=== PATIENT | female | born 1935 | race Caucasian/White ===

== ENCOUNTER → 2016-04-15 | Outpatient (CLI) | payer MEDICARE ==
--- NOTE | 2016-04-15 10:30 | REPMRS ---
Patient History The patient states she has not had a clinical breast exam in over a year. Patient has history of cancer in the right breast at age 71. Family history of breast cancer in sister at age 70 and unknown cancer in daughter at age 45. 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 Taking tamoxifen beginning at age 73. Digital Mammo Screening Bilat: April 15, 2016 - Exam #: [id number] Bilateral CC and MLO view(s) were taken. Technologist: Vanita Guzman, Technologist Prior study comparison: July 12, 2014, bilateral digital mammo screening bilat performed at [facility]. July 09, 2013, bilateral digital mammo screening bilat performed at [facility]. July 13, 2012, bilateral digital mammo screening bilat performed at [facility]. FINDINGS: There are scattered fibroglandular densities. There has been no change in the appearance of the mammogram from the prior studies. There are stable post treatment changes in the right breast.There is a mild amount of scattered fibroglandular density which is fairly symmetric. There is no interval development of dominant mass, architectural distortion, or clustered microcalcification suggestive of malignancy. ASSESSMENT: BI-RADS/ACR category 1 mammogram. Negative. Recommendation Routine screening mammogram in 1 year (for women over age 40). This mammogram was interpreted with the aid of an FDA-approved computer-aided dectection system. Electronically Signed By: Clinton Grullon MD 04/15/16 0561
== END ==
LOC: M RAD 08:54
DX: Z12.31 Encounter for screening mammogram for malignant neoplasm of breast (principal); M81.0 Age-related osteoporosis without current pathological fracture; Z85.3 Personal history of malignant neoplasm of breast; Z80.3 Family history of malignant neoplasm of breast

== ENCOUNTER → 2016-05-27 | Outpatient (CLI) | payer MEDICARE ==
--- NOTE | 2016-05-27 12:19 | REP ---
Clinical: Hip pain. Technique: AP and frog lateral views of the right and left hip. Findings: Moderate symmetric arthritic degenerative changes includes joint space narrowing, creased sclerosis to the acetabular roof, cortical irregularity involving the greater trochanters as well as spurring along the anteroinferior margin of the femoral heads. No acute fracture dislocation. Impression: Symmetric moderate arthritic degenerative changes. Signed by Reece Schmitt MD 05/27/2016 12:10 P
== END ==
LOC: M RAD 11:55
PROVIDERS: ATTEND Internal Medicine Rheumatology
DX: M25.551 Pain in right hip (principal); M25.552 Pain in left hip

== ENCOUNTER → 2016-06-28 | Outpatient (CLI) | payer MEDICARE | LOC: M LAB 14:56 | PROVIDERS: ATTEND Internal Medicine Rheumatology | DX: M85.89 Other specified disorders of bone density and structure, multiple sites (principal); E55.9 Vitamin D deficiency, unspecified ==

== ENCOUNTER → 2016-09-30 | Outpatient (CLI) | payer MEDICARE | LOC: M LAB 08:59 | PROVIDERS: ATTEND Internal Medicine Rheumatology | DX: E55.9 Vitamin D deficiency, unspecified (principal) ==

== ENCOUNTER → 2017-01-26 | Outpatient (CLI) | payer MEDICARE ==
--- NOTE | 2017-01-26 15:40 | REP ---
PA and lateral chest: Comparison is 04/23/2014. There is mild chronic interstitial coarsening, unchanged, compatible with chronic interstitial lung disease. There are no acute infiltrates or effusions. Cardiac size is upper normal. The shereen, mediastinum, bony thorax are unchanged unremarkable for patient age. Impression: There are no acute cardiopulmonary findings. There are chronic stable findings as described. Signed by Emiliano Swain MD 01/26/2017 03:32 P
== END ==
LOC: M RAD 15:00
PROVIDERS: ATTEND Nurse Practitioner Family
DX: R05 Cough (principal); R60.9 Edema, unspecified; R09.89 Other specified symptoms and signs involving the circulatory and respiratory systems

== ENCOUNTER → 2017-02-09 | Outpatient (CLI) | payer MEDICARE ==
--- NOTE | 2017-02-09 18:01 | REP ---
LUMBAR SPINE, FIVE VIEWS: HISTORY: Abnormal bone density. There is no acute fracture. The lumbar intervertebral discs are decreased in height consistent with disc degeneration. Osteophytes are present throughout the lumbar spine. There is narrowing of the L3-4 through L5-S1 facet joints with associated sclerosis. There are 4 mm of grade 1 spondylolisthesis of L3 on L4 and 8 mm of grade 1 spondylolisthesis of L4 on L5. IMPRESSION: Degenerative change as described above. Signed by Anish Meeks MD 02/10/2017 08:29 A
== END ==
LOC: M LAB 11:37
PROVIDERS: ATTEND Internal Medicine Rheumatology
DX: M85.89 Other specified disorders of bone density and structure, multiple sites (principal); M51.36 Other intervertebral disc degeneration, lumbar region; M25.78 Osteophyte, vertebrae; M43.16 Spondylolisthesis, lumbar region

== ENCOUNTER → 2017-05-02 | Outpatient (REF) | payer MEDICARE ==
[2017-05-02 16:22] LABS: BASO # 0.1 10^3/uL (0.0-0.2); BASO % 0.6 % (0.0-1.0); EOS # 0.1 10^3/uL (0.0-0.50); EOS % 1.7 % (0.0-3.0); HEMATOCRIT 37.7 % (36.0-47.0); HEMOGLOBIN 12.5 g/dl (12.0-16.0); IMMATURE GRANULOCYTE % 0.4 % (0-0); LYMPH # 1.8 10^3/uL (1.5-4.5); LYMPH % 23.4 % (24.0-44.0); MEAN CORPUSCULAR HEMOGLOBIN 32.6 pg (27.0-33.0); MEAN CORPUSCULAR HGB CONC 33.2 g/dl (32.0-36.5); MEAN CORPUSCULAR VOLUME 98.2 fl (80.0-96.0); MONO # 0.7 10^3/uL (0.0-0.8); MONO % 8.6 % (0.0-5.0); NEUTROPHILS # 5.1 10^3/uL (1.8-7.7); NEUTROPHILS % 65.3 % (36.0-66.0); PLATELET COUNT, AUTOMATED 194 10^3/uL (150-450); RED BLOOD COUNT 3.84 10^6/uL (4.00-5.40); RED CELL DISTRIBUTION WIDTH 13.2 % (11.5-14.5); WHITE BLOOD COUNT 7.8 10^3/uL (4.0-10.0)
[2017-05-02 16:40] LABS: INR 0.96; PROTHROMBIN TIME 12.9 SECONDS (12.4-14.5)
[2017-05-02 16:41] LABS: PARTIAL THROMBOPLASTIN TIME 29.5 SECONDS (26.8-37.9)
[2017-05-02 16:55] LABS: ALBUMIN/GLOBULIN RATIO 1.48 (1.00-1.93); ALKALINE PHOSPHATASE 79 U/L (45-117); ALT/SGPT 35 U/L (12-78); ANION GAP 9 MEQ/L (8-16); AST/SGOT 28 U/L (7-37); BILIRUBIN,TOTAL 0.3 MG/DL (0.2-1.0); BLOOD UREA NITROGEN 13 MG/DL (7-18); CALCIUM LEVEL 9.3 MG/DL (8.8-10.2); CARBON DIOXIDE LEVEL 31 MEQ/L (21-32); CHLORIDE LEVEL 103 MEQ/L (98-107); CREATININE FOR GFR 0.87 MG/DL (0.55-1.30); GLOMERULAR FILTRATION RATE > 60.0 (>39); GLUCOSE, FASTING 97 MG/DL (70-100); POTASSIUM SERUM 4.1 MEQ/L (3.5-5.1); SODIUM LEVEL 143 MEQ/L (136-145); TOTAL PROTEIN 6.7 GM/DL (6.4-8.2)
[2017-05-02 17:44] LABS: TOTAL 25(OH) VITAMIN D 50.3 NG/ML (30.0-100.0)
== END ==
LOC: M LABDRAW1 13:20
DX: E83.52 Hypercalcemia (principal); R23.3 Spontaneous ecchymoses; Z79.899 Other long term (current) drug therapy; M15.2 Bouchard's nodes (with arthropathy)
CPT/HCPCS: 80053

== ENCOUNTER → 2017-12-22 | Outpatient (CLI) | payer MEDICARE | LOC: M RAD 14:32 | DX: M25.562 Pain in left knee (principal); M25.762 Osteophyte, left knee | CPT/HCPCS: 73564 ==

== ENCOUNTER → 2018-10-10 | Outpatient (REF) | payer MEDICARE | LOC: M LAB REF 12:34 | PROVIDERS: ATTEND Internal Medicine | DX: N39.0 Urinary tract infection, site not specified (principal) ==

== ENCOUNTER → 2019-01-16 | Outpatient (CLI) | payer MEDICARE ==
--- NOTE | 2019-01-16 14:57 | REP ---
REASON: Hip pain. COMPARISON: 05/27/2016 Marked asymmetric hip joint space narrowing has developed since the last exam with subchondral sclerosis and prominent marginal osteophytosis. There is no fracture or dislocation. IMPRESSION: Advanced chronic changes have developed since the last exam as described above. Electronically Signed by Kelton Decker DO 01/16/2019 03:48 P
== END ==
LOC: M RAD 11:47
PROVIDERS: ATTEND Physician Assistant Medical
DX: M25.752 Osteophyte, left hip (principal)

== ENCOUNTER 2021-03-05 11:35 | Observation (INO) | payer MEDICARE ==
[~2021-03-05] VITALS: Ht 154.9 cm; Wt 70.8 kg
[2021-03-05 12:11] LABS: BASO # 0.1 10^3/uL (0.0-0.2); BASO % 0.4 % (0.0-1.0); EOS # 0.1 10^3/uL (0.0-0.5); EOS % 0.5 % (0.0-3.0); HEMATOCRIT 46.2 % (36.0-47.0); HEMOGLOBIN 15.5 g/dl (12.0-15.5); LYMPH # 1.2 10^3/uL (1.5-5.0); LYMPH % 8.7 % (24.0-44.0); MEAN CORPUSCULAR HEMOGLOBIN 32.7 pg (27.0-33.0); MEAN CORPUSCULAR HGB CONC 33.5 g/dl (32.0-36.5); MEAN CORPUSCULAR VOLUME 97.5 fl (80.0-96.0); MONO # 1.1 10^3/uL (0.0-0.8); MONO % 7.6 % (2.0-8.0); NEUTROPHILS # 11.4 10^3/uL (1.5-8.5); NEUTROPHILS % 82.4 % (36.0-66.0); PLATELET COUNT, AUTOMATED 222 10^3/uL (150-450); RED BLOOD COUNT 4.74 10^6/uL (4.00-5.40); WHITE BLOOD COUNT 13.9 10^3/uL (4.0-10.0)
[2021-03-05] MEDS ORDERED: ACETAMINOPHEN TAB 650MG DOSE (2X325MG) PO ONE (12:30)
[2021-03-05 12:34] LABS: ALBUMIN 3.8 GM/DL (3.2-5.2); ALT/SGPT 75 U/L (12-78); BLOOD UREA NITROGEN 31 MG/DL (7-18); CALCIUM LEVEL 9.9 MG/DL (8.8-10.2); CARBON DIOXIDE LEVEL 28 MEQ/L (21-32); CHLORIDE LEVEL 102 MEQ/L (98-107); CREATININE FOR GFR 0.67 MG/DL (0.55-1.30); GLOMERULAR FILTRATION RATE > 60.0 (>32); GLUCOSE, FASTING 93 MG/DL (70-100); POTASSIUM SERUM 3.5 MEQ/L (3.5-5.1); SODIUM LEVEL 141 MEQ/L (136-145); TOTAL PROTEIN 6.9 GM/DL (6.4-8.2)
[2021-03-05] MEDS ORDERED: NS 1,000 ML IV ONE ×3 (13:45→20:05)
--- OUTSIDE RECORDS SUMMARY | 2021-03-05 13:47 | CCD | Continuity of Care Document ---
Author Author Kamini PEREZ P.A.-C. Organization Unknown Address [address] [place] [id number] Phone [phone] Care Team Providers Care Financial Management Name Role Phone Geovanna Lewis AUTM [phone] Problems Description No Information Available Social History Type Date Description Comments Sex Unknown Allergies, Adverse Reactions, Alerts Active Allergies Criticality Reaction | Severity Comments Date Clindamycin Unable to assess criticality rash and headache 12/03/2011 Rabies Vaccines Unable to assess criticality rash 12/03/2011 Penicillin Unable to assess criticality lymphadenitis 07/31/2013 Clindamycin Unable to assess criticality rash 07/31/2013 Synvisc Unable to assess criticality severe local swelling 05/03/2017 Prozac Unable to assess criticality made her fee l angry 09/09/2017 Gabapentin Unable to assess criticality made headach e more severe 12/22/2017 Medications Active Medications SIG Qnty Indications Ordering Provide r Date Nortriptyline HCL 50mg Capsules Take 1 Capsule By Mouth Twice Daily. Maximum Daily Dose Is 2. Maximum Daily Dose Is 2 180caps G43.711 Shirley Rodriguez M.D. 09/22/2016 Baclofen 10mg Tablets Take 1 1/2 Tablets By Mouth Four Times Daily; Maximum Daily Dose Is 6 Tablets 540tabs M 54.2 Jimbo Cho M.D. 03/17/2015 Immunizations Description No Information Available Vital Signs Date Vital Result Comment 12/15/2020 5:58am BP Systolic 140 mmHg BP Diastolic 80 mmHg Heart Rate 80 /min Respiratory Rate 20 /min 08/12/2020 7:20am BP Systolic 140 mmHg BP Diastolic 80 mmHg Heart Rate 88 /min Respiratory Rate 16 /min Results Description No Information Available Procedures Date Code Description Status 12/15/2020 03124 Office/Outpatient Established Mo d MDM 30-39 Min Completed 08/12/2020 87508 Office/Outpatient Established Mo d MDM 30-39 Min Completed Medical Devices Description No Information Available Encounters Type Date Location Provider Dx Diagnosis Office Visit 12/15/2020 11:15a Main office - [place] Hilario Zavala.A.-C. M79.7 Fibromyalgia M54.2 Cervicalgia M54.5 Low back pain G43.719 Chronic migraine w/o aura, i ntractable, w/o stat migr M54.81 Occipital neuralgia F32.89 Other specified depressive e pisodes Office Visit 08/12/2020 9:45a Main office - [place] Hilario Zavala.A.-C. G43.719 Chronic migraine w/o aura, intractable, w/o stat migr M54.81 Occipital neuralgia M79.7 Fibromyalgia M54.2 Cervicalgia M54.5 Low back pain M25.549 Pain in joints of unspecifie d hand F32.89 Other specified depressive e pisodes Assessments Date Code Description Provider 12/15/2020 M79.7 Fibromyalgia Jasmyn Perez P.A.-C. 12/15/2020 M54.2 Cervicalgia Jasmyn Perez P.A.-C. 12/15/2020 M54.5 Low back pain Jasmyn Perez P.A.-C. 12/15/2020 G43.719 Chronic migraine without aura, i ntractable, without status m Jasmyn Perez P.A.-C. 12/15/2020 M54.81 Occipital neuralgia Jasmyn garcia P.A.-C. 12/15/2020 F32.89 Other specified depressive episo sandy Jasmyn Perez P.A.-C. 08/12/2020 G43.719 Chronic migraine without aura, i ntractable, without status m Jasmyn Perez P.A.-C. 08/12/2020 M54.81 Occipital neuralgia Jasmyn garcia P.A.-C. 08/12/2020 M79.7 Fibromyalgia Jasmyn Perez P.A.-C. 08/12/2020 M54.2 Cervicalgia Jasmyn Perez P.A.-C. 08/12/2020 M54.5 Low back pain Jasmyn Perez P.A.-C. 08/12/2020 M25.549 Pain in joints of unspecified [place] Jasmyn Perez P.A.-C. 08/12/2020 F32.89 Other specified depressive episo sandy Jasmyn Perez P.A.-C. Plan of Treatment Future Appointment(s):* 03/13/2021 11:30 am - Jasmyn Perez P.A.-C. at Main office - [place] 12/15/2020 - Jasmyn Perez P.A.-C.* M79.7 Fibromyalgia* Comments:* She continues baclofen and nortriptyline with Tylenol Arthritis. * M54.2 Cervicalgia* Comments:* Improved. * M54.5 Low back pain* Comments:* Stable. * G43.719 Chronic migraine without aura, intractable, without status m* Comments:* Improved. * M54.81 Occipital neuralgia* Comments:* Stable. * F32.89 Other specified depressive episodes* Comments:* Her mood is better today than at her last appt. She did not tolerate Prozac in the past when prescribed at her PCP office. She has declined Cymbalta. * Follow up:* 3 months Functional Status Description No Information Available Mental Status Description No Information Available Referrals Refer to Reason for Referral Status Appt Date [facility] Rheumatology INFLAMMATORY ARTHRITIS Created 0 Rheumatology [address] [address] [phone]"
--- OUTSIDE RECORDS SUMMARY | 2021-03-05 13:48 | CCD ---
Author Author [facility] Organization [facility] Address Unknown Phone Unavailable Care Team Providers Care Gear Inspector Name Role Phone Trickey, J Jasmyn PA Unavailable Unavailable Trickey, J Jasmyn PA Unavailable Unavailable Trickey, J Jasmyn PA Unavailable Unavailable Trickey, J Jasmyn PA Unavailable Unavailable Trickey, J Jasmyn PA Unavailable Unavailable Trickey, J Jasmyn PA Unavailable Unavailable Trickey, J Jasmyn PA Unavailable Unavailable Trickey, J Jasmyn PA Unavailable Unavailable Trickey, J Jasmyn PA Unavailable Unavailable Trickey, J Jasmyn PA Unavailable Unavailable Trickey, J Jasmyn PA Unavailable Unavailable Trickey, J Jasmyn PA Unavailable Unavailable Trickey, J Jasmyn PA Unavailable Unavailable Trickey, J Jasmyn PA Unavailable Unavailable Trickey, J Jasmyn PA Unavailable Unavailable Trickey, J Jasmyn PA Unavailable Unavailable Trickey, J Jasmyn PA Unavailable Unavailable Trickey, J Jasmyn PA Unavailable Unavailable Trickey, J Jasmyn PA Unavailable Unavailable Trickey, J Jasmyn PA Unavailable Unavailable Trickey, J Jasmyn PA Unavailable Unavailable Trickey, J Jasmyn PA Unavailable Unavailable Trickey, J Jasmyn PA Unavailable Unavailable Trickey, J Jasmyn PA Unavailable Unavailable Trickey, J Jasmyn PA Unavailable Unavailable Trickey, J Jasmyn PA Unavailable Unavailable Trickey, J Jasmyn PA Unavailable Unavailable Trickey, J Jasmyn PA Unavailable Unavailable Trickey, J Jasmyn PA Unavailable Unavailable Trickey, J Jasmyn PA Unavailable Unavailable Trickey, J Jasmyn PA Unavailable Unavailable Trickey, J Jasmyn PA Unavailable Unavailable Trickey, J Jasmyn PA Unavailable Unavailable Trickey, J Jasmyn PA Unavailable Unavailable Trickey, J Jasmyn PA Unavailable Unavailable Trickey, J Jasmyn PA Unavailable Unavailable Trickey, J Jasmyn PA Unavailable Unavailable Trickey, J Jasmyn PA Unavailable Unavailable Trickey, J Jasmyn PA Unavailable Unavailable Trickey, J Jasmyn PA Unavailable Unavailable Trickey, J Jasmyn PA Unavailable Unavailable Trickey, J Jasmyn PA Unavailable Unavailable Trickey, J Jasmyn PA Unavailable Unavailable Trickey, J Jasmyn PA Unavailable Unavailable Trickey, J Jasmyn PA Unavailable Unavailable Trickey, J Jasmyn PA Unavailable Unavailable Trickey, J Jasmyn PA Unavailable Unavailable Trickey, J Jasmyn PA Unavailable Unavailable Trickey, J Jasmyn PA Unavailable Unavailable Eliot Dixon MD Unavailable Unavailable Eliot Dixon MD Unavailable Unavailable Eliot Dixon MD Unavailable Unavailable Eliot Dixon MD Unavailable Unavailable [place] huerta MD Unavailable Unavailable [place] huerta MD Unavailable Unavailable [place] huerta MD Unavailable Unavailable DestinyEliot huerta MD Unavailable Unavailable Eliot Dixon MD Unavailable Unavailable Eliot Dixon MD Unavailable Unavailable Eliot Dixon MD Unavailable Unavailable Eliot Dixon MD Unavailable Unavailable Eliot Dixon MD Unavailable Unavailable Eliot Dixon MD Unavailable Unavailable Eliot Dixon MD Unavailable Unavailable Eliot Dixon MD Unavailable Unavailable Eliot Dixon MD Unavailable Unavailable Eliot Dixon MD Unavailable Unavailable Eliot Dixon MD Unavailable Unavailable Eliot Dixon MD Unavailable Unavailable Eliot Dixon MD Unavailable Unavailable Eliot Dixon MD Unavailable Unavailable Eliot Dixon MD Unavailable Unavailable Eliot Dixon MD Unavailable Unavailable Eliot Dixon MD Unavailable Unavailable Eliot Dixon MD Unavailable Unavailable Eliot Dixon MD Unavailable Unavailable Eliot Dixon MD Unavailable Unavailable Eliot Dixon MD Unavailable Unavailable Eliot Dixon MD Unavailable Unavailable Eliot Dixon MD Unavailable Unavailable Eliot Dixon MD Unavailable Unavailable Eliot Dixon MD Unavailable Unavailable Eliot Dixon MD Unavailable Unavailable Eliot Dixon MD Unavailable Unavailable Eliot Dixon MD Unavailable Unavailable Eliot Dixon MD Unavailable Unavailable Eliot Dixon MD Unavailable Unavailable Eliot Dixon MD Unavailable Unavailable [place] huerta MD Unavailable Unavailable Eliot Dixon MD Unavailable Unavailable Eliot Dixon MD Unavailable Unavailable Eliot Dixon MD Unavailable Unavailable [place], Eliot Vergara MD Unavailable Unavailable [place], Eliot Jai REINA Unavailable Unavailable [place], Eliot Jai REINA Unavailable Unavailable Destiny, Eliot Vergara MD Unavailable Unavailable [place], Eliot Vergara MD Unavailable Unavailable [place], Eliot Vergara MD Unavailable Unavailable [place]iny, Eliot Vergara MD Unavailable Unavailable [place], Eliot Vergara MD Unavailable Unavailable Destiny, Eliot Vergara MD Unavailable Unavailable Destiny, Eliot Vergara MD Unavailable Unavailable Destiny, Eliot Vergara MD Unavailable Unavailable [place], Eliot Vergara MD Unavailable Unavailable [place]iny, Eliot Vergara MD Unavailable Unavailable [place], Eliot Vergara MD Unavailable Unavailable [place]iny, Eliot Jai REINA Unavailable Unavailable [place], Eliot Jai REINA Unavailable Unavailable [place], Eliot Jai REINA Unavailable Unavailable Destiny, Eliot Vergara MD Unavailable Unavailable Destiny, Eliot Vergara MD Unavailable Unavailable [place], Eliot Vergara MD Unavailable Unavailable [place], Eliot Vergara MD Unavailable Unavailable [place], Eliot Vergara MD Unavailable Unavailable [place], Eliot Vergara MD Unavailable Unavailable Destiny, Eliot Vergara MD Unavailable Unavailable Destiny, Eliot Vergara MD Unavailable Unavailable Destiny, Eliot Vergara MD Unavailable Unavailable [place], Eliot Vergara MD Unavailable Unavailable [place], Eliot Jai REINA Unavailable Unavailable Destiny, Eliot Jai REINA Unavailable Unavailable Destiny, Eliot Jai REINA Unavailable Unavailable [place], Eliot Jai REINA Unavailable Unavailable [place], Eliot Vergara MD Unavailable Unavailable [place], Eliot Vergara MD Unavailable Unavailable [place], Eliot Vergara MD Unavailable Unavailable [place], Eliot Vergara MD Unavailable Unavailable Destiny, Eliot Vergara MD Unavailable Unavailable Destiny, Eliot Vergara MD Unavailable Unavailable [place], Eliot Vergara MD Unavailable Unavailable [place], Eliot Vergara MD Unavailable Unavailable [place]iny, Eliot Vergara MD Unavailable Unavailable [place], Eliot Vergara MD Unavailable Unavailable [place], Eliot Jai REINA Unavailable Unavailable [place], Eliot Jai REINA Unavailable Unavailable [place], Eliot Jai REINA Unavailable Unavailable Re-disclosure Warning The records that you are about to access may contain information from federally-assisted alcohol or drug abuse programs. If such information is present, then the following federally mandated warning applies: This information has been disclosed to you from records protected by federal confidentiality rules (42 CFR part 2). The federal rules prohibit you from making any further disclosure of this information unless further disclosure is expressly permitted by the written consent of the person to whom it pertains or as otherwise permitted by 42 CFR part 2. A general authorization for the release of medical or other information is NOT sufficient for this purpose. The Federal rules restrict any use of the information to criminally investigate or prosecute any alcohol or drug abuse patient.The records that you are about to access may contain highly sensitive health information, the redisclosure of which is protected by Article 27-F of the [facility] Public Health law. If you continue you may have access to information: Regarding HIV / AIDS; Provided by facilities licensed or operated by the [facility] Office of Mental Health; or Provided by the [facility] Office for People With Developmental Disabilities. If such information is present, then the following [facility] mandated warning applies: This information has been disclosed to you from confidential records which are protected by state law. State law prohibits you from making any further disclosure of this information without the specific written consent of the person to whom it pertains, or as otherwise permitted by law. Any unauthorized further disclosure in violation of state law may result in a fine or correction sentence or both. A general authorization for the release of medical or other information is NOT sufficient authorization for further disc losure. Family History Family Member Name Family Member Gender Family Member Status Date o f Status Description Data Source(s) Unknown Unknown Problem [facility] ([facility] ) Unknown Male Problem [facility] ([facility] ) Encounters Encounter Providers Location Date Indications Data Source(s ) Outpatient Attender: Jasmyn KOO [facility] n 12/15/2020 11:15:00 AM EDT [facility] ([facility]) Outpatient Attender: Jai Coronel 0 09/10/2020 11:00:00 AM EDT [facility] ([facility] ) Outpatient Attender: Jasmyn KOO [facility] n 08/12/2020 09:45:00 AM EDT [facility] ([facility]) Office Visit Attender: Jasmyn KOO [facility] n 03/31/2020 10:15:00 AM EST [facility] ([facility]) Outpatient Attender: Jai Coronel 1 05/06/2019 01:00:00 PM EST [facility] ([facility] ) Immunizations Vaccine Date Status Description Data Source(s) COVID-19 VACCINE Pfizer 02/11/2021 12:00:00 AM EST completed [facility] Vaccine Series Complete: YESThis Data wa s Submitted to [facility] Via Mailbox. COVID-19 VACCINE Moderna 07/01/2020 12:00:00 AM EDT completed [facility] Vaccine Series Complete: YESThis Data wa s Submitted to [facility] Via [employer]. COVID-19 VACCINE Moderna 06/03/2020 12:00:00 AM EST completed [facility] Vaccine Series Complete: NOThis Data was Submitted to [facility] Via Mailbox. Medications Medication Brand Name Start Date Product Form Dose Route Admi nistrative Instructions Pharmacy Instructions Status Indications Reaction Description Data Source(s) Shingrix Shingrix 09/10/2020 12:00:00 AM EDT activ e [facility] ([facility]) Nystatin 100 UNT/MG Topical Powder [Nystop] Nystop 07/07/2020 12:00:00 AM EDT active [facility] ([facility]) Covid-19 vaccine, Unspecified 07/01/2020 12:00:00 AM EDT completed [facility] ([facility]) Medication administered onsite Covid-19 vaccine, Unspecified 06/03/2020 12:00:00 AM EST completed [facility]) Medication administered onsite Tylenol W/Codeine #3 01/24/2020 12:00:00 AM EDT active [facility] ([facility]) 60 ACTUAT Albuterol 0.09 MG/ACTUAT Metered Dose Inhaler Albu terol Sulfate HFA 01/22/2020 12:00:00 AM EDT RESPIRATORY active [facility] ([facility]) Ubrelvy Ubrelvy 10/08/2019 12:00:00 AM EDT ORAL complet ed [facility] ([facility]) Insurance Providers Payer name Policy type / Coverage type Policy ID Covered constitution party ID Covered constitution party's relationship to hair Policy Hair Plan Information [facility] Medicare Primary [id number] Self [id number] Medicare Natl [employer] Medicare Primary [id number] [id number] Self [id number] Medicare Natl [employer] Medicare Primary [id number] 2.840.1.015993.3.227.99.4595.5.0 Self [id number] Medicare Natl [employer] Medicare Primary [id number] 2.840.1.019818.3.227.99.4595.5.0 Self [id number] MEDICARE [id number] SP [id number] [place] [id number] 2.840.1.798209.3.227.99.991.46091.0 Self [id number] Medicare Natl Govt [employer]ic Medicare Primary [id number] 2.0.1.122133.3.227.99.4595.5.0 Self [id number] [place] Primary [id number] 2.840.1.866880.3.227.99.991.48268.0 Self [id number] Medicare Natl [employer] Medicare Primary [id number] 2.840.1.023426.3.227.99.4595.5.0 Self [id number] Medicare Natl [employer] Medicare Primary [id number] 2.0.1.990866.3.227.99.4595.5.0 Self [id number] [place] Primary [id number] 2.840.1.864986.3.227.99.991.75774.0 Self [id number] Medicare [place] Medicare Primary [id number] 2.840.1.308247.3.227.99.991.31894.0 Self [id number] Medicare Natl [employer] Medicare Primary [id number] 2.840.1.427586.3.227.99.4595.5.0 Self [id number] Medicare Natl [employer] Medicare Primary [id number] Self MEDICARE [id number] SP [id number] A Medicare [place] Medicare Primary [id number] 2.840.1.771759.3.227.99.991.47822.0 Self [id number] Medicare Natl Govt [employer]ic Medicare Primary [id number] 2.0.1.050107.3.227.99.4595.5.0 Self [id number] [facility] Medigap Part B [id number] 2.0.1.882439.3.227.99.4595.5.0 Self [id number] [facility] Med[employer] Part B [id number] 2.0.1.466152.3.227.99.4595.5.0 Self [id number] [facility] [employer] Part B [id number] 2.0.1.837225.3.227.99.4595.5.0 Self [id number] [facility] [employer] Part B [id number] 2.0.1.407541.3.227.99.4595.5.0 Self [id number] [facility] [employer] Part B [id number] 2.0.1.410718.3.227.99.4595.5.0 Self [id number] [facility] [employer] Part B [id number] 2.0.1.180459.3.227.99.4595.5.0 Self [id number] [facility] [employer] Part B [id number] 2.0.1.091017.3.227.99.4595.5.0 Self [id number] [facility] [facility] [employer] Med[employer] Part B Plan [id number] Self Plan F [facility] [employer] Part B [id number] 2.0.1.253753.3.227.99.4595.5.0 Self [id number] [facility] Med[employer] Part B [id number] 2.16.840.1.594632.3.227.99.4595.5.0 Self [id number] [facility] [facility] Options Medigap Part B [id number] 2.16.840.1.590991.3.227.99.991.02078.0 Self [id number] [employer] OPTIONS [id number] SP [id number] Aarp Medigap Part B [id number] 2.16.840.1.548182.3.227.99.1037.5 193.0 Self [id number] Medicare Part B Medicare Primary [id number] 2.16.840.1.894018.3.227.99.1037.5193.0 Self [id number] [employer] Medigap Part B 2.16.840.1.000553.3.227.99.8646.169 03.0 Self [place] Medicare Primary 2.16.840.1.52602 3.3.227.99.8646.05904.0 Self MEDICARE [id number] SP [id number] A [employer] OPTIONS [id number] SP [id number] Medicare Part B Medicare Primary [id number] Self Aarp Commercial [id number] Self MEDICARE C [id number] S [id number] A AARP O [id number] S [id number] Medicare Medicare Primary [id number] Self MEDICARE PART A-CLINIC [id number] 18 [id number] AARP HE[employer] CARE OPTIONS [id number] SP [id number] AARP O [id number] S [id number] MEDICARE C [id number] S [id number] [employer]arp Medigap Part B [id number] Self [id number] Medicare Part B Medicare Primary [id number] Self [id number] Aar Medigap Part B [id number] 2.0.1.319125.3.227.99.1037.5 193.0 Self [id number] Medicare Part B Medicare Primary [id number] 2.0.1.788798.3.227.99.1037.5193.0 Self [id number] Aar Medigap Part B [id number] 2.0.1.537675.3.227.99.1037.5 193.0 Self [id number] Medicare Part B Medicare Primary [id number] 2.0.1.809944.3.227.99.1037.5193.0 Self [id number] [employer] (NF) Workers Compensation [id number] 2.0.1.742846.3.227.99.991.65032.0 Self C [id number] [facility] Part B [id number] 2.0.1.035847.3.227.99.8646.1 6903.0 Self [id number] [place] Medicare Primary [id number] 2.0.1.158477.3.227.99.8646.43663.0 Self [id number] Aar Medigap Part B [id number] 2.0.1.817486.3.227.99.1037.5 193.0 Self [id number] Medicare Part B Medicare Primary [id number] 2.0.1.214353.3.227.99.1037.5193.0 Self [id number] Aar Medigap Part B [id number] 2.0.1.357512.3.227.99.1037.5 193.0 Self [id number] Medicare [facility] B Medicare Primary [id number] 2.16.840.1.262952.3.227.99.1037.5193.0 Self [id number] [employer] Medigap Part B [id number] 2.16.840.1.089339.3.227.99.1037.5 193.0 Self [id number] Medicare Part B Medicare Primary [id number] 2.16.840.1.484397.3.227.99.1037.5193.0 Self 0 [id number] [employer] Med[employer]ap Part B [id number] 2.16.840.1.943308.3.227.99.1037.5 193.0 Self [id number] Medicare Part B Medicare Primary [id number] 2.16.840.1.833232.3.227.99.1037.5193.0 Self 0 [id number] [employer] Medigap Part B [id number] 2.16.840.1.855583.3.227.99.1037.5 193.0 Self [id number] Medicare Part B Medicare Primary [id number] 2.16.840.1.769618.3.227.99.1037.5193.0 Self 0 [id number] [employer] Medigap Part B [id number] 2.16.840.1.416936.3.227.99.1037.5 193.0 Self [id number] Medicare Part B Medicare Primary [id number] 2.16.840.1.230230.3.227.99.1037.5193.0 Self 0 [id number] [employer] Medigap Part B [id number] 2.16.840.1.697954.3.227.99.1037.5 193.0 Self [id number] Medicare Part B Medicare Primary [id number] 2.16.840.1.167119.3.227.99.1037.5193.0 Self 0 [id number] [employer] Medigap Part B [id number] 2.16.840.1.586699.3.227.99.1037.5 193.0 Self [id number] Medicare Part B Medicare Primary [id number] 2.16.840.1.427926.3.227.99.1037.5193.0 Self 0 [id number] [facility] [id number] 2.16.840.1.319697.3.227.99.1037.5 193.0 Self [id number] Medicare Part B Medicare Primary [id number] 2.16.840.1.948905.3.227.99.1037.5193.0 Self 0 [id number] Problems, Conditions, and Diagnoses No Information Surgeries/Procedures Procedure Description Date Indications Data Source(s) OFFICE OUTPATIENT VISIT 25 MINUTES 12/15/2020 12:00:00 AM EDT [facility] ([facility] ) OFFICE OUTPATIENT VISIT 25 MINUTES 09/10/2020 12:00:00 AM EDT [facility] ([facility]) OFFICE OUTPATIENT VISIT 25 MINUTES 08/12/2020 12:00:00 AM EDT [facility] ([facility], ) Injection For Nerve Block, Greater Occipital Nerve 05/14/2020 12:00:00 AM EST [facility] ([facility], ) INJECTION ANES OTHER PERIPHERAL NERVE/BRANCH 1 12:00:00 AM EST [facility] ([facility]) Injection For Nerve Block, Greater Occipital Nerve 03/12/2020 12:00:00 AM EST [facility] ([facility], ) INJECTION ANES OTHER PERIPHERAL NERVE/BRANCH 0 12:00:00 AM EST [facility] ([facility], ) INJECTION SINGLE/GOVERNMENT INSTRUCTOR TRIGGER POINT 3/> MUSCLES 020 12:00:00 AM EDT [facility] ([facility], ) INJECTION ANES OTHER PERIPHERAL NERVE/BRANCH 0 12:00:00 AM EDT [facility] ([facility]) Results ID Date Data Source [id number] 09/09/2020 08:43:00 AM EDT [facility] ([facility] Name Value Range Interpretation Code Description Data Holly rce(s) Supporting Document(s) Thyrotropin [Units/volume] in Serum or Plasma by Detec tion limit <= 0.05 mIU/L 2.30 uIU/mL 0.36-3.74 [facility]OH[facility] ([facility] ) ID Date Data Source [id number] 09/09/2020 08:43:00 AM EDT [facility] ([facility]) Name Value Range Interpretation Code Description Data Holly rce(s) Supporting Document(s) Glucose [Mass/volume] in Serum or Plasma 81 mg/dL 74-99 [facility] ([facility]) 100-125 mg/dL PRE-DIABETES/FASTING >126 mg/dL DIABETES/FASTING Urea nitrogen [Mass/volume] in Serum or Plasma 26 mg/dL 7-18 [facility] ([facility]) Creatinine 0.9 mg/dL 0.6-1.3 [facility] ([facility]) Sodium [Moles/volume] in Serum or Plasma 146 meq/L 136-145 [facility] ([facility]) Potassium [Moles/volume] in Serum or Plasma 4.1 meq/L 3.5-5.1 [facility] ([facility]) Chloride [Moles/volume] in Serum or Plasma 105 meq/L 98-107 [facility] ([facility]) Carbon dioxide, total [Moles/volume] in Serum or Plasma 34 meq/L 21 -32 [facility] ([facility]) Calcium [Mass/volume] in Serum or Plasma 9.7 mg/dL 8.5-10.1 [facility] ([facility]) Alkaline phosphatase isoenzyme [Units/volume] in Serum or Pl asma 99 mg/dL 46-116 [facility] Total Bilirubin 0.5 mg/dL 0.2-1.0 [facility] ([facility]) Aspartate aminotransferase [Enzymatic activity/volume] in Serum or Plasma 24 U/L 15-37 [facility] ([facility] ) Albumin [Mass/volume] in Serum or Plasma 3.8 g/dL 3.4-5.0 [facility] ([facility]) Alanine aminotransferase [Enzymatic activity/volume] in Seru m or Plasma 35 U/L 12-78 [facility] ([facility]) Proteinase 3 Ab [Units/volume] in Serum 6.4 g/dL 6.4-8.2 [facility] ([facility]) A/G Ratio 1.46 CALC 1.00-1.90 [facility] [place] [place] Glomerular filtration rate/1.73 sq M pre dicted among blacks [Volume Rate/Area] in Serum or Plasma by Creatinine-based formula (MDRD) Laboratory test result [facility] <content>CHRONIC KIDNEY DISEASE STAGING PER NKF</content>
<content></content>
<content>STAGE I & II GFR >= 60 NORMAL TO MILDLY DECREASED</content>
<content>STAGE III GFR 30-59 MODERATELY DECREASED</content>
<content>STAGE IV GFR 15-29 SEVERELY DECREASED</content>
<content>STAGE V GFR <15 VERY LITTLE GFR LEFT</content>
<content>ESRD GFR <15 ON ELECTRONIC PREPRESS TECHNICIAN</content>
<content></content> Glomerular filtration rate/1.73 sq M pre dicted among non-blacks [Volume Rate/Area] in Serum or Plasma by Creatinine-based formula (MDRD) 60 mL/min [facility] ([facility] ID Date Data Source [id number] 09/09/2020 08:43:00 AM EDT [facility] ([facility]) Name Value Range Interpretation Code Description Data Holly rce(s) Supporting Document(s) Erythrocyte sedimentation rate by Westergren method 12 mm/hr 0-15 [facility] ID Date Data Source [id number] 09/09/2020 08:43:00 AM EDT [facility] ([facility] Name Value Range Interpretation Code Description Data Holly rce(s) Supporting Document(s) Erythrocytes [#/volume] in Blood by Automated count 4.01 x10*6/UL 4.2 0-6.30 [facility] Leukocytes [#/volume] in Blood by Automated count 7.3 x10*3/UL 4.1-10 .9 [facility] Hemoglobin [Mass/volume] in Blood 13.0 g/dL 12.0-18.0 [facility] MCV 94.6 fL 80.0-97.0 [facility] [place] Hematocrit [Volume Fraction] of Blood by Automated count 38.0 % 3 7.0-51.0 [facility] ([facility]) MCHC 34.3 g/dL 31.0-38.0 [facility] MCH 32.5 pg 26.0-32.0 [facility] ([facility] [place] Platelets [#/volume] in Blood by Automated count 185 x10*3/UL 140-440 [facility] Erythrocyte distribution width [Ratio] by Automated count 12.9 % 11.6-13.7 [facility] ([facility]) MPV 9.5 FL 7.8-11.0 [facility] Lymph % 21.0 % 10.0-58.5 [facility] ([facility] [place] Mid % 6.8 % 1.7-9.3 [facility] ([facility] [place] Neut % 72.2 % 37.0-92.0 [facility] ([facility] [place] Mid # 0.5 x10*3/UL 0.1-0.6 [facility] ([facility]) Lymph # 1.5 x10*3/UL 0.6-4.1 [facility] ([facility]) Neut # 5.3 x10*3/UL 2.0-7.8 [facility] ([facility]) ID Date Data Source [id number] 03/05/2020 02:22:00 PM EST [facility] Name Value Range Interpretation Code Description Data Holly rce(s) Supporting Document(s) Urine Color Laboratory test result [facility] ([facility]) Urine Appearance [facility] Specific gravity of Urine 1.010 1.005-1.030 [facility] Urine PH 6.0 units 5.0-9.0 [facility] [facility] Urine Leukocytes Laboratory test result [facility]) Urine Blood Laboratory test result [facility] ([facility]) Glucose [Presence] in Urine Laboratory test result [facility] ([facility]) Urine Protein Laboratory test result 0-0 [facility] ([facility]) Urine Nitrite Laboratory test result [facility] ([facility]) Urine Ketone Laboratory test result [facility] ([facility]) Bilirubin.total [Mass/volume] in Serum or Plasma Laboratory test resu lt [facility] ([facility]) Urine Urobilinogen 0.2 mg/dL 0.2-1.0 [facility] ([facility]) ID Date Data Source [id number] 03/05/2020 02:22:00 PM EST [facility] ([facility]) Name Value Range Interpretation Code Description Data Holly rce(s) Supporting Document(s) Thyrotropin [Units/volume] in Serum or Plasma by Detec tion limit <= 0.05 mIU/L 0.52 uIU/mL 0.36-3.74 [facility] ) ID Date Data Source [id number] 03/05/2020 02:22:00 PM EST [facility] ([facility]) Name Value Range Interpretation Code Description Data Holly rce(s) Supporting Document(s) Cholesterol [Mass/volume] in Serum or Plasma 160 mg/dL 131-200 [facility] ([facility]) Triglyceride [Mass/volume] in Serum or Plasma 80 mg/dL 30-150 [facility]) Cholesterol in HDL [Mass/volume] in Serum or Plasma 84 mg/dL 35-60 [facility] ([facility]) Cholesterol in LDL [Mass/volume] in Serum or Plasma by calcu lation 60 CALC 50-159 [facility] ([facility]) ID Date Data Source [id number] 03/05/2020 02:22:00 PM EST [facility] ([facility]) Name Value Range Interpretation Code Description Data Holly rce(s) Supporting Document(s) Glucose [Mass/volume] in Serum or Plasma 144 mg/dL 74-99 [facility] ([facility]) 100-125 mg/dL PRE-DIABETES/FASTING >126 mg/dL DIABETES/FASTING Creatinine 0.9 mg/dL 0.6-1.3 [facility] Urea nitrogen [Mass/volume] in Serum or Plasma 19 mg/dL 7-18 [facility] ([facility]) Sodium [Moles/volume] in Serum or Plasma 142 meq/L 136-145 [facility] ([facility]) Potassium [Moles/volume] in Serum or Plasma 4.0 meq/L 3.5-5.1 [facility] ([facility]) Chloride [Moles/volume] in Serum or Plasma 104 meq/L 98-107 [facility] ([facility]) Calcium [Mass/volume] in Serum or Plasma 9.3 mg/dL 8.5-10.1 [facility] ([facility]) Carbon dioxide, total [Moles/volume] in Serum or Plasma 32 meq/L 21 -32 [facility] ([facility]) Alkaline phosphatase isoenzyme [Units/volume] in Serum or Pl asma 131 mg/dL 46-116 [facility] ([facility]) Aspartate aminotransferase [Enzymatic activity/volume] in Serum or Plasma 22 U/L 15-37 [facility] ([facility] ) Alanine aminotransferase [Enzymatic activity/volume] in Seru m or Plasma 26 U/L 12-78 [facility] ([facility]) Total Bilirubin 0.5 mg/dL 0.2-1.0 [facility] ([facility]) A/G Ratio 1.15 CALC 1.00-1.90 [facility]) Albumin [Mass/volume] in Serum or Plasma 3.8 g/dL 3.4-5.0 [facility] ([facility]) Proteinase 3 Ab [Units/volume] in Serum 7.1 g/dL 6.4-8.2 [facility] ([facility]) Glomerular filtration rate/1.73 sq M pre dicted among non-blacks [Volume Rate/Area] in Serum or Plasma by Creatinine-based formula (MDRD) 60 mL/min [facility] ([facility]) Glomerular filtration rate/1.73 sq M pre dicted among blacks [Volume Rate/Area] in Serum or Plasma by Creatinine-based formula (MDRD) Laboratory test result [facility] ([facility]) <content>CHRONIC KIDNEY DISEASE STAGING PER NKF</content>
<content></content>
<content>STAGE I & II GFR >= 60 NORMAL TO MILDLY DECREASED</content>
<content>STAGE III GFR 30-59 MODERATELY DECREASED</content>
<content>STAGE IV GFR 15-29 SEVERELY DECREASED</content>
<content>STAGE V GFR <15 VERY LITTLE GFR LEFT</content>
<content>ESRD GFR <15 ON ELECTRONIC PREPRESS TECHNICIAN</content>
<content></content> ID Date Data Source [id number] 03/05/2020 02:22:00 PM EST [facility] ([facility]) Name Value Range Interpretation Code Description Data Holly rce(s) Supporting Document(s) Erythrocyte sedimentation rate by Westergren method 17 mm/hr 0-15 [facility] ([facility]) ID Date Data Source [id number] 03/05/2020 02:22:00 PM EST [facility] ([facility]) Name Value Range Interpretation Code Description Data Holly rce(s) Supporting Document(s) Leukocytes [#/volume] in Blood by Automated count 5.9 x10*3/UL 4.1-10 .9 [facility] ([facility]) Hematocrit [Volume Fraction] of Blood by Automated count 37.1 % 3 7.0-51.0 [facility] ([facility]) Erythrocytes [#/volume] in Blood by Automated count 4.00 x10*6/UL 4.2 0-6.30 [facility] ([facility]) Hemoglobin [Mass/volume] in Blood 12.9 g/dL 12.0-18.0 [facility] ([facility]) MCHC 34.8 g/dL 31.0-38.0 [facility] MCH 32.2 pg 26.0-32.0 [facility]) MCV 92.7 fL 80.0-97.0 [facility]) MPV 9.4 FL 7.8-11.0 [facility] Platelets [#/volume] in Blood by Automated count 193 x10*3/UL 140-440 [facility] ([facility]) Erythrocyte distribution width [Ratio] by Automated count 12.8 % 11.6-13.7 [facility] ([facility]) Lymph % 12.4 % 10.0-58.5 [facility] Neut % 84.3 % 37.0-92.0 [facility] Mid % 3.3 % 1.7-9.3 [facility] Lymph # 0.7 x10*3/UL 0.6-4.1 [facility] ([facility]) Neut # 5.0 x10*3/UL 2.0-7.8 [facility] ([facility]) Mid # 0.2 x10*3/UL 0.1-0.6 [facility] ([facility]) ID Date Data Source [id number] 03/05/2020 01:50:00 PM EST [facility] ([facility]) Name Value Range Interpretation Code Description Data Holly rce(s) Supporting Document(s) Thyrotropin [Units/volume] in Serum or Plasma by Detec tion limit <= 0.05 mIU/L Laboratory test result [facility] ([facility]) ID Date Data Source [id number] 03/05/2020 01:50:00 PM EST [facility] ([facility]) Name Value Range Interpretation Code Description Data Holly rce(s) Supporting Document(s) Erythrocyte sedimentation rate by Westergren method Laboratory test result [facility] ([facility]) Procedure Social History No Information Vital Signs ID Date Data Source UNK Name Value Range Interpretation Code Description Data Source(s) Systolic blood pressure 140 mm[Hg] 140 mm[Hg] [facility] ([facility], ) Diastolic blood pressure 80 mm[Hg] 80 mm[Hg] [facility] ([facility] ) Heart rate 80 /min 80 /min [facility] ([facility] ) Respiratory rate 20 /min 20 /min [facility] ( [facility] ) Body height 61 [in_i] 61 [in_i] [facility] 5'1" Body weight 167.00 [lb_av] 167.00 [lb_av] [facility] ([facility]) Oxygen saturation in Arterial blood by Pulse oximetry 94 % 94 % [facility] ([facility]) Air Body mass index (BMI) [Ratio] 31.6 kg/m2 31.6 k g/m2 [facility] ([facility]) Diastolic blood pressure 78 mm[Hg] 78 mm[Hg] [facility] ([facility]) Heart rate 85 /min 85 /min [facility] ([facility]) Systolic blood pressure 136 mm[Hg] 136 mm[Hg] [facility] ([facility]) Diastolic blood pressure 80 mm[Hg] 80 mm[Hg] [facility] ([facility] ) Heart rate 88 /min 88 /min [facility] ([facility] ) Respiratory rate 16 /min 16 /min [facility] ( [facility] ) Systolic blood pressure 140 mm[Hg] 140 mm[facility]Hg] [facility] Body mass index (BMI) [Ratio] 31.7 kg/m2 31.7 k g/m2 [facility] ([facility]) Body weight 168.00 [lb_av] 168.00 [lb_av] [facility] ([facility]) Systolic blood pressure 152 mm[Hg] 152 mm[Hg] [facility] ([facility]) Diastolic blood pressure 80 mm[Hg] 80 mm[Hg] [facility] ([facility]) Heart rate 76 /min 76 /min [facility]) Body height 61 [in_i] 61 [in_i] [facility] ([facility]) 5'1"
--- OUTSIDE RECORDS SUMMARY | 2021-03-05 13:48 | CCD | Continuity of Care Document ---
Author Author Kamini PEREZ P.A.-C. Organization Unknown Address [address] [place] [id number] Phone [phone] Care Team Providers Care Web Graphic Designer Name Role Phone Geovanna Lewis AUTM [phone] Problems Description No Information Available Social History [...] Available Vital Signs Date Vital Result Comment 08/12/2020 7:20am BP Systolic 140 mmHg BP Diastolic 80 mmHg Heart Rate 88 /min Respiratory Rate 16 /min 12/28/2019 5:50am BP Systolic 130 mmHg BP Diastolic 80 mmHg Heart Rate 84 /min Respiratory Rate 16 /min Results Description No Information Available Procedures Date Code Description Status 12/15/2020 81221 Office/Outpatient Established Mo d MDM 30-39 Min Completed 08/12/2020 84968 Office/Outpatient Established Mo d MDM 30-39 Min Completed Medical Devices Description No Information Available Encounters Type Date Location Provider Dx Diagnosis Office Visit 12/15/2020 11:15a Main office - [place] Hilario Zavala.A.-C. M79.7 Fibromyalgia M54.2 Cervicalgia M54.5 Low back pain G43.719 Chronic migraine w/o aura, i ntractable, w/o stat migr M54.81 Occipital neuralgia F32.89 Other specified depressive e pisodes Office Visit 08/12/2020 9:45a Main office - [place] Hilario Zavala.A.-C. G43.719 Chronic migraine w/o aura, [...] sandy Jasmyn Perez P.A.-C. Plan of Treatment No Information Available Functional Status Description No Information Available Mental Status Description No Information Available Referrals Refer to Dr Reason for Referral Status Appt Date [facility] Rhe[facility]ology INFLAMMATORY ARTHRITIS Created [address] [place] [id number] [phone]"
[2021-03-05 13:57] LABS: C REACTIVE PROTEIN QUANTITATIV 6.06 MG/DL (0.00-0.30)
--- NOTE | 2021-03-05 14:07 | REP ---
INDICATION: weakness, eval for pulmonary pathology COMPARISON: 01/26/2017. TECHNIQUE: PA/Lateral the study is performed at 1:11 p.m. and is submitted for interpretation at 1:53 p.m.. FINDINGS: Lungs: Clear, no infiltrate. Heart: Normal in size. Mediastinum: There is calcification and tortuosity of the thoracic aorta. The mediastinal silhouette is unchanged. Pleural angles: Unremarkable.. Bones and soft tissues: There are degenerative changes of the spine without compression deformity. There is stable chronic elevation of the right hemidiaphragm. IMPRESSION: No acute pulmonary disease. <Electronically signed by Emiliano Rick > 03/05/21 [id number]
[2021-03-05] MEDS ORDERED: BACL10TA8 PO (14:10)
[2021-03-05] MEDS ORDERED: ATOR40TA75 PO (14:10)
[2021-03-05] MEDS ORDERED: LABE20TAB PO (14:10)
[2021-03-05] MEDS ORDERED: LEVO100T5 PO (14:10)
[2021-03-05] MEDS ORDERED: PRED10TA2 PO (14:10)
[2021-03-05] MEDS ORDERED: LABETALOL 200 MG TAB PO ONE (14:25)
[2021-03-05 14:43] LABS: ERYTHROCYTE SEDIMENTATION RATE 9 mm/hr (0-30)
[2021-03-05 16:55] LABS: RSV AMPLIFICATION NEGATIVE (NEGATIVE)
[2021-03-05] MEDS: METOPROLOL 5 MG/5 ML VIAL IV SCH ×3 (18:54→20:54)
[2021-03-05] MEDS ORDERED: LIDOCAINE 2% 5ML JELLY UROJET TOP ONE (19:05)
[2021-03-05] MEDS ORDERED: MOM 30ML SUSPENSION UDC PO PRN (20:00)
--- OUTSIDE RECORDS SUMMARY | 2021-03-05 20:10 | CCD ---
Author Author [facility] Organization [facility] Address Unknown Phone Unavailable Care Team Providers Care Hydroblaster Name Role Phone Trickey, J Jasmyn PA [...] Unavailable Unavailable Eliot Dixon MD Unavailable Unavailable NovingerEliot huerta MD Unavailable Unavailable NovingerEliot huerta MD Unavailable Unavailable NovingerEliot huerta MD Unavailable Unavailable DestinyEliot huerta MD [...] Unavailable Unavailable Eliot Dixon MD Unavailable Unavailable NovingerEliot huerta MD Unavailable Unavailable Eliot Dixon MD Unavailable Unavailable Eliot Dixon MD Unavailable Unavailable Eliot Dixon MD Unavailable Unavailable Novinger, Eliot Vergara MD Unavailable Unavailable Novinger, Eliot Jai REINA Unavailable Unavailable Novinger, Eliot Jai REINA Unavailable Unavailable Destiny, Eliot Vergara MD Unavailable Unavailable Novinger, Eliot Vergara MD Unavailable Unavailable Novinger, Eliot Vergara MD Unavailable Unavailable Destiny, Eliot Vergara MD Unavailable Unavailable Novinger, Eliot Vergara MD Unavailable Unavailable Destiny, Eliot Vergara MD Unavailable Unavailable Destiny, Eliot Vergara MD Unavailable Unavailable Destiny, Eliot Vergara MD Unavailable Unavailable Novinger, Eliot Vergara MD Unavailable Unavailable Destiny, Eliot Vergara MD Unavailable Unavailable Novinger, Eliot Vergara MD Unavailable Unavailable Destiny, Eliot aJi REINA Unavailable Unavailable Novinger, Eliot Jai REINA Unavailable Unavailable Novinger, Eliot Jai REINA Unavailable Unavailable Destiny, Eliot Vergara MD Unavailable Unavailable Destiny, Eliot Vergara MD Unavailable Unavailable Novinger, Eliot Vergara MD Unavailable Unavailable Novinger, Eliot Vergara MD Unavailable Unavailable Novinger, Eliot Vergara MD Unavailable Unavailable Novinger, Eliot Vergara MD Unavailable Unavailable Destiny, Eliot Vergara MD Unavailable Unavailable Destiny, Eliot Vergara MD Unavailable Unavailable Destiny, Eliot Vergara MD Unavailable Unavailable Novinger, Eliot Vergara MD Unavailable Unavailable Destiny, Eliot Jai REINA Unavailable Unavailable Destiny, Eliot Jai REINA Unavailable Unavailable Destiny, Eliot Jai REINA Unavailable Unavailable Novinger, Eliot Jai REINA Unavailable Unavailable Novinger, Eliot Vergara MD Unavailable Unavailable Novinger, Eliot Vergara MD Unavailable Unavailable Novinger, Eliot Vergara MD Unavailable Unavailable Novinger, Eliot Vergara MD Unavailable Unavailable Destiny, Eliot Vergara MD Unavailable Unavailable Destiny, Eliot Vergara MD Unavailable Unavailable Destiny, Eliot Vergara MD Unavailable Unavailable Novinger, Eliot Vergara MD Unavailable Unavailable Destiny, Eliot Vergara MD Unavailable Unavailable Novinger, Eliot Vergara MD Unavailable Unavailable Novinger, Eliot Jai REINA Unavailable Unavailable Novinger, Eliot Jai REINA Unavailable Unavailable Novinger, Eliot Jai REINA Unavailable Unavailable Re-disclosure Warning [...] is protected by Article 27-F of the [facility] Public Health law. If you continue you may have access to information: Regarding HIV / AIDS; Provided by facilities licensed or operated by the [facility] Office of Mental Health; or Provided by the [facility] Office for People With Developmental Disabilities. If such information is present, then the following [facility] mandated warning applies: This information has been [...] law may result in a fine or prison sentence or both. A general authorization for the release of medical or other information is NOT sufficient authorization for further disc losure. Family History Family Member Name Family Member Gender Family Member Status Date o f Status Description Data Source(s) Unknown Unknown Problem [facility] ([facility] ) Unknown Male Problem [facility] ([facility] ) Encounters Encounter Providers Location Date Indications Data Source(s ) Outpatient Attender: Jasmyn KOO [facility] n 12/15/2020 11:15:00 AM EDT [facility] ([facility] Outpatient Attender: Jai Coronel 0 09/10/2020 11:00:00 AM EDT [facility] ([facility] ) Outpatient Attender: Jasmyn KOO [facility] n 08/12/2020 09:45:00 AM EDT [facility] ([facility]) Office Visit Attender: Jasmyn KOO [facility] n 03/31/2020 10:15:00 AM EST [facility] ([facility]) Outpatient Attender: Jai Coronel 1 05/06/2019 01:00:00 PM EST [facility] ([facility] ) Immunizations Vaccine Date Status Description Data Source(s) COVID-19 VACCINE Pfizer 02/11/2021 12:00:00 AM EST completed [facility] Vaccine Series Complete: YESThis Data wa s Submitted to [facility] Via iTiffin. COVID-19 VACCINE Moderna 07/01/2020 12:00:00 AM EDT completed [facility] Vaccine Series Complete: YESThis Data wa s Submitted to [facility] Via iPrintSIIS. COVID-19 VACCINE Moderna 06/03/2020 12:00:00 AM EST completed [facility] Vaccine Series Complete: NOThis Data was Submitted to [facility] Via iTiffin. Medications Medication Brand Name Start Date Product Form Dose Route Admi nistrative Instructions Pharmacy Instructions Status Indications Reaction Description Data Source(s) Shingrix Shingrix 09/10/2020 12:00:00 AM EDT activ e [facility] ([facility]) Nystatin 100 UNT/MG Topical Powder [Nystop] Nystop 07/07/2020 12:00:00 AM EDT active [facility] ([facility]) Covid-19 vaccine, Unspecified 07/01/2020 12:00:00 AM EDT completed [facility] ([facility]) Medication administered onsite Covid-19 vaccine, Unspecified 06/03/2020 12:00:00 AM EST completed [facility] ([facility]) Medication administered onsite Tylenol W/Codeine #3 01/24/2020 12:00:00 AM EDT active [facility] ([facility]) 60 ACTUAT Albuterol 0.09 MG/ACTUAT Metered Dose Inhaler Albu terol Sulfate HFA 01/22/2020 12:00:00 AM EDT RESPIRATORY active [facility] ([facility]) Ubrelvy Ubrelvy 10/08/2019 12:00:00 AM EDT ORAL complet ed [facility] ([facility]) Insurance Providers Payer name Policy type / Coverage type Policy ID Covered green party ID Covered green party's relationship to hair Policy Hair Plan Information Medicare Natl [facility] Medicare Primary [id number] Self [id number] Medicare Natl [employer] Medicare Primary [id number] Self [id number] Medicare Natl Govt [employer]ic Medicare Primary [id number] 2.840.1.070072.3.227.99.4595.5.0 Self [id number] Medicare Natl Govt [employer]ic Medicare Primary [id number] 2.840.1.822632.3.227.99.4595.5.0 Self [id number] MEDICARE [id number] SP [id number] [place] Primary [id number] 2.840.1.603764.3.227.99.991.30854.0 Self [id number] Medicare Natl Govt Servic Medicare Primary [id number] 2.0.1.502539.3.227.99.4595.5.0 Self [id number] [place] Primary [id number] 2.840.1.563569.3.227.99.991.79565.0 Self [id number] Medicare Natl Govt Servic Medicare Primary [id number] 2.840.1.825938.3.227.99.4595.5.0 Self [id number] Medicare Natl Govt Servic Medicare Primary [id number] 2.0.1.738480.3.227.99.4595.5.0 Self [id number] [place] Primary [id number] 2.840.1.579814.3.227.99.991.97943.0 Self [id number] Medicare [place] Medicare Primary [id number] 2.840.1.905794.3.227.99.991.57730.0 Self [id number] Medicare Natl Govt Servic Medicare Primary [id number] 2.840.1.130752.3.227.99.4595.5.0 Self [id number] Medicare Natl Govt Servic Medicare Primary [id number] Self MEDICARE [id number] SP [id number] A Medicare [place] Primary [id number] 2.840.1.495606.3.227.99.991.97848.0 Self 8 [id number] Medicare Natl Govt Servic Medicare Primary [id number] 2.0.1.778073.3.227.99.4595.5.0 Self [id number] [employer] Opt Medigap Part B [id number] 2.0.1.283094.3.227.99.4595.5.0 Self [id number] [employer] Medigap Part B [id number] 2.0.1.627472.3.227.99.4595.5.0 Self [id number] [employer] Medig[employer] Part B [id number] 2.0.1.180888.3.227.99.4595.5.0 Self [id number] [employer] Medig[employer] Part B [id number] 2.0.1.593882.3.227.99.4595.5.0 Self [id number] [employer] Medig[employer] Part B [id number] 2.0.1.942646.3.227.99.4595.5.0 Self [id number] [employer] Medig[employer] Part B [id number] 2.0.1.475927.3.227.99.4595.5.0 Self [id number] [employer] Medig[employer] Part B [id number] 2.0.1.771248.3.227.99.4595.5.0 Self [id number] [employer] Opt Medigap Part B Plan [id number] Self Plan F [employer] Med[employer] Part B [id number] 2.0.1.396260.3.227.99.4595.5.0 Self [id number] [employer] Medig[employer] Part B [id number] 2.16.840.1.039276.3.227.99.4595.5.0 Self [id number] [employer] Options Medigap Part B [id number] 2.16.840.1.033478.3.227.99.991.02246.0 Self [id number] [employer] OPTIONS [id number] SP [id number] [employer] Medigap Part B [id number] 2.16.840.1.101597.3.227.99.1037.5 193.0 Self [id number] Medicare Part B Medicare Primary [id number] 2.16.840.1.798040.3.227.99.1037.5193.0 Self 0 [id number] [employer] Medigap Part B 2.[id number] 03.0 Self Medicare [place] Medicare Primary [id number] 3.3.227.99.8646.43563.0 Self MEDICARE [id number] SP [id number] A [employer] OPTIONS [id number] SP [id number] Medicare Part B Medicare Primary [id number] Self Aarp Commercial [id number] Self MEDICARE C [id number] S [id number] A AARP O [id number] S [id number] Medicare Medicare Primary [id number] Self MEDICARE PART A-CLINIC [id number] 18 [id number] [employer] C[employer] OPTIONS [id number] SP [id number] AARP O [id number] S [id number] MEDICARE C [id number] S [id number] [employer]arp Medigap Part B [id number] Self [id number] Medicare Part B Medicare Primary [id number] Self [id number] Aar Medigap Part B [id number] 2.0.1.964752.3.227.99.1037.5 193.0 Self [id number] Medicare Part B Medicare Primary [id number] 2.0.1.390392.3.227.99.1037.5193.0 Self [id number] Aar Medigap Part B [id number] 2.0.1.891443.3.227.99.1037.5 193.0 Self [id number] Medicare Part B Medicare Primary [id number] 2.0.1.756284.3.227.99.1037.5193.0 Self [id number] [employer] (NF) Workers Compensation [id number] 2.0.1.917581.3.227.99.991.87563.0 Self C [id number] [facility] Part B [id number] 2.0.1.814022.3.227.99.8646.1 6903.0 Self [id number] Medicare [place] Medicare Primary [id number] 2.0.1.154571.3.227.99.8646.81418.0 Self [id number] Aar Medigap Part B [id number] 2.0.1.652554.3.227.99.1037.5 193.0 Self [id number] Medicare Part B Medicare Primary [id number] 2.0.1.848270.3.227.99.1037.5193.0 Self [id number] Aar Medigap Part B [id number] 2.0.1.903380.3.227.99.1037.5 193.0 Self [id number] Medicare [facility] B Medicare Primary [id number] 2.16.840.1.994717.3.227.99.1037.5193.0 Self 0 [id number] [employer] Medigap Part B [id number] 2.16.840.1.824245.3.227.99.1037.5 193.0 Self [id number] Medicare Part B Medicare Primary [id number] 2.16.840.1.789436.3.227.99.1037.5193.0 Self 0 [id number] [employer] Med[employer]ap Part B [id number] 2.16.840.1.494645.3.227.99.1037.5 193.0 Self [id number] Medicare Part B Medicare Primary [id number] 2.16.840.1.821333.3.227.99.1037.5193.0 Self 0 [id number] [employer] Medigap Part B [id number] 2.16.840.1.122134.3.227.99.1037.5 193.0 Self [id number] Medicare Part B Medicare Primary [id number] 2.16.840.1.247647.3.227.99.1037.5193.0 Self 0 [id number] [employer] Medigap Part B [id number] 2.16.840.1.997563.3.227.99.1037.5 193.0 Self [id number] Medicare Part B Medicare Primary [id number] 2.16.840.1.543258.3.227.99.1037.5193.0 Self 0 [id number] [employer] Medigap Part B [id number] 2.16.840.1.921708.3.227.99.1037.5 193.0 Self [id number] Medicare Part B Medicare Primary [id number] 2.16.840.1.768927.3.227.99.1037.5193.0 Self 0 [id number] [employer] Medigap Part B [id number] 2.16.840.1.024530.3.227.99.1037.5 193.0 Self [id number] Medicare Part B Medicare Primary [id number] 2.16.840.1.897855.3.227.99.1037.5193.0 Self [facility] [id number] [facility] [id number] 2.16.840.1.484119.3.227.99.1037.5 193.0 Self [id number] Medicare Part B Medicare Primary [id number] 2.16.840.1.607349.3.227.99.1037.5193.0 Self 0 [id number] Problems, Conditions, and Diagnoses No Information Surgeries/Procedures Procedure Description Date Indications Data Source(s) OFFICE OUTPATIENT VISIT 25 MINUTES 12/15/2020 12:00:00 AM EDT [facility] ([facility] ) OFFICE OUTPATIENT VISIT 25 MINUTES 09/10/2020 12:00:00 AM EDT [facility] ([facility]) OFFICE OUTPATIENT VISIT 25 MINUTES 08/12/2020 12:00:00 AM EDT [facility] ([facility], ) Injection For Nerve Block, Greater Occipital Nerve 05/14/2020 12:00:00 AM EST [facility] ([facility], ) INJECTION ANES OTHER PERIPHERAL NERVE/BRANCH 1 12:00:00 AM EST [facility] ([facility]) Injection For Nerve Block, Greater Occipital Nerve 03/12/2020 12:00:00 AM EST [facility] ([facility], ) INJECTION ANES OTHER PERIPHERAL NERVE/BRANCH 0 12:00:00 AM EST [facility] ([facility], ) INJECTION SINGLE/CHOKE SETTER TRIGGER POINT 3/> MUSCLES 020 12:00:00 AM EDT [facility] ([facility], ) INJECTION ANES OTHER PERIPHERAL NERVE/BRANCH 0 12:00:00 AM EDT [facility] ([facility]) Results ID Date Data Source [id number] 09/09/2020 08:43:00 AM EDT [facility] Name Value Range Interpretation Code Description Data Holly rce(s) Supporting Document(s) Thyrotropin [Units/volume] in Serum or Plasma by Detec tion limit <= 0.05 mIU/L 2.30 uIU/mL 0.36-3.74 ROH[facility]I ([facility] ) ID Date Data Source [id number] 09/09/2020 08:43:00 AM EDT [facility] ([facility]) Name Value Range Interpretation Code Description Data Holly rce(s) Supporting Document(s) Glucose [Mass/volume] in Serum or Plasma 81 mg/dL 74-99 [facility] ([facility]) 100-125 mg/dL PRE-DIABETES/FASTING >126 mg/dL DIABETES/FASTING Urea nitrogen [Mass/volume] in Serum or Plasma 26 mg/dL 7-18 [facility] ([facility]) Creatinine 0.9 mg/dL 0.6-1.3 [facility] ([facility]) Sodium [Moles/volume] in Serum or Plasma 146 meq/L 136-145 [facility] ([facility]) Potassium [Moles/volume] in Serum or Plasma 4.1 meq/L 3.5-5.1 [facility] ([facility]) Chloride [Moles/volume] in Serum or Plasma 105 meq/L 98-107 [facility] ([facility]) Carbon dioxide, total [Moles/volume] in Serum or Plasma 34 meq/L 21 -32 [facility] ([facility]) Calcium [Mass/volume] in Serum or Plasma 9.7 mg/dL 8.5-10.1 [facility] ([facility]) Alkaline phosphatase isoenzyme [Units/volume] in Serum or Pl asma 99 mg/dL 46-116 [facility] Total Bilirubin 0.5 mg/dL 0.2-1.0 [facility] ([facility]) Aspartate aminotransferase [Enzymatic activity/volume] in Serum or Plasma 24 U/L 15-37 [facility] ([facility] ) Albumin [Mass/volume] in Serum or Plasma 3.8 g/dL 3.4-5.0 [facility] ([facility]) Alanine aminotransferase [Enzymatic activity/volume] in Seru m or Plasma 35 U/L 12-78 [facility] ([facility]) Proteinase 3 Ab [Units/volume] in Serum 6.4 g/dL 6.4-8.2 [facility] ([facility]) A/G Ratio 1.46 CALC 1.00-1.90 [facility] ([facility]) Glomerular filtration rate/1.73 sq M pre dicted among blacks [Volume Rate/Area] in Serum or Plasma by Creatinine-based formula (MDRD) Laboratory test result [facility] <content>CHRONIC KIDNEY DISEASE STAGING PER NKF</content>
<content></content>
<content>STAGE I & II GFR >= 60 NORMAL TO MILDLY DECREASED</content>
<content>STAGE III GFR 30-59 MODERATELY DECREASED</content>
<content>STAGE IV GFR 15-29 SEVERELY DECREASED</content>
<content>STAGE V GFR <15 VERY LITTLE GFR LEFT</content>
<content>ESRD GFR <15 ON TRADE MANAGER</content>
<content></content> Glomerular filtration rate/1.73 sq M pre dicted among non-blacks [Volume Rate/Area] in Serum or Plasma by Creatinine-based formula (MDRD) 60 mL/min [facility] ID Date Data Source [id number] 09/09/2020 08:43:00 AM EDT [facility] ([facility] Name Value Range Interpretation Code Description Data Holly rce(s) Supporting Document(s) Erythrocyte sedimentation rate by Westergren method 12 mm/hr 0-15 [facility] ID Date Data Source [id number] 09/09/2020 08:43:00 AM EDT [facility] Name Value Range Interpretation Code Description Data Holly rce(s) Supporting Document(s) Erythrocytes [#/volume] in Blood by Automated count 4.01 x10*6/UL 4.2 0-6.30 [facility] Leukocytes [#/volume] in Blood by Automated count 7.3 x10*3/UL 4.1-10 .9 [facility] Hemoglobin [Mass/volume] in Blood 13.0 g/dL 12.0-18.0 [facility] MCV 94.6 fL 80.0-97.0 [facility] ([facility]) Hematocrit [Volume Fraction] of Blood by Automated count 38.0 % 3 7.0-51.0 [facility] ([facility]) MCHC 34.3 g/dL 31.0-38.0 [facility]) MCH 32.5 pg 26.0-32.0 [facility] ([facility]) Platelets [#/volume] in Blood by Automated count 185 x10*3/UL 140-440 [facility] Erythrocyte distribution width [Ratio] by Automated count 12.9 % 11.6-13.7 [facility] ([facility]) MPV 9.5 FL 7.8-11.0 [facility] ([facility]) Lymph % 21.0 % 10.0-58.5 [facility] ([facility]) Mid % 6.8 % 1.7-9.3 [facility] ([facility]) Neut % 72.2 % 37.0-92.0 [facility] ([facility]) Mid # 0.5 x10*3/UL 0.1-0.6 [facility] ([facility]) Lymph # 1.5 x10*3/UL 0.6-4.1 [facility] ([facility]) Neut # 5.3 x10*3/UL 2.0-7.8 [facility] ([facility]) ID Date Data Source [id number] 03/05/2020 02:22:00 PM EST [facility] ([facility] Name Value Range Interpretation Code Description Data Holly rce(s) Supporting Document(s) Urine Color Laboratory test result [facility] ([facility]) [facility] Specific gravity of Urine 1.010 1.005-1.030 [facility] Urine PH 6.0 units 5.0-9.0 [facility]) Urine Leukocytes Laboratory test result [facility] Urine Blood Laboratory test result [facility] ([facility] Glucose [Presence] in Urine Laboratory test result [facility] Urine Protein Laboratory test result 0-0 [facility] ([facility]) Urine Nitrite Laboratory test result [facility] ([facility]) Urine Ketone Laboratory test result [facility] NT ([facility]) Bilirubin.total [Mass/volume] in Serum or Plasma Laboratory test resu lt [facility] ([facility]) Urine Urobilinogen 0.2 mg/dL 0.2-1.0 [facility] ([facility]) ID Date Data Source [id number] 03/05/2020 02:22:00 PM EST [facility] ([facility]) Name Value Range Interpretation Code Description Data Holly rce(s) Supporting Document(s) Thyrotropin [Units/volume] in Serum or Plasma by Detec tion limit <= 0.05 mIU/L 0.52 uIU/mL 0.36-3.74 [facility] ([facility] ) ID Date Data Source [id number] 03/05/2020 02:22:00 PM EST [facility] ([facility]) Name Value Range Interpretation Code Description Data Holly rce(s) Supporting Document(s) Cholesterol [Mass/volume] in Serum or Plasma 160 mg/dL 131-200 [facility] ([facility]) Triglyceride [Mass/volume] in Serum or Plasma 80 mg/dL 30-150 [facility] ([facility]) Cholesterol in HDL [Mass/volume] in Serum or Plasma 84 mg/dL 35-60 [facility] ([facility]) Cholesterol in LDL [Mass/volume] in Serum or Plasma by calcu lation 60 CALC 50-159 [facility] ([facility]) ID Date Data Source [id number] 03/05/2020 02:22:00 PM EST [facility] ([facility]) Name Value Range Interpretation Code Description Data Holly rce(s) Supporting Document(s) Glucose [Mass/volume] in Serum or Plasma 144 mg/dL 74-99 [facility] ([facility]) 100-125 mg/dL PRE-DIABETES/FASTING >126 mg/dL DIABETES/FASTING Creatinine 0.9 mg/dL 0.6-1.3 [facility] Urea nitrogen [Mass/volume] in Serum or Plasma 19 mg/dL 7-18 [facility] ([facility]) Sodium [Moles/volume] in Serum or Plasma 142 meq/L 136-145 [facility] ([facility]) Potassium [Moles/volume] in Serum or Plasma 4.0 meq/L 3.5-5.1 [facility] ([facility]) Chloride [Moles/volume] in Serum or Plasma 104 meq/L 98-107 [facility] ([facility]) Calcium [Mass/volume] in Serum or Plasma 9.3 mg/dL 8.5-10.1 [facility] ([facility]) Carbon dioxide, total [Moles/volume] in Serum or Plasma 32 meq/L 21 -32 [facility] ([facility]) Alkaline phosphatase isoenzyme [Units/volume] in Serum or Pl asma 131 mg/dL 46-116 [facility] ([facility]) Aspartate aminotransferase [Enzymatic activity/volume] in Serum or Plasma 22 U/L 15-37 [facility] ([facility] ) Alanine aminotransferase [Enzymatic activity/volume] in Seru m or Plasma 26 U/L 12-78 [facility] ([facility]) Total Bilirubin 0.5 mg/dL 0.2-1.0 [facility] ([facility]) A/G Ratio 1.15 CALC 1.00-1.90 [facility]) Albumin [Mass/volume] in Serum or Plasma 3.8 g/dL 3.4-5.0 [facility] ([facility]) Proteinase 3 Ab [Units/volume] in Serum 7.1 g/dL 6.4-8.2 [facility] ([facility]) Glomerular filtration rate/1.73 sq M pre dicted among non-blacks [Volume Rate/Area] in Serum or Plasma by Creatinine-based formula (MDRD) 60 mL/min [facility] ([facility]) Glomerular filtration rate/1.73 sq M pre dicted among blacks [Volume Rate/Area] in Serum or Plasma by Creatinine-based formula (MDRD) Laboratory test result [facility] <content>CHRONIC KIDNEY DISEASE STAGING PER NKF</content>
<content></content>
<content>STAGE I & II GFR >= 60 NORMAL TO MILDLY DECREASED</content>
<content>STAGE III GFR 30-59 MODERATELY DECREASED</content>
<content>STAGE IV GFR 15-29 SEVERELY DECREASED</content>
<content>STAGE V GFR <15 VERY LITTLE GFR LEFT</content>
<content>ESRD GFR <15 ON TRADE MANAGER</content>
<content></content> ID Date Data Source [id number] 03/05/2020 02:22:00 PM EST [facility] ([facility]) Name Value Range Interpretation Code Description Data Holly rce(s) Supporting Document(s) Erythrocyte sedimentation rate by Westergren method 17 mm/hr 0-15 [facility] ([facility]) ID Date Data Source [id number] 03/05/2020 02:22:00 PM EST [facility] ([facility]) Name Value Range Interpretation Code Description Data Holly rce(s) Supporting Document(s) Leukocytes [#/volume] in Blood by Automated count 5.9 x10*3/UL 4.1-10 .9 [facility] ([facility]) Hematocrit [Volume Fraction] of Blood by Automated count 37.1 % 3 7.0-51.0 [facility] ([facility]) Erythrocytes [#/volume] in Blood by Automated count 4.00 x10*6/UL 4.2 0-6.30 [facility] ([facility]) Hemoglobin [Mass/volume] in Blood 12.9 g/dL 12.0-18.0 [facility] ([facility]) MCHC 34.8 g/dL 31.0-38.0 [facility] MCH 32.2 pg 26.0-32.0 [facility]) MCV 92.7 fL 80.0-97.0 [facility]) MPV 9.4 FL 7.8-11.0 [facility] Platelets [#/volume] in Blood by Automated count 193 x10*3/UL 140-440 [facility] ([facility]) Erythrocyte distribution width [Ratio] by Automated count 12.8 % 11.6-13.7 [facility] ([facility]) Lymph % 12.4 % 10.0-58.5 [facility]) Neut % 84.3 % 37.0-92.0 [facility] Mid % 3.3 % 1.7-9.3 [facility] Lymph # 0.7 x10*3/UL 0.6-4.1 [facility] ([facility]) Neut # 5.0 x10*3/UL 2.0-7.8 [facility] ([facility]) Mid # 0.2 x10*3/UL 0.1-0.6 [facility] ([facility]) ID Date Data Source [id number] 03/05/2020 01:50:00 PM EST [facility] ([facility]) Name Value Range Interpretation Code Description Data Holly rce(s) Supporting Document(s) Thyrotropin [Units/volume] in Serum or Plasma by Detec tion limit <= 0.05 mIU/L Laboratory test result [facility] ([facility]) ID Date Data Source [id number] 03/05/2020 01:50:00 PM EST [facility] ([facility]) Name Value Range Interpretation Code Description Data Holly rce(s) Supporting Document(s) Erythrocyte sedimentation rate by Westergren method Laboratory test result [facility] ([facility]) Procedure Social History No Information Vital Signs ID Date Data Source UNK Name Value Range Interpretation Code Description Data Source(s) Systolic blood pressure 140 mm[Hg] 140 mm[Hg] M [facility] ([facility], ) Diastolic blood pressure 80 mm[Hg] 80 mm[Hg] [facility] ([facility], ) Heart rate 80 /min 80 /min [facility] ([facility], ) Respiratory rate 20 /min 20 /min [facility] ( [facility], ) Diastolic blood pressure 78 mm[Hg] 78 mm[Hg] [facility] ([facility]) Heart rate 85 /min 85 /min [facility] ([facility]) Systolic blood pressure 136 mm[Hg] 136 mm[Hg] M [facility] ([facility]) Body height 61 [in_i] 61 [in_i] [facility] ([facility]) 5'1" Body weight 167.00 [lb_av] 167.00 [lb_av] [facility] ([facility]) Oxygen saturation in Arterial blood by Pulse oximetry 94 % 94 % [facility] ([facility]) Air Body mass index (BMI) [Ratio] 31.6 kg/m2 31.6 k g/m2 [facility] ([facility]) Diastolic blood pressure 80 mm[Hg] 80 mm[Hg] [facility] ([facility], ) Heart rate 88 /min 88 /min [facility] ([facility], ) Respiratory rate 16 /min 16 /min [facility] ( [facility], ) Systolic blood pressure 140 mm[Hg] 140 mm[Hg] [facility] ([facility], ) Body weight 168.00 [lb_av] 168.00 [lb_av] [facility] ([facility]) Systolic blood pressure 152 mm[Hg] 152 mm[Hg] [facility] ([facility]) Diastolic blood pressure 80 mm[Hg] 80 mm[Hg] [facility] ([facility]) Heart rate 76 /min 76 /min [facility] ([facility]) Body height 61 [in_i] 61 [in_i] [facility] ([facility]) 5'1" Body mass index (BMI) [Ratio] 31.7 kg/m2 31.7 k g/m2 [facility] ([facility])
--- NOTE | 2021-03-05 20:32 | ECGEPIP ---
[facility] - ED Test Date: 2021-03-05 Pat Name: RONNY MILLARD Department: Room: - Gender: Female Security Systems Engineer: LR : 1935 Requested By: YORDAN Hogue Order Number: [id number] Reading MD: Seven Miller Measurements Intervals [place] Rate: 115 P: 48 AR: 158 QRS: -9 QRSD: 86 T: 44 QT: 332 QTc: 459 Interpretive Statements Sinus tachycardia POOR R WAVE PROGRESSION Moderate voltage criteria for LVH, may be normal variant ( R in aVL , [place] product ) Nonspecific ST abnormality NO PRIORS FOR COMPARISON Electronically Signed on 03-05-2021 20:31:55 EST by Seven Miller
[2021-03-05] MEDS ORDERED: C 50TAB PO (20:40)
[2021-03-05] MEDS ORDERED: D31000TA2 PO (20:40)
[2021-03-05] MEDS ORDERED: PYRI50TA41 PO (20:40)
[2021-03-05] MEDS ORDERED: OCUVTAB4 PO (20:40)
[2021-03-05] MEDS ORDERED: REST0.057 OU (20:40)
[2021-03-05] MEDS ORDERED: NYST10006 TOP (20:40)
[2021-03-05] MEDS ORDERED: CALC250T PO (20:40)
[2021-03-05] MEDS ORDERED: QC A650T3 PO (20:40)
[2021-03-05] MEDS ORDERED: VITA-113 SL (20:40)
[2021-03-05] MEDS ORDERED: NORT50CA PO (20:40)
[2021-03-05] MEDS ORDERED: FISH1000 PO (20:43)
[2021-03-05] MEDS ORDERED: HOME MED LIST COMPLETE! XX SCH (20:45)
[2021-03-05] MEDS ORDERED: NYSTATIN 100,000 UNITS/GM TOPICAL PWD 15 GM TOP PRN (20:55)
--- NOTE | 2021-03-05 20:58 | HPEPDOC ---
[facility] Medical History & Physical Date of Admission Mar 05, 2021 Date of Service: Mar 05, 2021 Primary Care Physician: Jr Dixon Collins Attending Physician: STEPHEN MALIK MD History and Physical CHIEF COMPLAINT: Weakness HISTORY OF PRESENT ILLNESS: Patient is a an 85-year-old female who presents with a 4-day history of progressively worsening weakness. She had a mechanical fall on Tuesday evening due to left knee weakness and what her believes was possible pre-syncope. She denies loss of consciousness or hitting her head. Following the fall her attempt to help her up but she was unable to stand and did not want medical evaluation as she was hoping it would resolve on its own, she remained on the ground until Tuesday when her stated that this was no longer working and that she should be evaluated in the emergency department. In the emergency department she was found to have rhabdomyolysis and a mildly elevated troponin with no EKG changes as well as orthostatic hypotension. ED provider spoke with hoop riveting machine operator at [facility] this is likely from her rhabdomyolysis and does not represent a true ischemic event. The hospitalist service was contacted for admission. PAST MEDICAL HISTORY: Hypertension Hyperlipidemia Osteoarthiritis Hypothyroidism Hx of breast cancer ER/GA+, HER2/WENCESLAO negative ?Hx of LE neuropathy PAST SURGICAL HISTORY: R-breast lumpectomy w/ sentinel lymph node biopsy(2010) cholecystectomy (2012) Hx of umbilical hernia (2010) colonoscopy (2010) SOCIAL HISTORY: Denies tobacco use. Admits to an occasional glass of wine once a month Denies marijuana, heroin, cocaine, PCP, or other illicit drug use. Lives at home with her No history of recent travel. No pets FAMILY HISTORY: Reviewed, noncontributory ALLERGIES: Please see below. REVIEW OF SYSTEMS: Constitutional: Denies fevers, chills, night sweats, or recent unexpected weight change HEENT: Denies headaches, head trauma, no visual changes or eye pain, denies nosebleeds or difficulty swallowing. Cardiovascular: Denies chest pain, palpitations, or orthopnea. Respiratory: Denies cough, wheezing, or shortness of breath GI: Denies nausea, vomiting, abdominal pain, diarrhea, or constipation : Denies pain with urination or frequency Musculoskeletal: Denies joint pain or swelling Neuro/psych: Admits to muscle weakness in her left leg Skin: Denies skin rashes HOME MEDICATIONS: Please see below. PHYSICAL EXAMINATION: VITAL SIGNS: See below GENERAL APPEARANCE: Well-appearing female who appears stated age sitting comfortably in bed in no acute distress HEENT: NC, AT, EOMI, no scleral icterus, moist mucous membranes, no pharyngeal erythema. CARDIOVASCULAR: RRR, normal S1-S2. No murmurs, gallops, rubs. LUNGS: CTAB with full breath sounds, no wheezes, crackles, or rhonchi. ABDOMEN: Soft, nontender, nondistended, bowel sounds present. No CVA tenderness. EXTREMITIES: No swelling or edema. No signs of erythema, tenderness, swelling of the knee. Some restricted ROM with flexion of the knee. MSK: Strength intact in bilateral UE/LE. NEUROLOGICAL: No focal or sensory deficits. CN II-XII grossly intact. Sensation intact in bilateral UE/LE. PSYCHIATRIC: Normal mood and affect LABORATORY DATA: See below. IMAGIN03/05/2021 chest x-ray: Impression: No acute pulmonary disease MICROBIOLOGY: Please see below. Assessment/Plan: #. Lower extremity weakness Unclear etiology, patient states her generalized weakness has been going on for at least the last 9 months though, but this is an acute worsening of it No x-rays of lower extremities obtained, elevated CRP, with normal ESR, but no focal signs of inflammation on physical exam We will obtain hip and knee x-rays, PT/OT ordered #. Orthostatic hypotension Rechecking orthostats now s/p 1 liter IVF, orthostats noted to be positive in the ED, will continue to hydrate overnight #. Rhabdomyolysis S/p down on the ground for 1-2 hours, CK 1300 Received 1 L in the ED, will give additional 1 L NS overnight #. Elevated troponin Initial POC Trop did not crossover, was 0.13 per ED staff elevated to 0.20 with no EKG changes or symptomatology We will trend troponin values Telemetry monitoring #. Leukocytosis -Likely reactionary from the fall, UA, CXR negative #. Osteoarthritis Continue prednisone every 2 days Continue Tylenol #. Hypertension Hold home labetalol until resolution of orthostasis, she received a dose in the ED #. Hyperlipidemia Hold home atorvastatin in light of rhabdo, elevated AST #. Hypothyroid Continue home Synthroid #. Lower extremity neuropathy Continue home nortriptyline DVT prophylaxis: Lovenox Disposition: Observation, anticipate requiring subacute versus acute rehab CODE STATUS: Full code Vital Signs Vital Signs Date Time Temp Pulse Resp B/P (MAP) Pulse Ox O2 Delivery O2 Flow Rate FiO2 03/05/21 19:12 101 165/80 03/05/21 18:53 18 93 Room Air 03/05/21 12:00 98.6 Laboratory Data Labs 24H Laboratory Tests 2 03/05/21 11:59: Immature Granulocyte % (Auto) 0.4, Neutrophils (%) (Auto) 82.4H, Lymphocytes (%) (Auto) 8.7L, Monocytes (%) (Auto) 7.6, Eosinophils (%) (Auto) 0.5, Basophils (%) (Auto) 0.4, Neutrophils # (Auto) 11.4H, Lymphocytes # (Auto) 1.2L, Monocytes # (Auto) 1.1H, Eosinophils # (Auto) 0.1, Basophils # (Auto) 0.1, Nucleated Red Blood Cells % (auto) 0.0, Erythrocyte Sedimentation Rate 9, Anion Gap 11, Glomerular Filtration Rate > 60.0, Calcium Level 9.9, Total Bilirubin 1.0, Aspartate Amino Transf (AST/SGOT) 120H, Alanine Aminotransferase (ALT/SGPT) 75, Alkaline Phosphatase 81, C-Reactive Protein, Quantitative 6.06H, Total Protein 6.9, Albumin 3.8, Albumin/Globulin Ratio 1.2 03/05/21 13:55: POC Troponin I (Misc) 0.11H 03/05/21 14:05: Total Creatine Kinase 1375H 03/05/21 15:43: Coronavirus (COVID-19)(PCR) NEGATIVE, Influenza Type A (RT-PCR) NEGATIVE, Influenza Type B (RT-PCR) NEGATIVE, Respiratory Syncytial Virus (PCR) NEGATIVE 03/05/21 18:19: Urine Color YELLOW, Urine Appearance HAZY, Urine pH 5.0, Urine Specific [place] 1.026, Urine Protein 2+H, Urine Glucose (UA) NEGATIVE, Urine Ketones 2+H, Urine Blood NEGATIVE, Urine Nitrite NEGATIVE, Urine Bilirubin NEGATIVE, Urine Urobilinogen 0.2, Urine Leukocyte Esterase TRACEH, Urine WBC (Auto) 9H, Urine RBC (Auto) 4H, Urine Hyaline Casts (Auto) 1, Urine Bacteria (Auto) NEGATIVE, Urine Squamous Epithelial Cells 9, Urine Mucus (Auto) SMALL, Urine Sperm (Auto) CBC/BMP Laboratory Tests 03/05/21 11:59 Microbiology Microbiology 03/05/21 Urine Culture, Received Pending Home Medications Scheduled Ascorbic Acid (Vitamin C) 500 Mg Tablet, 500 MG PO BID Atorvastatin Calcium (Atorvastatin Calcium) 40 Mg Tablet, 40 MG PO DAILY Baclofen (Baclofen) 10 Mg Tablet, 15 MG PO QID Calcium Citrate (Calcium Citrate) 250 Mg Tablet, 1,000 MG PO BID Cholecalciferol (Vitamin D3) (Vitamin D3) 1,000 Unit Tablet, 1,000 UNITS PO DAILY Cyanocobalamin (Vitamin B-12) (Vitamin B-12) 1,000 Mcg Tab.subl, 1,000 MCG SL DAILY Cyclosporine (Restasis Multidose) 5.5 Ml Drops, 1 DROP OU BID Labetalol HCl (Labetalol HCl) 200 Mg Tablet, 400 MG PO BID Levothyroxine Sodium (Levothyroxine Sodium) 100 Mcg Tablet, 100 MCG PO DAILY Nortriptyline HCl (Nortriptyline HCl) 50 Mg Capsule, 50 MG PO BID [place]-3 Fatty Acids/Fish Oil (Fish Oil 1,000 mg Capsule) 1 Each Capsule, 1,000 MG PO TID Prednisone (Prednisone) 10 Mg Tablet, 10 MG PO Q2D Pyridoxine HCl (Vitamin B6) (Vitamin B-6) 50 Mg Tablet, 50 MG PO DAILY Vit A/Vit C/Vit E/Zinc/Copper (Preservision Areds Tablet) 1 Each Tablet, 1 TAB PO BID Scheduled PRN Acetaminophen (Acetaminophen 8 Hour) 650 Mg Tablet.er, 650 MG PO TID PRN for PAIN LEVEL 1-5 Nystatin (Nystop) 60 Gm Powder, 1 APLCT TOP BID PRN for RASH/ITCHING UNDER BREASTS Allergies Coded Allergies: No Known Allergies (Unverified , 03/05/21) GME ATTESTATION GME ATTESTATION My faculty preceptor for this patient encounter was physically present during the encounter and was fully available. All aspects of the patient interview, exa mination, medical decision making process, and medical care plan development were reviewed and approved by the faculty preceptor. The faculty preceptor is aware and concurs with the plan as stated in the body of this note and will attest to such by his/her cosignature. ATTENDING NOTE I, A Yousef, have independently examined this patient and performed my own physical exam, as well as reviewed the documentation and addend when necessary. I have discussed in detail with the resident / student the findings and plan of treatment as documented by the resident / student. I agree with their findings and treatment plan except for any changes as outlined below. HENOK SOLANO DO Mar 05, 2021 20:30 STEPHEN MALIK MD Mar 08, 2021 04:55
[2021-03-05 21:44] LABS: CK-MB VALUE MASS 8.4 NG/ML (<3.6); MB/CK RELATIVE INDEX 0.89 (< OR =4)
--- NOTE | 2021-03-05 22:24 | REPVR ---
Testing 123 testing testing testing testing PROCEDURE INFORMATION: Exam: XR Left Knee Exam date and time: 03/05/2021 8:35 PM Age: 85 years old Clinical indication: Pain; Hip and knee; Left; Additional info: Lle weakness TECHNIQUE: Imaging protocol: XR Left knee. Views: 4 or more views. COMPARISON: 1. CR Knee, complete 2017-12-22 14:42 2. NM Bone Scan Whole Body 2014-09-16 13:51 FINDINGS: Bones/joints: Mild degenerative joint disease. Moderate degenerative joint disease. Moderate lateral and mild moderate medial compartment degenerative joint space loss and adjacent spurs. Inferior patellar spurring. Flabella. No acute fracture or dislocation. Soft tissues: Normal. IMPRESSION: No acute osseous abnormality. Moderate degenerative joint disease. Electronically signed by: Al Saavedra On 03/05/2021 22:22:58 PM
--- NOTE | 2021-03-05 22:26 | REPVR ---
PROCEDURE INFORMATION: Exam: XR Bilateral Hips Exam date and time: 03/05/2021 8:35 PM Age: 85 years old Clinical indication: Hip pain; Left hip; Additional info: Lle weakness TECHNIQUE: Imaging protocol: XR bilateral hips. Views: 2 views of hips with pelvis when performed. COMPARISON: 1. CR Hip, Ap,Lat 2019-01-16 12:05 2. CR Hip, Ap,Lat 2016-05-27 12:02 3. 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 Mild deformity of the articular surface. Mild moderate right hip degenerative joint disease. Moderate sacroiliac arthrosis. Soft tissues: Unremarkable. 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 Mild deformity of the articular surface. Electronically signed by: Al Saavedra On 03/05/2021 22:26:07 PM
[2021-03-05] MEDS ORDERED: PILL CUTTER 1 EACH XX ONE (22:29)
[2021-03-05] MEDS: DOCUSATE SODIUM 100MG CAPSULE PO SCH (22:33)
[2021-03-05] MEDS: LABETALOL 200 MG TAB PO SCH (22:34)
[2021-03-05] MEDS: BACLOFEN 10 MG TAB PO SCH (22:46)
[2021-03-06] MEDS: NORTRIPTYLINE 25 MG CAP PO SCH ×3 (00:33→21:38)
[2021-03-06] MEDS: OCUVITE 1 TAB PO SCH ×3 (00:33→21:38)
--- NOTE | 2021-03-06 01:08 | ECGEPIP ---
[facility] - ED Test Date: 2021-03-05 Pat Name: RONNY MILLARD Department: Room: - Gender: Female Pipe Coverer And Insulator: LEATHA : 1935 Requested By: BARBARA KHAN Order Number: [id number] Reading MD: Seven Miller Measurements Intervals [place] Rate: 117 P: 62 IA: 160 QRS: -7 QRSD: 86 T: 29 QT: 326 QTc: 454 Interpretive Statements Sinus tachycardia POOR R WAVE PROGRESSION Moderate voltage criteria for LVH, may be normal variant ( R in aVL , [place]ial product ) NSTTW ABNORMALITY(S) SIMILAR TO PRIOR ON SAME DATE Electronically Signed on 03-06-2021 1:08:12 EST by Seven Miller
[2021-03-06 04:02] LABS: BASO # 0.1 10^3/uL (0.0-0.2); BASO % 0.6 % (0.0-1.0); EOS # 0.1 10^3/uL (0.0-0.5); HEMATOCRIT 37.1 % (36.0-47.0); LYMPH # 1.3 10^3/uL (1.5-5.0); LYMPH % 12.5 % (24.0-44.0); MEAN CORPUSCULAR HEMOGLOBIN 33.1 pg (27.0-33.0); MEAN CORPUSCULAR HGB CONC 33.2 g/dl (32.0-36.5); MEAN CORPUSCULAR VOLUME 99.7 fl (80.0-96.0); MONO % 9.8 % (2.0-8.0); NEUTROPHILS % 75.8 % (36.0-66.0); PLATELET COUNT, AUTOMATED 184 10^3/uL (150-450); RED BLOOD COUNT 3.72 10^6/uL (4.00-5.40); WHITE BLOOD COUNT 10.5 10^3/uL (4.0-10.0)
[2021-03-06 04:05] LABS: HEMOGLOBIN 12.3 g/dl (12.0-15.5)
[2021-03-06 04:27] LABS: BLOOD UREA NITROGEN 25 MG/DL (7-18); CALCIUM LEVEL 7.7 MG/DL (8.8-10.2); CARBON DIOXIDE LEVEL 23 MEQ/L (21-32); CHLORIDE LEVEL 114 MEQ/L (98-107); CREATININE FOR GFR 0.53 MG/DL (0.55-1.30); GLOMERULAR FILTRATION RATE > 60.0 (>32); GLUCOSE, FASTING 76 MG/DL (70-100); POTASSIUM SERUM 3.2 MEQ/L (3.5-5.1); SODIUM LEVEL 147 MEQ/L (136-145)
[2021-03-06] MEDS ORDERED: POTASSIUM CHLORIDE 10MEQ SR TABLET PO ONE (05:40)
[2021-03-06] MEDS: LEVOTHYROXINE 100MCG TABLET (0.1MG) PO SCH (07:32)
[2021-03-06] MEDS: DOCUSATE SODIUM 100MG CAPSULE PO SCH ×2 (09:01→21:38)
[2021-03-06] MEDS: VITAMIN D 1,000 INTERNATIONAL UNITS TABLET PO SCH (09:01)
[2021-03-06] MEDS: BACLOFEN 10 MG TAB PO SCH ×4 (09:01→21:38)
[2021-03-06] MEDS: ATORVASTATIN 20 MG TAB PO SCH (09:01)
[2021-03-06] MEDS: PYRIDOXINE 50 MG TAB PO SCH (09:01)
[2021-03-06] MEDS: ENOXAPARIN 40MG/0.4ML SYRINGE (J1650 PER 10MG) SC SCH (09:02)
[2021-03-06] MEDS: LABETALOL 200 MG TAB PO SCH ×2 (09:02→21:41)
--- NOTE | 2021-03-06 12:41 | IPNPDOC ---
Text Note Date of Service The patient was seen on 03/06/21. NOTE Subjective: Patient is an 85-year-old female with a PMHx of HTN, DLP, Hypothyroidism, OA, who presented to the ER on 03/05 with 6 month history of groin pain. Patient reported that she's been experiencing weakness in the ER, patient was found to have elevated troponin, but denied any chest pain and she did not have any EKG changes. Patient was admitted to the hospital service for further evaluation and treatment. Patient was seen and examined at the bedside. Currently patient denies any chest pain, short of breath, palpitations, nausea, vomiting or abdominal discomfort. Patient reports that she is experiencing some left hernia pain. Objective: Vitals (See below) General: Lying in bed, appears comfortable, AAOx3 HEENT: NC, AT CVS: +S1S2 Lungs: Fair air entry b/l, no wheezing, rales or rhonchi Abdomen: Soft, ND, NT Extremities: - Edema, - Calf tenderness Imaging: CXR 03/05: No acute pulmonary disease. 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 Mild deformity of the articular surface. L knee XR 03/05: No acute osseous abnormality. Moderate degenerative joint disease. Assessment and plan: Lower extremity weakness / L hip pain - Patient has reported progressive generalized weakness for at least 6 months - Patient reports that she usually follows with an orthopedic surgeon who is now retired - Physicals unrevealing - Imaging noted above - MRI hip pending - c/w PT / OT; anticipate transition to ARU s/p Orthostatic hypotension - s/p IV fluid hydration s/p Rhabdomyolysis - CK levels have trended down Elevated troponin - possibly 2/2 rhabdomyolysis, possibly 2/2 demand ischemia, less likely 2/2 NSTEMI - Patient denies any chest pain, shortness breath, palpitations - EKG was reviewed without any ischemic changes - Troponin trend stable Leukocytosis - Review of systems negative for any source of infection - Patient is currently on chronic steroid therapy as an outpatient - Trending down - Patient remains afebrile and hemodynamically stable - No indication for antibiotics at this time OA - c/w Prednisone q2 days - c/w Tylenol PRN HTN - BP elevated currently - c/w Labetalol DLP - Atorvastatin was resumed Hypothyroidism - c/w Levothyroxine Vitamin D deficiency - c/w supplementation Lower extremity neuropathy - c/w Nortriptyline DVT prophylaxis - c/w Lovenox Code Status: - Full code Disposition: - Potential transition to ARU VS,Fishbone, I+O VS, Fishbone, I+O Laboratory Tests 03/06/21 03:57 Vital Signs Date Time Temp Pulse Resp B/P (MAP) Pulse Ox O2 Delivery O2 Flow Rate FiO2 03/06/21 09:22 98.5 107 23 171/98 (122) 97 Room Air I&O- Last 24 Hours up to 6 AM 03/06/21 06:00 Intake Total 3000 ml Balance 3000 ml BRUNO HEARN MD Mar 06, 2021 12:41
[2021-03-06] MEDS: ACETAMINOPHEN TAB 650MG DOSE (2X325MG) PO PRN (13:36)
[2021-03-06] MEDS: CYCLOSPORINE OU SCH (21:42)
[2021-03-06 22:00] VITALS: BP 168/88
[2021-03-07 02:00] VITALS: BP 150/68
[2021-03-07] MEDS: LEVOTHYROXINE 100MCG TABLET (0.1MG) PO SCH (05:57)
[2021-03-07 06:00] VITALS: BP 172/90
[2021-03-07 06:04] LABS: BASO # 0.1 10^3/uL (0.0-0.2); BASO % 0.9 % (0.0-1.0); EOS # 0.3 10^3/uL (0.0-0.5); EOS % 3.3 % (0.0-3.0); HEMATOCRIT 37.5 % (36.0-47.0); HEMOGLOBIN 12.3 g/dl (12.0-15.5); LYMPH # 2.1 10^3/uL (1.5-5.0); LYMPH % 25.5 % (24.0-44.0); MEAN CORPUSCULAR HEMOGLOBIN 32.9 pg (27.0-33.0); MEAN CORPUSCULAR HGB CONC 32.8 g/dl (32.0-36.5); MEAN CORPUSCULAR VOLUME 100.3 fl (80.0-96.0); MONO # 0.8 10^3/uL (0.0-0.8); MONO % 9.9 % (2.0-8.0); NEUTROPHILS # 4.8 10^3/uL (1.5-8.5); PLATELET COUNT, AUTOMATED 188 10^3/uL (150-450); RED BLOOD COUNT 3.74 10^6/uL (4.00-5.40); WHITE BLOOD COUNT 8.1 10^3/uL (4.0-10.0)
[2021-03-07 06:23] LABS: BLOOD UREA NITROGEN 19 MG/DL (7-18); CALCIUM LEVEL 8.5 MG/DL (8.8-10.2); CARBON DIOXIDE LEVEL 25 MEQ/L (21-32); CHLORIDE LEVEL 114 MEQ/L (98-107); CREATININE FOR GFR 0.59 MG/DL (0.55-1.30); GLOMERULAR FILTRATION RATE > 60.0 (>32); GLUCOSE, FASTING 100 MG/DL (70-100); POTASSIUM SERUM 3.4 MEQ/L (3.5-5.1); SODIUM LEVEL 147 MEQ/L (136-145)
[2021-03-07] MEDS ORDERED: predniSONE 10 MG TAB PO SCH (09:00)
[2021-03-07] MEDS ORDERED: POTASSIUM CHLORIDE 10MEQ SR TABLET PO ONE (09:00)
[2021-03-07 09:50] VITALS: BP_SYST 154; BP_SYST 173; BP_SYST 190; BP_DIAS 68; BP_DIAS 81; BP_DIAS 97
[2021-03-07] MEDS: ENOXAPARIN 40MG/0.4ML SYRINGE (J1650 PER 10MG) SC SCH (09:53)
[2021-03-07] MEDS: NORTRIPTYLINE 25 MG CAP PO SCH ×2 (09:53→22:05)
[2021-03-07] MEDS: OCUVITE 1 TAB PO SCH ×2 (09:53→22:05)
[2021-03-07] MEDS: LABETALOL 200 MG TAB PO SCH ×2 (09:58→22:04)
[2021-03-07] MEDS: DOCUSATE SODIUM 100MG CAPSULE PO SCH ×2 (09:58→21:00)
[2021-03-07] MEDS: VITAMIN D 1,000 INTERNATIONAL UNITS TABLET PO SCH (10:02)
[2021-03-07] MEDS: PYRIDOXINE 50 MG TAB PO SCH (10:02)
[2021-03-07] MEDS: BACLOFEN 10 MG TAB PO SCH ×4 (10:02→22:04)
[2021-03-07] MEDS: ATORVASTATIN 20 MG TAB PO SCH (10:02)
[2021-03-07] MEDS: CYCLOSPORINE OU SCH ×2 (10:04→22:05)
[2021-03-07] MEDS: NS 1,000 ML IV SCH ×2 (11:37→22:05)
--- NOTE | 2021-03-07 12:39 | IPNPDOC ---
Text Note Date of Service The patient was seen on 03/07/21. NOTE Subjective: Patient is an 85-year-old female with a PMHx of HTN, DLP, Hypothyroidism, OA, who presented to the ER on 03/05 with 6 month history of groin pain. Patient reported that she's been experiencing weakness in the ER, patient was found to have elevated troponin, but denied any chest pain and she did not have any EKG changes. Patient was admitted to the hospital service for further evaluation and treatment. Patient was seen and examined at the bedside. Patient reports that she feels relatively well. Reports that her left hip pain has had improvement. She reports that the pain is insignificant and only becomes more pronounced on movement. D enies any chest pain, shortness breath, palpitations, nausea, vomiting, abdominal pain, urinary discomfort, but does report constipation. Objective: Vitals (See below) General: Sitting up in bed watching television, appears to be comfortable without any acute distress. She is awake, alert and oriented 3 HEENT: atraumatic, normocephalic CVS: +S1S2 Lungs: Fair air entry b/l, auscultation is without any wheezing, rales or rhonchi Abdomen: Soft, nondistended, nontender Extremities: No tenderness of left hip is appreciated. No LE edema Imaging: CXR 03/05: No acute pulmonary disease. 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 Mild deformity of the articular surface. L knee XR 03/05: No acute osseous abnormality. Moderate degenerative joint disease. Assessment and plan: Lower extremity weakness / L hip pain - Patient has reported progressive generalized weakness for at least 6 months - Currently patient has reported improvement of L hip pain - Patient reports that she usually follows with an orthopedic surgeon who is now retired - Physicals again is unrevealing; no L hip tenderness noted - Imaging noted above - MRI hip remains pending - c/w PT / OT; anticipate transition to ARU within 24 hours Orthostatic hypotension - Will restart IV fluid hydration s/p Rhabdomyolysis - CK levels have trended down Elevated troponin - possibly 2/2 rhabdomyolysis, possibly 2/2 demand ischemia, less likely 2/2 NSTEMI - Patient denies any chest pain, shortness breath, palpitations - EKG was reviewed without any ischemic changes - Troponin trend stable s/p Leukocytosis - Review of systems negative for any source of infection - Patient is currently on chronic steroid therapy as an outpatient - Afebrile and hemodynamically stable - No indication for antibiotics at this time OA - c/w Prednisone q2 days - c/w Tylenol PRN HTN - BP elevated currently - c/w Labetalol DLP - c/w Atorvastatin Hypothyroidism - c/w Levothyroxine Vitamin D deficiency - c/w supplementation Lower extremity neuropathy - c/w Nortriptyline DVT prophylaxis - c/w Lovenox Code Status: - Full code Disposition: - Potential transition to ARU VS,Fishbone, I+O VS, Fishbone, I+O Laboratory Tests 03/07/21 05:39 Vital Signs Date Time Temp Pulse Resp B/P (MAP) Pulse Ox O2 Delivery O2 Flow Rate FiO2 03/07/21 09:58 101 190/87 03/07/21 06:00 97.5 17 96 Room Air I&O- Last 24 Hours up to 6 AM 03/07/21 05:59 Intake Total 400 ml Output Total 0 ml Balance 400 ml BRUNO HEARN MD Mar 07, 2021 12:39
[2021-03-07 14:00] VITALS: BP 152/73
--- NOTE | 2021-03-07 16:35 | REP ---
INDICATION: L hip pain. COMPARISON: Comparison radiographs [address] images July 30, 2015. The radiographs from January 16, 2019 as well. TECHNIQUE: Helical scanning is acquired and 3 mm axial images are re-formatted. Coronal and sagittal MPR images are provided. FINDINGS: There is severe erosive arthropathy involving the left hip articulation. There is flattening of the superior surface of the femoral head and there is acetabular the protrusio. There is reactive sclerosis on both sides of the joint indicating a chronic arthropathy but there are large erosions on both sides of the joint as well. There is prominent osteophyte formation along the inferior articular margin of the femoral head and along the acetabulum. There is axial, diffuse, joint space loss. Soft tissue window settings suggest a small joint effusion. Anterior to the hip articulation there is a large elongate vertically oriented soft tissue ossicle suggesting an area of myositis os ossific cans in the anterior periarticular soft tissues. Some vascular calcification is observed. Study is otherwise unremarkable. 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 Differential possibilities include inflammatory and infectious erosive arthropathies.. <Electronically signed by Clinton Grullon > 03/07/21 [id number]
[2021-03-07 17:37] LABS: C REACTIVE PROTEIN QUANTITATIV 1.54 MG/DL (0.00-0.30)
[2021-03-07 22:00] VITALS: BP 178/84
[2021-03-07] MEDS: ACETAMINOPHEN TAB 650MG DOSE (2X325MG) PO PRN (22:31)
[2021-03-07] MEDS ORDERED: MAALOX 30 ML SUSP *UDC PO PRN (23:45)
[2021-03-08] VITALS (7 sets, daily range): BP systolic 138–187; BP diastolic 77–88
[2021-03-08] MEDS: LEVOTHYROXINE 100MCG TABLET (0.1MG) PO SCH (06:43)
[2021-03-08 06:56] LABS: BASO % 0.6 % (0.0-1.0); EOS # 0.2 10^3/uL (0.0-0.5); EOS % 2.6 % (0.0-3.0); HEMATOCRIT 34.7 % (36.0-47.0); HEMOGLOBIN 11.4 g/dl (12.0-15.5); LYMPH % 28.2 % (24.0-44.0); MEAN CORPUSCULAR HGB CONC 32.9 g/dl (32.0-36.5); MEAN CORPUSCULAR VOLUME 100.6 fl (80.0-96.0); MONO # 0.7 10^3/uL (0.0-0.8); MONO % 10.6 % (2.0-8.0); NEUTROPHILS % 57.6 % (36.0-66.0); PLATELET COUNT, AUTOMATED 166 10^3/uL (150-450); RED BLOOD COUNT 3.45 10^6/uL (4.00-5.40)
[2021-03-08 07:24] LABS: BLOOD UREA NITROGEN 11 MG/DL (7-18); CALCIUM LEVEL 7.5 MG/DL (8.8-10.2); CARBON DIOXIDE LEVEL 28 MEQ/L (21-32); CHLORIDE LEVEL 111 MEQ/L (98-107); CREATININE FOR GFR 0.46 MG/DL (0.55-1.30); GLOMERULAR FILTRATION RATE > 60.0 (>32); GLUCOSE, FASTING 88 MG/DL (70-100); POTASSIUM SERUM 3.4 MEQ/L (3.5-5.1); SODIUM LEVEL 144 MEQ/L (136-145)
[2021-03-08] MEDS ORDERED: AMLO1TAB24 PO ×2 (08:48→11:53)
[2021-03-08] MEDS ORDERED: amLODIPine 5 MG TAB PO SCH (09:00)
[2021-03-08] MEDS ORDERED: POTASSIUM CHLORIDE 10MEQ SR TABLET PO ONE (09:00)
[2021-03-08] MEDS: CYCLOSPORINE OU SCH ×2 (09:44→20:15)
--- NOTE | 2021-03-08 09:50 | DS.PDOC ---
Discharge Summary General Date of Admission Mar 05, 2021 at 19:57 Date of Discharge 03/08/2021 Discharge Summary PROCEDURES PERFORMED DURING STAY: [None]. ADMITTING DIAGNOSES / DISCHARGE DIAGNOSES: Generalized weakness / L hip pain - likely 2/2 erosive arthropathy - likely 2/2 severe arthritis Orthostatic hypotension s/p Rhabdomyolysis Elevated troponin - possibly 2/2 rhabdomyolysis, possibly 2/2 demand ischemia, less likely 2/2 NSTEMI s/p Leukocytosis Asymptomatic bacteriuria OA HTN DLP Hypothyroidism Vitamin D deficiency Lower extremity neuropathy DVT prophylaxis COMPLICATIONS/CHIEF COMPLAINT: Weakness / Chronic L hip pain HISTORY OF PRESENT ILLNESS: Patient is an 85-year-old female with a PMHx of HTN, DLP, Hypothyroidism, OA, who presented to the ER on 03/05 with 6 month history of groin pain. Patient reported that she's been experiencing weakness in the ER, patient was found to have elevated troponin, but denied any chest pain and she did not have any EKG changes. Patient was admitted to the hospital service for further evaluation and treatment. Patient was seen and examined at the bedside. Currently she reports she is feeling fine. Denies any CP, SOB, palpitions, cough, abdominal pain, C/D, or urinary discomfort. Patient reports that her L hip at rest does not bother her, with ambulation she notes that at certain times it aches, but not continuously. HOSPITAL COURSE: Generalized weakness / L hip pain - likely 2/2 erosive arthropathy - likely 2/2 severe arthritis - Patient has reported progressive generalized weakness and L hip pain for at least 6 months - Currently patient has reported improvement of L hip pain - Hemodynamically stable / Afebrile - No leukocytosis / No significant elevation of CRP - Physical is without any L hip tenderness noted - Imaging noted below - No clinical evidence to suggest septic / inflammatory arthritis - Discussed case with Orthopedic surgery production reproduction manager; unlikely infection etiology of clinical picture doesn't support it; c/w PT / OT - Will transition patient to ARU today for continued therapy Orthostatic hypotension - Remains asymptomatic currently - s/p fluid hydration s/p Rhabdomyolysis - CK levels normalized Elevated troponin - possibly 2/2 rhabdomyolysis, possibly 2/2 demand ischemia, less likely 2/2 NSTEMI - No chest pain, shortness breath, palpitations - EKG was reviewed without any ischemic changes - Troponin trend stable s/p Leukocytosis - Review of systems negative for any source of infection - Patient is currently on chronic steroid therapy as an outpatient - CRP trending down - Afebrile and hemodynamically stable - No indication for antibiotics at this time Asymptomatic bacteriuria - Patient reports that she has had urinary tract infections in the past and knows what urinary discomfort feels like - Patient says that she is not having any urinary discomfort currently - UA 03/05: without evidence of infection; but Urine culture 03/05: E. Coli at 25K CFU - UA 03/08 was again ordered overnight - again she remains asymptomatic - No indication for antibiotic therapy currently OA - c/w Prednisone q2 days - c/w Tylenol PRN HTN - BP remains relatively elevated - c/w Labetalol - Will add Amlodipine DLP - c/w Atorvastatin Hypothyroidism - c/w Levothyroxine Vitamin D deficiency - c/w supplementation Lower extremity neuropathy - c/w Nortriptyline DVT prophylaxis - c/w Lovenox DISCHARGE MEDICATIONS: Please see below. ALLERGIES: Please see below. PHYSICAL EXAMINATION ON DISCHARGE: Vitals (See below) General: Patient sitting up in bed, appears comfortable without any acute distress. She is oriented to person, place and time HEENT: Atraumatic and normocephalic CVS: +S1S2 Lungs: There appears to be fair air entry bilaterally without any evidence of crackles, wheezing or rhonchi Abdomen: Abdomen is soft without any appreciated distention or tenderness Extremities: No LE edema, no L hip tenderness noted LABORATORY DATA: Please see below. IMAGING: CXR 03/05: No acute pulmonary disease. 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 Mild deformity of the articular surface. L knee XR 03/05: No acute osseous abnormality. Moderate degenerative joint disease. 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 Differential possibilities include inflammatory and infectious erosive arthropathies.. ACTIVITY: [As tolerated]. DISCHARGE PLAN: Follow up with PCP and Orthopedic surgery within 7 days Follow-up with the principal programmer on transfer to ARU Remain compliant with treatment plan and medications Return to the ER if you experience any problems DISPOSITION: ARU DISCHARGE CONDITION: [Stable]. TIME SPENT ON DISCHARGE: 35 minutes. Vital Signs/I&Os Vital Signs Date Time Temp Pulse Resp B/P (MAP) Pulse Ox O2 Delivery O2 Flow Rate FiO2 03/08/21 06:20 73 178/80 (112) 88 180/88 (118) 86 162/78 (106) 03/08/21 06:00 97.3 17 93 Room Air I&O- Last 24 Hours up to 6 AM 03/08/21 06:00 Intake Total 2560 ml Output Total 350 ml Balance 2210 ml Laboratory Data Labs 24H Laboratory Tests 2 03/08/21 02:14: Urine Color YELLOW, Urine Appearance CLEAR, Urine pH 6.0, Urine Specific [place] 1.017, Urine Protein NEGATIVE, Urine Glucose (UA) NEGATIVE, Urine Ketones TRACEH, Urine Blood NEGATIVE, Urine Nitrite NEGATIVE, Urine Bilirubin NEGATIVE, Urine Urobilinogen 0.2, Urine Leukocyte Esterase TRACEH, Urine WBC (Auto) 2, Urine RBC (Auto) 1, Urine Hyaline Casts (Auto) 0, Urine Bacteria (Auto) NEGATIVE, Urine Squamous Epithelial Cells 1, Urine Mucus (Auto) SMALL, Urine Sperm (Auto) 03/08/21 06:36: Immature Granulocyte % (Auto) 0.4, Neutrophils (%) (Auto) 57.6, Lymphocytes (%) (Auto) 28.2, Monocytes (%) (Auto) 10.6H, Eosinophils (%) (Auto) 2.6, Basophils (%) (Auto) 0.6, Neutrophils # (Auto) 4.0, Lymphocytes # (Auto) 2.0, Monocytes # (Auto) 0.7, Eosinophils # (Auto) 0.2, Basophils # (Auto) 0.0, Nucleated Red Blood Cells % (auto) 0.0, Anion Gap 5L, Glomerular Filtration Rate > 60.0, Calcium Level 7.5L, Total Creatine Kinase 167#, C-Reactive Protein, Quantitative 0.70H CBC/BMP Laboratory Tests 03/08/21 06:36 Microbiology Microbiology 03/08/21 Urine Culture, Received Pending 03/05/21 Urine Culture - Final, Complete Escherichia Coli Discharge Medications Scheduled Amlodipine Besylate (Amlodipine Besylate) 5 Mg Tablet, 5 MG PO DAILY Ascorbic Acid (Vitamin C) 500 Mg Tablet, 500 MG PO BID, (Reported) Atorvastatin Calcium (Atorvastatin Calcium) 40 Mg Tablet, 40 MG PO DAILY, (Reported) Baclofen (Baclofen) 10 Mg Tablet, 15 MG PO QID, (Reported) Calcium Citrate (Calcium Citrate) 250 Mg Tablet, 1,000 MG PO BID, (Reported) Cholecalciferol (Vitamin D3) (Vitamin D3) 1,000 Unit Tablet, 1,000 UNITS PO DAILY, (Reported) Cyanocobalamin (Vitamin B-12) (Vitamin B-12) 1,000 Mcg Tab.subl, 1,000 MCG SL DAILY, (Reported) Cyclosporine (Restasis Multidose) 5.5 Ml Drops, 1 DROP OU BID, (Reported) Labetalol HCl (Labetalol HCl) 200 Mg Tablet, 400 MG PO BID, (Reported) Levothyroxine Sodium (Levothyroxine Sodium) 100 Mcg Tablet, 100 MCG PO DAILY, (Reported) Nortriptyline HCl (Nortriptyline HCl) 50 Mg Capsule, 50 MG PO BID, (Reported) [place]-3 Fatty Acids/Fish Oil (Fish Oil 1,000 mg Capsule) 1 Each Capsule, 1,000 MG PO TID, (Reported) Prednisone (Prednisone) 10 Mg Tablet, 10 MG PO Q2D, (Reported) Pyridoxine HCl (Vitamin B6) (Vitamin B-6) 50 Mg Tablet, 50 MG PO DAILY, (R eported) Vit A/Vit C/Vit E/Zinc/Copper (Preservision Areds Tablet) 1 Each Tablet, 1 TAB PO BID, (Reported) Scheduled PRN Acetaminophen (Acetaminophen 8 Hour) 650 Mg Tablet.er, 650 MG PO TID PRN for PAIN LEVEL 1-5, (Reported) Nystatin (Nystop) 60 Gm Powder, 1 APLCT TOP BID PRN for RASH/ITCHING, (Reported) UNDER BREASTS Allergies Coded Allergies: No Known Allergies (Unverified , 03/05/21) BRUNO HEARN MD Mar 08, 2021 09:50
[2021-03-08] MEDS: ENOXAPARIN 40MG/0.4ML SYRINGE (J1650 PER 10MG) SC SCH (09:58)
[2021-03-08] MEDS: LABETALOL 200 MG TAB PO SCH ×2 (10:06→20:14)
[2021-03-08] MEDS: ATORVASTATIN 20 MG TAB PO SCH (10:08)
[2021-03-08] MEDS: PYRIDOXINE 50 MG TAB PO SCH (10:08)
[2021-03-08] MEDS: DOCUSATE SODIUM 100MG CAPSULE PO SCH ×2 (10:08→20:14)
[2021-03-08] MEDS: NORTRIPTYLINE 25 MG CAP PO SCH ×2 (10:08→20:14)
[2021-03-08] MEDS: OCUVITE 1 TAB PO SCH ×2 (10:08→20:14)
[2021-03-08] MEDS: VITAMIN D 1,000 INTERNATIONAL UNITS TABLET PO SCH (10:08)
[2021-03-08] MEDS: BACLOFEN 10 MG TAB PO SCH ×4 (10:09→20:14)
[2021-03-08] MEDS ORDERED: amLODIPine 5 MG TAB PO ONE (12:15)
[2021-03-08] MEDS: ACETAMINOPHEN TAB 650MG DOSE (2X325MG) PO PRN ×2 (14:12→20:15)
== END 2021-03-09 01:00 ==
LOC: EDBD 11:35 → M ED 11:35 → M ED INP 19:57 → ENRESERV 03-06 08:40 → M MSPAV 03-06 09:52
PROVIDERS: ADMIT Family Medicine; ATTEND Internal Medicine
DX: M25.552 Pain in left hip (principal); R53.1 Weakness; M19.90 Unspecified osteoarthritis, unspecified site; R74.8 Abnormal levels of other serum enzymes; I95.1 Orthostatic hypotension; M62.82 Rhabdomyolysis; D72.819 Decreased white blood cell count, unspecified; R78.81 Bacteremia; I10 Essential (primary) hypertension; E78.9 Disorder of lipoprotein metabolism, unspecified; E03.9 Hypothyroidism, unspecified; E55.9 Vitamin D deficiency, unspecified; G57.90 Unspecified mononeuropathy of unspecified lower limb; M24.7 Protrusio acetabuli; R10.32 Left lower quadrant pain; M06.9 Rheumatoid arthritis, unspecified; Z85.3 Personal history of malignant neoplasm of breast; Z79.899 Other long term (current) drug therapy; Z79.52 Long term (current) use of systemic steroids
CPT/HCPCS: 36415; 71046; 73502; 73564; 73700; 80048; 80053; 81001; 82550; 82553; 84484; 85025; 85652; 86140; 87086; 87088; 87186; 87631; 93005; 96361; 96372; 96374; 96375; 96376; 97116; 97161; 97165; 97530; 99285; G0378; J1650; J7512

== ENCOUNTER 2021-03-08 09:02 | Inpatient (IN) | payer MEDICARE ==
[~2021-03-08] VITALS: Ht 154.9 cm; Wt 69.4 kg
[~2021-03-08 09:02] MED LIST: AMLO1TAB24 PO; ATOR40TA75 PO; BACL10TA8 PO; C 50TAB PO; CALC250T PO; D31000TA2 PO; FISH1000 PO; LABE20TAB PO; LEVO100T5 PO; NORT50CA PO; NYST10006 TOP; OCUVTAB4 PO; PRED10TA2 PO; PYRI50TA41 PO; QC A650T3 PO; REST0.057 OU; VITA-113 SL
[2021-03-08] MEDS ORDERED: AMLO1TAB24 PO (11:53)
[2021-03-08] MEDS ORDERED: oxyCODONE 5MG TAB PO PRN (12:15)
[2021-03-08] MEDS ORDERED: MIRALAX *UNIT DOSE* 17GM PACKET PO PRN (12:15)
[2021-03-09 01:10] VITALS: BP 180/84
--- OUTSIDE RECORDS SUMMARY | 2021-03-09 01:27 | CCD | Continuity of Care Document ---
Author Author Kamini Dixon MD Organization Unknown Address [address] [address] Phone [phone] Care Team Providers Care Sprinkler Driver Name Role Phone Romario Stephenson MD AUTM [phone] Jasmyn Perez AUTM [phone] Chace Byers DO AUTM [phone] Jai Dixon JR, MD AUTM Unavailable [facility] [phone] Problems Active Problems Provider Date Malignant neoplasm of female breast Bess Weiss Onset: 11/11/2010 Essential hypertension Mary Henderson D.O. Onset: 01/2011 Hypothyroidism Mary Henderson D.O. Onset: 2010 Spinal stenosis in cervical region Flaquita Weiss Onset: 11/11/2010 Chronic nonalcoholic liver disease Flaquita Weiss Onset: 11/11/2010 Gallstone Mary Henderson D.O. Onset: 2010 Allergic asthma without status asthmaticus Mary mott D.O. Onset: 11/11/2010 Headache Mary Henderson D.O. Onset: 2010 Migraine with typical aura Mary Henderson D.O. Onset: 11/11/2010 Low back pain Onset: 11/11/2010 Vascular headache Mary Henderson D.O. Onset: 2014 Social History Type Date Description Comments Sex Unknown ETOH Use Denies alcohol use Tobacco Use Start: Unknown Patient has never smoked Allergies and adverse reactions Active Allergies Criticality Reaction | Severity Comments Date Penicillin Unable to assess criticality 03/10/2010 Clindamycin Unable to assess criticality rash 06/01/2012 Aspercreme Unable to assess criticality Rash- Painfu l 09/04/2019 Medications Active Medications SIG Qnty Indications Ordering Provide r Date Shingrix 50mcg/0.5ML Suspension Re c administer 0.5 milliliters intramuscular, repeat in 2 to 6 months 2units Jai Dixon MD 09/10/2020 Nystop 357204Mwem/GM Powder Apply To Both Breast Tissue/Groin Tissue Twice A Day 30units Jai Dixon MD 07/07/2020 Albuterol Sulfate HFA 108(90Base) mcg/Act Aerosol Inhale 2 Puffs By Mouth Four Times Daily as Needed 25.5gm Jai Dixon MD 01/22/2020 Prednisone 10mg Tablets Take 1 Tablet By Mouth Every Other Day 45tabs Jai Dixon MD 05/2019 Ketoconazole 2% Cream apply to rash three times daily to left groin and left thigh 15gm B37.2 Jai Dixon MD 04/17/2019 Levothyroxine Sodium 100mcg Tablet s Take 1 Tablet By Mouth Every Day 90tabs Jai Dixon MD 08/25/2018 Aspir-Low 81mg Tablets DR 1 by mouth every day BILL Carpenter 01/02/2018 Glucosamine Chondroitin 500 Complex 500Comp Capsules 1 by mouth every day BILL Carpenter 1 Nitrostat 0.4mg Tablets Sub one under tongue every 5 minutes x 3 as needed for chest discomfort 25tabs Mary Henderson D.O. 08/14/2015 Fluticasone Propionate 50mcg/Act Suspension Instill 2 Sprays In Each Nostril Every Day 48units J06.9 Jai Dixon MD 02/18/2015 Atorvastatin Calcium 40mg Tablets take one tablet by mouth daily 90tabs Jai Dixon MD 05/[address] 1 by mouth daily prn 60caps Bess WeissO. 05/19 Vitamin D-3 2000Unit Tablets 1 po qd 30tabs Lorraine Garcia, BEN 04/06/2011 Vitamin B-12 CR 1000mcg Tablets ER 1 po qd 30tabs Shiraz Weiss.O. 03/16 Multivitamins Tablets 1 po q d Shiraz Weiss.O. 01/27/2011 Vitamin C W/Vitamin E [id number]-Gfos Capsules Shiraz Weiss .O. 01/27/2011 Labetalol HCL 200mg Tablets Take 2 Tablets By Mouth Twice Daily. 360tabs Jeri Joyner DO 01/27/2011 Baclofen 10mg Tablets take one 1 1/2 tablet by mouth four times a day as needed Unkno wn Rhina Tears prn eyes Unknown Nortriptyline HCL 50mg Capsules 1 tablet by mouth twice daily Unknown Fish Oil 1200mg Capsules 1 by mouth every day Unknown Medications Administered in Office Medication SIG Qnty Indications Ordering Provider Date Covid-19 vaccine, Unspecified Inj ection Unknown 07/01/2020 Covid-19 vaccine, Unspecified Inj ection Unknown 06/03/2020 Administration Of Flu Vaccine Inj ection BILL Vazquez 01/14/2017 Administration Of Flu Vaccine Inj ection Shiraz Weiss.O. 02/23 Administration Of Flu Vaccine Inj ection Shiraz Weiss.O. 01/20 Administration Of Flu Vaccine Inj ection Shiraz Weiss.O. 03/07 Administration Of Flu Vaccine Inj ection Shiraz Weiss.O. 02/16 Reclast 1MG [id number] Injection Lorraine Garcia, BEN 04/10/2012 IV Infusion Up To 1 Hour Injection Lorraine Garcia, BEN 04/10/2012 Administration Of Flu Vaccine Inj ection Shiraz Weiss.O. 01/12 Reclast 1MG [id number] Injection Lorraine Garcia, BEN 04/06/2011 IV Infusion Up To 1 Hour Injection Lorraine Garcia, ANP 04/06/2011 Administration Of Flu Vaccine Inj ection Shiraz Weiss.O. 01/21 Reclast 1MG [id number] Injection Lorraine Garcia, ANP 02/19/2010 IV Infusion Up To 1 Hour Injection Lorraine Garcia, ANP 02/19/2010 Administration Of Flu Vaccine Inj ection Shiraz Weiss.O. 01/16 Reclast 1MG [id number] Injection Lorraine Garcia, ANP 02/17/2009 IV Infusion Up To 1 Hour Injection Lorraine Garcia, ANP 02/17/2009 Administration Of Flu Vaccine Inj ection Shiraz Weiss.O. 12/31 Administration Of Zostavax Injection Shiraz Weiss.O. 05/27/2008 Administration Of Flu Vaccine Inj ection Shiraz Weiss.O. 01/07 Administration Of Flu Vaccine Inj ection Shiraz Weiss.O. 03/09 Administration Of Flu Vaccine Inj ection Shiraz Weiss.O. 01/18 Administration Of Flu Vaccine Inj ection Shiraz Weiss.O. 01/13 Administration Of Flu Vaccine Inj ection Shiraz Weiss.O. 01/24 Administration Of Flu Vaccine Inj ection Shiraz Weiss.O. 02/13 Administration Of Flu Vaccine Inj ection Shiraz Weiss.O. 03/24 Administration Of Flu Vaccine Inj ection Shiraz Weiss.O. 01/15 Administration Of Flu Vaccine Inj ection Shiraz Weiss.O. 01/09 Administration Of Flu Vaccine Inj ection Shiraz Weiss.O. 12/31 Immunizations CPT Code Status Date Vaccine Lot # [id number] Given 01/14/2017 Influenza Vaccin e Quadrivalent Preser/Antibiotic Free Im Use [id number] Q2037 Given 02/24/2016 Fluvirin Virus Vaccine 90891 01 Q2037 Given 01/20/2015 Fluvirin Virus Vaccine 85580 01 50841 Given 06/10/2014 Prevnar 13 [id number] Q2037 Given 03/07/2014 Fluvirin Virus Vaccine 06140 01 Q2037 Given 02/16/2013 Fluvirin Virus Vaccine Q2037 Given 01/13/2012 Fluvirin Virus Vaccine 13568 Given 10/25/2011 Tetanus/Diptheria(Td)Toxoids Preservative Free Q2037 Given 01/21/2011 Fluvirin Virus Vaccine 16849 Given 01/16/2010 Influenza Virus Vaccine 77010 Given 12/31/2008 Pneumovax 23 53709 Given 12/31/2008 Influenza Virus Vaccine 62695 Given 05/27/2008 Zoster Vaccine 51863 Given 01/08/2008 Influenza Virus Vaccine 73069 Given 03/23/2006 Pneumovax 23 63826 Given 03/09/2006 Influenza Virus Vaccine 71860 Given 01/18/2005 Influenza Virus Vaccine 39811 Given 01/14/2004 Influenza Virus Vaccine 15806 Given 01/24/2002 Influenza Virus Vaccine 69848 Given 02/13/2001 Influenza Virus Vaccine 39895 Given 03/24/2000 Influenza Virus Vaccine 72732 Given 01/15/1999 Influenza Virus Vaccine 01190 Given 01/09/1998 Influenza Virus Vaccine 83986 Given 12/31/1996 Influenza Virus Vaccine 06828 Given 01/06/1996 Influenza Virus Vaccine 09602 Given 03/12/1994 Influenza Virus Vaccine 35331 Given 02/11/1993 Influenza Virus Vaccine 17940 Refused 08/17/2018 Influenza Virus Vaccine, Quadrivalent (Cciiv4), Derived From Cell 31245 Refused 01/02/2018 Influenza Virus Vaccine, Quadrivalent (Cciiv4), Derived From Cell Vital Signs Date Vital Result Comment 09/10/2020 10:53am BP Systolic 136 mmHg BP Diastolic 78 mmHg Heart Rate 85 /min Height 61 inches 5'1" Weight 167.00 lb O2 % BldC Oximetry 94 % RM Air BMI (Body Mass Index) 31.6 kg/m2 03/05/2020 1:53pm BP Systolic 152 mmHg BP Diastolic 80 mmHg Heart Rate 76 /min Height 61 inches 5'1" Weight 168.00 lb BMI (Body Mass Index) 31.7 kg/m2 Results Test Acquired Date Facility Test Result H/L Range Note Ua W/ Reflex To Culture 03/05/[address] [address] [phone] Appearance, Urine RFX HAZY Normal Clear Color, Urine RFX YELLOW Normal Yellow PH,Urine RFX 5.0 units Normal 5.0-9.0 Specific [place] Ur Auto RFX 1.026 Normal 1.002-1.035 Protein, Urine Auto RFX 2+ mg/dL High Negative Glucose, Urine (Ua) Auto RFX NEGATIVE mg/dL Normal Negative Ketone, Urine Auto RFX 2+ mg/dL High Negative Urobilinogen, Urine Auto RFX 0.2 mg/dL Normal 0.0-2.0 Bilirubin, Urine Auto RFX NEGATIVE Normal Negative Nitrite, Urine Auto RFX NEGATIVE Normal Negative Leukocyte Esterase Ur Auto RFX TRACE High Negative Blood, Urine Blood RFX NEGATIVE Normal Negative WBC, Urine Auto RFX 9 /HPF High 0-3 RBC, Urine Auto RFX 4 /HPF High 0-3 Bacteria, Urine Auto RFX NEGATIVE Normal Negative Squam Epithelial Cell Ur Aurfx 9 /HPF Normal 0-6 Mucus, Urine RFX SMALL Normal Negative Hyaline Cast, Urine Auto RFX 1 /LPF Normal 0-1 Influenza A/B RSV Covid Amp 03/05/[address] [address] [phone] Influenza A Amplification NEGATIVE Normal Negati ve 1 Influenza B Amplification NEGATIVE Normal Negative 2 RSV Amplification NEGATIVE Normal Negative 3 Sars Covid-19 Amplification NEGATIVE Normal Negative 4 Laboratory test finding 03/05/[address] [address] [phone] CPK Creatine Phosphokinase 1375 U/L High 26-19 2 Laboratory test finding 03/05/[address] [address] [phone] iSTAT Troponin 0.11 NG/ML High 0.00-0.08 CBC With Differential 03/05/[address] [address] [phone] White Blood Count 13.9 10 High 4.0-10.0 Red Blood Count 4.74 10 Normal 4.00-5.40 Hemoglobin 15.5 g/dL Normal 12.0-15.5 Hematocrit 46.2 % Normal 36.0-47.0 Mean Corpuscular Volume 97.5 fl High 80.0-96.0 Mean Corpuscular Hemoglobin 32.7 pg Normal 27.0-33.0 Mean Corpuscular HGB Conc 33.5 g/dL Normal 32.0-36.5 Red Cell Distribution Width 12.6 % Normal 11.5-14.5 Platelet Count, Automated 222 10 Normal 150-450 Neutrophils % 82.4 % High 36.0-66.0 Lymph % 8.7 % Low 24.0-44.0 [place] % 7.6 % Normal 2.0-8.0 Eos % 0.5 % Normal 0.0-3.0 Baso % 0.4 % Normal 0.0-1.0 Immature Granulocyte % 0.4 % Normal 0-3.0 Nucleated Red Blood Cell % 0.0 % Normal 0-0 Neutrophils # 11.4 10 High 1.5-8.5 Lymph # 1.2 10 Low 1.5-5.0 [place] # 1.1 10 High 0.0-0.8 Eos # 0.1 10 Normal 0.0-0.5 Baso # 0.1 10 Normal 0.0-0.2 Comprehensive Metabolic Profil 03/05/2021 [place] [id number] [phone] Glucose, Fasting 93 mg/dL Normal 70-100 Blood Urea Nitrogen 31 mg/dL High 7-18 Creatinine For GFR 0.67 mg/dL Normal 0.55-1.30 Glomerular Filtration Rate > 60.0 Normal >32 5 Sodium Level 141 mEq/L Normal 136-145 Potassium Serum 3.5 mEq/L Normal 3.5-5.1 Chloride Level 102 mEq/L Normal 98-107 Carbon Dioxide Level 28 mEq/L Normal 21-32 Anion Gap 11 mEq/L Normal 8-16 Calcium Level 9.9 mg/dL Normal 8.8-10.2 Ast/Sgot 120 U/L High 7-37 Alt/SGPT 75 U/L Normal 12-78 Alkaline Phosphatase 81 U/L Normal 45-117 Bilirubin,Total 1.0 mg/dL Normal 0.2-1.0 Total Protein 6.9 GM/DL Normal 6.4-8.2 Albumin 3.8 GM/DL Normal 3.2-5.2 Albumin/Globulin Ratio 1.2 Normal 1.2-2.2 Laboratory test finding 03/05/2021 [facility] [address] [place] [address] [phone] C Reactive Protein Quantitativ 6.06 mg/dL High 0 .00-0.30 Erythrocyte Sedimentation Rate 9 mm/hr Normal 0-30 Complete Blood Count 09/09/2020 [facility] [employer] [facility] [employer] Removing Supervisor: [place] [address] [phone] WBC 7.3 x10*3/UL 4.1 - 10.9 RBC 4.01 x10*6/UL Low 4.20 - 6.30 Hemoglobin 13.0 g/dL 12.0 - 18.0 Hematocrit 38.0 % 37.0 - 51.0 MCV 94.6 fL 80.0 - 97.0 MCH 32.5 pg High 26.0 - 32.0 MCHC 34.3 g/dL 31.0 - 38.0 RDW 12.9 % 11.6 - 13.7 PLT 185 x10*3/UL 140 - 440 MPV 9.5 FL 7.8 - 11.0 Lymph % 21.0 % 10.0 - 58.5 Mid % 6.8 % 1.7 - 9.3 Neut % 72.2 % 37.0 - 92.0 Lymph # 1.5 x10*3/UL 0.6 - 4.1 Mid # 0.5 x10*3/UL 0.1 - 0.6 Neut # 5.3 x10*3/UL 2.0 - 7.8 Laboratory test finding 09/09/2020 [facility] [employer] [employer] Supervisor: [place] [address] [phone] Sed Rate 12 mm/hr 0 - 15 Comprehensive Chem Profile 09/09/2020 [facility] [employer] Supervisor: [place] [address] [phone] Glucose 81 mg/dL 74 - 99 6 BUN 26 mg/dL High 7 - 18 Creatinine 0.9 mg/dL 0.6 - 1.3 Sodium 146 mEq/L High 136 - 145 Potassium 4.1 mEq/L 3.5 - 5.1 Chloride 105 mEq/L 98 - 107 Carbon Dioxide 34 mEq/L High 21 - 32 Calcium 9.7 mg/dL 8.5 - 10.1 Alk. Phosphatase 99 mg/dL 46 - 116 Total Bilirubin 0.5 mg/dL 0.2 - 1.0 Ast (Sgot) 24 U/L 15 - 37 Alt (SGPT) 35 U/L 12 - 78 Albumin 3.8 g/dL 3.4 - 5.0 Total Protein 6.4 g/dL 6.4 - 8.2 A/G Ratio 1.46 CALC 1.00 - 1.90 GFR 60 mL/min Low >60 GFR >= 60 mL/min >60 7 Laboratory test finding 09/09/2020 [facility] [employer] [place] [employer] Supervisor: Dr Jai Dixon [place] [id number] [phone] Thyroid Stimulating Hormone 2.30 uIU/mL 0.3 6 - 3.74 1 Negative results do not prec lude influenza or RSV virus infection and should not be used as the sole basis for treatment or other patient management decisions. 2 Negative results do not prec lude influenza or RSV virus infection and should not be used as the sole basis for treatment or other patient management decisions. 3 Negative results do not prec lude influenza or RSV virus infection and should not be used as the sole basis for treatment or other patient management decisions. 4 A false negative result may occur if a specimen is improperly collected, transported or handled. False negative results may also occur if inadequate numbers of organisms are present in the specimen. As with any molecular test, mutations within the target regions of Xpert Xpress SARS-CoV-2 could affect primer and/or probe binding resulting in failure to detect the presence of virus. This test cannot rule out diseases caused by other bacterial or viral pathogens. ASSAY INFORMATION: Real time RT-PCR test. DISCLAIMER: Testing was performed using the [employer] SARS-CoV-2 test. This test was developed and its performance characteristics determined by [employer]. This test has not been FDA cleared or approved. This test has been authorized by FDA under an Emergency Use Authorization (EUA). This test is only authorized for the duration of time the declaration that circumstances exist justifying the authorization of the emergency use of in vitro diagnostic tests for detection of SARS-CoV-2 virus and/or diagnosis of COVID-19 infection under section 564(b)(1) of the Act, 21 U.S.C. 360bbb-3(b)(1), unless the authorization is terminated or revoked sooner. 5 Units are mL/min/1.73 m2 Chronic Kidney Disease Staging per NKF: Stage I & II GFR >=60 Normal to Mildly Decreased Stage III GFR 30-59 Moderately Decreased Stage IV GFR 15-29 Severely Decreased Stage V GFR <15 Very Little GFR Left ESRD GFR <15 on [facility] [employer] 6 100-125 mg/dL PRE-DIABET ES/FASTING >126 mg/dL DIABETES/FASTING 7 CHRONIC KIDNEY DISEASE STAGI NG PER NKF STAGE I & II GFR >= 60 NORMAL TO MILDLY DECREASED STAGE III GFR 30-59 MODERATELY DECREASED STAGE IV GFR 15-29 SEVERELY DECREASED STAGE V GFR <15 VERY LITTLE GFR LEFT ESRD GFR <15 ON [facility] [employer]IST Procedures Date Code Description Status 09/10/2020 05976 Office/Outpatient Established Mo d MDM 30-39 Min Completed 04/15/2016 [id number] Mammogram Completed 03/17/2016 [id number] Bone Mineral Density Test [facility] 07/12/2014 [id number] Mammogram Completed 07/09/2013 [id number] Mammogram Completed 07/13/2012 [id number] Mammogram Completed 10/05/2011 [id number] Bone Mineral Density Test [facility] 07/26/2011 [id number] Mammogram Completed 08/25/2010 [id number] Colonoscopy Completed 09/08/2009 [id number] Bone Mineral Density Test [facility] 04/08/2009 [id number] Colonoscopy Completed Medical Devices Description No Information Available Encounters Type Date Location Provider Dx Diagnosis Office Visit 09/10/2020 11:00a [facility] Jai Dixon MD E03.9 Hypothyroidism, unspecified I10 Essential (primary) hyperten felix M79.7 Fibromyalgia M15.4 Erosive (osteo)arthritis R73.09 Other abnormal glucose J45.20 Mild intermittent asthma, un complicated Z85.3 Personal history of malignan t neoplasm of breast G56.01 Carpal tunnel syndrome, righ t upper limb Z13.89 Encounter for screening for other disorder Assessments Date Code Description Provider 09/10/2020 E03.9 Hypothyroidism, unspecified Jeanne zehra Dixon MD 09/10/2020 I10 Essential (primary) hypertension Jai Dixon MD 09/10/2020 M79.7 Fibromyalgia Jai abreu MD 09/10/2020 M15.4 Erosive (osteo)arthritis Jai Dixon MD 09/10/2020 R73.09 Other abnormal glucose Jai Dixon MD 09/10/2020 J45.20 Mild intermittent asthma, uncomp licated Jai Dixon MD 09/10/2020 Z85.3 Personal history of malignant ne oplasm of breast Jai Dixon MD 09/10/2020 G56.01 Carpal tunnel syndrome, right up per limb Jai Dixon MD 09/10/2020 Z13.89 Encounter for screening for othe r disorder Jai Dixon MD 09/09/2020 I10 Essential (primary) hypertension Jai Dixon MD 09/09/2020 I10 Essential (primary) hypertension Lab Schedule 09/09/2020 M15.4 Erosive (osteo)arthritis Jai Dixon MD 09/09/2020 M15.4 Erosive (osteo)arthritis Lab Nevin edule 09/09/2020 M79.7 Fibromyalgia Jai abreu MD 09/09/2020 M79.7 Fibromyalgia Lab Schedule 09/09/2020 E03.9 Hypothyroidism, unspecified Jeanne zehra Dixon MD 09/09/2020 E03.9 Hypothyroidism, unspecified Lab Schedule Plan of Treatment Future Appointment(s):* 03/10/2021 9:40 am - Lab Schedule at [facility] * 03/11/2021 10:40 am - Jai Dixon MD at [facility] 09/10/2020 - Jai Dixon MD* E03.9 Hypothyroidism, unspecified * I10 Essential (primary) hypertension* Comments:* Hypertension at [facility]-8 guidelines * M79.7 Fibromyalgia * M15.4 Erosive (osteo)arthritis * R73.09 Other abnormal glucose * J45.20 Mild intermittent asthma, uncomplicated * Z85.3 Personal history of malignant neoplasm of breast * G56.01 Carpal tunnel syndrome, right upper limb * Z13.89 Encounter for screening for other disorder * All * New Medication:* Shingrix 50 mcg/0.5ML - administer 0.5 milliliters intramuscular, repeat in 2 to 6 months Functional Status Description No Information Available Mental Status Description No Information Available Referrals Description No Information Available
--- OUTSIDE RECORDS SUMMARY | 2021-03-09 01:27 | CCD | Continuity of Care Document ---
Author Organization Unknown Address Unknown Phone Unavailable Care Team Providers Care Silver Cleaner Name Role Phone Romario Stephenson MD AUTM [phone] Jasmyn Perez AUTM [phone] Chace Byers DO AUTM [phone] Jai Dixon JR, MD AUTM Unavailable [facility] AUTM [phone] Problems Active Problems Provider Date Malignant neoplasm [...] months 2units Jai Dixon MD 09/10/2020 Nystop [id number]/GM Powder Apply To Both Breast Tissue/Groin Tissue [...] as needed for chest discomfort 25tabs Mary Henderson, D.OEvaristo 08/14/2015 Fluticasone Propionate 50mcg/Act Suspension Instill 2 Sprays In Each Nostril Every Day 48units J06.9 Jai Dixon MD 02/18/2015 Atorvastatin Calcium 40mg Tablets take one tablet by mouth daily 90tabs Jai Dixon MD 05/[address] 1 by mouth daily prn 60caps Mary Henderson, D.O. 05/19 Vitamin D-3 2000Unit Tablets 1 po qd 30tabs BEN Delgado 04/06/2011 Vitamin B-12 CR 1000mcg Tablets ER 1 po qd 30tabs Bess WeissOEvaristo 03/16 Multivitamins Tablets 1 po q d Bess WeissOEvaristo 01/27/2011 Vitamin C W/Vitamin E 000-541sb-Join Capsules Shiraz WeissOEvaristo 01/27/2011 Labetalol HCL 200mg Tablets Take 2 Tablets By Mouth Twice Daily. 360tabs Jeri Joyner,DO 01/27/2011 Baclofen 10mg Tablets take one 1 [...] 06/03/2020 Administration Of Flu Vaccine Inj ection Pravin Lindsay, [facility] 01/14/2017 Administration Of Flu Vaccine Inj ection Bess WeissOEvaristo 02/23 Administration Of Flu Vaccine Inj ection Bess WeissO. 01/20 Administration Of Flu Vaccine Inj ection Bess WeissOEvaristo 03/07 Administration Of Flu Vaccine Inj ection Bess WeissO. 02/16 Reclast 1MG [id number] Injection Lorraine Garcia, BEN 04/10/2012 IV Infusion Up To 1 Hour Injection Lorraine Garcia, BEN 04/10/2012 Administration Of Flu Vaccine Inj ection Bess WeissO. 01/12 Reclast 1MG [id number] Injection Lorraine Garcia, BEN 04/06/2011 IV Infusion Up To 1 Hour Injection Lorraine Garcia, BEN 04/06/2011 Administration Of Flu Vaccine Inj ection Bess WeissO. 01/21 Reclast 1MG [id number] Injection Lorraine Garcia, BEN 02/19/2010 IV Infusion Up To 1 Hour Injection Lorraine Garcia, BEN 02/19/2010 Administration Of Flu Vaccine Inj ection Shiraz Weiss.O. 01/16 Reclast 1MG [id number] Injection Lorraine Garcia, BEN 02/17/2009 IV Infusion Up To 1 Hour Injection Lorraine Garcia, BEN 02/17/2009 Administration Of Flu Vaccine Inj ection Shiraz Weiss.O. 12/31 Administration Of Zostavax Injection Shiraz Weiss.OEvaristo 05/27/2008 Administration Of Flu Vaccine Inj ection Shiraz Weiss.O. 01/07 Administration Of Flu Vaccine Inj ection Shiraz Weiss.OEvaristo 03/09 Administration Of Flu Vaccine Inj ection Shiraz Weiss.OEvaristo 01/18 Administration Of Flu Vaccine Inj ection Shiraz Weiss.OEvaristo 01/13 Administration Of Flu Vaccine Inj ection Shiraz Weiss.O. 01/24 Administration Of Flu Vaccine Inj ection Shiraz Weiss.O. 02/13 Administration Of Flu Vaccine Inj ection Shiraz Weiss.OEvaristo 03/24 Administration Of Flu Vaccine Inj ection Shiraz Weiss.O. 01/15 Administration Of Flu Vaccine Inj ection Shiraz Weiss.O. 01/09 Administration Of Flu Vaccine Inj Shiraz Lima.OEvaristo 12/31 Immunizations CPT Code Status Date Vaccine Lot # [id number] Given 01/14/2017 Influenza Vaccin e Quadrivalent Preser/Antibiotic Free Im Use [id number] Q2037 Given 02/24/2016 Fluvirin Virus Vaccine 47549 01 Q2037 Given 01/20/2015 Fluvirin Virus Vaccine 87202 01 14710 Given 06/10/2014 Prevnar 13 [id number] Q2037 Given 03/07/2014 Fluvirin Virus Vaccine 95739 01 Q2037 Given 02/16/2013 Fluvirin Virus Vaccine Q2037 Given 01/13/2012 Fluvirin Virus Vaccine 62314 Given 10/25/2011 Tetanus/Diptheria(Td)Toxoids Preservative Free Q2037 Given 01/21/2011 Fluvirin Virus Vaccine 83005 Given 01/16/2010 Influenza Virus Vaccine 86781 Given 12/31/2008 Pneumovax 23 45347 Given 12/31/2008 Influenza Virus Vaccine 86607 Given 05/27/2008 Zoster Vaccine 31984 Given 01/08/2008 Influenza Virus Vaccine 26676 Given 03/23/2006 Pneumovax 23 26997 Given 03/09/2006 Influenza Virus Vaccine 58372 Given 01/18/2005 Influenza Virus Vaccine 46630 Given 01/14/2004 Influenza Virus Vaccine 26464 Given 01/24/2002 Influenza Virus Vaccine 12483 Given 02/13/2001 Influenza Virus Vaccine 77748 Given 03/24/2000 Influenza Virus Vaccine 86435 Given 01/15/1999 Influenza Virus Vaccine 54736 Given 01/09/1998 Influenza Virus Vaccine 28761 Given 12/31/1996 Influenza Virus Vaccine 90326 Given 01/06/1996 Influenza Virus Vaccine 32812 Given 03/12/1994 Influenza Virus Vaccine 68733 Given 02/11/1993 Influenza Virus Vaccine 93610 Refused 08/17/2018 Influenza Virus Vaccine, Quadrivalent (Cciiv4), Derived From Cell 60092 Refused 01/02/2018 Influenza Virus Vaccine, Quadrivalent (Cciiv4), [...] Note Ua W/ Reflex To Culture 03/05/[address] [address] [phone] Appearance, Urine RFX HAZY Normal Clear Color, Urine RFX YELLOW Normal Yellow PH,Urine RFX 5.0 units Normal 5.0-9.0 Specific [place] Ur Auto RFX 1.026 Normal 1.002-1.035 Protein, [...] 0-1 Influenza A/B RSV Covid Amp 03/05/[address] [address] [phone] Influenza A Amplification NEGATIVE Normal Negati ve 1 Influenza B Amplification NEGATIVE Normal Negative 2 RSV Amplification NEGATIVE Normal Negative 3 Sars Covid-19 Amplification NEGATIVE Normal Negative 4 Laboratory test finding 03/05/[address] [address] [phone] CPK Creatine Phosphokinase 1375 U/L High 26-19 2 Laboratory test finding 03/05/[address] [address] [phone] iSTAT Troponin 0.11 NG/ML High 0.00-0.08 CBC With Differential 03/05/[address] [address] [phone] White Blood Count 13.9 10 High 4.0-10.0 [...] 36.0-66.0 Lymph % 8.7 % Low 24.0-44.0 [place] % 7.6 % Normal 2.0-8.0 Eos % 0.5 % Normal 0.0-3.0 Baso % 0.4 % Normal 0.0-1.0 Immature Granulocyte % 0.4 % Normal 0-3.0 Nucleated Red Blood Cell % 0.0 % Normal 0-0 Neutrophils # 11.4 10 High 1.5-8.5 Lymph # 1.2 10 Low 1.5-5.0 [place] # 1.1 10 High 0.0-0.8 Eos # 0.1 10 Normal 0.0-0.5 Baso # 0.1 10 Normal 0.0-0.2 Comprehensive Metabolic Profil 03/05/[address] [address] [phone] Glucose, Fasting 93 mg/dL Normal 70-100 Blood [...] 1.2 Normal 1.2-2.2 Laboratory test finding 03/05/2021 [facility] [address] [place] [address] [phone] C Reactive Protein Quantitativ 6.06 mg/dL High 0 .00-0.30 Erythrocyte Sedimentation Rate 9 mm/hr Normal 0-30 Complete Blood Count 09/09/2020 [place] [facility] Desktop Operator: [place] [address] [phone] WBC 7.3 x10*3/UL 4.1 - 10.9 RBC [...] 2.0 - 7.8 Laboratory test finding 09/09/2020 [place] [facility] Desktop Operator: [place] [address] [phone] Sed Rate 12 mm/hr 0 - 15 Comprehensive Chem Profile 09/09/2020 [facility] Desktop Operator: [place] [address] [phone] Glucose 81 mg/dL 74 - 99 6 [...] mL/min >60 7 Laboratory test finding 09/09/2020 [facility] [facility] Desktop Operator: Dr Jai Dixon [place], [place] [id number] [phone] Thyroid Stimulating Hormone 2.30 uIU/mL 0.3 6 [...] test. DISCLAIMER: Testing was performed using the [employer] SARS-CoV-2 test. This test was developed and its performance characteristics determined by [employer]. This test has not been FDA cleared [...] Little GFR Left ESRD GFR <15 on FLIGHT PURSER 6 100-125 mg/dL PRE-DIABET ES/FASTING >126 mg/dL DIABETES/FASTING 7 CHRONIC KIDNEY DISEASE STAGI NG PER NKF STAGE I & II GFR >= 60 NORMAL TO MILDLY DECREASED STAGE III GFR 30-59 MODERATELY DECREASED STAGE IV GFR 15-29 SEVERELY DECREASED STAGE V GFR <15 VERY LITTLE GFR LEFT ESRD GFR <15 ON FLIGHT PURSER Procedures Date Code Description Status 09/10/2020 91434 Office/Outpatient Established Mo d MDM 30-39 Min Completed 04/15/2016 [id number] Mammogram Completed 03/17/2016 [id number] Bone Mineral Density Test [facility] 07/12/2014 [id number] Mammogram Completed 07/09/2013 [id number] Mammogram Completed 07/13/2012 [id number] Mammogram Completed 10/05/2011 [id number] Bone Mineral Density Test [facility] 07/26/2011 [id number] Mammogram Completed 08/25/2010 [id number] Colonoscopy Completed 09/08/2009 [id number] Bone Mineral Density Test [facility] 04/08/2009 [id number] Colonoscopy Completed Medical Devices Description No Information Available Encounters Type Date Location Provider Dx Diagnosis Office Visit 09/10/2020 11:00a [facility] Jai Dixon MD E03.9 Hypothyroidism, [...] 03/10/2021 9:40 am - Lab Schedule at [facility] * 03/11/2021 10:40 am - Jai Dixon MD at [facility] 09/10/2020 - Jai Dixon MD* [...]
--- OUTSIDE RECORDS SUMMARY | 2021-03-09 01:28 | CCD | Continuity of Care Document ---
Author Author Kamini Dixon MD Organization Unknown Address [address] [address] Phone [phone] Care Team Providers Care Cafeteria Operator Name Role Phone Romario Stephenson MD AUTM [phone] Jasmyn Perez AUTM [phone] Chace Byers DO AUTM [phone] Jai Dixon JR, MD AUTM Unavailable [facility] AUTM [phone] Problems Active Problems Provider Date Malignant neoplasm [...] months 2units Jai Dixon MD 09/10/2020 Nystop 407764Rrww/GM Powder Apply To Both Breast Tissue/Groin Tissue Twice A Day 30units Jai Dixon MD 07/07/2020 Albuterol Sulfate HFA 108(90Base) mcg/Act Aerosol Inhale 2 Puffs By Mouth Four Times Daily as Needed 25.5gm Jai Dixon MD 01/22/2020 Prednisone 10mg Tablets Take 1 Tablet By Mouth Every Other Day 45tabs Jai Dioxn MD 05/2019 Ketoconazole 2% Cream apply to [...] Shiraz Weiss.O. 01/27/2011 Vitamin C W/Vitamin E 592-189fa-Wnww Capsules Shiraz Weiss .O. 01/27/2011 Labetalol HCL [...] Inj ection Shiraz Weiss.O. 02/16 Reclast 1MG [id number] Injection Lorraine Garcia, BEN 04/10/2012 IV Infusion Up To 1 Hour Injection Lorraine Garcia, BEN 04/10/2012 Administration Of Flu Vaccine Inj ection Shiraz Weiss.O. 01/12 Reclast 1MG [id number] Injection Lorraine Garcia, BEN 04/06/2011 IV Infusion Up To 1 Hour Injection Lorraine Garcia, ANP 04/06/2011 Administration Of Flu Vaccine Inj ection Shiraz Weiss.O. 01/21 Reclast 1MG [id number] Injection Lorraine Garcia, ANP 02/19/2010 IV Infusion Up To 1 Hour Injection Lorraine Garcia, ANP 02/19/2010 Administration Of Flu Vaccine Inj ection Shiraz Weiss.O. 01/16 Reclast 1MG [id number] Injection Lorraine Garcia, ANP 02/17/2009 IV Infusion [...] CPT Code Status Date Vaccine Lot # 35021 Given 01/14/2017 Influenza Vaccin e Quadrivalent Preser/Antibiotic Free Im Use [id number] Q2037 Given 02/24/2016 Fluvirin Virus Vaccine 01435 01 Q2037 Given 01/20/2015 Fluvirin Virus Vaccine 27122 01 44165 Given 06/10/2014 Prevnar 13 [id number] Q2037 Given 03/07/2014 Fluvirin Virus Vaccine 63814 01 Q2037 Given 02/16/2013 Fluvirin Virus Vaccine Q2037 Given 01/13/2012 Fluvirin Virus Vaccine 63956 Given 10/25/2011 Tetanus/Diptheria(Td)Toxoids Preservative Free Q2037 Given 01/21/2011 Fluvirin Virus Vaccine 99425 Given 01/16/2010 Influenza Virus Vaccine 89512 Given 12/31/2008 Pneumovax 23 15691 Given 12/31/2008 Influenza Virus Vaccine 28387 Given 05/27/2008 Zoster Vaccine 26958 Given 01/08/2008 Influenza Virus Vaccine 33413 Given 03/23/2006 Pneumovax 23 21417 Given 03/09/2006 Influenza Virus Vaccine 17064 Given 01/18/2005 Influenza Virus Vaccine 86226 Given 01/14/2004 Influenza Virus Vaccine 30159 Given 01/24/2002 Influenza Virus Vaccine 07488 Given 02/13/2001 Influenza Virus Vaccine 59765 Given 03/24/2000 Influenza Virus Vaccine 34608 Given 01/15/1999 Influenza Virus Vaccine 98726 Given 01/09/1998 Influenza Virus Vaccine 17061 Given 12/31/1996 Influenza Virus Vaccine 19560 Given 01/06/1996 Influenza Virus Vaccine 84356 Given 03/12/1994 Influenza Virus Vaccine 08908 Given 02/11/1993 Influenza Virus Vaccine 85419 Refused 08/17/2018 Influenza Virus Vaccine, Quadrivalent (Cciiv4), Derived From Cell 58063 Refused 01/02/2018 Influenza Virus Vaccine, Quadrivalent (Cciiv4), [...] Note Ua W/ Reflex To Culture 03/05/[address] [address] [phone] Appearance, Urine RFX HAZY Normal Clear Color, Urine RFX YELLOW Normal Yellow PH,Urine RFX 5.0 units Normal 5.0-9.0 Specific [place] Ur Auto RFX 1.026 Normal 1.002-1.035 Protein, [...] 0-1 Influenza A/B RSV Covid Amp 03/05/[address] [address] [phone] Influenza A Amplification NEGATIVE Normal Negati ve 1 Influenza B Amplification NEGATIVE Normal Negative 2 RSV Amplification NEGATIVE Normal Negative 3 Sars Covid-19 Amplification NEGATIVE Normal Negative 4 Laboratory test finding 03/05/[address] [address] [phone] CPK Creatine Phosphokinase 1375 U/L High 26-19 2 Laboratory test finding 03/05/[address] [address] [phone] iSTAT Troponin 0.11 NG/ML High 0.00-0.08 CBC With Differential 03/05/[address] [address] [phone] White Blood Count 13.9 10 High 4.0-10.0 [...] 36.0-66.0 Lymph % 8.7 % Low 24.0-44.0 [place] % 7.6 % Normal 2.0-8.0 Eos % 0.5 % Normal 0.0-3.0 Baso % 0.4 % Normal 0.0-1.0 Immature Granulocyte % 0.4 % Normal 0-3.0 Nucleated Red Blood Cell % 0.0 % Normal 0-0 Neutrophils # 11.4 10 High 1.5-8.5 Lymph # 1.2 10 Low 1.5-5.0 [place] # 1.1 10 High 0.0-0.8 Eos # 0.1 10 Normal 0.0-0.5 Baso # 0.1 10 Normal 0.0-0.2 Comprehensive Metabolic Profil 03/05/2021 [place] [id number] [phone] Glucose, Fasting 93 mg/dL Normal 70-100 Blood [...] 1.2 Normal 1.2-2.2 Laboratory test finding 03/05/2021 [facility] [place] [address] [place] [address] [phone] C Reactive Protein Quantitativ 6.06 mg/dL High 0 .00-0.30 Erythrocyte Sedimentation Rate 9 mm/hr Normal 0-30 Complete Blood Count 09/09/2020 [facility] Lab Technician: [place] [address] [phone] WBC 7.3 x10*3/UL 4.1 - 10.9 RBC [...] 2.0 - 7.8 Laboratory test finding 09/09/2020 [facility] Lab Technician: [place] [address] [phone] Sed Rate 12 mm/hr 0 - 15 Comprehensive Chem Profile 09/09/2020 [facility] Lab Technician: [place] [address] [phone] Glucose 81 mg/dL 74 - 99 6 [...] mL/min >60 7 Laboratory test finding 09/09/2020 [facility] Lab Technician: Dr Jai Dixon [place] [id number] [phone] Thyroid Stimulating Hormone 2.30 uIU/mL 0.3 6 [...] test. DISCLAIMER: Testing was performed using the [employer] SARS-CoV-2 test. This test was developed and its performance characteristics determined by [employer]. This test has not been FDA cleared [...] Little GFR Left ESRD GFR <15 on DENTAL EQUIPMENT TECHNICIAN 6 100-125 mg/dL PRE-DIABET ES/FASTING >126 mg/dL DIABETES/FASTING 7 CHRONIC KIDNEY DISEASE STAGI NG PER NKF STAGE I & II GFR >= 60 NORMAL TO MILDLY DECREASED STAGE III GFR 30-59 MODERATELY DECREASED STAGE IV GFR 15-29 SEVERELY DECREASED STAGE V GFR <15 VERY LITTLE GFR LEFT ESRD GFR <15 ON DENTAL EQUIPMENT TECHNICIAN Procedures Date Code Description Status 09/10/2020 22241 Office/Outpatient Established Mo d MDM 30-39 Min Completed 04/15/2016 [id number] Mammogram Completed 03/17/2016 [id number] Bone Mineral Density Test [facility] 07/12/2014 [id number] Mammogram Completed 07/09/2013 [id number] Mammogram Completed 07/13/2012 [id number] Mammogram Completed 10/05/2011 [id number] Bone Mineral Density Test [facility] 07/26/2011 [id number] Mammogram Completed 08/25/2010 [id number] Colonoscopy Completed 09/08/2009 [id number] Bone Mineral Density Test [facility] 04/08/2009 [id number] Colonoscopy Completed Medical Devices Description No Information Available Encounters Type Date Location Provider Dx Diagnosis Office Visit 09/10/2020 11:00a [facility] Jai Dixon MD E03.9 Hypothyroidism, [...] 03/10/2021 9:40 am - Lab Schedule at [facility] * 03/11/2021 10:40 am - Jai Dixon MD at [facility] 09/10/2020 - Jai Dixon MD* [...]
--- OUTSIDE RECORDS SUMMARY | 2021-03-09 01:28 | CCD ---
Author Author [facility] Organization [facility] Address Unknown Phone Unavailable Care Team Providers [employer] Name Role Phone Trickey, J Jasmyn PA [...] J Jasmyn PA Unavailable Unavailable Trickey, J Jamsyn PA Unavailable Unavailable Trickey, J Jasmyn PA Unavailable Unavailable Trickey, J Jasmyn PA Unavailable Unavailable Trickey, J Jasmyn PA Unavailable Unavailable Trickey, J Jasmyn PA Unavailable Unavailable Trickey, J Jasmyn PA Unavailable Unavailable Trickey, J Jasmyn PA Unavailable Unavailable Trickey, J Jasmyn PA Unavailable Unavailable Trickey, J Jasmyn PA Unavailable Unavailable Trickey, J Jasmny PA Unavailable Unavailable Trickey, J Jasmyn PA [...] Unavailable Unavailable Eliot Dixon MD Unavailable Unavailable Destiny, Eliot Vergara MD Unavailable Unavailable LewistonEliot MD Unavailable Unavailable Destiny, Eliot Vergara MD Unavailable Unavailable [place], Eliot Vergara MD Unavailable Unavailable [place], Eliot Vergara MD Unavailable Unavailable Destiny, Eliot Vergara MD Unavailable Unavailable Destiny, Eliot Vergara MD Unavailable Unavailable LewistonEliot MD Unavailable Unavailable LewistonEliot MD Unavailable Unavailable Destiny, Eliot Vergara MD Unavailable Unavailable [place], Eliot Vergara MD Unavailable Unavailable Destiny, Eliot Vergara MD Unavailable Unavailable Destiny, Eliot Vergara MD Unavailable Unavailable [place], Eliot Vergara MD Unavailable Unavailable DestinyEliot MD Unavailable Unavailable DestinyEliot MD Unavailable Unavailable Destiny, Eliot Vergara MD Unavailable Unavailable Destiny, Eliot Vergara MD Unavailable Unavailable [place], Eliot Vergara MD Unavailable Unavailable Destiny, Eliot Vergara MD Unavailable Unavailable LewistonEliot MD Unavailable Unavailable LewistonEliot MD Unavailable Unavailable LewistonEliot MD Unavailable Unavailable DestinyEliot MD Unavailable Unavailable DestinyEliot MD Unavailable Unavailable DestinyEliot MD Unavailable Unavailable LewistonEliot MD Unavailable Unavailable DestinyEliot MD Unavailable Unavailable LewistonEliot MD Unavailable Unavailable LewistonEliot MD Unavailable Unavailable DestinyEliot MD Unavailable Unavailable [place]istonEliot MD Unavailable Unavailable DestinyEliot MD Unavailable Unavailable [place]Eliot MD Unavailable Unavailable DestinyEliot MD Unavailable Unavailable DestinyEliot MD Unavailable Unavailable DestinyEliot MD Unavailable Unavailable DestinyEliot MD Unavailable Unavailable [place]istonEliot MD Unavailable Unavailable [place]Eliot MD Unavailable Unavailable DestinyEliot MD Unavailable Unavailable DestinyEliot MD Unavailable Unavailable DestinyEliot MD Unavailable Unavailable [place]istonEliot MD Unavailable Unavailable DestinyEliot MD Unavailable Unavailable DestinyEliot MD Unavailable Unavailable Re-disclosure Warning The records that [...] is protected by Article 27-F of the [facility] Public Health law. If you continue you may have access to information: Regarding HIV / AIDS; Provided by facilities licensed or operated by the [facility] Office of Mental Health; or Provided by the [facility] Office for People With Developmental Disabilities. If such information is present, then the following [facility] mandated warning applies: This information [...] law may result in a fine or group home sentence or both. A general authorization for the release of medical or other information is NOT sufficient authorization for further disc losure. Family History Family Member Name Family Member Gender Family Member Status Date o f Status Description Data Source(s) Unknown Unknown Problem [facility] ([facility], ) Unknown Male Problem [facility] ([facility] ) Encounters Encounter Providers Location Date Indications Data Source(s ) Outpatient Attender: Jasmyn KOO [facility] n 12/15/2020 11:15:00 AM EDT [facility] ([facility] Outpatient Attender: Jai Coronel 0 09/10/2020 11:00:00 AM EDT [facility] ([facility] ) Outpatient Attender: Jasmyn KOO [facility] n 08/12/2020 09:45:00 AM EDT [facility] ([facility]) Office Visit Attender: Jasmyn KOO [facility] n 03/31/2020 10:15:00 AM EST [facility] ([facility]) Outpatient Attender: Jai Coronel 1 05/06/2019 01:00:00 PM EST [facility] ([facility] ) Immunizations Vaccine Date Status Description Data Source(s) COVID-19 VACCINE Pfizer 02/11/2021 12:00:00 AM EST completed [facility] Vaccine Series Complete: YESThis Data wa s Submitted to [facility] Via TVPage. COVID-19 VACCINE Moderna 07/01/2020 12:00:00 AM EDT completed [facility] Vaccine Series Complete: YESThis Data wa s Submitted to [facility] Via [employer]. COVID-19 VACCINE Moderna 06/03/2020 12:00:00 AM EST completed [facility] Vaccine Series Complete: NOThis Data was Submitted to [facility] Via [employer]. Medications Medication Brand Name Start Date Product Form Dose Route Admi nistrative Instructions Pharmacy Instructions Status Indications Reaction Description Data Source(s) Shingrix Shingrix 09/10/2020 12:00:00 AM EDT activ e [facility] ([facility]) Nystatin 100 UNT/MG Topical Powder [Nystop] Nystop 07/07/2020 12:00:00 AM EDT active [facility] ([facility]) Covid-19 vaccine, Unspecified 07/01/2020 12:00:00 AM EDT completed [facility]) Medication administered onsite Covid-19 vaccine, Unspecified 06/03/2020 12:00:00 AM EST completed [facility]) Medication administered onsite Tylenol W/Codeine #3 01/24/2020 12:00:00 AM EDT active [facility] ([facility]) 60 ACTUAT Albuterol 0.09 MG/ACTUAT Metered Dose Inhaler Albu terol Sulfate HFA 01/22/2020 12:00:00 AM EDT RESPIRATORY active [facility] ([facility]) Ubrelvy Ubrelvy 10/08/2019 12:00:00 AM EDT ORAL complet ed [facility] ([facility]) Insurance Providers Payer name Policy type / Coverage type Policy ID Covered alliance party ID Covered alliance party's relationship to hair Policy Hair Plan Information Medicare Natl Govt Servic Medicare Primary [id number] Self [id number] Medicare Natl Govt Servic Medicare Primary [id number] [id number] Self [id number] Medicare Natl Govt Servic Medicare Primary [id number] 2.16.840.1.430866.3.227.99.4595.5.0 Self [id number] Medicare Natl Govt Servic Medicare Primary [id number] 2.840.1.918993.3.227.99.4595.5.0 Self [id number] MEDICARE [id number] SP [id number] Medicare [place] Primary [id number] 2.840.1.273443.3.227.99.991.13009.0 Self [id number] Medicare Natl Govt Servic Medicare Primary [id number] 2.840.1.441168.3.227.99.4595.5.0 Self [id number] Medicare [place] Medicare Primary [id number] 2.840.1.478827.3.227.99.991.89701.0 Self 8 [id number] Medicare Natl Govt Servic Medicare Primary [id number] 2.840.1.605569.3.227.99.4595.5.0 Self [id number] Medicare Natl Govt Servic Medicare Primary [id number] 2.840.1.359529.3.227.99.4595.5.0 Self [id number] Medicare [place] Medicare Primary [id number] 2.840.1.120778.3.227.99.991.36892.0 Self 8 [id number] Medicare [place] Medicare Primary [id number] 2.840.1.560104.3.227.99.991.45726.0 Self 8 [id number] Medicare Natl Govt Servic Medicare Primary [id number] 2.840.1.783949.3.227.99.4595.5.0 Self [id number] Medicare Natl Govt Servic Medicare Primary [id number] Self MEDICARE [id number] SP [id number] A Medicare [place] Medicare Primary [id number] 2.16.840.1.320009.3.227.99.991.28787.0 Self [id number] Medicare Natl Govt Servic Medicare Primary [id number] 2.840.1.662314.3.227.99.4595.5.0 Self [id number] [employer] Opt Medigap Part B [id number] 2.0.1.127260.3.227.99.4595.5.0 Self [id number] [employer] Opt Medigap Part B [id number] 2.0.1.583354.3.227.99.4595.5.0 Self [id number] [employer] Opt Medigap Part B [id number] 2.840.1.935766.3.227.99.4595.5.0 Self [id number] [employer] Medigap Part B [id number] 2.840.1.592520.3.227.99.4595.5.0 Self [id number] [employer] Medigap Part B [id number] 2.0.1.661476.3.227.99.4595.5.0 Self [id number] [employer] Medigap Part B [id number] 2.840.1.959360.3.227.99.4595.5.0 Self [id number] [employer] Medig[employer] Part B [id number] 2.840.1.075398.3.227.99.4595.5.0 Self [id number] [employer] Opt Medigap Part B Plan [id number] Self Plan F [employer] Medigap Part B [id number] 2.16.840.1.623730.3.227.99.4595.5.0 Self [id number] [employer] Opt Medigap Part B [id number] 2.16.840.1.814064.3.227.99.4595.5.0 Self [id number] [employer] Options Medigap Part B [id number] 2.16.840.1.755812.3.227.99.991.74726.0 Self 0 [id number] [employer] OPTIONS [id number] SP [id number] Aarp Medigap Part B [id number] 2.16.840.1.976845.3.227.99.1037.5 193.0 Self [id number] Medicare Part B Medicare Primary [id number] 2.16.840.1.032030.3.227.99.1037.5193.0 Self 0 [id number] [employer] Medigap Part B 2.16.840.1.824720.3.227.99.8646.169 03.0 Self Medicare [place]/NGS Medicare Primary 2.16.840.1.32154 3.3.227.99.8646.76778.0 Self MEDICARE [id number] SP [id number] A [employer]ARP [employer] C[employer] OPTIONS [id number] SP [id number] Medicare Part B Medicare Primary [id number] Self Aarp Commercial [id number] Self MEDICARE C [id number] S [id number] A AARP O [id number] S [id number] Medicare Medicare Primary [id number] Self MEDICARE PART A-CLINIC [id number] AARP HE[employer] CARE OPTIONS [id number] SP [id number] 612 AARP O [id number] S [id number] MEDICARE C [id number] S [id number] [employer]arp Medigap Part B [id number] Self [id number] Medicare Part B Medicare Primary [id number] Self [id number] Aar Medigap Part B [id number] 2.160.1.071028.3.227.99.1037.5 193.0 Self [id number] Medicare Part B Medicare Primary [id number] 2.160.1.979476.3.227.99.1037.5193.0 Self [id number] [employer]arp Medigap Part B [id number] 2.160.1.906526.3.227.99.1037.5 193.0 Self [id number] Medicare Part B Medicare Primary [id number] 2.0.1.995078.3.227.99.1037.5193.0 Self [id number] [employer] Ins (NF) Workers Compensation [id number] 2.0.1.746289.3.227.99.991.37852.0 Self [id number] Aar Medigap Part B [id number] 2.0.1.909452.3.227.99.8646.1 6903.0 Self [id number] Medicare [place]/[facility] Medicare Primary [id number] 2.0.1.293611.3.227.99.8646.10725.0 Self [id number] Aar Medigap Part B [id number] 2.160.1.877357.3.227.99.1037.5 193.0 Self [id number] Medicare Part B Medicare Primary [id number] 2.160.1.846803.3.227.99.1037.5193.0 Self [id number] Aar Medigap Part B [id number] 2.0.1.403331.3.227.99.1037.5 193.0 Self [id number] Medicare Part B Medicare Primary [id number] 2.16.840.1.934446.3.227.99.1037.5193.0 Self 0 [id number] [employer] Medigap Part B [id number] 2.16.840.1.478232.3.227.99.1037.5 193.0 Self [id number] Medicare Part B Medicare Primary [id number] 2.16.840.1.257442.3.227.99.1037.5193.0 Self 0 [id number] [employer] Medigap Part B [id number] 2.16.840.1.942079.3.227.99.1037.5 193.0 Self [id number] Medicare Part B Medicare Primary [id number] 2.16.840.1.923943.3.227.99.1037.5193.0 Self 0 [id number] [employer] Medigap Part B [id number] 2.0.1.252380.3.227.99.1037.5 193.0 Self [id number] Medicare Part B Medicare Primary [id number] 2.16.840.1.719547.3.227.99.1037.5193.0 Self 0 [id number] [employer] Medigap Part B [id number] 2.16.840.1.214654.3.227.99.1037.5 193.0 Self [id number] Medicare Part B Medicare Primary [id number] 2.16840.1.138194.3.227.99.1037.5193.0 Self 0 [id number] [employer] Medigap Part B [id number] 2.16.840.1.715099.3.227.99.1037.5 193.0 Self [id number] Medicare Part B Medicare Primary [id number] 2.16.840.1.291337.3.227.99.1037.5193.0 Self 0 [id number] [employer]arp Medigap Part B [id number] 2.16840.1.066179.3.227.99.1037.5 193.0 Self [id number] Medicare Part B Medicare Primary [id number] 2.16.840.1.981910.3.227.99.1037.5193.0 Self 0 [id number] [facility] Part B [id number] 2.16.840.1.931154.3.227.99.1037.5 193.0 Self [id number] Medicare Part B Medicare Primary [id number] 2.16.840.1.651766.3.227.99.1037.5193.0 Self 0 [id number] Problems, Conditions, and Diagnoses No Information Surgeries/Procedures Procedure Description Date Indications Data Source(s) OFFICE OUTPATIENT VISIT 25 MINUTES 12/15/2020 12:00:00 AM EDT [facility] ([facility] ) OFFICE OUTPATIENT VISIT 25 MINUTES 09/10/2020 12:00:00 AM EDT [facility] ([facility]) OFFICE OUTPATIENT VISIT 25 MINUTES 08/12/2020 12:00:00 AM EDT [facility] ([facility], ) Injection For Nerve Block, Greater Occipital Nerve 05/14/2020 12:00:00 AM EST [facility] ([facility], ) INJECTION ANES OTHER PERIPHERAL NERVE/BRANCH 1 12:00:00 AM EST [facility] ([facility], ) Injection For Nerve Block, Greater Occipital Nerve 03/12/2020 12:00:00 AM EST [facility] ([facility], ) INJECTION ANES OTHER PERIPHERAL NERVE/BRANCH 0 12:00:00 AM EST [facility] ([facility], ) INJECTION SINGLE/ORDER ENTRY TECHNICIAN TRIGGER POINT 3/> MUSCLES 020 12:00:00 AM EDT [facility] ([facility], ) INJECTION ANES OTHER PERIPHERAL NERVE/BRANCH 0 12:00:00 AM EDT [facility] ([facility], ) Results ID Date Data Source [id number] 03/05/2021 06:19:00 PM EST [facility] ([facility]) Name Value Range Interpretation Code Description Data Holly rce(s) Supporting Document(s) Appearance, Urine RFX Laboratory test result [facility] ([facility]) Color, Urine RFX Laboratory test result [facility] ([facility]) PH,Urine RFX 5.0 units 5.0-9.0 [facility] Specific [place] Ur Auto RFX 1.026 1.002-1.035 [facility] Glucose, Urine (Ua) Auto RFX Laboratory test result [facility] Protein, Urine Auto RFX Laboratory test result [facility] Ketone, Urine Auto RFX Laboratory test result [facility] Urobilinogen, Urine Auto RFX 0.2 mg/dL 0.0-2.0 [facility] Nitrite, Urine Auto RFX Laboratory test result [facility] Bilirubin, Urine Auto RFX Laboratory test result [facility] Blood, Urine Blood RFX Laboratory test result [facility] Leukocyte Esterase Ur Auto RFX Laboratory test result [facility] ([facility]) RBC, Urine Auto RFX 4 /HPF 0-3 [facility] WBC, Urine Auto RFX 9 /HPF 0-3 [facility] Squam Epithelial Cell Ur Aurfx 9 /HPF 0-6 [facility] Bacteria, Urine Auto RFX Laboratory test result [facility] Mucus, Urine RFX Laboratory test result [facility] Hyaline Cast, Urine Auto RFX 1 /LPF 0-1 M [facility] ID Date Data Source [id number] 03/05/2021 03:43:00 PM EST [facility] Name Value Range Interpretation Code Description Data Holly rce(s) Supporting Document(s) SARS coronavirus 2 RNA [Presence] in Res piratory specimen by GEOFF with probe detection NEGATIVE [facility] This lab was ordered by [facility] a nd reported by [facility]. ID Date Data Source [id number] 03/05/2021 03:43:00 PM EST [facility] Name Value Range Interpretation Code Description Data Holly rce(s) Supporting Document(s) Influenza A Amplification Laboratory test result [facility] ([facility]) Negative results do not preclude influen za or RSV virus infection and should not be used as the sole basis for treatment or other patient management decisions. Influenza B Amplification Laboratory test result [facility] ([facility]) Negative results do not preclude influen za or RSV virus infection and should not be used as the sole basis for treatment or other patient management decisions. RSV Amplification Laboratory test result [facility] ([facility]) Negative results do not preclude influen za or RSV virus infection and should not be used as the sole basis for treatment or other patient management decisions. Laboratory test finding (navigational concept) Laboratory test result [facility] ([facility]) A false negative result may occur if a s pecimen is improperly collected, transported or handled. False [...] test. DISCLAIMER: Testing was performed using the [employer] SARS-CoV-2 test. This test was developed and its performance characteristics determined by [employer]. This test has not been FDA cleared [...] the authorization is terminated or revoked sooner. ID Date Data Source [id number] 03/05/2021 02:05:00 PM EST [facility] Name Value Range Interpretation Code Description Data Holly rce(s) Supporting Document(s) Creatine kinase [Enzymatic activity/volume] in Serum or Plasma 1 375 U/L 26-192 [facility] ID Date Data Source [id number] 03/05/2021 01:55:00 PM EST [facility] Name Value Range Interpretation Code Description Data Holly rce(s) Supporting Document(s) Laboratory test finding (navigational concept) 0.11 ng/mL 0.00-0.08 [facility] ID Date Data Source [id number] 03/05/2021 11:59:00 AM EST [facility] Name Value Range Interpretation Code Description Data Holly rce(s) Supporting Document(s) C reactive protein [Mass/volume] in Serum or Plasma by High sensitivity method 6.06 mg/dL 0.00-0.30 [facility] Erythrocyte sedimentation rate by Westergren method 9 mm/hr 0-30 [facility] ID Date Data Source [id number] 03/05/2021 11:59:00 AM EST [facility] Name Value Range Interpretation Code Description Data Holly rce(s) Supporting Document(s) Glucose, Fasting 93 mg/dL 70-100 [facility] ([facility]) Blood Urea Nitrogen 31 mg/dL 7-18 [facility] ([facility]) Creatinine For GFR 0.67 mg/dL 0.55-1.30 [facility] Glomerular Filtration Rate Laboratory test result [facility] ([facility]) <content>Units are mL/min/1.73 m2</content>
<content></content>
<content>Chronic Kidney Disease Staging per NKF:</content>
<content></content>
<content>Stage I & II GFR >=60 Normal to Mildly Decreased</content>
<content>Stage III GFR 30- 59 Moderately Decreased</content>
<content>Stage IV GFR 15-29 Severely Decreased</content>
<content>Stage V GFR <15 Very Little GFR Left</content>
<content>ESRD GFR <15 on HEAVY CLEANER</content>
<content></content> Potassium Serum 3.5 meq/L 3.5-5.1 [facility] ([facility]) Sodium Level 141 meq/L 136-145 [facility] ([facility]) Chloride Level 102 meq/L 98-107 [facility] ([facility]) Carbon Dioxide Level 28 meq/L 21-32 [facility] ([facility]) Anion Gap 11 meq/L 8-16 [facility] Calcium Level 9.9 mg/dL 8.8-10.2 [facility] ([facility]) Ast/Sgot 120 U/L 7-37 [facility]) Alt/SGPT 75 U/L 12-78 [facility]) Bilirubin,Total 1.0 mg/dL 0.2-1.0 [facility] ([facility]) Alkaline Phosphatase 81 U/L 45-117 [facility] ([facility]) Total Protein 6.9 GM/DL 6.4-8.2 [facility] ([facility]) Albumin 3.8 GM/DL 3.2-5.2 [facility] ([facility]) Albumin/Globulin Ratio 1.2 1.2-2.2 [facility] ([facility]) ID Date Data Source [id number] 03/05/2021 11:59:00 AM EST [facility] ([facility]) Name Value Range Interpretation Code Description Data Holly rce(s) Supporting Document(s) White Blood Count 13.9 10 4.0-10.0 [facility] ([facility]) Red Blood Count 4.74 10 4.00-5.40 [facility] ([facility]) Hemoglobin 15.5 g/dL 12.0-15.5 [facility] Mean Corpuscular Volume 97.5 fl 80.0-96.0 [facility] Hematocrit 46.2 % 36.0-47.0 [facility] Mean Corpuscular Hemoglobin 32.7 pg 27.0-33.0 [facility] ([facility]) Red Cell Distribution Width 12.6 % 11.5-14.5 [facility] ([facility]) Mean Corpuscular HGB Conc 33.5 g/dL 32.0-36.5 MEDE NT ([facility]) Platelet Count, Automated 222 10 150-450 [facility] NT ([facility]) Neutrophils % 82.4 % 36.0-66.0 [facility] ([facility]) Lymph % 8.7 % 24.0-44.0 [facility] Williams % 7.6 % 2.0-8.0 [facility] Eos % 0.5 % 0.0-3.0 [facility] Baso % 0.4 % 0.0-1.0 [facility]) Nucleated Red Blood Cell % 0.0 % 0-0 MED ENT ([facility]) Immature Granulocyte % 0.4 % 0-3.0 [facility] ([facility]) Neutrophils # 11.4 10 1.5-8.5 [facility] ([facility]) Lymph # 1.2 10 1.5-5.0 [facility] Eos # 0.1 10 0.0-0.5 [facility] Williams # 1.1 10 0.0-0.8 [facility] Baso # 0.1 10 0.0-0.2 [facility] ID Date Data Source [id number] 09/09/2020 08:43:00 AM EDT [facility] ([facility]) Name Value Range Interpretation Code Description Data Holly rce(s) Supporting Document(s) Thyrotropin [Units/volume] in Serum or Plasma by Detec tion limit <= 0.05 mIU/L 2.30 uIU/mL 0.36-3.74 [facility] ([facility] ) ID Date Data Source [id number] 09/09/2020 08:43:00 AM EDT [facility] ([facility]) Name Value Range Interpretation Code Description Data Holly rce(s) Supporting Document(s) Urea nitrogen [Mass/volume] in Serum or Plasma 26 mg/dL 7-18 [facility] ([facility]) Glucose [Mass/volume] in Serum or Plasma 81 mg/dL 74-99 [facility] ([facility]) 100-125 mg/dL PRE-DIABETES/FASTING >126 mg/dL DIABETES/FASTING Sodium [Moles/volume] in Serum or Plasma 146 meq/L 136-145 [facility] ([facility]) Creatinine 0.9 mg/dL 0.6-1.3 [facility] Chloride [Moles/volume] in Serum or Plasma 105 meq/L 98-107 [facility] ([facility]) Potassium [Moles/volume] in Serum or Plasma 4.1 meq/L 3.5-5.1 [facility] ([facility]) Carbon dioxide, total [Moles/volume] in Serum or Plasma 34 meq/L 21 -32 [facility] ([facility]) Calcium [Mass/volume] in Serum or Plasma 9.7 mg/dL 8.5-10.1 [facility] ([facility] [facility] Alkaline phosphatase isoenzyme [Units/volume] in Serum or Pl asma 99 mg/dL 46-116 [facility] ([facility]) Aspartate aminotransferase [Enzymatic activity/volume] in Serum or Plasma 24 U/L 15-37 [facility] ([facility] ) Total Bilirubin 0.5 mg/dL 0.2-1.0 [facility] ([facility]) Albumin [Mass/volume] in Serum or Plasma 3.8 g/dL 3.4-5.0 [facility] ([facility]) Alanine aminotransferase [Enzymatic activity/volume] in Seru m or Plasma 35 U/L 12-78 [facility] ([facility]) Proteinase 3 Ab [Units/volume] in Serum 6.4 g/dL 6.4-8.2 [facility] ([facility]) A/G Ratio 1.46 CALC 1.00-1.90 [facility]) Glomerular filtration rate/1.73 sq M pre dicted among non-blacks [Volume Rate/Area] in Serum or Plasma by Creatinine-based formula (MDRD) 60 mL/min [facility] ([facility]) Glomerular filtration rate/1.73 sq M pre dicted among blacks [Volume Rate/Area] in Serum or Plasma by Creatinine-based formula (MDRD) Laboratory test result [facility] <content>CHRONIC KIDNEY DISEASE STAGING PER NKF</content>
<content></content>
<content>STAGE I & II GFR >= 60 NORMAL TO MILDLY DECREASED</content>
<content>STAGE III GFR 30-59 MODERATELY DECREASED</content>
<content>STAGE IV GFR 15-29 SEVERELY DECREASED</content>
<content>STAGE V GFR <15 VERY LITTLE GFR LEFT</content>
<content>ESRD GFR <15 ON HEAVY CLEANER</content>
<content></content> ID Date Data Source [id number] 09/09/2020 08:43:00 AM EDT [facility] ([facility]) Name Value Range Interpretation Code Description Data Holly rce(s) Supporting Document(s) Erythrocyte sedimentation rate by Westergren method 12 mm/hr 0-15 [facility] ID Date Data Source [id number] 09/09/2020 08:43:00 AM EDT [facility] Name Value Range Interpretation Code Description Data Holly rce(s) Supporting Document(s) Leukocytes [#/volume] in Blood by Automated count 7.3 x10*3/UL 4.1-10 .9 [facility] Erythrocytes [#/volume] in Blood by Automated count 4.01 x10*6/UL 4.2 0-6.30 [facility] ([facility] Hemoglobin [Mass/volume] in Blood 13.0 g/dL 12.0-18.0 [facility] ([facility]) Hematocrit [Volume Fraction] of Blood by Automated count 38.0 % 3 7.0-51.0 [facility] ([facility]) MCV 94.6 fL 80.0-97.0 [facility]) MCH 32.5 pg 26.0-32.0 [facility] MCHC 34.3 g/dL 31.0-38.0 [facility]) Erythrocyte distribution width [Ratio] by Automated count 12.9 % 11.6-13.7 [facility] ([facility]) MPV 9.5 FL 7.8-11.0 [facility] ([facility]) Platelets [#/volume] in Blood by Automated count 185 x10*3/UL 140-440 [facility] Lymph % 21.0 % 10.0-58.5 [facility] ([facility]) Mid % 6.8 % 1.7-9.3 [facility] ([facility]) Neut % 72.2 % 37.0-92.0 [facility] ([facility]) Mid # 0.5 x10*3/UL 0.1-0.6 [facility] ([facility]) Lymph # 1.5 x10*3/UL 0.6-4.1 [facility] ([facility]) Neut # 5.3 x10*3/UL 2.0-7.8 [facility] ([facility]) ID Date Data Source [id number] 03/05/2020 02:22:00 PM EST [facility] ([facility]) Name Value Range Interpretation Code Description Data Holly rce(s) Supporting Document(s) Urine Color Laboratory test result [facility] ([facility]) Urine Appearance Laboratory test result [facility] Specific gravity of Urine 1.010 1.005-1.030 [facility] Urine PH 6.0 units 5.0-9.0 [facility] ([facility]) Urine Leukocytes [facility] Urine Blood Laboratory test result [facility] Glucose [Presence] in Urine [facility] Urine Protein Laboratory test result 0-0 [facility] ([facility]) Urine Nitrite Laboratory test result [facility] ([facility]) Urine Ketone Laboratory test result [facility] Bilirubin.total [Mass/volume] in Serum or Plasma Laboratory test resu lt [facility] ([facility]) Urine Urobilinogen 0.2 mg/dL 0.2-1.0 [facility] ([facility]) ID Date Data Source [id number] 03/05/2020 02:22:00 PM EST [facility] ([facility]) Name Value Range Interpretation Code Description Data Holly rce(s) Supporting Document(s) Thyrotropin [Units/volume] in Serum or Plasma by Detec tion limit <= 0.05 mIU/L 0.52 uIU/mL 0.36-3.74 [facility] ([facility] ) ID Date Data Source [id number] 03/05/2020 02:22:00 PM EST [facility] ([facility]) Name Value Range Interpretation Code Description Data Holly rce(s) Supporting Document(s) Cholesterol [Mass/volume] in Serum or Plasma 160 mg/dL 131-200 [facility] ([facility]) Triglyceride [Mass/volume] in Serum or Plasma 80 mg/dL 30-150 [facility] ([facility]) Cholesterol in HDL [Mass/volume] in Serum or Plasma 84 mg/dL 35-60 [facility] ([facility]) Cholesterol in LDL [Mass/volume] in Serum or Plasma by calcu lation 60 CALC 50-159 [facility] ([facility]) ID Date Data Source [id number] 03/05/2020 02:22:00 PM EST [facility] ([facility]) Name Value Range Interpretation Code Description Data Holly rce(s) Supporting Document(s) Glucose [Mass/volume] in Serum or Plasma 144 mg/dL 74-99 [facility] ([facility]) 100-125 mg/dL PRE-DIABETES/FASTING >126 mg/dL DIABETES/FASTING Creatinine 0.9 mg/dL 0.6-1.3 [facility] Urea nitrogen [Mass/volume] in Serum or Plasma 19 mg/dL 7-18 [facility] ([facility]) Sodium [Moles/volume] in Serum or Plasma 142 meq/L 136-145 [facility] ([facility]) Potassium [Moles/volume] in Serum or Plasma 4.0 meq/L 3.5-5.1 [facility] ([facility]) Chloride [Moles/volume] in Serum or Plasma 104 meq/L 98-107 [facility] ([facility]) Calcium [Mass/volume] in Serum or Plasma 9.3 mg/dL 8.5-10.1 [facility] ([facility]) Carbon dioxide, total [Moles/volume] in Serum or Plasma 32 meq/L 21 -32 [facility] ([facility]) Alkaline phosphatase isoenzyme [Units/volume] in Serum or Pl asma 131 mg/dL 46-116 [facility] ([facility]) Aspartate aminotransferase [Enzymatic activity/volume] in Serum or Plasma 22 U/L 15-37 [facility] ([facility] ) Alanine aminotransferase [Enzymatic activity/volume] in Seru m or Plasma 26 U/L 12-78 [facility] ([facility]) Total Bilirubin 0.5 mg/dL 0.2-1.0 [facility] ([facility]) A/G Ratio 1.15 CALC 1.00-1.90 [facility]) Albumin [Mass/volume] in Serum or Plasma 3.8 g/dL 3.4-5.0 [facility] ([facility]) Proteinase 3 Ab [Units/volume] in Serum 7.1 g/dL 6.4-8.2 [facility] ([facility]) Glomerular filtration rate/1.73 sq M pre dicted among non-blacks [Volume Rate/Area] in Serum or Plasma by Creatinine-based formula (MDRD) 60 mL/min [facility] Glomerular filtration rate/1.73 sq M pre dicted among blacks [Volume Rate/Area] in Serum or Plasma by Creatinine-based formula (MDRD) Laboratory test result [facility] <content>CHRONIC KIDNEY DISEASE STAGING PER NKF</content>
<content></content>
<content>STAGE I & II GFR >= 60 NORMAL TO MILDLY DECREASED</content>
<content>STAGE III GFR 30-59 MODERATELY DECREASED</content>
<content>STAGE IV GFR 15-29 SEVERELY DECREASED</content>
<content>STAGE V GFR <15 VERY LITTLE GFR LEFT</content>
<content>ESRD GFR <15 ON HEAVY CLEANER</content>
<content></content> ID Date Data Source [id number] 03/05/2020 02:22:00 PM EST [facility] ([facility]) Name Value Range Interpretation Code Description Data Holly rce(s) Supporting Document(s) Erythrocyte sedimentation rate by Westergren method 17 mm/hr 0-15 [facility] ([facility]) ID Date Data Source [id number] 03/05/2020 02:22:00 PM EST [facility] ([facility]) Name Value Range Interpretation Code Description Data Holly rce(s) Supporting Document(s) Leukocytes [#/volume] in Blood by Automated count 5.9 x10*3/UL 4.1-10 .9 [facility] ([facility]) Hematocrit [Volume Fraction] of Blood by Automated count 37.1 % 3 7.0-51.0 [facility] ([facility]) Erythrocytes [#/volume] in Blood by Automated count 4.00 x10*6/UL 4.2 0-6.30 [facility] ([facility]) Hemoglobin [Mass/volume] in Blood 12.9 g/dL 12.0-18.0 [facility] ([facility]) MCHC 34.8 g/dL 31.0-38.0 [facility] MCH 32.2 pg 26.0-32.0 [facility] MCV 92.7 fL 80.0-97.0 [facility] MPV 9.4 FL 7.8-11.0 [facility] Platelets [#/volume] in Blood by Automated count 193 x10*3/UL 140-440 [facility] ([facility]) Erythrocyte distribution width [Ratio] by Automated count 12.8 % 11.6-13.7 [facility] ([facility]) Lymph % 12.4 % 10.0-58.5 [facility] Neut % 84.3 % 37.0-92.0 [facility] Mid % 3.3 % 1.7-9.3 [facility]) Lymph # 0.7 x10*3/UL 0.6-4.1 [facility] ([facility]) Neut # 5.0 x10*3/UL 2.0-7.8 [facility] ([facility]) Mid # 0.2 x10*3/UL 0.1-0.6 [facility] ([facility]) ID Date Data Source [id number] 03/05/2020 01:50:00 PM EST [facility] ([facility]) Name Value Range Interpretation Code Description Data Holly rce(s) Supporting Document(s) Thyrotropin [Units/volume] in Serum or Plasma by Detec tion limit <= 0.05 mIU/L Laboratory test result [facility] ([facility]) ID Date Data Source [id number] 03/05/2020 01:50:00 PM EST [facility] ([facility]) Name Value Range Interpretation Code Description Data Holly rce(s) Supporting Document(s) Erythrocyte sedimentation rate by Westergren method Laboratory test result [facility] ([facility]) Procedure Social History No Information Vital Signs ID Date Data Source UNK Name Value Range Interpretation Code Description Data Source(s) Systolic blood pressure 140 mm[Hg] 140 mm[Hg] [facility] ([facility] ) Diastolic blood pressure 80 mm[Hg] 80 mm[Hg] [facility] ([facility] ) Heart rate 80 /min 80 /min [facility] ([facility], ) Respiratory rate 20 /min 20 /min [facility] ( [facility], ) Systolic blood pressure 136 mm[Hg] 136 mm[Hg] [facility] ([facility]) Diastolic blood pressure 78 mm[Hg] 78 mm[Hg] [facility] ([facility]) Heart rate 85 /min 85 /min [facility] ([facility]) Body height 61 [in_i] 61 [in_i] [facility] ([facility]) 5'1" Body weight 167.00 [lb_av] 167.00 [lb_av] [facility] ([facility]) Oxygen saturation in Arterial blood by Pulse oximetry 94 % 94 % [facility] ([facility]) Air Body mass index (BMI) [Ratio] 31.6 kg/m2 31.6 k g/m2 [facility] ([facility]) Diastolic blood pressure 80 mm[Hg] 80 mm[Hg] [facility] ([facility] ) Heart rate 88 /min 88 /min [facility] ([facility], ) Respiratory rate 16 /min 16 /min [facility] ( [facility], ) Systolic blood pressure 140 mm[Hg] 140 mm[Hg] [facility] ) Body height 61 [in_i] 61 [in_i] [facility] ([facility]) 5'1" Body weight 168.00 [lb_av] 168.00 [lb_av] [facility] ([facility]) Body mass index (BMI) [Ratio] 31.7 kg/m2 31.7 k g/m2 [facility] ([facility]) Systolic blood pressure 152 mm[Hg] 152 mm[Hg] [facility] ([facility]) Diastolic blood pressure 80 mm[Hg] 80 mm[Hg] [facility] ([facility]) Heart rate 76 /min 76 /min [facility] ([facility])
--- OUTSIDE RECORDS SUMMARY | 2021-03-09 01:28 | CCD | Continuity of Care Document ---
Author Author Kamini Dixon MD Organization Unknown Address [address] [address] Phone [phone] Care Team Providers [employer] Mechan[employer] Name Role Phone Romario Stephenson MD AUT[facility] [phone] Jasmyn Perez [facility] [phone] Chace Byers DO AUTM [phone] Jai Dixon JR, MD [facility] Unavailable [facility] [phone] Problems Active Problems Provider Date Malignant neoplasm [...] months 2units Jai Dixon MD 09/10/2020 Nystop [id number] Powder Apply To Both Breast Tissue/Groin Tissue [...] Shiraz Weiss.O. 01/27/2011 Vitamin C W/Vitamin E [id number] Capsules Shiraz Weiss .O. 01/27/2011 Labetalol HCL [...] Inj ection Shiraz Weiss.O. 02/16 Reclast 1MG [id number] Injection Lorraine Garcia, BEN 04/10/2012 IV Infusion Up To 1 Hour Injection Lorraine Garcia, BEN 04/10/2012 Administration Of Flu Vaccine Inj ection Shiraz Weiss.O. 01/12 Reclast 1MG [id number] Injection Lorraine Garcia, BEN 04/06/2011 IV Infusion Up To 1 Hour Injection Lorraine Garcia, ANP 04/06/2011 Administration Of Flu Vaccine Inj ection Shiraz Weiss.O. 01/21 Reclast 1MG [id number] Injection Lorraine Garcia, ANP 02/19/2010 IV Infusion Up To 1 Hour Injection Lorraine Garcia, ANP 02/19/2010 Administration Of Flu Vaccine Inj ection Shiraz Weiss.O. 01/16 Reclast 1MG [id number] Injection Lorraine Garcia, ANP 02/17/2009 IV Infusion [...] CPT Code Status Date Vaccine Lot # [id number] Given 01/14/2017 Influenza Vaccin e Quadrivalent Preser/Antibiotic Free Im Use [id number] Q2037 Given 02/24/2016 Fluvirin Virus Vaccine 19081 01 Q2037 Given 01/20/2015 Fluvirin Virus Vaccine 22701 01 62119 Given 06/10/2014 Prevnar 13 [id number] Q2037 Given 03/07/2014 Fluvirin Virus Vaccine 96307 01 Q2037 Given 02/16/2013 Fluvirin Virus Vaccine Q2037 Given 01/13/2012 Fluvirin Virus Vaccine 51907 Given 10/25/2011 Tetanus/Diptheria(Td)Toxoids Preservative Free Q2037 Given 01/21/2011 Fluvirin Virus Vaccine 30188 Given 01/16/2010 Influenza Virus Vaccine 58213 Given 12/31/2008 Pneumovax 23 13049 Given 12/31/2008 Influenza Virus Vaccine 59284 Given 05/27/2008 Zoster Vaccine 60102 Given 01/08/2008 Influenza Virus Vaccine 21209 Given 03/23/2006 Pneumovax 23 73232 Given 03/09/2006 Influenza Virus Vaccine 53754 Given 01/18/2005 Influenza Virus Vaccine 19122 Given 01/14/2004 Influenza Virus Vaccine 67896 Given 01/24/2002 Influenza Virus Vaccine 27200 Given 02/13/2001 Influenza Virus Vaccine 22532 Given 03/24/2000 Influenza Virus Vaccine 44985 Given 01/15/1999 Influenza Virus Vaccine 82098 Given 01/09/1998 Influenza Virus Vaccine 19881 Given 12/31/1996 Influenza Virus Vaccine 97602 Given 01/06/1996 Influenza Virus Vaccine 12214 Given 03/12/1994 Influenza Virus Vaccine 04213 Given 02/11/1993 Influenza Virus Vaccine 27726 Refused 08/17/2018 Influenza Virus Vaccine, Quadrivalent (Cciiv4), Derived From Cell 15261 Refused 01/02/2018 Influenza Virus Vaccine, Quadrivalent (Cciiv4), [...] Note Ua W/ Reflex To Culture 03/05/[address] [address] [phone] Appearance, Urine RFX HAZY Normal Clear Color, Urine RFX YELLOW Normal Yellow PH,Urine RFX 5.0 units Normal 5.0-9.0 Specific [place] Ur Auto RFX 1.026 Normal 1.002-1.035 Protein, [...] 0-1 Influenza A/B RSV Covid Amp 03/05/[address] [address] [phone] Influenza A Amplification NEGATIVE Normal Negati ve 1 Influenza B Amplification NEGATIVE Normal Negative 2 RSV Amplification NEGATIVE Normal Negative 3 Sars Covid-19 Amplification NEGATIVE Normal Negative 4 Laboratory test finding 03/05/[address] [address] [phone] CPK Creatine Phosphokinase 1375 U/L High 26-19 2 Laboratory test finding 03/05/[address] [address] [phone] iSTAT Troponin 0.11 NG/ML High 0.00-0.08 CBC With Differential 03/05/[address] [address] [phone] White Blood Count 13.9 10 High 4.0-10.0 [...] 36.0-66.0 Lymph % 8.7 % Low 24.0-44.0 Sawyer % 7.6 % Normal 2.0-8.0 Eos % 0.5 % Normal 0.0-3.0 Baso % 0.4 % Normal 0.0-1.0 Immature Granulocyte % 0.4 % Normal 0-3.0 Nucleated Red Blood Cell % 0.0 % Normal 0-0 Neutrophils # 11.4 10 High 1.5-8.5 Lymph # 1.2 10 Low 1.5-5.0 Sawyer # 1.1 10 High 0.0-0.8 Eos # 0.1 10 Normal 0.0-0.5 Baso # 0.1 10 Normal 0.0-0.2 Comprehensive Metabolic Profil 03/05/2021 [place] [id number] [phone] Glucose, Fasting 93 mg/dL Normal 70-100 Blood [...] 1.2 Normal 1.2-2.2 Laboratory test finding 03/05/2021 [facility] [address] [place] [address] [phone] C Reactive Protein Quantitativ 6.06 mg/dL High 0 .00-0.30 Erythrocyte Sedimentation Rate 9 mm/hr Normal 0-30 Complete Blood Count 09/09/2020 [facility] [employer]am Rubber Mixer: [place] [address] [phone] WBC 7.3 x10*3/UL 4.1 - 10.9 RBC [...] 2.0 - 7.8 Laboratory test finding 09/09/2020 [facility] Foam Rubber Mixer: [place] [address] [phone] Sed Rate 12 mm/hr 0 - 15 Comprehensive Chem Profile 09/09/2020 [facility] [employer] Rubber Mixer: [place] [address] [phone] Glucose 81 mg/dL 74 - 99 6 [...] mL/min >60 7 Laboratory test finding 09/09/2020 [facility] Foam Rubber Mixer: Dr Jai Dixon [place] [id number] [phone] Thyroid Stimulating Hormone 2.30 uIU/mL 0.3 6 [...] test. DISCLAIMER: Testing was performed using the [facility] SARS-CoV-2 test. This test was developed and its performance characteristics determined by [facility]. This test has not been FDA cleared [...] Little GFR Left ESRD GFR <15 on AVIONICS MECHANIC 6 100-125 mg/dL PRE-DIABET ES/FASTING >126 mg/dL DIABETES/FASTING 7 CHRONIC KIDNEY DISEASE STAGI NG PER NKF STAGE I & II GFR >= 60 NORMAL TO MILDLY DECREASED STAGE III GFR 30-59 MODERATELY DECREASED STAGE IV GFR 15-29 SEVERELY DECREASED STAGE V GFR <15 VERY LITTLE GFR LEFT ESRD GFR <15 ON AVIONICS MECHANIC Procedures Date Code Description Status 09/10/2020 [id number] Office/Outpatient Established Mo d MDM 30-39 Min Completed 04/15/2016 [id number] Mammogram Completed 03/17/2016 [id number] Bone Mineral Density Test [facility] 07/12/2014 [id number] Mammogram Completed 07/09/2013 [id number] Mammogram Completed 07/13/2012 [id number] Mammogram Completed 10/05/2011 [id number] Bone Mineral Density Test [facility] 07/26/2011 [id number] Mammogram Completed 08/25/2010 [id number] Colonoscopy Completed 09/08/2009 [id number] Bone Mineral Density Test [facility] 04/08/2009 [id number] Colonoscopy Completed Medical Devices Description No Information Available Encounters Type Date Location Provider Dx Diagnosis Office Visit 09/10/2020 11:00a [facility] Jai Dixon MD E03.9 Hypothyroidism, [...] 03/10/2021 9:40 am - Lab Schedule at [facility] * 03/11/2021 10:40 am - Jai Dixon MD at [facility] 09/10/2020 - Jai Dixon MD* [...]
[2021-03-09 02:00] VITALS: BP 156/84
[2021-03-09] MEDS: **hydrALAZINE** 50 MG TAB PO SCH ×4 (02:30→21:38)
[2021-03-09 06:00] VITALS: BP 160/87
[2021-03-09] MEDS: LevoFLOXacin 250 MG TABLET PO SCH (06:02)
[2021-03-09] MEDS: LEVOTHYROXINE 100MCG TABLET (0.1MG) PO SCH (06:02)
[2021-03-09] MEDS: PANTOPRAZOLE 40MG TAB (PROTONIX) PO SCH (08:48)
[2021-03-09] MEDS: ENOXAPARIN 40MG/0.4ML SYRINGE (J1650 PER 10MG) SC SCH (08:48)
[2021-03-09] MEDS: VITAMIN D 1,000 INTERNATIONAL UNITS TABLET PO SCH (08:49)
[2021-03-09] MEDS: NORTRIPTYLINE 25 MG CAP PO SCH ×2 (08:49→21:33)
[2021-03-09] MEDS: OCUVITE 1 TAB PO SCH ×2 (08:49→21:28)
[2021-03-09] MEDS: POTASSIUM CHLORIDE 10MEQ SR TABLET PO SCH (08:49)
[2021-03-09] MEDS: DOCUSATE SODIUM 100MG CAPSULE PO SCH ×2 (08:49→21:29)
[2021-03-09] MEDS: PYRIDOXINE 50 MG TAB PO SCH (08:49)
[2021-03-09] MEDS: LACTOBACILLUS ACIDOPHILUS CAP (BACID) PO SCH ×4 (08:49→21:29)
[2021-03-09] MEDS: DICLOFENAC EPOLAMINE 1.3 % PATCH TOP SCH ×2 (08:50→21:30)
[2021-03-09] MEDS: BACLOFEN 10 MG TAB PO SCH ×4 (08:50→21:29)
[2021-03-09] MEDS: ATORVASTATIN 20 MG TAB PO SCH (08:50)
[2021-03-09] MEDS: predniSONE 10 MG TAB PO SCH (08:50)
[2021-03-09] MEDS: ACETAMINOPHEN 500 MG TAB PO SCH ×3 (08:52→21:30)
[2021-03-09] MEDS: oxyCODONE 5MG TAB PO SCH ×2 (08:52→13:13)
[2021-03-09] MEDS: amLODIPine 5 MG TAB PO SCH ×2 (08:55→21:38)
[2021-03-09] MEDS ORDERED: LABETALOL 200 MG TAB PO SCH (09:00)
[2021-03-09] MEDS: REMEDY PHYTOPLEX Z-GUARD PASTE 113GM TUBE (FROM STOREROOM PRODUCT) TOP SCH ×3 (09:01→21:31)
--- NOTE | 2021-03-09 09:49 | HPEPDOC ---
[employer] Note DATE OF ADMISSION: 03-08-21 DATE OF SERVICE: 03-09-21 TIME OF ADMISSION: Please refer to physician's admission order. SOURCE OF ADMISSION INFORMATION: [facility] record and patient CHIEF COMPLAINT: weakness related to peripheral polyneuropathy HISTORY OF PRESENT ILLNESS 85F pmh HTN, HLD, OA, Hypothyroidism, peripheral polyneuropathy possibly due to chronic steroid use, breast cancer s/p lumpectomy presented to [facility] ED on 03-05-21 after falling at home due to left leg weakness, stayed on the floor 2 days and presented with weakness, elevated CK, elevated troponins, and rhabdomyolysis. 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 CT left LE revealed. Severe rapidly progressive erosive arthropathy involving the left hip articulation with considerable joint space loss, acetabular protrusio, and extensive bony erosive change. Differential possibilities include inflammatory and infectious erosive. She continued to have elevated troponins without EKG changes and no chest pain so it was deemed to be due to be demand ischemia and rhabdomyolysis and not due to NSTEMI. She had elevated blood pressures possibly due to underlying pain, was cleared to participate in therapy where she was found to have mobility and ADL impairments deemed medically appropriate for discharge to ARU. REVIEW OF SYSTEMS: The following is a completed review of systems and has been reviewed. Review of systems otherwise unremarkable. PAIN: Patient self reports left groin pain EYES: No recent vision changes EARS, NOSE, & THROAT: No throat pain, or dysphagia, or rhinorrhea. CARDIOVASCULAR: Denies chest pain or palpitations PULMONARY: Denies shortness of breath GASTROINTESTINAL: Denies constipation/diarrhea GENITOURINARY: denies dysuria MUSCULOSKELETAL: generalized weakness NEUROLOGICAL:+ fluent aphasia HEMATOLOGICAL: denies easy bruising SKIN: denies rash PSYCHIATRIC: unremarkable All other review of systems found to be negative. PAST MEDICAL HISTORY: as per HPI PAST SURGICAL HISTORY: Right breast Lumpectomy, cholecystectomy, umbilical hernia repair, colonoscopy ALLERGIES: Please see below. MEDICATIONS: Please see below. SOCIAL HISTORY: No smoking, occasional etoh, no illicit drugs, lives with DIET: low sodium PHYSICAL EXAMINATION: VITAL SIGNS: Please see below. GENERAL: Pleasant and cooperative. No acute distress. Alert and oriented times three HEENT: PERRL. Extraocular movements intact. Clear conjunctiva CARDIOVASCULAR: Regular rate and rhythm. No murmurs, rubs, or gallops LUNGS: Clear to auscultation bilaterally. No wheezes. LLL rhonchi ABDOMEN: Soft, nontender, nondistended. Positive bowel sounds. Normal active bowel sounds NEUROLOGICAL: Alert and oriented times x2, Cranial nerves II through XII grossly intact. Sensation decreased to light touch in stocking pattern +mild fluent aphasia, able to name objects, and follow commands consistently EXTREMITIES: 5-\5 strength bilateral upper extremities. 5-\5 strength right lower extremity. 5-/5 strength in left lower extremity. + heberdens bilat DIPs and maty nodues bilat PIPs LABORATORY DATA: Please see below. IMAGING: Imaging documentation personally reviewed by record FUNCTIONAL STATUS: Premorbid: Independent with all activities of daily life as well as mobility On Admission: Min-Mod assist for bed mobility, functional transfers, dressing, toileting, ambulation GOALS: Mod- for bed mobility, functional transfers, dressing, toileting, ambulation, stairs, bathing ASSESSMENT:85-year-old F with past medical history of OA, HTN, Hypothyroidism who presents status post fall with rhabdomyolysis in setting of peripheral polyneuropathy PLAN: 1. Rehab- PT/OT advance mobility and ADLs, strengthen/stretch/maintain ROM all 4limbs 2. Neuro- patient with hx of peripheral polyneuropathy due to longstanding prednisone use and hypothyroidism contributing to overall weakness and balance impairments -patient presenting with some fluent aphasia possibly due to UTI vs oxycodone vs underlying dementia- will limit pain meds, treat E. COli UTI and see if patient clears up -will order B12, B1, folate, and TSH levels as well -will refer to neurology as outpatient for dementia work-up 3. Cardiac- hx of HTH with elevated BPs, cont labetolol, amlodipine, will add hydralazine -patient does not complain of chest pain, cleared by hospitalist for rehab in spite of recent elevated troponins due to rhabdomyolysis vs demand ischemia -HLD cont statin -medicine consulted to assist in overall management 4. resp- monitor for infection, will add combivent, guaifenesin for rhonchi heard on exam and order CXR -procalcitonin ordered as well 5. Renal- have consulted renal to r/o Renal artery stenosis given recent difficulty with blood pressure management 6. Ortho- patient with left hip OA with possible avascular necrosis- cont prednisone q2d, oxycodone- will need ortho f/u outpatient for possible THR- low concern for infectious etiology given very low inflammatory markers on inpatient labs 7. Pain- cont oxycodone and tylenol for left hip OA/AVN, cont home baclofen, cont Pamelor for neuropathic pain 8. - will treat recent Ucx + for Ecoli given patient's confusion on exam 9. Dispo- TBD POST ADMISSION PHYSICIAN EVALUATION: Medical and functional status: Description of medical status, medical assessment: As above. Rehabilitation diagnosis and current and prior cold morbid medical conditions as above. Risk of complications and plans to mitigate them as above. Description of functional status current status is as above. Prior status as above. Status compared to preadmission: There are no clinically significant differences between the patient's current status and the information described on the preadmission screening document. Treatment plan anticipated: Treatment plan is as described above. Required disciplines including physical therapy, occupational therapy, others as noted above Intensity of services: 3 hours a day, 6 days a week. Special considerations: There are no specific special or safety considerations that would likely preclude immediate implementation of an intensive rehabilitation program or subsequently influence the plan of care. ATTESTATION: Considering all the information above, it is my best judgment that this patient requires intensive rehabilitation therapy as described above and an inpatient hospital environment due to the complexity of nursing, medical, and rehabilitation needs required by the patient. Furthermore, this patient can reasonably be expected to participate in an benefit from an inpatient rehab ilitation stay with an interdisciplinary team approach to the delivery of rehabilitation care under the direction and supervision of rehabilitation physician. PROGNOSIS: good ESTIMATED LENGTH OF STAY:10-14 days. PROJECTED DISCHARGE DESTINATION: Home with family support and any durable medical equipment required to increase functional safety and mobility. TIME SPENT COUNSELING AND COORDINATING INITIAL CARE: Greater than 70 minutes. Vital Signs Vital Sign - Last 24 Hours 03/09/21 03/09/21 03/09/21 03/09/21 01:10 02:00 02:30 06:00 Temp 97.1 97.2 Pulse 76 79 Resp 20 18 B/P (MAP) 180/84 (116) 156/84 (108) 156/84 160/87 (111) Pulse Ox 94 96 O2 Delivery Room Air Room Air 03/09/21 03/09/21 03/09/21 03/09/21 06:03 06:04 07:00 08:52 Resp 18 19 18 B/P (MAP) 160/87 O2 Delivery Room Air 03/09/21 08:55 Pulse 118 B/P (MAP) 150/80 Laboratory Data CBC/BMP Labs 24H Laboratory Tests 2 03/09/21 09:19: Home Medications Scheduled Amlodipine Besylate (Amlodipine Besylate) 5 Mg Tablet, 10 MG PO DAILY Ascorbic Acid (Vitamin C) 500 Mg Tablet, 500 MG PO BID, (Reported) Atorvastatin Calcium (Atorvastatin Calcium) 40 Mg Tablet, 40 MG PO DAILY, (Reported) Baclofen (Baclofen) 10 Mg Tablet, 15 MG PO QID, (Reported) Calcium Citrate (Calcium Citrate) 250 Mg Tablet, 1,000 MG PO BID, (Reported) Cholecalciferol (Vitamin D3) (Vitamin D3) 1,000 Unit Tablet, 1,000 UNITS PO DAILY, (Reported) Cyanocobalamin (Vitamin B-12) (Vitamin B-12) 1,000 Mcg Tab.subl, 1,000 MCG SL DAILY, (Reported) Cyclosporine (Restasis Multidose) 5.5 Ml Drops, 1 DROP OU BID, (Reported) Labetalol HCl (Labetalol HCl) 200 Mg Tablet, 400 MG PO BID, (Reported) Levothyroxine Sodium (Levothyroxine Sodium) 100 Mcg Tablet, 100 MCG PO DAILY, (Reported) Nortriptyline HCl (Nortriptyline HCl) 50 Mg Capsule, 50 MG PO BID, (Reported) [place]-3 Fatty Acids/Fish Oil (Fish Oil 1,000 mg Capsule) 1 Each Capsule, 1,000 MG PO TID, (Reported) Prednisone (Prednisone) 10 Mg Tablet, 10 MG PO Q2D, (Reported) Pyridoxine HCl (Vitamin B6) (Vitamin B-6) 50 Mg Tablet, 50 MG PO DAILY, (Reported) Vit A/Vit C/Vit E/Zinc/Copper (Preservision Areds Tablet) 1 Each Tablet, 1 TAB PO BID, (Reported) Scheduled PRN Acetaminophen (Acetaminophen 8 Hour) 650 Mg Tablet.er, 650 MG PO TID PRN for PAIN LEVEL 1-5, (Reported) Nystatin (Nystop) 60 Gm Powder, 1 APLCT TOP BID PRN for RASH/ITCHING, (Reported) UNDER BREASTS Allergies Coded Allergies: No Known Allergies (Unverified , 03/05/21) A-FIB/CHADSVASC A-FIB History Current/History of A-Fib/PAF?: No Current PO Anticoag Therapy: No ALEX GARCIA MD Mar 09, 2021 09:49
[2021-03-09 10:22] LABS: ALBUMIN 3.1 GM/DL (3.2-5.2); ALT/SGPT 49 U/L (12-78); BILIRUBIN,TOTAL 0.4 MG/DL (0.2-1.0); BLOOD UREA NITROGEN 12 MG/DL (7-18); CALCIUM LEVEL 9.4 MG/DL (8.8-10.2); CARBON DIOXIDE LEVEL 31 MEQ/L (21-32); CHLORIDE LEVEL 104 MEQ/L (98-107); CREATININE FOR GFR 0.66 MG/DL (0.55-1.30); GLOMERULAR FILTRATION RATE > 60.0 (>32); GLUCOSE, FASTING 123 MG/DL (70-100); POTASSIUM SERUM 4.1 MEQ/L (3.5-5.1); SODIUM LEVEL 140 MEQ/L (136-145); TOTAL PROTEIN 6.1 GM/DL (6.4-8.2)
--- NOTE | 2021-03-09 11:37 | IPNPDOC ---
Text Note Date of Service The patient was seen on 03/09/21. NOTE Subjective: Patient is an 85-year-old female with a PMHx of HTN, DLP, Hypothyroidism, OA, who presented to the ER on 03/05 with 6 month history of groin pain. Patient reported that she's been experiencing weakness in the ER, patient was found to have elevated troponin, but denied any chest pain and she did not have any EKG changes. Patient was admitted to the hospital service for further evaluation and treatment and was ultimately transitioned to ARU on 03/08. Hospitalist service was consulted for medical assistance. Patient was seen and examined at the bedside. Patient was seen sitting up at the edge of the bed working with physical therapy. Denies any nausea, vomiting, chest pain, palpitations, cough, abdominal pain, diarrhea, or discomfort with urination. Patient reports that her left hip is achy; but relatively the same. Objective: Vitals (See below) General: Sitting up at the edge of the bed, appears comfortable, AAOx3 HEENT: NC, AT CVS: +S1S2 Lungs: Fair air entry b/l, no wheezing, rales or rhonchi Abdomen: Soft, non-distended, non-tender Extremities: No evidence of edema Imaging: CXR 03/05: No acute pulmonary disease. 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 Mild deformity of the articular surface. L knee XR 03/05: No acute osseous abnormality. Moderate degenerative joint disease. 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 Differential possibilities include inflammatory and infectious erosive arthropathies. Assessment and plan: Generalized weakness / L hip pain - likely 2/2 erosive arthropathy - likely 2/2 severe arthritis - Patient had reported generalized weakness and L hip pain for at least 6 months; Currently reports improvement, but still notes achy hip - She again remains hemodynamically stable without any fevers noted - No leukocytosis / No significant elevation of CRP - Imaging noted above - No clinical evidence to suggest septic / inflammatory arthritis - Had discussed case with Orthopedic surgery production editor 03/08; unlikely infection etiology of clinical picture doesn't support it - c/w PT / OT as per ARU Orthostatic hypotension - Remains asymptomatic currently - s/p fluid hydration - Nephrology has been called on consultation for suspected renal artery stenosis s/p Rhabdomyolysis - CK levels normalized Elevated troponin - possibly 2/2 rhabdomyolysis, possibly 2/2 demand ischemia, less likely 2/2 NSTEMI - Again she is asymptomatic; no complaints of chest pain, shortness breath, palpitations - EKG was reviewed without any ischemic changes - Troponin trend stable s/p Leukocytosis - Review of systems negative for any source of infection - Patient is currently on chronic steroid therapy as an outpatient - CRP had trending down on prior admission - Afebrile and hemodynamically stable Asymptomatic bacteriuria - Patient reports that she has had urinary tract infections in the past and knows what urinary discomfort feels like - Again she denies any urinary discomfort / frequency - UA 03/05: without evidence of infection; but Urine culture 03/05: E. Coli at 25K CFU - UA 03/08 was again ordered overnight - again she remains asymptomatic - Management as per ARU OA - c/w Prednisone q2 days - c/w Tylenol PRN HTN - BP improved compared to yesterday - c/w Labetalol / Amlodipine / Hydralazine - Nephrology has been called on consultation for suspected renal artery stenosis DLP - c/w Atorvastatin Hypothyroidism - c/w Levothyroxine Vitamin D deficiency - c/w supplementation Lower extremity neuropathy - c/w Nortriptyline DVT prophylaxis - c/w Lovenox Disposition: - As per ARU VS,Mirna, I+O VSMirna I+O Laboratory Tests 03/09/21 09:19 Vital Signs Date Time Temp Pulse Resp B/P (MAP) Pulse Ox O2 Delivery O2 Flow Rate FiO2 03/09/21 09:22 18 03/09/21 08:55 118 150/80 03/09/21 06:04 Room Air 03/09/21 06:00 97.2 96 I&O- Last 24 Hours up to 6 AM 03/09/21 06:00 Intake Total 120 ml Balance 120 ml BRUNO HEARN MD Mar 09, 2021 11:37
[2021-03-09 11:51] VITALS: BP 148/76
[2021-03-09 14:00] VITALS: BP 137/65
--- NOTE | 2021-03-09 15:22 | CR ---
NEPHROLOGY CONSULTATION DATE: 03/09/2021 REQUESTING CLINICIAN: Janice Miller MD. REASONS FOR CONSULTATION: 1. Uncontrolled hypertension. 2. Possible renal artery stenosis. HISTORY OF PRESENT ILLNESS: Ms. Gutierrez is an 85-year-old female with known history of hypertension, hyperlipidemia, hypothyroidism and osteoarthritis. She was admitted to [facility] on March 05 with generalized weakness and difficulty ambulating. She was felt to have possible polyneuropathy and is now currently on the rehab floor due to a recent mechanical fall. She has weakness of left knee and pain in her hip. Patient has history of hypertension; however, blood pressure is still somewhat high despite 3 anti-hypertensive medications. A nephrology consultation was requested and patient is seen this morning. PAST MEDICAL HISTORY: Significant for: 1. Hypertension. 2. Hyperlipidemia. 3. Hypothyroidism. 4. Osteoarthritis. 5. History of breast cancer. 6. History of polyneuropathy. 7. Recent mechanical fall with left hip pain. PAST SURGICAL HISTORY: Significant for: 1. Right breast lumpectomy with sentinel lymph node biopsy. 2. History of cholecystectomy. 3. History of umbilical hernia repair. 4. Colonoscopy. FAMILY HISTORY: Noncontributory for this admission. PERSONAL AND SOCIAL HISTORY: Patient has no history of alcohol or drug use. She denies any tobacco use. ALLERGIES: Patient has no known drug allergies. MEDICATIONS: Home medications include: 1. Vitamin C 500 mg twice a day. 2. Atorvastatin 40 mg daily. 3. Baclofen 15 mg four times a day. 4. Calcium citrate 1000 mg twice a day. 5. Vitamin D 1000 units daily. 6. Vitamin B12 1000 mcg daily. 7. Labetalol 400 mg twice a day. 8. Levothyroxine 100 mcg daily. 9. Fish oil capsule 1000 mg three times a day. 10. Prednisone 10 mg every 2 days. 11. Vitamin B6 50 mg daily. 12. Tylenol as needed. REVIEW OF SYSTEMS: Patient has difficulty ambulating and left hip pain due to recent fall. She denies any fever or chills. Ears, nose and throat: Unremarkable. Cardiovascular system: Significant for long standing hypertension requiring multiple medications. She denies any dyspnea or chest pain. Respiratory system: Negative for cough or hemoptysis. GI system: Negative for vomiting or diarrhea. system: Negative for kidney stones, history of dysuria or hematuria. Endocrine system: Significant for hypothyroidism and no history of diabetes. Skin: Negative for rash or ulcers. Psychosocial system: Negative for depression or anxiety. Neurological system: Significant for peripheral polyneuropathy. She denies any stroke. PHYSICAL EXAMINATION: Temperature 97.2 degrees Fahrenheit, heart rate 80 per minute and respiratory rate 18 per minute. Blood pressure 150/80 mmHg and oxygen saturation is 96% on room air. Head: Atraumatic. ENT: Unremarkable. Neck: Supple and without JVD or thyroid enlargement. She has no carotid bruit. Heart: Sounds are regular. Lungs: Clear to auscultation. Abdomen: Soft and nontender and bowel sounds normal. There is no palpable organomegaly and no audible abdominal bruit. Extremities: Without any cyanosis or clubbing. Neurologically: She is awake, alert and oriented times 3. LABORATORY DATA: Sodium 140, potassium 4.1, CO2 31, BUN 12, creatinine 0.66, glucose 123, calcium 9.4. Total protein 6.1 and albumin 3.1. Her CBC was unremarkable just yesterday when she was on the medical floor. Her hemoglobin was 11.4 and hematocrit 34.7. PROBLEMS AND PLAN: 1. Hypertension: Patient reports that she traditionally has difficult to control hypertension. She has been on 3 different anti-hypertensive medications. I feel that we can increase the dose of labetalol and probably stop hydralazine completely or cut down the dose. At present I am going to increase her labetalol dose to 400 mg twice a day as that is what she was taking at home. If that does not help to control her hypertension then we will consider other medications. She is also on amlodipine 5 mg twice a day which should be continued. 2. Renal artery stenosis: There is a suspicion for possible renal artery stenosis as a cause of her hypertension. I do not hear any vascular bruits so suspicion for renal artery stenosis is not high on my list. We will get a renal artery Doppler ultrasound to assess her renal arteries. Thank you for involving me in the care of Ms. Gutierrez. I will follow her along with you.
[2021-03-09] MEDS: COMBIVENT RESPIMAT 100-20MCG INHALER 4GM INH SCH ×2 (16:24→21:16)
[2021-03-09 16:48] LABS: BASO % 0.4 % (0.0-1.0); EOS % 0.2 % (0.0-3.0); LYMPH # 0.7 10^3/uL (1.5-5.0); LYMPH % 7.1 % (24.0-44.0); MEAN CORPUSCULAR HEMOGLOBIN 32.8 pg (27.0-33.0); MEAN CORPUSCULAR HGB CONC 32.5 g/dl (32.0-36.5); MEAN CORPUSCULAR VOLUME 100.9 fl (80.0-96.0); MONO # 0.4 10^3/uL (0.0-0.8); MONO % 4.3 % (2.0-8.0); NEUTROPHILS % 87.1 % (36.0-66.0); PLATELET COUNT, AUTOMATED 239 10^3/uL (150-450); RED BLOOD COUNT 4.36 10^6/uL (4.00-5.40); WHITE BLOOD COUNT 10.3 10^3/uL (4.0-10.0)
[2021-03-09 16:49] LABS: HEMOGLOBIN 14.3 g/dl (12.0-15.5)
[2021-03-09] MEDS ORDERED: oxyCODONE 5MG TAB PO PRN (17:00)
--- NOTE | 2021-03-09 17:03 | REP ---
INDICATION: cough COMPARISON: 03/05/2021. TECHNIQUE: PA/Lateral FINDINGS: Lungs: There are linear fibro atelectatic changes in the lung bases with no definite consolidating infiltrate. Heart: Normal in size. Mediastinum: Mediastinal silhouette unremarkable. Pleural angles: Unremarkable.. Bones and soft tissues: There are mild degenerative changes of the spine. IMPRESSION: No acute infiltrate radiographically. <Electronically signed by Emiliano Rick > 03/09/21 [id number]
[2021-03-09] MEDS: guaiFENesin 200 MG TAB PO SCH ×2 (17:13→21:28)
[2021-03-09] MEDS: SALIVA SUBSTITUTE(MOUTHKOTE) BTL MT SCH ×2 (17:14→21:35)
[2021-03-09 20:37] LABS: BASO % 0.4 % (0.0-1.0); EOS # 0.4 10^3/uL (0.0-0.5); EOS % 3.9 % (0.0-3.0); HEMATOCRIT 43.5 % (36.0-47.0); HEMOGLOBIN 13.8 g/dl (12.0-15.5); LYMPH # 1.6 10^3/uL (1.5-5.0); MEAN CORPUSCULAR HEMOGLOBIN 33.1 pg (27.0-33.0); MEAN CORPUSCULAR HGB CONC 31.7 g/dl (32.0-36.5); MEAN CORPUSCULAR VOLUME 104.3 fl (80.0-96.0); MONO # 0.7 10^3/uL (0.0-0.8); MONO % 7.4 % (2.0-8.0); NEUTROPHILS # 6.2 10^3/uL (1.5-8.5); NEUTROPHILS % 69.9 % (36.0-66.0); PLATELET COUNT, AUTOMATED 222 10^3/uL (150-450); RED BLOOD COUNT 4.17 10^6/uL (4.00-5.40); WHITE BLOOD COUNT 8.9 10^3/uL (4.0-10.0)
[2021-03-09 21:00] VITALS: BP 154/82
[2021-03-09] MEDS: SENNA 8.6 MG TAB (SENOKOT) PO SCH (21:29)
[2021-03-09] MEDS: LABETALOL 200 MG TAB PO SCH (21:37)
[2021-03-10] MEDS: LevoFLOXacin 250 MG TABLET PO SCH (05:14)
[2021-03-10] MEDS: LEVOTHYROXINE 100MCG TABLET (0.1MG) PO SCH (05:14)
[2021-03-10 06:00] VITALS: BP 150/82
[2021-03-10 07:17] LABS: BASO # 0.1 10^3/uL (0.0-0.2); BASO % 0.6 % (0.0-1.0); EOS # 0.3 10^3/uL (0.0-0.5); EOS % 3.2 % (0.0-3.0); HEMATOCRIT 38.9 % (36.0-47.0); HEMOGLOBIN 12.8 g/dl (12.0-15.5); LYMPH # 2.2 10^3/uL (1.5-5.0); LYMPH % 25.9 % (24.0-44.0); MEAN CORPUSCULAR HEMOGLOBIN 32.8 pg (27.0-33.0); MEAN CORPUSCULAR HGB CONC 32.9 g/dl (32.0-36.5); MEAN CORPUSCULAR VOLUME 99.7 fl (80.0-96.0); MONO # 0.8 10^3/uL (0.0-0.8); MONO % 8.9 % (2.0-8.0); NEUTROPHILS # 5.1 10^3/uL (1.5-8.5); NEUTROPHILS % 60.6 % (36.0-66.0); PLATELET COUNT, AUTOMATED 201 10^3/uL (150-450); WHITE BLOOD COUNT 8.4 10^3/uL (4.0-10.0)
[2021-03-10] MEDS: COMBIVENT RESPIMAT 100-20MCG INHALER 4GM INH SCH ×3 (07:48→20:45)
[2021-03-10] MEDS: LACTOBACILLUS ACIDOPHILUS CAP (BACID) PO SCH ×4 (08:47→21:16)
[2021-03-10] MEDS: POTASSIUM CHLORIDE 10MEQ SR TABLET PO SCH (08:47)
[2021-03-10] MEDS: LABETALOL 200 MG TAB PO SCH ×2 (08:48→21:16)
[2021-03-10] MEDS: amLODIPine 5 MG TAB PO SCH ×2 (08:48→21:15)
[2021-03-10] MEDS: BACLOFEN 10 MG TAB PO SCH ×2 (08:49→12:41)
[2021-03-10] MEDS: VITAMIN D 1,000 INTERNATIONAL UNITS TABLET PO SCH (08:50)
[2021-03-10] MEDS: PANTOPRAZOLE 40MG TAB (PROTONIX) PO SCH (08:50)
[2021-03-10] MEDS: guaiFENesin 200 MG TAB PO SCH ×3 (08:50→21:16)
[2021-03-10] MEDS: NORTRIPTYLINE 25 MG CAP PO SCH ×2 (08:51→21:14)
[2021-03-10] MEDS: OCUVITE 1 TAB PO SCH ×2 (08:51→21:15)
[2021-03-10] MEDS: **hydrALAZINE** 50 MG TAB PO SCH ×3 (08:51→21:15)
[2021-03-10] MEDS: ATORVASTATIN 20 MG TAB PO SCH (08:51)
[2021-03-10] MEDS: DICLOFENAC EPOLAMINE 1.3 % PATCH TOP SCH ×2 (08:52→21:16)
[2021-03-10] MEDS: ACETAMINOPHEN 500 MG TAB PO SCH ×3 (08:52→21:14)
[2021-03-10] MEDS: REMEDY PHYTOPLEX Z-GUARD PASTE 113GM TUBE (FROM STOREROOM PRODUCT) TOP SCH ×3 (08:53→21:17)
[2021-03-10] MEDS: ENOXAPARIN 40MG/0.4ML SYRINGE (J1650 PER 10MG) SC SCH (08:53)
[2021-03-10] MEDS: DOCUSATE SODIUM 100MG CAPSULE PO SCH ×2 (08:54→21:14)
[2021-03-10] MEDS: SALIVA SUBSTITUTE(MOUTHKOTE) BTL MT SCH ×4 (08:54→21:13)
--- NOTE | 2021-03-10 09:36 | REP ---
INDICATION: Renal artery stenosis. COMPARISON: Right upper quadrant ultrasound 10/02/2008. TECHNIQUE: Real-time sonographic evaluation of the kidneys is performed. Duplex Doppler evaluation of renal arteries performed. FINDINGS: Renal cortical echogenicity pattern is normal bilaterally and contours are smooth. There is mild right hydronephrosis and hydroureter. There is no left hydronephrosis. There is no renal mass. The right kidney measures 10.0 x 5.2 x 5.2 cm. Left renal dimensions are 12.1 x 4.7 x 5.1 cm. The urinary bladder is unremarkable. Duplex Doppler evaluation demonstrates peak systolic velocity of the abdominal aorta at the level of the renal arteries 83.5 centimeters/second. Proximal renal arteries are not visualized bilaterally due to overlying bowel gas. Peak systolic velocity in the visualized more distal main right renal artery is 89.9 centimeters/second, renal to aortic ratio 1.08. Resistive indices are measured in the upper, middle and lower thirds of the right kidney and range between 0.65 and 0.76. Acceleration times range between 0.021 and 0.067. Peak systolic velocity in the distal main left renal artery is 65.3 centimeter/second, renal to aortic ratio 0.78. Resistive indices left kidney range between 0.67 and 0.76. Acceleration times range between 0.0380.050. IMPRESSION: Mild right hydroureteronephrosis. Duplex Doppler evaluation of renal arteries is limited due to bowel gas obscuring the proximal renal arteries bilaterally. Visualized portions demonstrate no compelling duplex Doppler sonographic evidence of hemodynamically significant stenosis. <Electronically signed by Emiliano Rick > 03/10/21 [id number]
--- NOTE | 2021-03-10 10:36 | IPNPDOC ---
PM&R Progress Note DATE OF SERVICE: Mar 10, 2021 Global Supply Chain Director Progress Note Subjective: Patient seen in her room sleeping, had some difficulty rousing her, she appeared pale, vitals and FS all within normal range. She was encouraged to stay awake and perked up within the hour and was able to eat her lunch and participate in therapy. REVIEW OF SYSTEMS: The following is a completed review of systems and has been reviewed. Review of systems otherwise unremarkable. PAIN: Patient self reports left groin pain EYES: No recent vision changes EARS, NOSE, & THROAT: No throat pain, or dysphagia, or rhinorrhea. CARDIOVASCULAR: Denies chest pain or palpitations PULMONARY: Denies shortness of breath GASTROINTESTINAL: Denies constipation/diarrhea GENITOURINARY: denies dysuria MUSCULOSKELETAL: generalized weakness NEUROLOGICAL:+ fluent aphasia HEMATOLOGICAL: denies easy bruising SKIN: denies rash PSYCHIATRIC: unremarkable All other review of systems found to be negative. PHYSICAL EXAMINATION: VITAL SIGNS: Please see below. GENERAL: No acute distress. lethargic, but able to rouse HEENT: PERRL. Extraocular movements intact. Clear conjunctiva CARDIOVASCULAR: Regular rate and rhythm. No murmurs, rubs, or gallops LUNGS: Clear to auscultation bilaterally. No wheezes. LLL rhonchi ABDOMEN: Soft, nontender, nondistended. Positive bowel sounds. Normal active bowel sounds NEUROLOGICAL: Alert and oriented times x2, Cranial nerves II through XII grossly intact. Sensation decreased to light touch in stocking pattern +mild fluent aphasia, able to name objects, and follow commands consistently EXTREMITIES: 5-\5 strength bilateral upper extremities. 5-\5 strength right lower extremity. 5-/5 strength in left lower extremity. + heberdens bilat DIPs and matykatherine fernandez bilat PIPs ASSESSMENT:85-year-old F with past medical history of OA, HTN, Hypothyroidism who presents status post fall with rhabdomyolysis in setting of peripheral polyneuropathy PLAN: 1. Rehab- PT/OT advance mobility and ADLs, strengthen/stretch/maintain ROM all 4limbs -ELECTRICIAN'S ASSISTANT for comprehensive eval 2. Neuro- patient with hx of peripheral polyneuropathy due to longstanding prednisone use and hypothyroidism contributing to overall weakness and balance impairments -patient presenting with some fluent aphasia possibly due to UTI vs oxycodone vs underlying dementia- will d/c oxycodone altogether and home baclofen dosing, in addition to halving her Pamelor dosing as patient very lethargic today on exam and suspect polypharmacy, cont to treat E. COli UTI and see if patient clears up -B1 levels pending, patient with elevated TSH and low T3 will increase synthroid dosing as patient's cog impairment may be due to hypothyroidism -B12 high (not on supplement) and folate WNL -will refer to neurology as outpatient for dementia work-up 3. Cardiac- hx of HTH with elevated BPs, cont labetolol, amlodipine, cont hydralazine -patient does not complain of chest pain, cleared by hospitalist for rehab in spite of recent elevated troponins due to rhabdomyolysis vs demand ischemia -HLD cont statin -medicine consulted to assist in overall management 4. resp- monitor for infection, cont combivent, guaifenesin, CXR negative for infiltrate, no leukocytosis or fever, cont to monitor, procalcitonin negative do not suspect PNA at this time 5. Renal- have consulted renal to r/o Renal artery stenosis given recent difficulty with blood pressure management- Renal UIS performed today 6. 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 Pain- cont tylenol for left hip OA/AVN, hold baclofen dosing today, will start back with lower dose to prevent withdrawal seizures , will decrease Pamelor dosing as well Pamelor for neuropathic pain 8. - cont Levaquin for E coli UTI 9. Dispo- TBD Barriers to d/c: patient with decline in therapy likely due to polypharmacy, will need to adjust her meds to optimize participation, still has significant PT and OT needs Allergies Coded Allergies: No Known Allergies (Unverified , 03/05/21) Vital Signs Vital Signs Date Time Temp Pulse Resp B/P (MAP) Pulse Ox O2 Delivery O2 Flow Rate FiO2 03/10/21 08:48 80 150/82 03/10/21 06:00 97.2 18 95 Room Air Laboratory Data CBC/BMP Laboratory Tests 03/09/21 16:20 03/10/21 07:00 Labs 24H Laboratory Tests 2 03/09/21 16:20: Immature Granulocyte % (Auto) 0.9, Neutrophils (%) (Auto) 87.1H, Lymphocytes (%) (Auto) 7.1L, Monocytes (%) (Auto) 4.3, Eosinophils (%) (Auto) 0.2, Basophils (%) (Auto) 0.4, Neutrophils # (Auto) 9.0H, Lymphocytes # (Auto) 0.7L, Monocytes # (Auto) 0.4, Eosinophils # (Auto) 0.0, Basophils # (Auto) 0.0, Nucleated Red Blood Cells % (auto) 0.0, Procalcitonin 0.07 03/10/21 07:00: Immature Granulocyte % (Auto) 0.8, Neutrophils (%) (Auto) 60.6, Lymphocytes (%) (Auto) 25.9, Monocytes (%) (Auto) 8.9H, Eosinophils (%) (Auto) 3.2H, Basophils (%) (Auto) 0.6, Neutrophils # (Auto) 5.1, Lymphocytes # (Auto) 2.2, Monocytes # (Auto) 0.8, Eosinophils # (Auto) 0.3, Basophils # (Auto) 0.1, Nucleated Red Blood Cells % (auto) 0.0 Current Medications Current Medications Current Medications Medications (Trade) Dose Ordered Sig/Nevin Route PRN Reason Start Time Stop Time Status Last Admin Dose Admin Acetaminophen (Tylenol Tab) 1,000 mg TID PO 03/09/21 09:00 03/10/21 08:52 Al Hydrox/Mg Hydrox/Simethicone (Mylanta) 30 ml Q4HP PRN PO DYSPEPSIA 03/08/21 12:15 Albuterol/ Ipratropium (Combivent Respimat 100-20mcg) 1 puff RTID INH 03/09/21 14:00 03/10/21 07:48 Amlodipine Besylate (Norvasc) 5 mg BID PO 03/09/21 09:00 03/10/21 08:48 Atorvastatin Calcium (Lipitor) 40 mg DAILY PO 03/09/21 09:00 03/10/21 08:51 Baclofen (Lioresal) 15 mg QID PO 03/09/21 09:00 03/10/21 08:49 Diclofenac Epolamine (Flector 1.3%) 1 patch Q12H TOP 03/09/21 09:00 03/10/21 08:52 Docusate Sodium (Colace) 100 mg BID PO 03/09/21 09:00 03/09/21 21:29 Enoxaparin Sodium (Lovenox) 40 mg DAILY SC 03/09/21 09:00 03/10/21 08:53 Guaifenesin (Robitussin Tab) 400 mg TID PO 03/09/21 16:00 03/10/21 08:50 Hydralazine HCl (Apresoline) 50 mg Q6H PO 03/09/21 00:00 03/09/21 11:47 DC 03/09/21 06:03 Hydralazine HCl (Apresoline) 50 mg TID PO 03/09/21 16:00 03/10/21 08:51 Labetalol HCl (Normodyne, Trandate) 200 mg BID PO 03/09/21 09:00 03/09/21 11:47 DC 03/09/21 08:55 Labetalol HCl (Normodyne, Trandate) 400 mg BID PO 03/09/21 21:00 03/10/21 08:48 Lactobacillus Acidophilus (Bacid) 1 ea WMHS PO 03/09/21 08:00 03/10/21 08:47 Levofloxacin (Levaquin) 250 mg DAILY@06 PO 03/09/21 06:00 03/10/21 05:14 Levothyroxine Sodium (Synthroid) 100 mcg DAILY@06 PO 03/09/21 06:00 03/10/21 05:14 Multivitamins (Ocuvite(I-Shabnam)) 1 tab BID PO 03/09/21 09:00 03/10/21 08:51 Nortriptyline HCl (Pamelor) 50 mg BID PO 03/09/21 09:00 03/10/21 08:51 Oxycodone HCl (Roxicodone, Oxyir) 2.5 mg Q4HP PRN PO MODERATE PAIN (PS 5-7) 03/09/21 17:00 03/10/21 05:13 Oxycodone HCl (Roxicodone, Oxyir) 2.5 mg Q6HP PRN PO MODERATE PAIN (PS 5-7) 03/08/21 12:15 03/09/21 15:54 DC 03/09/21 06:04 Oxycodone HCl (Roxicodone, Oxyir) 2.5 mg QID PO 03/09/21 09:00 03/09/21 15:54 DC 03/09/21 13:13 Pantoprazole Sodium (Protonix) 40 mg DAILY PO 03/09/21 09:00 03/10/21 08:50 Polyethylene Glycol (Miralax) 1 pkt DAILY PRN PO CONSTIPATION 03/08/21 12:15 Potassium Chloride (Micro-K Extencaps) 20 meq DAILY PO 03/09/21 09:00 03/10/21 08:47 Prednisone (Deltasone) 10 mg Q2D@09 PO 03/09/21 09:00 03/09/21 08:50 Pyridoxine HCl (Vitamin B6) 50 mg DAILY PO 03/09/21 09:00 03/09/21 08:49 Saliva Substitute (Mouthkote) 1 sprays QID [place] 03/09/21 17:00 03/10/21 08:54 Senna (Senokot) 1 tab QHS PO 03/09/21 21:00 03/09/21 21:29 Vitamin D (Vitamin D) 1,000 units DAILY PO 03/09/21 09:00 03/10/21 08:50 ALEX GARCIA MD Mar 10, 2021 10:36
[2021-03-10 11:36] LABS: THYROID STIMULATING HORMONE 9.41 uIU/ML (0.358-3.740)
[2021-03-10 11:38] LABS: FOLATE 9.9 NG/ML (>5.4)
[2021-03-10] MEDS: PYRIDOXINE 50 MG TAB PO SCH (12:39)
[2021-03-10] MEDS: SPIRONOLACTONE 12.5MG PER 1/2 TABLET PO SCH (12:40)
[2021-03-10 13:57] LABS: FREE T3 1.7 PG/ML (2.2-4.0); FREE T4 1.07 NG/DL (0.76-1.46)
[2021-03-10 14:00] VITALS: BP 112/58
--- NOTE | 2021-03-10 14:50 | IPNPDOC ---
Subjective Date Seen The patient was seen on 03/10/21. Subjective Chief Complaint/HPI SUBJECTIVE: Pt is seen and examined and bedside. Patient denies any complaints. Theres no headache, blurry vision, nausea, vomiting, chest pain, palpitations, cough, abdominal pain, diarrhea, or discomfort with urination. Shes working well with PT in the rehab unit. OBJECTIVE: VS: See below GENERAL: Patient was seen at bedside, sitting in her chair. Shes not in any acute distress, and no increased work of breathing. On RA satting 95% NEUROLOGIC: Alert and Oriented x3, interactive and conversational. No focal deficits. HEENT: Head normocephalic, atraumatic. Extraocular muscles are intact. Oral mucosa is moist. No significant adenopathy palpated. HEART: Sounds are rregular, NS1, S2. Trace pitting edema. There is no JVD appreciated LUNGS: clear on auscultation. No rhonci, rales or crackles. ABDOMEN: Soft and nontender. Normal bowel sounds. No guarding on palpation. EXTREMITIES/SKIN: No bruising, cyanosis, petechia, clubbing appreciated. Trace edema bilat extr PSYCH: Mood and affect are appropriate IMAGING: RENAL DOPPLER FLOW; RENAL US IMPRESSION: Mild right hydroureteronephrosis. Duplex Doppler evaluation of renal arteries is limited due to bowel gas obscuring the proximal renal arteries bilaterally. Visualized portions demonstrate no compelling duplex Doppler sonographic evidence of hemodynamically significant stenosis. IMPRESSION AND PLAN: 1.Uncontrolled Hypertension. Patient reports that her hypertension has been difficult to control even on 3 different anti-hypertensive regimen. Her renal u/s did not show any renal artery stenosis. Continue 400mg PO BID, hydralazine 50mg PO TID, and amlodipine 5mg PO BID. Her bp is still quite high in the 150s systolic with one incidence in the 180s. Suspect theres a component of primary hypoaldosterism. We will D/C her KCL and add spironolactone to closely monitor her bp. VS, I&O, 24H, Fishbone Vital Signs/I&O Vital Signs Date Time Temp Pulse Resp B/P (MAP) Pulse Ox O2 Delivery O2 Flow Rate FiO2 03/10/21 08:48 80 150/82 03/10/21 06:00 97.2 18 95 Room Air I&O- Last 24 Hours up to 6 AM 03/10/21 06:00 Intake Total 800 ml Balance 800 ml Laboratory Data 24H LABS Laboratory Tests 2 03/09/21 16:20: Immature Granulocyte % (Auto) 0.9, Neutrophils (%) (Auto) 87.1H, Lymphocytes (%) (Auto) 7.1L, Monocytes (%) (Auto) 4.3, Eosinophils (%) (Auto) 0.2, Basophils (%) (Auto) 0.4, Neutrophils # (Auto) 9.0H, Lymphocytes # (Auto) 0.7L, Monocytes # (Auto) 0.4, Eosinophils # (Auto) 0.0, Basophils # (Auto) 0.0, Nucleated Red Blood Cells % (auto) 0.0, Procalcitonin 0.07 03/10/21 07:00: Immature Granulocyte % (Auto) 0.8, Neutrophils (%) (Auto) 60.6, Lymphocytes (%) (Auto) 25.9, Monocytes (%) (Auto) 8.9H, Eosinophils (%) (Auto) 3.2H, Basophils (%) (Auto) 0.6, Neutrophils # (Auto) 5.1, Lymphocytes # (Auto) 2.2, Monocytes # (Auto) 0.8, Eosinophils # (Auto) 0.3, Basophils # (Auto) 0.1, Nucleated Red Blood Cells % (auto) 0.0 03/10/21 10:31: Vitamin B12 Level 1437H, Folate 9.9, Thyroid Stimulating Hormone (TSH) 9.410H, Free Thyroxine 1.07, Free Triiodothyronine 1.7L 03/10/21 13:59: Bedside Glucose (Misc Panel) 150H CBC/BMP Laboratory Tests 03/09/21 16:20 03/10/21 07:00 GME ATTESTATION GME ATTESTATION My faculty preceptor for this patient encounter was physically present during the encounter and was fully available. All aspects of the patient interview, examination, medical decision making process, and medical care plan development were reviewed and approved by the faculty preceptor. The faculty preceptor is aware and concurs with the plan as stated in the body of this note and will attest to such by his/her cosignature. Andrzej Pinzon DO Mar 10, 2021 14:50
[2021-03-10] MEDS: SENNA 8.6 MG TAB (SENOKOT) PO SCH (21:14)
[2021-03-10 22:15] VITALS: BP 138/73
[2021-03-11] MEDS: LevoFLOXacin 250 MG TABLET PO SCH (05:31)
[2021-03-11] MEDS: LEVOTHYROXINE 100MCG TABLET (0.1MG) PO SCH (05:31)
[2021-03-11 06:05] VITALS: BP 152/80
[2021-03-11 07:07] LABS: BASO # 0.1 10^3/uL (0.0-0.2); BASO % 0.6 % (0.0-1.0); EOS # 0.3 10^3/uL (0.0-0.5); EOS % 4.2 % (0.0-3.0); HEMATOCRIT 38.9 % (36.0-47.0); HEMOGLOBIN 12.6 g/dl (12.0-15.5); LYMPH # 1.8 10^3/uL (1.5-5.0); MEAN CORPUSCULAR HEMOGLOBIN 32.6 pg (27.0-33.0); MEAN CORPUSCULAR HGB CONC 32.4 g/dl (32.0-36.5); MEAN CORPUSCULAR VOLUME 100.5 fl (80.0-96.0); MONO # 0.7 10^3/uL (0.0-0.8); MONO % 8.3 % (2.0-8.0); NEUTROPHILS # 5.1 10^3/uL (1.5-8.5); NEUTROPHILS % 64.1 % (36.0-66.0); PLATELET COUNT, AUTOMATED 199 10^3/uL (150-450); RED BLOOD COUNT 3.87 10^6/uL (4.00-5.40)
[2021-03-11 07:36] LABS: BLOOD UREA NITROGEN 18 MG/DL (7-18); CALCIUM LEVEL 9.1 MG/DL (8.8-10.2); CARBON DIOXIDE LEVEL 31 MEQ/L (21-32); CHLORIDE LEVEL 104 MEQ/L (98-107); GLOMERULAR FILTRATION RATE > 60.0 (>32); GLUCOSE, FASTING 87 MG/DL (70-100); POTASSIUM SERUM 4.3 MEQ/L (3.5-5.1); SODIUM LEVEL 140 MEQ/L (136-145)
[2021-03-11] MEDS: ENOXAPARIN 40MG/0.4ML SYRINGE (J1650 PER 10MG) SC SCH (08:52)
[2021-03-11] MEDS: DOCUSATE SODIUM 100MG CAPSULE PO SCH ×2 (08:52→21:00)
[2021-03-11] MEDS: DICLOFENAC EPOLAMINE 1.3 % PATCH TOP SCH ×2 (08:52→21:10)
[2021-03-11] MEDS: NORTRIPTYLINE 25 MG CAP PO SCH ×2 (08:52→21:10)
[2021-03-11] MEDS: ACETAMINOPHEN 500 MG TAB PO SCH ×3 (08:53→21:10)
[2021-03-11] MEDS: **hydrALAZINE** 50 MG TAB PO SCH ×3 (08:53→21:11)
[2021-03-11] MEDS: LABETALOL 200 MG TAB PO SCH ×2 (08:54→21:11)
[2021-03-11] MEDS: OCUVITE 1 TAB PO SCH ×2 (08:54→21:09)
[2021-03-11] MEDS: PYRIDOXINE 50 MG TAB PO SCH (08:54)
[2021-03-11] MEDS: ATORVASTATIN 20 MG TAB PO SCH (08:54)
[2021-03-11] MEDS: SPIRONOLACTONE 12.5MG PER 1/2 TABLET PO SCH (08:54)
[2021-03-11] MEDS: PANTOPRAZOLE 40MG TAB (PROTONIX) PO SCH (08:55)
[2021-03-11] MEDS: guaiFENesin 200 MG TAB PO SCH ×3 (08:55→21:10)
[2021-03-11] MEDS: VITAMIN D 1,000 INTERNATIONAL UNITS TABLET PO SCH (08:55)
[2021-03-11] MEDS: LACTOBACILLUS ACIDOPHILUS CAP (BACID) PO SCH ×4 (08:55→21:09)
[2021-03-11] MEDS: amLODIPine 5 MG TAB PO SCH ×2 (08:55→21:11)
[2021-03-11] MEDS: predniSONE 10 MG TAB PO SCH (08:55)
[2021-03-11] MEDS: SALIVA SUBSTITUTE(MOUTHKOTE) BTL MT SCH ×4 (08:56→21:12)
[2021-03-11] MEDS: REMEDY PHYTOPLEX Z-GUARD PASTE 113GM TUBE (FROM STOREROOM PRODUCT) TOP SCH ×3 (08:56→21:12)
[2021-03-11] MEDS: COMBIVENT RESPIMAT 100-20MCG INHALER 4GM INH SCH ×3 (10:43→19:39)
--- NOTE | 2021-03-11 10:58 | IPNPDOC ---
Subjective Date Seen The patient was seen on 03/11/21. Subjective Chief Complaint/HPI SUBJECTIVE: Pt is seen and examined and bedside. Patient is still up in her chair. States she still gets leg cramps when working with PT but tolerating the exercises otherwise. Theres no headache, blurry vision, nausea, vomiting, chest pain, palpitations, cough, abdominal pain, diarrhea, or discomfort with urination. OBJECTIVE: VS: See below GENERAL: Patient was seen at bedside, sitting in her chair. Shes not in any acute distress, and no increased work of breathing. On RA satting 93% NEUROLOGIC: Alert and Oriented x3, interactive and conversational. No focal deficits. HEENT: Head normocephalic, atraumatic. Extraocular muscles are intact. Oral mucosa is moist. No significant adenopathy palpated. HEART: Sounds are rregular, NS1, S2. Trace pitting edema. There is no JVD appreciated LUNGS: clear on auscultation. No rhonci, rales or crackles. ABDOMEN: Soft and nontender. Normal bowel sounds. No guarding on palpation. EXTREMITIES/SKIN: No bruising, cyanosis, petechia, clubbing appreciated. Trace edema bilat extr PSYCH: Mood and affect are appropriate IMAGING: RENAL DOPPLER FLOW; RENAL US IMPRESSION: Mild right hydroureteronephrosis. Duplex Doppler evaluation of renal arteries is limited due to bowel gas obscuring the proximal renal arteries bilaterally. Visualized portions demonstrate no compelling duplex Doppler sonographic evidence of hemodynamically significant stenosis. IMPRESSION AND PLAN: 1.Uncontrolled Hypertension. Patient reports that her hypertension has been difficult to control even on 3 different anti-hypertensive regimen. Her renal u/s did not show any renal artery stenosis. 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 Her bp responded immediately and her blood pressure was in the one teens later in the afternoon yesterday. Continue labetotol 400mg po bid with hold parameters of HR<60 and sbp <100; hydralazine 50mg PO TID with hold parameter sbp <120 and amlodipine with hold parameters sbp <120. Will obtain AC QHS orthostatics on her. VS, I&O, 24H, Fishbone Vital Signs/I&O Vital Signs Date Time Temp Pulse Resp B/P (MAP) Pulse Ox O2 Delivery O2 Flow Rate FiO2 03/11/21 08:53 140/80 03/11/21 06:05 97.3 80 18 93 Room Air I&O- Last 24 Hours up to 6 AM 03/11/21 06:00 Intake Total 560 ml Balance 560 ml Laboratory Data 24H LABS Laboratory Tests 2 03/10/21 13:59: Bedside Glucose (Misc Panel) 150H 03/11/21 06:55: Immature Granulocyte % (Auto) 0.8, Neutrophils (%) (Auto) 64.1, Lymphocytes (%) (Auto) 22.0L, Monocytes (%) (Auto) 8.3H, Eosinophils (%) (Auto) 4.2H, Basophils (%) (Auto) 0.6, Neutrophils # (Auto) 5.1, Lymphocytes # (Auto) 1.8, Monocytes # (Auto) 0.7, Eosinophils # (Auto) 0.3, Basophils # (Auto) 0.1, Nucleated Red Blood Cells % (auto) 0.0, Anion Gap 5L, Glomerular Filtration Rate > 60.0, Calcium Level 9.1 CBC/BMP Laboratory Tests 03/11/21 06:55 GME ATTESTATION GME ATTESTATION My faculty preceptor for this patient encounter was physically present during the encounter and was fully available. All aspects of the patient interview, examination, medical decision making process, and medical care plan development were reviewed and approved by the faculty preceptor. The faculty preceptor is aware and concurs with the plan as stated in the body of this note and will attest to such by his/her cosignature. Andrzej Pinzon DO Mar 11, 2021 10:58
--- NOTE | 2021-03-11 11:29 | IPNPDOC ---
PM&R Progress Note DATE OF SERVICE: Mar 11, 2021 [employer] Not[employer] Progress Note Subjective: Patient reporting she feels pretty good today, but has a sense of urgency when she goes to urinate. She denies fevers or chills. REVIEW OF SYSTEMS: The following is a completed review of systems and has been reviewed. Review of systems otherwise unremarkable. PAIN: Patient self reports left groin pain EYES: No recent vision changes EARS, NOSE, & THROAT: No throat pain, or dysphagia, or rhinorrhea. CARDIOVASCULAR: Denies chest pain or palpitations PULMONARY: Denies shortness of breath GASTROINTESTINAL: Denies constipation/diarrhea GENITOURINARY: denies dysuria, urgency MUSCULOSKELETAL: generalized weakness NEUROLOGICAL:+ fluent aphasia (improved) HEMATOLOGICAL: denies easy bruising SKIN: denies rash PSYCHIATRIC: unremarkable All other review of systems found to be negative. PHYSICAL EXAMINATION: VITAL SIGNS: Please see below. GENERAL: No acute distress. lethargic, but able to rouse HEENT: PERRL. Extraocular movements intact. Clear conjunctiva CARDIOVASCULAR: Regular rate and rhythm. No murmurs, rubs, or gallops LUNGS: Clear to auscultation bilaterally. No wheezes. LLL rhonchi ABDOMEN: Soft, nontender, nondistended. Positive bowel sounds. Normal active bowel sounds NEUROLOGICAL: Alert and oriented times x2, Cranial nerves II through XII grossly intact. Sensation decreased to light touch in stocking pattern +mild fluent aphasia (improving), able to name objects, and follow commands consistently EXTREMITIES: 5-\5 strength bilateral upper extremities. 5-\5 strength right lower extremity. 5-/5 strength in left lower extremity. + heberdens bilat DIPs and maty nodues bilat PIPs ASSESSMENT:85-year-old F with past medical history of OA, HTN, Hypothyroidism who presents status post fall with rhabdomyolysis in setting of peripheral polyneuropathy PLAN: 1. Rehab- PT/OT advance mobility and ADLs, strengthen/stretch/maintain ROM all 4limbs -TRAFFIC PERSONNEL SUPERVISOR for comprehensive eval 2. Neuro- patient with hx of peripheral polyneuropathy due to longstanding prednisone use and hypothyroidism contributing to overall weakness and balance impairments -patient presenting with some fluent aphasia possibly due to UTI vs oxycodone vs underlying dementia- d/c'd oxycodone altogether and lowered home baclofen dosing, in addition to halving her Pamelor dosing as patient's poor cognition/mentation likely was due to polypharmacy and is now improved, cont to treat E. COli UTI -B1 levels pending, patient with elevated TSH and low T3 increased synthroid dosing as patient's cog impairment may be due to not sub-clinical hypothyroidism -B12 high (not on supplement) and folate WNL -will refer to neurology as outpatient for dementia work-up 3. Cardiac- hx of HTH with elevated BPs, cont labetolol, amlodipine, cont h ydralazine -patient does not complain of chest pain, cleared by hospitalist for rehab in spite of recent elevated troponins due to rhabdomyolysis vs demand ischemia -HLD cont statin -medicine consulted to assist in overall management 4. resp- monitor for infection, cont combivent, guaifenesin, CXR negative for infiltrate, no leukocytosis or fever, cont to monitor, procalcitonin negative do not suspect PNA at this time 5. Renal- have consulted renal to r/o Renal artery stenosis given recent diffi culty with blood pressure management- Renal UIS performed today 6. 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 Pain- cont tylenol for left hip OA/AVN, cont lwoer dose of baclofen and decreased Pamelor dosing for neuropathic pain 8. - cont Levaquin for E coli UTI , will add pyridium for bladder irritation 9. Dispo- TBD Barriers to d/c: patient with decline in therapy likely due to polypharmacy, which is starting to improved with medication adjustment, patient needs to im prove functionally as well, she is currently min assist for most aspects of mobility and Mod assist with dressing requiring continued PT and OT. she was independent prior to this and will need to be at least Mod-I in all disciplines, TRAFFIC PERSONNEL SUPERVISOR has also been ordered to asses cognitive function which which may be barrier to d/c as patient may need additional help at home from her Allergies Coded Allergies: No Known Allergies (Unverified , 03/05/21) Vital Signs Vital Signs Date Time Temp Pulse Resp B/P (MAP) Pulse Ox O2 Delivery O2 Flow Rate FiO2 03/11/21 08:53 140/80 03/11/21 06:05 97.3 80 18 93 Room Air Laboratory Data CBC/BMP Laboratory Tests 03/11/21 06:55 Labs 24H Laboratory Tests 2 03/10/21 13:59: Bedside Glucose (Misc Panel) 150H 03/11/21 06:55: Immature Granulocyte % (Auto) 0.8, Neutrophils (%) (Auto) 64.1, Lymphocytes (%) (Auto) 22.0L, Monocytes (%) (Auto) 8.3H, Eosinophils (%) (Auto) 4.2H, Basophils (%) (Auto) 0.6, Neutrophils # (Auto) 5.1, Lymphocytes # (Auto) 1.8, Monocytes # (Auto) 0.7, Eosinophils # (Auto) 0.3, Basophils # (Auto) 0.1, Nucleated Red Blood Cells % (auto) 0.0, Anion Gap 5L, Glomerular Filtration Rate > 60.0, Calcium Level 9.1 Current Medications Current Medications Current Medications Medications (Trade) Dose Ordered Sig/Nevin Route PRN Reason Start Time Stop Time Status Last Admin Dose Admin Acetaminophen (Tylenol Tab) 1,000 mg TID PO 03/09/21 09:00 03/11/21 08:53 Al Hydrox/Mg Hydrox/Simethicone (Mylanta) 30 ml Q4HP PRN PO DYSPEPSIA 03/08/21 12:15 Albuterol/ Ipratropium (Combivent Respimat 100-20mcg) 1 puff RTID INH 03/09/21 14:00 03/11/21 10:43 Amlodipine Besylate (Norvasc) 5 mg BID PO 03/09/21 09:00 03/11/21 08:55 Atorvastatin Calcium (Lipitor) 40 mg DAILY PO 03/09/21 09:00 03/11/21 08:54 Baclofen (Lioresal) 5 mg TID PO 03/11/21 09:00 Baclofen (Lioresal) 15 mg QID PO 03/09/21 09:00 03/10/21 14:04 DC 03/10/21 08:49 Diclofenac Epolamine (Flector 1.3%) 1 patch Q12H TOP 03/09/21 09:00 03/11/21 08:52 Docusate Sodium (Colace) 100 mg BID PO 03/09/21 09:00 03/11/21 08:52 Enoxaparin Sodium (Lovenox) 40 mg DAILY SC 03/09/21 09:00 03/11/21 08:52 Guaifenesin (Robitussin Tab) 400 mg TID PO 03/09/21 16:00 03/11/21 08:55 Hydralazine HCl (Apresoline) 50 mg Q6H PO 03/09/21 00:00 03/09/21 11:47 DC 03/09/21 06:03 Hydralazine HCl (Apresoline) 50 mg TID PO 03/09/21 16:00 03/11/21 08:53 Labetalol HCl (Normodyne, Trandate) 200 mg BID PO 03/09/21 09:00 03/09/21 11:47 DC 03/09/21 08:55 Labetalol HCl (Normodyne, Trandate) 400 mg BID PO 03/09/21 21:00 03/11/21 08:54 Lactobacillus Acidophilus (Bacid) 1 ea WMHS PO 03/09/21 08:00 03/11/21 08:55 Levofloxacin (Levaquin) 250 mg DAILY@06 PO 03/09/21 06:00 03/11/21 05:31 Levothyroxine Sodium (Synthroid) 100 mcg DAILY@06 PO 03/09/21 06:00 03/11/21 11:26 DC 03/11/21 05:31 Levothyroxine Sodium (Synthroid) 112 mcg DAILY@06 PO 03/12/21 06:00 UNV Multivitamins (Ocuvite(I-Shabnam)) 1 tab BID PO 03/09/21 09:00 03/11/21 08:54 Nortriptyline HCl (Pamelor) 25 mg BID PO 03/10/21 21:00 03/11/21 08:52 Nortriptyline HCl (Pamelor) 50 mg BID PO 03/09/21 09:00 03/10/21 14:04 DC 03/10/21 08:51 Oxycodone HCl (Roxicodone, Oxyir) 2.5 mg Q4HP PRN PO MODERATE PAIN (PS 5-7) 03/09/21 17:00 03/10/21 14:04 DC 03/10/21 05:13 Oxycodone HCl (Roxicodone, Oxyir) 2.5 mg Q6HP PRN PO MODERATE PAIN (PS 5-7) 03/08/21 12:15 03/09/21 15:54 DC 03/09/21 06:04 Oxycodone HCl (Roxicodone, Oxyir) 2.5 mg QID PO 03/09/21 09:00 03/09/21 15:54 DC 03/09/21 13:13 Pantoprazole Sodium (Protonix) 40 mg DAILY PO 03/09/21 09:00 03/11/21 08:55 Polyethylene Glycol (Miralax) 1 pkt DAILY PRN PO CONSTIPATION 03/08/21 12:15 03/10/21 12:39 Potassium Chloride (Micro-K Extencaps) 20 meq DAILY PO 03/09/21 09:00 03/10/21 10:54 DC 03/10/21 08:47 Prednisone (Deltasone) 10 mg Q2D@09 PO 03/09/21 09:00 03/11/21 08:55 Pyridoxine HCl (Vitamin B6) 50 mg DAILY PO 03/09/21 09:00 03/11/21 08:54 Saliva Substitute (Mouthkote) 1 sprays QID [place] 03/09/21 17:00 03/11/21 08:56 Senna (Senokot) 1 tab QHS PO 03/09/21 21:00 03/10/21 21:14 Spironolactone (Aldactone) 12.5 mg DAILY PO 03/10/21 09:00 03/11/21 08:54 Vitamin D (Vitamin D) 1,000 units DAILY PO 03/09/21 09:00 03/11/21 08:55 ALEX GARCIA MD Mar 11, 2021 11:29
[2021-03-11] MEDS: BACLOFEN 5MG PER 1/2 TABLET PO SCH ×3 (11:59→21:09)
[2021-03-11 12:38] VITALS: BP_SYST 118; BP_SYST 135; BP_SYST 176; BP_DIAS 60; BP_DIAS 61; BP_DIAS 75
[2021-03-11] MEDS ORDERED: HOME MED LIST COMPLETE! XX SCH (13:20)
[2021-03-11 14:00] VITALS: BP 126/60
[2021-03-11 20:00] VITALS: BP 178/76
[2021-03-11] MEDS: SENNA 8.6 MG TAB (SENOKOT) PO SCH (21:00)
[2021-03-11] MEDS: PHENAZOPYRIDINE 100 MG TAB PO SCH (21:09)
[2021-03-11] MEDS: RESTASIS OU SCH (21:10)
[2021-03-11 21:32] VITALS: BP_SYST 158; BP_SYST 178; BP_SYST 180; BP_DIAS 72; BP_DIAS 76; BP_DIAS 98
[2021-03-12] VITALS (9 sets, daily range): BP systolic 92–170; BP diastolic 51–90
[2021-03-12] MEDS ORDERED: oxyCODONE 5MG TAB PO ONE (02:05)
[2021-03-12] MEDS: LEVOTHYROXINE 112MCG TABLET (0.112MG) PO SCH (05:23)
[2021-03-12] MEDS: LevoFLOXacin 250 MG TABLET PO SCH (05:23)
[2021-03-12] MEDS: COMBIVENT RESPIMAT 100-20MCG INHALER 4GM INH SCH ×3 (07:19→20:49)
[2021-03-12] MEDS: LACTOBACILLUS ACIDOPHILUS CAP (BACID) PO SCH ×4 (08:00→20:32)
[2021-03-12] MEDS: SALIVA SUBSTITUTE(MOUTHKOTE) BTL MT SCH ×4 (09:00→20:32)
[2021-03-12] MEDS: DOCUSATE SODIUM 100MG CAPSULE PO SCH ×2 (09:00→20:32)
[2021-03-12] MEDS: RESTASIS OU SCH ×2 (09:00→20:34)
[2021-03-12] MEDS: PANTOPRAZOLE 40MG TAB (PROTONIX) PO SCH (09:56)
[2021-03-12] MEDS: NORTRIPTYLINE 25 MG CAP PO SCH ×2 (09:56→20:30)
[2021-03-12] MEDS: ACETAMINOPHEN 500 MG TAB PO SCH ×3 (09:56→20:30)
[2021-03-12] MEDS: PHENAZOPYRIDINE 100 MG TAB PO SCH (09:56)
[2021-03-12] MEDS: guaiFENesin 200 MG TAB PO SCH ×3 (09:57→20:29)
[2021-03-12] MEDS: **hydrALAZINE** 50 MG TAB PO SCH ×3 (09:58→20:34)
[2021-03-12] MEDS: OCUVITE 1 TAB PO SCH ×2 (09:59→20:30)
[2021-03-12] MEDS: SPIRONOLACTONE 12.5MG PER 1/2 TABLET PO SCH (09:59)
[2021-03-12] MEDS: BACLOFEN 5MG PER 1/2 TABLET PO SCH ×3 (09:59→20:31)
[2021-03-12] MEDS: ATORVASTATIN 20 MG TAB PO SCH (09:59)
[2021-03-12] MEDS: LABETALOL 200 MG TAB PO SCH ×3 (09:59→20:31)
[2021-03-12] MEDS: amLODIPine 5 MG TAB PO SCH ×2 (10:00→20:34)
[2021-03-12] MEDS: VITAMIN D 1,000 INTERNATIONAL UNITS TABLET PO SCH (10:02)
[2021-03-12] MEDS: PYRIDOXINE 50 MG TAB PO SCH (10:02)
[2021-03-12] MEDS: ENOXAPARIN 40MG/0.4ML SYRINGE (J1650 PER 10MG) SC SCH (10:03)
[2021-03-12] MEDS: DICLOFENAC EPOLAMINE 1.3 % PATCH TOP SCH ×2 (10:05→20:32)
[2021-03-12] MEDS: REMEDY PHYTOPLEX Z-GUARD PASTE 113GM TUBE (FROM STOREROOM PRODUCT) TOP SCH ×3 (10:05→20:33)
[2021-03-12] MEDS ORDERED: cloNIDine 0.1MG TABLET PO ONE (11:15)
--- NOTE | 2021-03-12 11:36 | IPNPDOC ---
PM&R Progress Note DATE OF SERVICE: Mar 12, 2021 Retail Coordinator Progress Note Subjective: Patient seen in her room stating she feels off today and nauseous. She reports she got oxycodone overnight for her hip and was encouraged to avoid opiodis as it makes her lethargic and more confused. She agreed to change her prednisone dosing to daily and to try heat for her elft hip. She denies any new focal weakness, no fevers, or chills. REVIEW OF SYSTEMS: The following is a completed review of systems and has been reviewed. Review of systems otherwise unremarkable. PAIN: Patient self reports left groin pain EYES: No recent vision changes EARS, NOSE, & THROAT: No throat pain, or dysphagia, or rhinorrhea. CARDIOVASCULAR: Denies chest pain or palpitations PULMONARY: Denies shortness of breath GASTROINTESTINAL: Denies constipation/diarrhea GENITOURINARY: denies dysuria, urgency MUSCULOSKELETAL: generalized weakness NEUROLOGICAL:+ fluent aphasia (improved) HEMATOLOGICAL: denies easy bruising SKIN: denies rash PSYCHIATRIC: unremarkable All other review of systems found to be negative. PHYSICAL EXAMINATION: VITAL SIGNS: Please see below. GENERAL: No acute distress. lethargic, but able to rouse HEENT: PERRL. Extraocular movements intact. Clear conjunctiva CARDIOVASCULAR: Regular rate and rhythm. No murmurs, rubs, or gallops LUNGS: Clear to auscultation bilaterally. No wheezes. LLL rhonchi ABDOMEN: Soft, nontender, nondistended. Positive bowel sounds. Normal active bow el sounds NEUROLOGICAL: Alert and oriented times x2, Cranial nerves II through XII grossly intact. Sensation decreased to light touch in stocking pattern +mild fluent aphasia (improving), able to name objects, and follow commands consistently EXTREMITIES: 5-\5 strength bilateral upper extremities. 5-\5 strength right lower extremity. 5-/5 strength in left lower extremity. + heberdens bilat DIPs and maty nodues bilat PIPs ASSESSMENT:85-year-old F with past medical history of OA, HTN, Hypothyroidism who presents status post fall with rhabdomyolysis in setting of peripheral polyneuropathy PLAN: 1. Rehab- PT/OT advance mobility and ADLs, strengthen/stretch/maintain ROM all 4limbs -SOLE LEATHER CUTTING MACHINE OPERATOR for comprehensive eval 2. Neuro- patient with hx of peripheral polyneuropathy due to longstanding prednisone use and hypothyroidism contributing to overall weakness and balance impairments -patient presenting with some fluent aphasia possibly due to UTI vs oxycodone vs underlying dementia- d/c'd oxycodone altogether and lowered home baclofen dosing, in addition to halving her Pamelor dosing as patient's poor cognition/m entation likely was due to polypharmacy and is now improved, cont to treat E. COli UTI -B1 levels pending, patient with elevated TSH and low T3 increased Synthroid dosing as patient's cog impairment may be due to not sub-clinical hypothyroidism -B12 high (not on supplement) and folate WNL -low concern for stroke as etiology for impaired cognition and speech, but will order CTH to see if any old strokes/hydrocephalus/intracranial bleeds -will refer to neurology as outpatient for dementia work-up 3. Cardiac- hx of HTH with elevated BPs, cont labetolol, amlodipine, cont hydralazine- patient with some orthostatics while on increased BP meds which may be contributing to alternating levels of cognition as she may be more accustomed to higher BPs at home -HLD cont statin -medicine consulted to assist in overall management 4. resp- monitor for infection, cont combivent, guaifenesin, CXR negative for infiltrate, no leukocytosis or fever, cont to monitor, procalcitonin negative do not suspect PNA at this time 5. Renal- have consulted renal to r/o Renal artery stenosis given recent difficulty with blood pressure management- Renal UIS performed today 6. 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 Pain- cont tylenol for left hip OA/AVN, cont lower dose of baclofen and decreased Pamelor dosing for neuropathic pain, will change her prednisone dosing to 10mg daily, kpad to left groin, cont flector patch 8. - s/p course of Levaquin for E coli UTI and pyridium for bladder irritation 9. Dispo- TBD functional status/Barriers to d/c: patient with decline in therapy likely due to polypharmacy, which is starting to improved with medication adjustment, patient needs to improve functionally as well, she is currently min assist for most aspects of mobility and Mod assist with dressing requiring continued PT and OT. she was independent prior to this and will need to be at least Mod-I in all disciplines, SOLE LEATHER CUTTING MACHINE OPERATOR has also been ordered to asses cognitive function which which may be barrier to d/c as patient may need additional help at home from her Patient's blood pressure management still need close attention. Allergies Coded Allergies: No Known Allergies (Unverified , 03/05/21) Vital Signs Vital Signs Date Time Temp Pulse Resp B/P (MAP) Pulse Ox O2 Delivery O2 Flow Rate FiO2 03/12/21 10:00 88 152/84 03/12/21 06:00 97.8 18 93 Room Air Current Medications Current Medications Current Medications Medications (Trade) Dose Ordered Sig/Nevin Route PRN Reason Start Time Stop Time Status Last Admin Dose Admin Acetaminophen (Tylenol Tab) 1,000 mg TID PO 03/09/21 09:00 03/12/21 09:56 Al Hydrox/Mg Hydrox/Simethicone (Mylanta) 30 ml Q4HP PRN PO DYSPEPSIA 03/08/21 12:15 Albuterol/ Ipratropium (Combivent Respimat 100-20mcg) 1 puff RTID INH 03/09/21 14:00 03/12/21 07:19 Amlodipine Besylate (Norvasc) 5 mg BID PO 03/09/21 09:00 03/12/21 10:00 Atorvastatin Calcium (Lipitor) 40 mg DAILY PO 03/09/21 09:00 03/12/21 09:59 Baclofen (Lioresal) 5 mg TID PO 03/11/21 09:00 03/12/21 09:59 Baclofen (Lioresal) 15 mg QID PO 03/09/21 09:00 03/10/21 14:04 DC 03/10/21 08:49 Diclofenac Epolamine (Flector 1.3%) 1 patch Q12H TOP 03/09/21 09:00 03/12/21 10:05 Docusate Sodium (Colace) 100 mg BID PO 03/09/21 09:00 03/11/21 08:52 Enoxaparin Sodium (Lovenox) 40 mg DAILY SC 03/09/21 09:00 03/12/21 10:03 Guaifenesin (Robitussin Tab) 400 mg TID PO 03/09/21 16:00 03/12/21 09:57 Home Med (Home Med List Complete!) ASDIRECTED XX 03/11/21 13:20 03/11/21 13:28 DC Hydralazine HCl (Apresoline) 50 mg Q6H PO 03/09/21 00:00 03/09/21 11:47 DC 03/09/21 06:03 Hydralazine HCl (Apresoline) 50 mg TID PO 03/09/21 16:00 03/12/21 09:58 Labetalol HCl (Normodyne, Trandate) 200 mg BID PO 03/09/21 09:00 03/09/21 11:47 DC 03/09/21 08:55 Labetalol HCl (Normodyne, Trandate) 400 mg BID PO 03/09/21 21:00 03/12/21 10:58 DC 03/12/21 09:59 Labetalol HCl (Normodyne, Trandate) 400 mg TID PO 03/12/21 16:00 Lactobacillus Acidophilus (Bacid) 1 ea WMHS PO 03/09/21 08:00 03/12/21 08:00 Levofloxacin (Levaquin) 250 mg DAILY@06 PO 03/09/21 06:00 03/12/21 05:23 Levothyroxine Sodium (Synthroid) 100 mcg DAILY@06 PO 03/09/21 06:00 03/11/21 11:26 DC 03/11/21 05:31 Levothyroxine Sodium (Synthroid) 112 mcg DAILY@06 PO 03/12/21 06:00 03/12/21 05:23 Multivitamins (Ocuvite(I-Shabnam)) 1 tab BID PO 03/09/21 09:00 03/12/21 09:59 Nortriptyline HCl (Pamelor) 25 mg BID PO 03/10/21 21:00 03/12/21 09:56 Nortriptyline HCl (Pamelor) 50 mg BID PO 03/09/21 09:00 03/10/21 14:04 DC 03/10/21 08:51 Oxycodone HCl (Roxicodone, Oxyir) 2.5 mg Q4HP PRN PO MODERATE PAIN (PS 5-7) 03/09/21 17:00 03/10/21 14:04 DC 03/10/21 05:13 Oxycodone HCl (Roxicodone, Oxyir) 2.5 mg Q6HP PRN PO MODERATE PAIN (PS 5-7) 03/08/21 12:15 03/09/21 15:54 DC 03/09/21 06:04 Oxycodone HCl (Roxicodone, Oxyir) 2.5 mg QID PO 03/09/21 09:00 03/09/21 15:54 DC 03/09/21 13:13 Pantoprazole Sodium (Protonix) 40 mg DAILY PO 03/09/21 09:00 03/12/21 09:56 Patient Own Medication (Patient'S Own Med) Restasis: APPLY 1 DROP... BID OU 03/11/21 21:00 03/12/21 09:00 Phenazopyridine HCl (Pyridium) 100 mg BID PO 03/11/21 21:00 03/12/21 09:56 Polyethylene Glycol (Miralax) 1 pkt DAILY PRN PO CONSTIPATION 03/08/21 12:15 03/10/21 12:39 Potassium Chloride (Micro-K Extencaps) 20 meq DAILY PO 03/09/21 09:00 03/10/21 10:54 DC 03/10/21 08:47 Prednisone (Deltasone) 10 mg Q2D@09 PO 03/09/21 09:00 03/11/21 08:55 Pyridoxine HCl (Vitamin B6) 50 mg DAILY PO 03/09/21 09:00 03/12/21 10:02 Saliva Substitute (Mouthkote) 1 sprays QID MT 03/09/21 17:00 03/11/21 21:12 Senna (Senokot) 1 tab QHS PO 03/09/21 21:00 03/10/21 21:14 Spironolactone (Aldactone) 12.5 mg DAILY PO 03/10/21 09:00 03/12/21 09:59 Vitamin D (Vitamin D) 1,000 units DAILY PO 03/09/21 09:00 03/12/21 10:02 ALEX GARCIA MD Mar 12, 2021 11:36
--- NOTE | 2021-03-12 11:39 | IPNPDOC ---
Subjective Date Seen The patient was seen on 03/12/21. Subjective Chief Complaint/HPI SUBJECTIVE: Pt is seen and examined and bedside. Patient is sitting in bed without any acute distress. She states that she was a bit nauseous and threw up this morning. At bedside, a bp taking from the L arm while sitting and relaxed read 203/ 93 with repeat of 204/97 and HR of 107. She denies headache, blurry vision, nausea, vomiting, chest pain, palpitations, cough, abdominal pain, diarrhea, or discomfort with urination. OBJECTIVE: VS: See below GENERAL: Patient was seen at bedside. Shes not in any acute distress, and no increased work of breathing. On RA satting 93% NEUROLOGIC: Alert and Oriented x3, interactive and conversational. No focal deficits. HEENT: Head normocephalic, atraumatic. Extraocular muscles are intact. Oral mucosa is moist. No significant adenopathy palpated. HEART: Sounds are rregular, NS1, S2. Trace pitting edema. There is no JVD appreciated LUNGS: clear on auscultation. No rhonci, rales or crackles. ABDOMEN: Soft and nontender. Normal bowel sounds. No guarding on palpation. EXTREMITIES/SKIN: No bruising, cyanosis, petechia, clubbing appreciated. Trace edema bilat extr PSYCH: Mood and affect are appropriate IMAGING: RENAL DOPPLER FLOW; RENAL US IMPRESSION: Mild right hydroureteronephrosis. Duplex Doppler evaluation of renal arteries is limited due to bowel gas obscuring the proximal renal arteries bilaterally. Visualized portions demonstrate no compelling duplex Doppler sonographic evidence of hemodynamically significant stenosis. IMPRESSION AND PLAN: 1.Uncontrolled Hypertension. Patient reports that her hypertension has been difficult to control even on 3 different anti-hypertensive regimen. Her renal u/s did not show any renal artery stenosis. 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 Her bp was intially brought back down to one teens to one twenties; however, later in the day her bp spiked up to the 170s again. She is also tachycardic and in light of this, will increase the labetotol 400mg PO BID to TID. With her sbp in the 200s while in the room, will order for a 1x dose of clonidine which should cover her until her pm dose of labetotol. VS, I&O, 24H, Fishbone Vital Signs/I&O Vital Signs Date Time Temp Pulse Resp B/P (MAP) Pulse Ox O2 Delivery O2 Flow Rate FiO2 03/12/21 10:00 88 152/84 03/12/21 06:00 97.8 18 93 Room Air I&O- Last 24 Hours up to 6 AM 03/12/21 06:00 Intake Total 1000 ml Balance 1000 ml GME ATTESTATION GME ATTESTATION My faculty preceptor for this patient encounter was physically present during the encounter and was fully available. All aspects of the patient interview, examination, medical decision making process, and medical care plan development were reviewed and approved by the faculty preceptor. The faculty preceptor is aware and concurs with the plan as stated in the body of this note and will attest to such by his/her cosignature. Andrzej Pinzon DO Mar 12, 2021 11:39
[2021-03-12] MEDS ORDERED: ONDANSETRON 4 MG ORAL DISINTEGRATING TAB SL PRN (13:00)
[2021-03-12] MEDS ORDERED: ONDANSETRON 4 MG ORAL DISINTEGRATING TAB PO ONE (13:00)
[2021-03-12] MEDS: predniSONE 10 MG TAB PO SCH (14:20)
--- NOTE | 2021-03-12 15:28 | REPVR ---
PROCEDURE INFORMATION: Exam: CT Head Without Contrast Exam date and time: 03/12/2021 3:15 PM Age: 85 years old Clinical indication: Other: R/O old infarct TECHNIQUE: Imaging protocol: Computed tomography of the head without contrast. Radiation optimization: All CT scans at this facility use at least one of these dose optimization techniques: automated exposure control; mA and/or kV adjustment per patient size (includes targeted exams where dose is matched to clinical indication); or iterative reconstruction. COMPARISON: No relevant prior studies available. FINDINGS: Brain: There is no acute intracranial hemorrhage. There is lucency in the cerebral white matter, likely microvascular disease although non-specific. Rick white differentiation is intact. No evidence of acute or chronic infarct. There are no extra-axial fluid collections. No evidence of mass. There is no mass effect or midline shift. Cerebral ventricles: The ventricles and sulci are enlarged, consistent with volume loss / atrophy. No hydrocephalus. Paranasal sinuses: Visualized sinuses are unremarkable. No fluid levels. Mastoid air cells: No significant mastoid effusion. Vasculature: There is vascular calcification. Bones/joints: No acute fracture. Soft tissues: Unremarkable as visualized. IMPRESSION: 1. No evidence of acute intracranial abnormality. No evidence of acute infarction, hemorrhage, or mass. 2. Atrophy and microvascular disease. Electronically signed by: Shirley Zarate On 03/12/2021 15:28:01 PM
[2021-03-12] MEDS: SENNA 8.6 MG TAB (SENOKOT) PO SCH (20:32)
[2021-03-13] MEDS: LEVOTHYROXINE 112MCG TABLET (0.112MG) PO SCH (05:33)
[2021-03-13 06:00] VITALS: BP_SYST 146; BP_SYST 164; BP_DIAS 50; BP_DIAS 72
[2021-03-13 06:04] LABS: BASO # 0.1 10^3/uL (0.0-0.2); BASO % 0.6 % (0.0-1.0); EOS # 0.1 10^3/uL (0.0-0.5); EOS % 1.1 % (0.0-3.0); HEMATOCRIT 39.9 % (36.0-47.0); LYMPH # 1.6 10^3/uL (1.5-5.0); LYMPH % 15.1 % (24.0-44.0); MEAN CORPUSCULAR HEMOGLOBIN 32.9 pg (27.0-33.0); MEAN CORPUSCULAR HGB CONC 32.6 g/dl (32.0-36.5); MONO # 0.9 10^3/uL (0.0-0.8); MONO % 8.5 % (2.0-8.0); NEUTROPHILS # 7.9 10^3/uL (1.5-8.5); PLATELET COUNT, AUTOMATED 229 10^3/uL (150-450); RED BLOOD COUNT 3.95 10^6/uL (4.00-5.40); WHITE BLOOD COUNT 10.7 10^3/uL (4.0-10.0)
[2021-03-13 06:23] LABS: BLOOD UREA NITROGEN 20 MG/DL (7-18); CALCIUM LEVEL 9.6 MG/DL (8.8-10.2); CARBON DIOXIDE LEVEL 30 MEQ/L (21-32); CHLORIDE LEVEL 104 MEQ/L (98-107); CREATININE FOR GFR 0.78 MG/DL (0.55-1.30); GLOMERULAR FILTRATION RATE > 60.0 (>32); GLUCOSE, FASTING 98 MG/DL (70-100); POTASSIUM SERUM 3.9 MEQ/L (3.5-5.1); SODIUM LEVEL 139 MEQ/L (136-145)
[2021-03-13] MEDS: COMBIVENT RESPIMAT 100-20MCG INHALER 4GM INH SCH ×3 (07:41→20:38)
[2021-03-13] MEDS: RESTASIS OU SCH ×2 (09:00→22:06)
[2021-03-13] MEDS: ENOXAPARIN 40MG/0.4ML SYRINGE (J1650 PER 10MG) SC SCH (09:59)
[2021-03-13] MEDS: NORTRIPTYLINE 25 MG CAP PO SCH ×2 (09:59→22:09)
[2021-03-13] MEDS: SALIVA SUBSTITUTE(MOUTHKOTE) BTL MT SCH ×4 (09:59→22:13)
[2021-03-13] MEDS: REMEDY PHYTOPLEX Z-GUARD PASTE 113GM TUBE (FROM STOREROOM PRODUCT) TOP SCH ×3 (09:59→22:11)
[2021-03-13] MEDS: guaiFENesin 200 MG TAB PO SCH ×3 (09:59→22:07)
[2021-03-13] MEDS: DOCUSATE SODIUM 100MG CAPSULE PO SCH ×2 (09:59→22:08)
[2021-03-13] MEDS: BACLOFEN 5MG PER 1/2 TABLET PO SCH ×3 (09:59→22:10)
[2021-03-13] MEDS: ATORVASTATIN 20 MG TAB PO SCH (09:59)
[2021-03-13] MEDS: SPIRONOLACTONE 12.5MG PER 1/2 TABLET PO SCH (10:00)
[2021-03-13] MEDS: OCUVITE 1 TAB PO SCH ×2 (10:00→22:07)
[2021-03-13] MEDS: LACTOBACILLUS ACIDOPHILUS CAP (BACID) PO SCH ×4 (10:00→22:08)
[2021-03-13] MEDS: PANTOPRAZOLE 40MG TAB (PROTONIX) PO SCH (10:00)
[2021-03-13] MEDS: VITAMIN D 1,000 INTERNATIONAL UNITS TABLET PO SCH (10:00)
[2021-03-13] MEDS: predniSONE 10 MG TAB PO SCH (10:01)
[2021-03-13] MEDS: DICLOFENAC EPOLAMINE 1.3 % PATCH TOP SCH ×2 (10:02→22:10)
[2021-03-13] MEDS: ACETAMINOPHEN 500 MG TAB PO SCH ×3 (10:02→22:07)
[2021-03-13] MEDS: **hydrALAZINE** 50 MG TAB PO SCH ×3 (10:03→22:09)
[2021-03-13] MEDS: LABETALOL 200 MG TAB PO SCH ×3 (10:04→22:08)
[2021-03-13] MEDS: amLODIPine 5 MG TAB PO SCH ×2 (10:06→22:09)
--- NOTE | 2021-03-13 11:15 | IPNPDOC ---
Subjective Date Seen The patient was seen on 03/13/21. Subjective Chief Complaint/HPI SUBJECTIVE: Pt is seen and examined and bedside. Patient is sitting in bed without any acute distress. Her is in the room with her today. Her blood pressure over the past 24 hours since changing her antihypertensive regimen yesterday has been well controlled. She denies headache, blurry vision, nausea, vomiting, chest pain, palpitations, cough, abdominal pain, diarrhea, or discomfort with urination. OBJECTIVE: VS: See below GENERAL: Patient was seen at bedside. Shes not in any acute distress, and no increased work of breathing. On RA satting 96% NEUROLOGIC: Alert and Oriented x3, interactive and conversational. No focal de ficits. HEENT: Head normocephalic, atraumatic. Extraocular muscles are intact. Oral mucosa is moist. No significant adenopathy palpated. HEART: Sounds are regular, NS1, S2. Trace pitting edema. There is no JVD appreciated LUNGS: clear on auscultation. No rhonci, rales or crackles. ABDOMEN: Soft and nontender. Normal bowel sounds. No guarding on palpation. EXTREMITIES/SKIN: No bruising, cyanosis, petechia, clubbing appreciated. Trace edema bilat extr PSYCH: Mood and affect are appropriate IMAGING: RENAL DOPPLER FLOW; RENAL US IMPRESSION: Mild right hydroureteronephrosis. Duplex Doppler evaluation of renal arteries is limited due to bowel gas obscuring the proximal renal arteries bilaterally. Visualized portions demonstrate no compelling duplex Doppler sonographic evidence of hemodynamically significant stenosis. IMPRESSION AND PLAN: 1.Uncontrolled Hypertension. Patient reports that her hypertension has been difficult to control even on 3 different anti-hypertensive regimen. Her renal u/s did not show any renal artery stenosis. 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 Her bp was initially brought back down to one teens to one twenties; however, later in the day her bp spiked up to the 170s again. She is also tachycardic and we will increased the labetotol 400mg PO BID to TID. She was given a one-time dose of clonidine yesterday. Continue on current antihypertensive regimen. VS, I&O, 24H, Fishbone Vital Signs/I&O Vital Signs Date Time Temp Pulse Resp B/P (MAP) Pulse Ox O2 Delivery O2 Flow Rate FiO2 03/13/21 10:03 162/60 03/13/21 06:00 98.2 101 18 96 Room Air I&O- Last 24 Hours up to 6 AM 03/13/21 06:00 Intake Total 800 ml Balance 800 ml Laboratory Data 24H LABS Laboratory Tests 2 03/12/21 12:28: 03/13/21 05:44: Immature Granulocyte % (Auto) 0.7, Neutrophils (%) (Auto) 74.0H, Lymphocytes (%) (Auto) 15.1L, Monocytes (%) (Auto) 8.5H, Eosinophils (%) (Auto) 1.1, Basophils (%) (Auto) 0.6, Neutrophils # (Auto) 7.9, Lymphocytes # (Auto) 1.6, Monocytes # (Auto) 0.9H, Eosinophils # (Auto) 0.1, Basophils # (Auto) 0.1, Nucleated Red Blood Cells % (auto) 0.0, Anion Gap 5L, Glomerular Filtration Rate > 60.0, Calcium Level 9.6 CBC/BMP Laboratory Tests 03/13/21 05:44 GME ATTESTATION GME ATTESTATION My faculty preceptor for this patient encounter was physically present during the encounter and was fully available. All aspects of the patient interview, examination, medical decision making process, and medical care plan development were reviewed and approved by the faculty preceptor. The faculty preceptor is aware and concurs with the plan as stated in the body of this note and will attest to such by his/her cosignature. Andrzej Pinzon DO Mar 13, 2021 11:15
--- NOTE | 2021-03-13 12:23 | IPNPDOC ---
PM&R Progress Note DATE OF SERVICE: Mar 13, 2021 Sap Crm Developer Progress Note Subjective: Patient seen in her room with her and states she is feeling a lot better and is able to participate more in therapy. She says at worse her left hip pain is a 5/10 and understands why holding off on taking hydrocodone will help prevent future falls and optimize her participation in therapy. REVIEW OF SYSTEMS: The following is a completed review of systems and has been reviewed. Review of systems otherwise unremarkable. PAIN: Patient self reports left groin pain EYES: No recent vision changes EARS, NOSE, & THROAT: No throat pain, or dysphagia, or rhinorrhea. CARDIOVASCULAR: Denies chest pain or palpitations PULMONARY: Denies shortness of breath GASTROINTESTINAL: Denies constipation/diarrhea GENITOURINARY: denies dysuria, urgency MUSCULOSKELETAL: generalized weakness NEUROLOGICAL:+ fluent aphasia (improved) HEMATOLOGICAL: denies easy bruising SKIN: denies rash PSYCHIATRIC: unremarkable All other review of systems found to be negative. PHYSICAL EXAMINATION: VITAL SIGNS: Please see below. GENERAL: No acute distress. lethargic, but able to rouse HEENT: PERRL. Extraocular movements intact. Clear conjunctiva CARDIOVASCULAR: Regular rate and rhythm. No murmurs, rubs, or gallops LUNGS: Clear to auscultation bilaterally. No wheezes. LLL rhonchi ABDOMEN: Soft, nontender, nondistended. Positive bowel sounds. Normal active bowel sounds NEUROLOGICAL: Alert and oriented times x2, Cranial nerves II through XII grossly intact. Sensation decreased to light touch in stocking pattern +mild fluent aphasia (improving), able to name objects, and follow commands consistently EXTREMITIES: 5-\5 strength bilateral upper extremities. 5-\5 strength right lower extremity. 5-/5 strength in left lower extremity. + heberdens bilat DIPs and maty nodues bilat PIPs ASSESSMENT:85-year-old F with past medical history of OA, HTN, Hypothyroidism who presents status post fall with rhabdomyolysis in setting of peripheral polyneuropathy PLAN: 1. Rehab- PT/OT advance mobility and ADLs, strengthen/stretch/maintain ROM all 4limbs -FLOW NURSE for comprehensive eval 2. Neuro- patient with hx of peripheral polyneuropathy due to longstanding prednisone use and hypothyroidism contributing to overall weakness and balance impairments -patient presenting with some fluent aphasia possibly due to UTI vs oxycodone vs underlying dementia- d/c'd oxycodone altogether and lowered home baclofen dosing, in addition to halving her Pamelor dosing as patient's poor cognition/mentation likely was due to polypharmacy and is now improved,s/p treatment for E. COli UTI -B1 levels pending, patient with elevated TSH and low T3 increased Synthroid dosing as patient's cog impairment may be due to not sub-clinical hypothyroidism -B12 high (not on supplement) and folate WNL -will stop b6 supplements for now and followup on levels -low concern for stroke as etiology for impaired cognition and speech, CTH ordered, negative for old strokes/hydrocephalus/intracranial bleeds -will refer to neurology as outpatient for dementia work-up 3. Cardiac- hx of HTH with elevated BPs, cont labetolol, amlodipine, cont hydralazine- patient with some orthostatics while on increased BP meds which may be contributing to alternating levels of cognition as she may be more accustomed to higher BPs at home -HLD cont statin -medicine consulted to assist in overall management 4. resp- monitor for infection, cont combivent, guaifenesin, CXR negative for infiltrate, no leukocytosis or fever, cont to monitor, procalcitonin negative do not suspect PNA at this time 5. Renal- have consulted renal to r/o Renal artery stenosis with US negative for KAROLINA, recs appreciated 6. 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 Pain- cont tylenol for left hip OA/AVN, cont lower dose of baclofen and decreased Pamelor dosing for neuropathic pain, will change her prednisone dosing to 10mg daily, kpad to left groin, cont flector patch 8. - s/p course of Levaquin for E coli UTI and pyridium for bladder irritation 9. Leukocytosis- likely due to steroid use, no fevers/chills/dysuria/cough 10. Dispo- TBD functional status/Barriers to d/c: patient with decline in therapy likely due to polypharmacy, which is starting to improved with medication adjustment, patient needs to improve functionally as well, she is currently min assist for most aspects of mobility and Mod assist with dressing requiring continued PT and OT. she was independent prior to this and will need to be at least Mod-I in all disciplines, FLOW NURSE has also been ordered to asses cognitive function which which may be barrier to d/c as patient may need additional help at home from her Patient's blood pressure management still needs close attention. Allergies Coded Allergies: No Known Allergies (Unverified , 03/05/21) Vital Signs Vital Signs Date Time Temp Pulse Resp B/P (MAP) Pulse Ox O2 Delivery O2 Flow Rate FiO2 03/13/21 10:03 162/60 03/13/21 06:00 98.2 101 18 96 Room Air Laboratory Data CBC/BMP Laboratory Tests 03/13/21 05:44 Labs 24H Laboratory Tests 2 03/12/21 12:28: 03/13/21 05:44: Immature Granulocyte % (Auto) 0.7, Neutrophils (%) (Auto) 74.0H, Lymphocytes (%) (Auto) 15.1L, Monocytes (%) (Auto) 8.5H, Eosinophils (%) (Auto) 1.1, Basophils (%) (Auto) 0.6, Neutrophils # (Auto) 7.9, Lymphocytes # (Auto) 1.6, Monocytes # (Auto) 0.9H, Eosinophils # (Auto) 0.1, Basophils # (Auto) 0.1, Nucleated Red Blood Cells % (auto) 0.0, Anion Gap 5L, Glomerular Filtration Rate > 60.0, Calcium Level 9.6 Current Medications Current Medications Current Medications Medications (Trade) Dose Ordered Sig/Nevin Route PRN Reason Start Time Stop Time Status Last Admin Dose Admin Acetaminophen (Tylenol Tab) 1,000 mg TID PO 03/09/21 09:00 03/13/21 10:02 Al Hydrox/Mg Hydrox/Simethicone (Mylanta) 30 ml Q4HP PRN PO DYSPEPSIA 03/08/21 12:15 Albuterol/ Ipratropium (Combivent Respimat 100-20mcg) 1 puff RTID INH 03/09/21 14:00 03/13/21 07:41 Amlodipine Besylate (Norvasc) 5 mg BID PO 03/09/21 09:00 03/13/21 10:06 Atorvastatin Calcium (Lipitor) 40 mg DAILY PO 03/09/21 09:00 03/13/21 09:59 Baclofen (Lioresal) 5 mg TID PO 03/11/21 09:00 03/13/21 09:59 Baclofen (Lioresal) 15 mg QID PO 03/09/21 09:00 03/10/21 14:04 DC 03/10/21 08:49 Diclofenac Epolamine (Flector 1.3%) 1 patch Q12H TOP 03/09/21 09:00 03/13/21 10:02 Docusate Sodium (Colace) 100 mg BID PO 03/09/21 09:00 03/13/21 09:59 Enoxaparin Sodium (Lovenox) 40 mg DAILY SC 03/09/21 09:00 03/13/21 09:59 Guaifenesin (Robitussin Tab) 400 mg TID PO 03/09/21 16:00 03/13/21 09:59 Home Med (Home Med List Complete!) ASDIRECTED XX 03/11/21 13:20 03/11/21 13:28 DC Hydralazine HCl (Apresoline) 50 mg Q6H PO 03/09/21 00:00 03/09/21 11:47 DC 03/09/21 06:03 Hydralazine HCl (Apresoline) 50 mg TID PO 03/09/21 16:00 03/13/21 10:03 Labetalol HCl (Normodyne, Trandate) 200 mg BID PO 03/09/21 09:00 03/09/21 11:47 DC 03/09/21 08:55 Labetalol HCl (Normodyne, Trandate) 400 mg BID PO 03/09/21 21:00 03/12/21 10:58 DC 03/12/21 09:59 Labetalol HCl (Normodyne, Trandate) 400 mg TID PO 03/12/21 16:00 03/13/21 10:04 Lactobacillus Acidophilus (Bacid) 1 ea WMHS PO 03/09/21 08:00 03/13/21 10:00 Levofloxacin (Levaquin) 250 mg DAILY@06 PO 03/09/21 06:00 03/12/21 11:59 DC 03/12/21 05:23 Levothyroxine Sodium (Synthroid) 100 mcg DAILY@06 PO 03/09/21 06:00 03/11/21 11:26 DC 03/11/21 05:31 Levothyroxine Sodium (Synthroid) 112 mcg DAILY@06 PO 03/12/21 06:00 03/13/21 05:33 Multivitamins (Ocuvite(I-Shabnam)) 1 tab BID PO 03/09/21 09:00 03/13/21 10:00 Nortriptyline HCl (Pamelor) 25 mg BID PO 03/10/21 21:00 03/13/21 09:59 Nortriptyline HCl (Pamelor) 50 mg BID PO 03/09/21 09:00 03/10/21 14:04 DC 03/10/21 08:51 Ondansetron HCl (Zofran Odt) 4 mg Q6HP PRN SL NAUSEA OR VOMITING 03/12/21 13:00 03/13/21 10:00 Oxycodone HCl (Roxicodone, Oxyir) 2.5 mg Q4HP PRN PO MODERATE PAIN (PS 5-7) 03/09/21 17:00 03/10/21 14:04 DC 03/10/21 05:13 Oxycodone HCl (Roxicodone, Oxyir) 2.5 mg Q6HP PRN PO MODERATE PAIN (PS 5-7) 03/08/21 12:15 03/09/21 15:54 DC 03/09/21 06:04 Oxycodone HCl (Roxicodone, Oxyir) 2.5 mg QID PO 03/09/21 09:00 03/09/21 15:54 DC 03/09/21 13:13 Pantoprazole Sodium (Protonix) 40 mg DAILY PO 03/09/21 09:00 03/13/21 10:00 Patient Own Medication (Patient'S Own Med) Restasis: APPLY 1 DROP... BID OU 03/11/21 21:00 03/13/21 09:00 Phenazopyridine HCl (Pyridium) 100 mg BID PO 03/11/21 21:00 03/12/21 11:59 DC 03/12/21 09:56 Polyethylene Glycol (Miralax) 1 pkt DAILY PRN PO CONSTIPATION 03/08/21 12:15 03/10/21 12:39 Potassium Chloride (Micro-K Extencaps) 20 meq DAILY PO 03/09/21 09:00 03/10/21 10:54 DC 03/10/21 08:47 Prednisone (Deltasone) 10 mg DAILY PO 03/12/21 13:50 03/13/21 10:01 Prednisone (Deltasone) 10 mg Q2D@09 PO 03/09/21 09:00 03/12/21 13:51 DC 03/11/21 08:55 Pyridoxine HCl (Vitamin B6) 50 mg DAILY PO 03/09/21 09:00 03/12/21 13:51 DC 03/12/21 10:02 Saliva Substitute (Mouthkote) 1 sprays QID MT 03/09/21 17:00 03/13/21 09:59 Senna (Senokot) 1 tab QHS PO 03/09/21 21:00 03/10/21 21:14 Spironolactone (Aldactone) 12.5 mg DAILY PO 03/10/21 09:00 03/13/21 10:00 Vitamin D (Vitamin D) 1,000 units DAILY PO 03/09/21 09:00 03/13/21 10:00 ALEX GARCIA MD Mar 13, 2021 12:23
[2021-03-13 14:00] VITALS: BP 135/92
[2021-03-13 20:00] VITALS: BP_SYST 115; BP_SYST 99; BP_DIAS 57; BP_DIAS 58
[2021-03-13] MEDS: SENNA 8.6 MG TAB (SENOKOT) PO SCH (22:09)
[2021-03-14] MEDS: LEVOTHYROXINE 112MCG TABLET (0.112MG) PO SCH (05:11)
[2021-03-14 06:00] VITALS: BP 154/71
[2021-03-14] MEDS: COMBIVENT RESPIMAT 100-20MCG INHALER 4GM INH SCH ×3 (07:21→19:12)
[2021-03-14] MEDS: **hydrALAZINE** 50 MG TAB PO SCH ×3 (09:00→21:52)
[2021-03-14] MEDS: REMEDY PHYTOPLEX Z-GUARD PASTE 113GM TUBE (FROM STOREROOM PRODUCT) TOP SCH ×3 (09:00→21:54)
[2021-03-14] MEDS: BACLOFEN 5MG PER 1/2 TABLET PO SCH ×3 (09:45→21:52)
[2021-03-14] MEDS: SPIRONOLACTONE 12.5MG PER 1/2 TABLET PO SCH (09:45)
[2021-03-14] MEDS: VITAMIN D 1,000 INTERNATIONAL UNITS TABLET PO SCH (09:45)
[2021-03-14] MEDS: DOCUSATE SODIUM 100MG CAPSULE PO SCH ×2 (09:45→21:52)
[2021-03-14] MEDS: LABETALOL 200 MG TAB PO SCH ×3 (09:45→21:51)
[2021-03-14] MEDS: OCUVITE 1 TAB PO SCH ×2 (09:45→21:53)
[2021-03-14] MEDS: NORTRIPTYLINE 25 MG CAP PO SCH ×2 (09:45→21:51)
[2021-03-14] MEDS: SALIVA SUBSTITUTE(MOUTHKOTE) BTL MT SCH ×4 (09:46→21:51)
[2021-03-14] MEDS: amLODIPine 5 MG TAB PO SCH ×2 (09:46→21:53)
[2021-03-14] MEDS: guaiFENesin 200 MG TAB PO SCH ×3 (09:46→21:52)
[2021-03-14] MEDS: PANTOPRAZOLE 40MG TAB (PROTONIX) PO SCH (09:47)
[2021-03-14] MEDS: ACETAMINOPHEN 500 MG TAB PO SCH ×3 (09:47→21:52)
[2021-03-14] MEDS: ATORVASTATIN 20 MG TAB PO SCH (09:47)
[2021-03-14] MEDS: predniSONE 10 MG TAB PO SCH (09:47)
[2021-03-14] MEDS: ENOXAPARIN 40MG/0.4ML SYRINGE (J1650 PER 10MG) SC SCH (09:47)
[2021-03-14] MEDS: RESTASIS OU SCH ×2 (09:48→21:53)
[2021-03-14] MEDS: DICLOFENAC EPOLAMINE 1.3 % PATCH TOP SCH ×2 (09:48→21:54)
[2021-03-14] MEDS: LACTOBACILLUS ACIDOPHILUS CAP (BACID) PO SCH ×4 (09:49→21:52)
[2021-03-14 13:41] VITALS: BP 128/59
[2021-03-14] MEDS: SENNA 8.6 MG TAB (SENOKOT) PO SCH (21:51)
[2021-03-14 22:36] VITALS: BP 160/80
[2021-03-15] MEDS: LEVOTHYROXINE 112MCG TABLET (0.112MG) PO SCH (05:40)
[2021-03-15 06:07] VITALS: BP 154/70
[2021-03-15] MEDS: COMBIVENT RESPIMAT 100-20MCG INHALER 4GM INH SCH ×3 (07:12→18:10)
[2021-03-15 08:43] LABS: BLOOD UREA NITROGEN 28 MG/DL (7-18); CALCIUM LEVEL 8.8 MG/DL (8.8-10.2); CARBON DIOXIDE LEVEL 29 MEQ/L (21-32); CHLORIDE LEVEL 105 MEQ/L (98-107); CREATININE FOR GFR 0.81 MG/DL (0.55-1.30); GLOMERULAR FILTRATION RATE > 60.0 (>32); GLUCOSE, FASTING 130 MG/DL (70-100); POTASSIUM SERUM 3.6 MEQ/L (3.5-5.1); SODIUM LEVEL 141 MEQ/L (136-145)
[2021-03-15] MEDS: REMEDY PHYTOPLEX Z-GUARD PASTE 113GM TUBE (FROM STOREROOM PRODUCT) TOP SCH ×3 (09:00→20:17)
[2021-03-15] MEDS: RESTASIS OU SCH ×2 (09:47→20:17)
[2021-03-15] MEDS: DICLOFENAC EPOLAMINE 1.3 % PATCH TOP SCH ×2 (09:47→20:16)
[2021-03-15] MEDS: SPIRONOLACTONE 12.5MG PER 1/2 TABLET PO SCH (09:47)
[2021-03-15] MEDS: NORTRIPTYLINE 25 MG CAP PO SCH ×2 (09:47→20:16)
[2021-03-15] MEDS: VITAMIN D 1,000 INTERNATIONAL UNITS TABLET PO SCH (09:48)
[2021-03-15] MEDS: DOCUSATE SODIUM 100MG CAPSULE PO SCH ×2 (09:48→20:15)
[2021-03-15] MEDS: ACETAMINOPHEN 500 MG TAB PO SCH ×3 (09:48→20:15)
[2021-03-15] MEDS: OCUVITE 1 TAB PO SCH ×2 (09:48→20:15)
[2021-03-15] MEDS: LABETALOL 200 MG TAB PO SCH ×3 (09:48→20:14)
[2021-03-15] MEDS: BACLOFEN 5MG PER 1/2 TABLET PO SCH ×3 (09:49→20:14)
[2021-03-15] MEDS: **hydrALAZINE** 50 MG TAB PO SCH ×3 (09:49→20:16)
[2021-03-15] MEDS: PANTOPRAZOLE 40MG TAB (PROTONIX) PO SCH (09:49)
[2021-03-15] MEDS: guaiFENesin 200 MG TAB PO SCH ×3 (09:49→20:16)
[2021-03-15] MEDS: amLODIPine 5 MG TAB PO SCH ×2 (09:49→20:15)
[2021-03-15] MEDS: ATORVASTATIN 20 MG TAB PO SCH (09:49)
[2021-03-15] MEDS: predniSONE 10 MG TAB PO SCH (09:49)
[2021-03-15] MEDS: SALIVA SUBSTITUTE(MOUTHKOTE) BTL MT SCH ×4 (09:50→20:17)
[2021-03-15] MEDS: LACTOBACILLUS ACIDOPHILUS CAP (BACID) PO SCH ×4 (09:50→20:20)
[2021-03-15] MEDS: ENOXAPARIN 40MG/0.4ML SYRINGE (J1650 PER 10MG) SC SCH (09:50)
[2021-03-15 14:00] VITALS: BP 126/60
[2021-03-15 20:00] VITALS: BP 114/67
[2021-03-15] MEDS: SENNA 8.6 MG TAB (SENOKOT) PO SCH (20:16)
[2021-03-16] MEDS: traMADol 50 MG TAB PO PRN ×2 (01:55→12:35)
[2021-03-16] MEDS: LEVOTHYROXINE 112MCG TABLET (0.112MG) PO SCH (05:26)
[2021-03-16 06:00] VITALS: BP 138/62
[2021-03-16] MEDS: COMBIVENT RESPIMAT 100-20MCG INHALER 4GM INH SCH ×2 (07:34→21:03)
[2021-03-16] MEDS: ACETAMINOPHEN 500 MG TAB PO SCH ×3 (08:23→21:06)
[2021-03-16] MEDS: ENOXAPARIN 40MG/0.4ML SYRINGE (J1650 PER 10MG) SC SCH (08:23)
[2021-03-16] MEDS: VITAMIN D 1,000 INTERNATIONAL UNITS TABLET PO SCH (08:23)
[2021-03-16] MEDS: REMEDY PHYTOPLEX Z-GUARD PASTE 113GM TUBE (FROM STOREROOM PRODUCT) TOP SCH ×3 (08:24→21:09)
[2021-03-16] MEDS: DICLOFENAC EPOLAMINE 1.3 % PATCH TOP SCH ×2 (08:24→21:09)
[2021-03-16] MEDS: RESTASIS OU SCH ×2 (08:24→21:08)
[2021-03-16] MEDS: LACTOBACILLUS ACIDOPHILUS CAP (BACID) PO SCH ×4 (08:25→21:07)
[2021-03-16] MEDS: SALIVA SUBSTITUTE(MOUTHKOTE) BTL MT SCH ×4 (08:26→21:08)
[2021-03-16] MEDS: SPIRONOLACTONE 12.5MG PER 1/2 TABLET PO SCH (08:26)
[2021-03-16] MEDS: guaiFENesin 200 MG TAB PO SCH ×3 (08:26→21:07)
[2021-03-16] MEDS: PANTOPRAZOLE 40MG TAB (PROTONIX) PO SCH (08:26)
[2021-03-16] MEDS: DOCUSATE SODIUM 100MG CAPSULE PO SCH ×2 (08:26→21:06)
[2021-03-16] MEDS: NORTRIPTYLINE 25 MG CAP PO SCH ×2 (08:27→21:06)
[2021-03-16] MEDS: predniSONE 10 MG TAB PO SCH (08:27)
[2021-03-16] MEDS: OCUVITE 1 TAB PO SCH ×2 (08:27→21:06)
[2021-03-16] MEDS: ATORVASTATIN 20 MG TAB PO SCH (08:27)
[2021-03-16] MEDS: BACLOFEN 5MG PER 1/2 TABLET PO SCH ×3 (08:27→21:06)
[2021-03-16] MEDS: LABETALOL 200 MG TAB PO SCH ×3 (08:28→21:07)
[2021-03-16] MEDS: amLODIPine 5 MG TAB PO SCH ×2 (08:28→21:07)
[2021-03-16] MEDS: **hydrALAZINE** 50 MG TAB PO SCH ×3 (08:29→21:07)
[2021-03-16 08:35] VITALS: BP 154/73
--- NOTE | 2021-03-16 11:24 | IPNPDOC ---
PM&R Progress Note DATE OF SERVICE: Mar 16, 2021 Deck Worker Progress Note Subjective: Patient seen in her room sttaing her pain is edwin, but she would like to try a muscle rub. REVIEW OF SYSTEMS: The following is a completed review of systems and has been reviewed. Review of systems otherwise unremarkable. PAIN: Patient self reports left groin pain EYES: No recent vision changes EARS, NOSE, & THROAT: No throat pain, or dysphagia, or rhinorrhea. CARDIOVASCULAR: Denies chest pain or palpitations PULMONARY: Denies shortness of breath GASTROINTESTINAL: Denies constipation/diarrhea GENITOURINARY: denies dysuria, urgency MUSCULOSKELETAL: generalized weakness NEUROLOGICAL:+ fluent aphasia (improved) HEMATOLOGICAL: denies easy bruising SKIN: denies rash PSYCHIATRIC: unremarkable All other review of systems found to be negative. PHYSICAL EXAMINATION: VITAL SIGNS: Please see below. GENERAL: No acute distress. lethargic, but able to rouse HEENT: PERRL. Extraocular movements intact. Clear conjunctiva CARDIOVASCULAR: Regular rate and rhythm. No murmurs, rubs, or gallops LUNGS: Clear to auscultation bilaterally. No wheezes. LLL rhonchi ABDOMEN: Soft, nontender, nondistended. Positive bowel sounds. Normal active bowel sounds NEUROLOGICAL: Alert and oriented times x2, Cranial nerves II through XII grossly intact. Sensation decreased to light touch in stocking pattern +mild fluent aphasia (improving), able to name objects, and follow commands consistently EXTREMITIES: 5-\5 strength bilateral upper extremities. 5-\5 strength right lower extremity. 5-/5 strength in left lower extremity. + heberdens bilat DIPs and maty nodues bilat PIPs ASSESSMENT:85-year-old F with past medical history of OA, HTN, Hypothyroidism who presents status post fall with rhabdomyolysis in setting of peripheral polyneuropathy PLAN: 1. Rehab- PT/OT advance mobility and ADLs, strengthen/stretch/maintain ROM all 4limbs -CATERING ASSISTANT for comprehensive eval 2. Neuro- patient with hx of peripheral polyneuropathy due to longstanding prednisone use and hypothyroidism contributing to overall weakness and balance impairments -patient presenting with some fluent aphasia possibly due to UTI vs oxycodone vs underlying dementia- d/c'd oxycodone altogether and lowered home baclofen dosing, in addition to halving her Pamelor dosing as patient's poor cogni tion/mentation likely was due to polypharmacy and is now improved,s/p treatment for E. COli UTI -B1 levels pending, patient with elevated TSH and low T3 increased Synthroid dosing as patient's cog impairment may be due to not sub-clinical hypothyroidism -B12 high (not on supplement) and folate WNL -will stop b6 supplements for now and followup on levels -low concern for stroke as etiology for impaired cognition and speech, CTH ordered, negative for old strokes/hydrocephalus/intracranial bleeds -will refer to neurology as outpatient for dementia work-up 3. Cardiac- hx of HTH with elevated BPs, cont labetolol, amlodipine, cont hydra lazine- patient with some orthostatics while on increased BP meds which may be contributing to alternating levels of cognition as she may be more accustomed to higher BPs at home -HLD cont statin -medicine consulted to assist in overall management 4. resp- monitor for infection, cont combivent, guaifenesin, CXR negative for infiltrate, no leukocytosis or fever, cont to monitor, procalcitonin negative do not suspect PNA at this time 5. Renal- have consulted renal to r/o Renal artery stenosis with US negative for KAROLINA, recs appreciated 6. Ortho- patient with left hip OA with possible avascular necrosis- cont prednisone q2d, cont flector patch and tylenol- will need ortho f/u outpatient for possible THR- low concern for infectious etiology given very low infla mmatory markers on inpatient labs -left leg length discrepancy- discussed heel lift options with patient, she can either try gradually increasing the heel lift or order a custom show from the orthotics shop in [place] 7. Pain- cont tylenol for left hip OA/AVN, cont lower dose of baclofen and decreased Pamelor dosing for neuropathic pain, will change her prednisone dosing to 10mg daily, kpad to left groin, cont flector patch, bengay 8. - s/p course of Levaquin for E coli UTI and pyridium for bladder irritation 9. Leukocytosis- likely due to steroid use, no fevers/chills/dysuria/cough 10. Dispo- TBD functional status/Barriers to d/c: patient improving in therapy, however she has fluctuating needs for mobility and ADLs and will need be at least Mod-I in all disciplines, CATERING ASSISTANT has also been ordered to asses cognitive function which which may be barrier to d/c as patient may need additional help at home from her Patient's blood pressure management still needs close attention. Allergies Coded Allergies: No Known Allergies (Unverified , 03/05/21) Vital Signs Vital Signs Date Time Temp Pulse Resp B/P (MAP) Pulse Ox O2 Delivery O2 Flow Rate FiO2 03/16/21 08:35 99 154/73 (100) 03/16/21 06:00 97.9 16 94 Room Air Current Medications Current Medications Current Medications Medications (Trade) Dose Ordered Sig/Nevin Route PRN Reason Start Time Stop Time Status Last Admin Dose Admin Acetaminophen (Tylenol Tab) 1,000 mg TID PO 03/09/21 09:00 03/16/21 08:23 Al Hydrox/Mg Hydrox/Simethicone (Mylanta) 30 ml Q4HP PRN PO DYSPEPSIA 03/08/21 12:15 Albuterol/ Ipratropium (Combivent Respimat 100-20mcg) 1 puff RTID INH 03/09/21 14:00 03/16/21 07:34 Amlodipine Besylate (Norvasc) 5 mg BID PO 03/09/21 09:00 03/16/21 08:28 Atorvastatin Calcium (Lipitor) 40 mg DAILY PO 03/09/21 09:00 03/16/21 08:27 Baclofen (Lioresal) 5 mg TID PO 03/11/21 09:00 03/16/21 08:27 Baclofen (Lioresal) 15 mg QID PO 03/09/21 09:00 03/10/21 14:04 DC 03/10/21 08:49 Diclofenac Epolamine (Flector 1.3%) 1 patch Q12H TOP 03/09/21 09:00 03/16/21 08:24 Docusate Sodium (Colace) 100 mg BID PO 03/09/21 09:00 03/16/21 08:26 Enoxaparin Sodium (Lovenox) 40 mg DAILY SC 03/09/21 09:00 03/16/21 08:23 Guaifenesin (Robitussin Tab) 400 mg TID PO 03/09/21 16:00 03/16/21 08:26 Home Med (Home Med List Complete!) ASDIRECTED XX 03/11/21 13:20 03/11/21 13:28 DC Hydralazine HCl (Apresoline) 50 mg Q6H PO 03/09/21 00:00 03/09/21 11:47 DC 03/09/21 06:03 Hydralazine HCl (Apresoline) 50 mg TID PO 03/09/21 16:00 03/16/21 08:29 Labetalol HCl (Normodyne, Trandate) 200 mg BID PO 03/09/21 09:00 03/09/21 11:47 DC 03/09/21 08:55 Labetalol HCl (Normodyne, Trandate) 400 mg BID PO 03/09/21 21:00 03/12/21 10:58 DC 03/12/21 09:59 Labetalol HCl (Normodyne, Trandate) 400 mg TID PO 03/12/21 16:00 03/16/21 08:28 Lactobacillus Acidophilus (Bacid) 1 ea WMHS PO 03/09/21 08:00 03/16/21 08:25 Levofloxacin (Levaquin) 250 mg DAILY@06 PO 03/09/21 06:00 03/12/21 11:59 DC 03/12/21 05:23 Levothyroxine Sodium (Synthroid) 100 mcg DAILY@06 PO 03/09/21 06:00 03/11/21 11:26 DC 03/11/21 05:31 Levothyroxine Sodium (Synthroid) 112 mcg DAILY@06 PO 03/12/21 06:00 03/16/21 05:26 Miscellaneous (Unresolved Clarification Entry) SEE LABEL COMMENTS DAILY XX 03/15/21 09:00 Cancel Multivitamins (Ocuvite(I-Shabnam)) 1 tab BID PO 03/09/21 09:00 03/16/21 08:27 Nortriptyline HCl (Pamelor) 25 mg BID PO 03/10/21 21:00 03/16/21 08:27 Nortriptyline HCl (Pamelor) 50 mg BID PO 03/09/21 09:00 03/10/21 14:04 DC 03/10/21 08:51 Ondansetron HCl (Zofran Odt) 4 mg Q6HP PRN SL NAUSEA OR VOMITING 03/12/21 13:00 03/13/21 10:00 Oxycodone HCl (Roxicodone, Oxyir) 2.5 mg Q4HP PRN PO MODERATE PAIN (PS 5-7) 03/09/21 17:00 03/10/21 14:04 DC 03/10/21 05:13 Oxycodone HCl (Roxicodone, Oxyir) 2.5 mg Q6HP PRN PO MODERATE PAIN (PS 5-7) 03/08/21 12:15 03/09/21 15:54 DC 03/09/21 06:04 Oxycodone HCl (Roxicodone, Oxyir) 2.5 mg QID PO 03/09/21 09:00 03/09/21 15:54 DC 03/09/21 13:13 Pantoprazole Sodium (Protonix) 40 mg DAILY PO 03/09/21 09:00 03/16/21 08:26 Patient Own Medication (Patient'S Own Med) Restasis: APPLY 1 DROP... BID OU 03/11/21 21:00 03/16/21 08:24 Phenazopyridine HCl (Pyridium) 100 mg BID PO 03/11/21 21:00 03/12/21 11:59 DC 03/12/21 09:56 Polyethylene Glycol (Miralax) 1 pkt DAILY PRN PO CONSTIPATION 03/08/21 12:15 03/10/21 12:39 Potassium Chloride (Micro-K Extencaps) 20 meq DAILY PO 03/09/21 09:00 03/10/21 10:54 DC 03/10/21 08:47 Prednisone (Deltasone) 10 mg DAILY PO 03/12/21 13:50 03/16/21 08:27 Prednisone (Deltasone) 10 mg Q2D@09 PO 03/09/21 09:00 03/12/21 13:51 DC 03/11/21 08:55 Pyridoxine HCl (Vitamin B6) 50 mg DAILY PO 03/09/21 09:00 03/12/21 13:51 DC 03/12/21 10:02 Saliva Substitute (Mouthkote) 1 sprays QID MT 03/09/21 17:00 03/16/21 08:26 Senna (Senokot) 1 tab QHS PO 03/09/21 21:00 03/15/21 20:16 Spironolactone (Aldactone) 12.5 mg DAILY PO 03/10/21 09:00 03/16/21 08:26 Tramadol HCl (Ultram) 50 mg Q12HP PRN PO MODERATE PAIN (PS 5-7) 03/16/21 00:30 03/16/21 01:55 Vitamin D (Vitamin D) 1,000 units DAILY PO 03/09/21 09:00 03/16/21 08:23 ALEX GARCIA MD Mar 16, 2021 11:24
[2021-03-16 13:21] LABS: BASO # 0.1 10^3/uL (0.0-0.2); BASO % 0.5 % (0.0-1.0); EOS # 0.1 10^3/uL (0.0-0.5); EOS % 0.9 % (0.0-3.0); HEMATOCRIT 40.7 % (36.0-47.0); LYMPH # 1.1 10^3/uL (1.5-5.0); LYMPH % 7.8 % (24.0-44.0); MEAN CORPUSCULAR HEMOGLOBIN 32.5 pg (27.0-33.0); MEAN CORPUSCULAR HGB CONC 31.9 g/dl (32.0-36.5); MEAN CORPUSCULAR VOLUME 101.8 fl (80.0-96.0); MONO # 0.7 10^3/uL (0.0-0.8); MONO % 5.1 % (2.0-8.0); NEUTROPHILS # 11.5 10^3/uL (1.5-8.5); NEUTROPHILS % 84.9 % (36.0-66.0); PLATELET COUNT, AUTOMATED 244 10^3/uL (150-450); WHITE BLOOD COUNT 13.5 10^3/uL (4.0-10.0)
[2021-03-16 13:49] LABS: BLOOD UREA NITROGEN 24 MG/DL (7-18); CALCIUM LEVEL 9.6 MG/DL (8.8-10.2); CARBON DIOXIDE LEVEL 28 MEQ/L (21-32); CHLORIDE LEVEL 102 MEQ/L (98-107); CREATININE FOR GFR 0.93 MG/DL (0.55-1.30); GLOMERULAR FILTRATION RATE > 60.0 (>32); GLUCOSE, FASTING 167 MG/DL (70-100); POTASSIUM SERUM 4.8 MEQ/L (3.5-5.1); SODIUM LEVEL 136 MEQ/L (136-145)
[2021-03-16 14:00] VITALS: BP 129/60
--- NOTE | 2021-03-16 14:55 | IPNPDOC ---
Text Note Date of Service The patient was seen on 03/16/21. NOTE Subjective: Patient is an 85-year-old female with a past medical history of hypertension, dyslipidemia, hypothyroidism, OA who presented to the emergency department on 03/05/2021 with a 6-month history of groin pain. Patient reported that she has been experience weakness in the emergency department, patient did have elevated troponin but denies any chest pain and did not have any EKG changes. Patient was admitted to hospital service for further evaluation and treatment is ultimately transitioned to ARU on 03/08. Hospitalist service was consulted for medical assistance. Patient's been having some difficulty with elevated blood pressures however, nephrology was consulted and patient's blood pressures have been doing well for the last few days. Patient says that she is f eeling well and had a good therapy session earlier in the day. Patient feels tired otherwise due to the therapy she is getting but does not have any other complaints. Review of systems: General: Patient denies fevers HEENT: Patient denies headaches Cardiovascular: Patient denies chest pain Respiratory: Patient denies shortness of breath, cough GI: Patient denies abdominal pain, nausea, vomiting, diarrhea : Patient denies increased frequency or pain with urination Extremities: Patient denies swelling or pain in extremities Neurological: Patient denies numbness or tingling in legs Physical exam: Vitals: See below General: Alert and oriented female patient who was sitting up in bed when I walked in. Patient does not appear to be in any acute distress. HEENT: Normocephalic, atraumatic, moist mucous membranes. Neck: No lymphadenopathy or thyromegaly Cardiac: Regular rate and rhythm, no murmurs, normal S1, normal S2 Pulm: Clear to auscultation bilaterally. No wheezes, rhonchi, rales Abd: Nondistended, nontender to palpation, normal bowel sounds Ext: No edema bilateral lower extremities Labs: See below Imaging: Renal artery Doppler ultrasound performed on 03/10/2021 is reported to s how mild right hydroureteronephrosis. Duplex Doppler evaluation of the renal arteries is limited due to bowel gas securing the proximal renal arteries bilaterally. Visualized portion demonstrate no compelling duplex on to graphic evidence of hemodynamically significant stenosis. Head CT performed without contrast on 03/12/2021 is reported to show no evidence of acute intracranial abnormality. No evidence of acute infarction, hemorrhage or mass. Atrophy and microvascular ischemic changes. Assessment/plan: 85-year-old female presented with chest pain and weakness who was admitted to the acute rehab unit. 1. Generalized weakness/left hip pain likely secondary to erosive arthropathy. Continue with physical therapy per OT and PT in ARU. 2. Orthostatic hypotension. Remains asymptomatic currently. Nephrology was consulted firsts possible renal artery stenosis although renal Doppler study did not show any significant stenosis. Continue current antihypertensive regimen. 3. Status post rhabdomyolysis. CK levels are normalized. 4. Elevated troponin possibly secondary to rhabdomyolysis possibly secondary to demand ischemia less likely NSTEMI. No symptoms no complaints of chest pain shortness of breath or palpitations. Feeling better today. 5. Asymptomatic bacteriuria. Reports that she had urinary tract infections in the past and knows that urinary discomfort feels like. No symptoms at this time. 6. Osteoarthritis. Continue Tylenol. 7. Hypertension. BP improved compared to the day prior. Nephrology was consulted. Continue current regimen. 8. Dyslipidemia. Continue atorvastatin. 9. Hypothyroidism. Continue home levothyroxine. 10. Vitamin D deficiency. Continue supplementation. 11. Lower extremity neuropathy. Continue nortriptyline. DVT Prophylaxis: Lovenox Disposition: Per ARU VS,Mirna, I+O VS, Mirna, I+O Laboratory Tests 03/16/21 13:06 Vital Signs Date Time Temp Pulse Resp B/P (MAP) Pulse Ox O2 Delivery O2 Flow Rate FiO2 03/16/21 14:00 97.8 84 15 129/60 (83) 93 Room Air I&O- Last 24 Hours up to 6 AM 03/16/21 06:00 Intake Total 1470 ml Balance 1470 ml ANGELA OLMOS DO Mar 16, 2021 14:55
--- NOTE | 2021-03-16 15:24 | IPN ---
PROGRESS NOTE DATE: 03/16/2021 SUBJECTIVE: Ms. Suárez is seen and examined this morning in the rehabilitation unit. She is tearful. She tells me she misses her . She otherwise denies any complaints. She reports that her therapy and rehab is going well. I asked her if she feels lightheaded or dizzy with exertion and she reports that it is very mild and occasion and does not really bother her much. Blood pressures are reviewed over the weekend and systolic has generally been 110s up to 150. I reviewed her medication administration and she has received all doses of Amlodipine 5 mg p.o. b.i.d. and almost all doses of hydralazine 50 mg p.o. three times a day and all doses of Labetalol 400 mg three times a day. There are holding parameters for her antihypertensives and she has also received all doses of spironolactone. Laboratory studies show stable renal function and electrolytes. The patient denies any shortness of breath. OBJECTIVE: VITAL SIGNS: Temperature 97.9, pulse 81, respiratory rate 16, blood pressure is 138/62, saturating 94% on room air. INTAKE AND OUTPUT: Intake yesterday was 1470, six voids were recorded yesterday. GENERAL: Patient is seen sitting in the chair, elderly female, awake, alert and oriented. She is comfortable and in no distress. HEENT: Extraocular muscles are intact. Tongue is moist. NECK: Supple. Jugular veins are not elevated. There is no thyromegaly. There is no carotid bruit. HEART: Heart sounds are regular. There is no dependent edema. There is no peripheral edema. LUNGS: Clear to auscultation. No crackle or rale. ABDOMEN: Soft and obese. EXTREMITIES: No edema, clubbing or cyanosis. NEUROLOGIC: She is oriented x3, interactive and conversational. LABORATORY DATA: Laboratory studies shows white count of 10.7, hemoglobin is 13, sodium is 141, potassium is 3.6, bicarbonate 29, BUN is 28, creatinine is 0.8. INPATIENT MEDICATIONS: Reviewed by myself; no changes noted over the past 48 hours with the exception of tramadol p.r.n. I note she has received almost all doses of her amlodipine, hydralazine, labetalol and spironolactone. There are holding parameters written with her antihypertensives. PROBLEMS: 1. Hypertension. I reviewed her blood pressures over the past three days, systolic has been 110s up to 160. Patient denies lightheadedness or dizziness that is bothersome with her therapy and exertion. She is now on three hypertensives plus one diuretic (amlodipine, labetalol, hydralazine, plus spironolactone). Her blood pressures are appropriately controlled and I would not further add any medication to her regimen for risk of causing hypotension. Her electrolytes and renal function are stable. There are hold parameters written with her antihypertensives. Her renal Duplex was negative for any significant stenosis. Her heart rate is also acceptable on current dose of beta norberto, likewise her serum potassium level is acceptable on current dose of spironolactone. Nephrology is going to sign off at this time. Please re-consult if any further help is needed in the management of her blood pressure.
[2021-03-16] MEDS: ANALGESIC BALM CRM 3OZ TOP SCH ×2 (16:29→21:09)
[2021-03-16 20:00] VITALS: BP 151/70
[2021-03-16] MEDS: SENNA 8.6 MG TAB (SENOKOT) PO SCH (21:06)
[2021-03-17] MEDS: LEVOTHYROXINE 112MCG TABLET (0.112MG) PO SCH (04:58)
[2021-03-17 06:00] VITALS: BP 162/50
[2021-03-17] MEDS: OCUVITE 1 TAB PO SCH ×2 (08:33→21:28)
[2021-03-17] MEDS: SPIRONOLACTONE 12.5MG PER 1/2 TABLET PO SCH (08:33)
[2021-03-17] MEDS: RESTASIS OU SCH ×2 (08:34→21:25)
[2021-03-17] MEDS: guaiFENesin 200 MG TAB PO SCH ×3 (08:34→21:27)
[2021-03-17] MEDS: BACLOFEN 5MG PER 1/2 TABLET PO SCH ×3 (08:34→21:28)
[2021-03-17] MEDS: amLODIPine 5 MG TAB PO SCH ×2 (08:34→21:27)
[2021-03-17] MEDS: predniSONE 10 MG TAB PO SCH (08:34)
[2021-03-17] MEDS: ATORVASTATIN 20 MG TAB PO SCH (08:34)
[2021-03-17] MEDS: PANTOPRAZOLE 40MG TAB (PROTONIX) PO SCH (08:34)
[2021-03-17] MEDS: VITAMIN D 1,000 INTERNATIONAL UNITS TABLET PO SCH (08:35)
[2021-03-17] MEDS: DOCUSATE SODIUM 100MG CAPSULE PO SCH ×2 (08:35→21:28)
[2021-03-17] MEDS: **hydrALAZINE** 50 MG TAB PO SCH ×4 (08:35→21:27)
[2021-03-17] MEDS: NORTRIPTYLINE 25 MG CAP PO SCH ×2 (08:35→21:27)
[2021-03-17] MEDS: LACTOBACILLUS ACIDOPHILUS CAP (BACID) PO SCH ×4 (08:35→21:27)
[2021-03-17] MEDS: LABETALOL 200 MG TAB PO SCH ×3 (08:35→21:26)
[2021-03-17] MEDS: SALIVA SUBSTITUTE(MOUTHKOTE) BTL MT SCH ×4 (08:36→21:29)
[2021-03-17] MEDS: ENOXAPARIN 40MG/0.4ML SYRINGE (J1650 PER 10MG) SC SCH (08:36)
[2021-03-17] MEDS: COMBIVENT RESPIMAT 100-20MCG INHALER 4GM INH SCH ×3 (08:36→20:47)
[2021-03-17] MEDS: ANALGESIC BALM CRM 3OZ TOP SCH ×3 (08:37→21:00)
[2021-03-17] MEDS: DICLOFENAC EPOLAMINE 1.3 % PATCH TOP SCH ×2 (08:37→21:26)
[2021-03-17] MEDS: ACETAMINOPHEN 500 MG TAB PO SCH ×4 (08:39→22:03)
[2021-03-17] MEDS: REMEDY PHYTOPLEX Z-GUARD PASTE 113GM TUBE (FROM STOREROOM PRODUCT) TOP SCH ×3 (08:39→21:28)
--- NOTE | 2021-03-17 09:36 | IPNPDOC ---
PM&R Progress Note DATE OF SERVICE: Mar 17, 2021 Local Sales Manager Progress Note Subjective: Patient seen in her room with her stating she feels better than she has in years and states she feels "sleeve wheel maker". She was told it might be related to now being on a lower dose of baclofen and that her old dose was quite high and may have made her muscles weak and subjectively heavier. REVIEW OF SYSTEMS: The following is a completed review of systems and has been reviewed. Review of systems otherwise unremarkable. PAIN: Patient self reports left groin pain EYES: No recent vision changes EARS, NOSE, & THROAT: No throat pain, or dysphagia, or rhinorrhea. CARDIOVASCULAR: Denies chest pain or palpitations PULMONARY: Denies shortness of breath GASTROINTESTINAL: Denies constipation/diarrhea GENITOURINARY: denies dysuria, urgency MUSCULOSKELETAL: generalized weakness NEUROLOGICAL:+ fluent aphasia (improved) HEMATOLOGICAL: denies easy bruising SKIN: denies rash PSYCHIATRIC: unremarkable All other review of systems found to be negative. PHYSICAL EXAMINATION: VITAL SIGNS: Please see below. GENERAL: No acute distress. lethargic, but able to rouse HEENT: PERRL. Extraocular movements intact. Clear conjunctiva CARDIOVASCULAR: Regular rate and rhythm. No murmurs, rubs, or gallops LUNGS: Clear to auscultation bilaterally. No wheezes. LLL rhonchi ABDOMEN: Soft, nontender, nondistended. Positive bowel sounds. Normal active bowel sounds NEUROLOGICAL: Alert and oriented times x2, Cranial nerves II through XII grossly intact. Sensation decreased to light touch in stocking pattern +mild fluent aphasia (con to improve), able to name objects, and follow commands consistently EXTREMITIES: 5-\\5 strength bilateral upper extremities. 5-\\5 strength right lower extremity. 5-/5 strength in left lower extremity. + heberdens bilat DIPs and maty nodues bilat PIPs ASSESSMENT:85-year-old F with past medical history of OA, HTN, Hypothyroidism who presents status post fall with rhabdomyolysis in setting of peripheral polyneuropathy PLAN: 1. Rehab- PT/OT advance mobility and ADLs, strengthen/stretch/maintain ROM all 4limbs -SKI MOLDER for comprehensive eval 2. Neuro- patient with hx of peripheral polyneuropathy due to longstanding prednisone use and hypothyroidism contributing to overall weakness and balance impairments -patient presenting with some fluent aphasia possibly due to UTI vs oxycodone vs underlying dementia- d/c'd oxycodone altogether and lowered home baclofen dosing, in addition to halving her Pamelor dosing as patient's poor cognition/mentation likely was due to polypharmacy and is now improved and fluent aphasia nearly resolved, s/p treatment for E. COli UTI -B1 levels WNL patient with elevated TSH and low T3 increased Synthroid dosing as patient's cog- impairment may be due to not sub-clinical hypothyroidism- recheck TFTs in 4-6 weeks -B12 high (not on supplement) and folate WNL -will stop b6 supplements for now and followup on levels -low concern for stroke as etiology for impaired cognition and speech, CTH ordered 03/12, negative for old strokes/hydrocephalus/intracranial bleeds -will refer to neurology as outpatient for dementia work-up 3. Cardiac- hx of HTH with elevated BPs that have improved, cont labetalol, amlodipine, cont hydralazine- orthostatics resolved -HLD cont statin -medicine consulted to assist in overall management 4. resp- monitor for infection, cont combivent, guaifenesin, CXR negative for infiltrate on 03-09, no further concern for respiratory dysfunction 5. Renal- have consulted renal to r/o Renal artery stenosis with US negative for KAROLINA, recs appreciated 6. 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 Pain- cont tylenol for left hip OA/AVN, cont lower dose of baclofen and decreased Pamelor dosing for neuropathic pain, changed prednisone dosing to 10mg daily, kpad to left groin, cont flector patch, bengay 8. - s/p course of Levaquin for E coli UTI and pyridium for bladder irritation 9. Leukocytosis- likely due to steroid use, no fevers/chills/dysuria/cough 10. Dispo- goal to home with 03-24-21 functional status/Barriers to d/c: patient improving in therapy, however she has fluctuating needs for mobility and ADLs and will need be at least Mod-I in all disciplines, SKI MOLDER has also been ordered to asses cognitive function which which may be barrier to d/c as patient may need additional help at home from her -patient's medical status is now stable Allergies Coded Allergies: No Known Allergies (Unverified , 03/05/21) Vital Signs Vital Signs Date Time Temp Pulse Resp B/P (MAP) Pulse Ox O2 Delivery O2 Flow Rate FiO2 03/17/21 08:35 85 162/50 03/17/21 06:00 97.6 16 95 Room Air Laboratory Data CBC/BMP Laboratory Tests 03/16/21 13:06 Labs 24H Laboratory Tests 2 03/16/21 13:06: Immature Granulocyte % (Auto) 0.8, Neutrophils (%) (Auto) 84.9H, Lymphocytes (%) (Auto) 7.8L, Monocytes (%) (Auto) 5.1, Eosinophils (%) (Auto) 0.9, Basophils (%) (Auto) 0.5, Neutrophils # (Auto) 11.5H, Lymphocytes # (Auto) 1.1L, Monocytes # (Auto) 0.7, Eosinophils # (Auto) 0.1, Basophils # (Auto) 0.1, Nucleated Red Blood Cells % (auto) 0.0, Anion Gap 6L, Glomerular Filtration Rate > 60.0, Calcium Level 9.6 Current Medications Current Medications Current Medications Medications (Trade) Dose Ordered Sig/Nevin Route PRN Reason Start Time Stop Time Status Last Admin Dose Admin Acetaminophen (Tylenol Tab) 1,000 mg TID PO 03/09/21 09:00 03/17/21 08:39 Al Hydrox/Mg Hydrox/Simethicone (Mylanta) 30 ml Q4HP PRN PO DYSPEPSIA 03/08/21 12:15 Albuterol/ Ipratropium (Combivent Respimat 100-20mcg) 1 puff RTID INH 03/09/21 14:00 03/17/21 08:36 Amlodipine Besylate (Norvasc) 5 mg BID PO 03/09/21 09:00 03/17/21 08:34 Atorvastatin Calcium (Lipitor) 40 mg DAILY PO 03/09/21 09:00 03/17/21 08:34 Baclofen (Lioresal) 5 mg TID PO 03/11/21 09:00 03/17/21 08:34 Baclofen (Lioresal) 15 mg QID PO 03/09/21 09:00 03/10/21 14:04 DC 03/10/21 08:49 Diclofenac Epolamine (Flector 1.3%) 1 patch Q12H TOP 03/09/21 09:00 03/17/21 08:37 Docusate Sodium (Colace) 100 mg BID PO 03/09/21 09:00 03/16/21 21:06 Enoxaparin Sodium (Lovenox) 40 mg DAILY SC 03/09/21 09:00 03/17/21 08:36 Guaifenesin (Robitussin Tab) 400 mg TID PO 03/09/21 16:00 03/17/21 08:34 Home Med (Home Med List Complete!) ASDIRECTED XX 03/11/21 13:20 03/11/21 13:28 DC Hydralazine HCl (Apresoline) 50 mg Q6H PO 03/09/21 00:00 03/09/21 11:47 DC 03/09/21 06:03 Hydralazine HCl (Apresoline) 50 mg TID PO 03/09/21 16:00 03/17/21 08:35 Labetalol HCl (Normodyne, Trandate) 200 mg BID PO 03/09/21 09:00 03/09/21 11:47 DC 03/09/21 08:55 Labetalol HCl (Normodyne, Trandate) 400 mg BID PO 03/09/21 21:00 03/12/21 10:58 DC 03/12/21 09:59 Labetalol HCl (Normodyne, Trandate) 400 mg TID PO 03/12/21 16:00 03/17/21 08:35 Lactobacillus Acidophilus (Bacid) 1 ea WMHS PO 03/09/21 08:00 03/17/21 08:35 Levofloxacin (Levaquin) 250 mg DAILY@06 PO 03/09/21 06:00 03/12/21 11:59 DC 03/12/21 05:23 Levothyroxine Sodium (Synthroid) 100 mcg DAILY@06 PO 03/09/21 06:00 03/11/21 11:26 DC 03/11/21 05:31 Levothyroxine Sodium (Synthroid) 112 mcg DAILY@06 PO 03/12/21 06:00 03/17/21 04:58 Menthol/Methyl Salicylate (Bengay Cream) 1 dose TID TOP 03/16/21 16:00 03/17/21 08:37 Miscellaneous (Unresolved Clarification Entry) SEE LABEL COMMENTS DAILY XX 03/15/21 09:00 Cancel Multivitamins (Ocuvite(I-Shabnam)) 1 tab BID PO 03/09/21 09:00 03/17/21 08:33 Nortriptyline HCl (Pamelor) 25 mg BID PO 03/10/21 21:00 03/17/21 08:35 Nortriptyline HCl (Pamelor) 50 mg BID PO 03/09/21 09:00 03/10/21 14:04 DC 03/10/21 08:51 Ondansetron HCl (Zofran Odt) 4 mg Q6HP PRN SL NAUSEA OR VOMITING 03/12/21 13:00 03/13/21 10:00 Oxycodone HCl (Roxicodone, Oxyir) 2.5 mg Q4HP PRN PO MODERATE PAIN (PS 5-7) 03/09/21 17:00 03/10/21 14:04 DC 03/10/21 05:13 Oxycodone HCl (Roxicodone, Oxyir) 2.5 mg Q6HP PRN PO MODERATE PAIN (PS 5-7) 03/08/21 12:15 03/09/21 15:54 DC 03/09/21 06:04 Oxycodone HCl (Roxicodone, Oxyir) 2.5 mg QID PO 03/09/21 09:00 03/09/21 15:54 DC 03/09/21 13:13 Pantoprazole Sodium (Protonix) 40 mg DAILY PO 03/09/21 09:00 03/17/21 08:34 Patient Own Medication (Patient'S Own Med) Restasis: APPLY 1 DROP... BID OU 03/11/21 21:00 03/17/21 08:34 Phenazopyridine HCl (Pyridium) 100 mg BID PO 03/11/21 21:00 03/12/21 11:59 DC 03/12/21 09:56 Polyethylene Glycol (Miralax) 1 pkt DAILY PRN PO CONSTIPATION 03/08/21 12:15 03/10/21 12:39 Potassium Chloride (Micro-K Extencaps) 20 meq DAILY PO 03/09/21 09:00 03/10/21 10:54 DC 03/10/21 08:47 Prednisone (Deltasone) 10 mg DAILY PO 03/12/21 13:50 03/17/21 08:34 Prednisone (Deltasone) 10 mg Q2D@09 PO 03/09/21 09:00 03/12/21 13:51 DC 03/11/21 08:55 Pyridoxine HCl (Vitamin B6) 50 mg DAILY PO 03/09/21 09:00 03/12/21 13:51 DC 03/12/21 10:02 Saliva Substitute (Mouthkote) 1 sprays QID [place] 03/09/21 17:00 03/17/21 08:36 Senna (Senokot) 1 tab QHS PO 03/09/21 21:00 03/16/21 21:06 Spironolactone (Aldactone) 12.5 mg DAILY PO 03/10/21 09:00 03/17/21 08:33 Tramadol HCl (Ultram) 50 mg Q12HP PRN PO MODERATE PAIN (PS 5-7) 03/16/21 00:30 03/16/21 12:35 Vitamin D (Vitamin D) 1,000 units DAILY PO 03/09/21 09:00 03/17/21 08:35 ALEX GARCIA MD Mar 17, 2021 09:36
[2021-03-17 11:58] VITALS: BP 125/59
[2021-03-17 14:00] VITALS: BP 133/67
[2021-03-17 17:37] VITALS: BP 120/56
[2021-03-17 19:42] VITALS: BP 137/68
[2021-03-17] MEDS: SENNA 8.6 MG TAB (SENOKOT) PO SCH (21:27)
[2021-03-18] MEDS: LEVOTHYROXINE 112MCG TABLET (0.112MG) PO SCH (04:57)
[2021-03-18] MEDS: traMADol 50 MG TAB PO PRN (04:57)
[2021-03-18 06:00] VITALS: BP 156/70
[2021-03-18] MEDS: COMBIVENT RESPIMAT 100-20MCG INHALER 4GM INH SCH ×3 (07:36→20:40)
[2021-03-18 08:14] LABS: BASO # 0.1 10^3/uL (0.0-0.2); BASO % 0.7 % (0.0-1.0); EOS # 0.2 10^3/uL (0.0-0.5); HEMATOCRIT 39.8 % (36.0-47.0); HEMOGLOBIN 12.9 g/dl (12.0-15.5); LYMPH # 2.1 10^3/uL (1.5-5.0); LYMPH % 21.2 % (24.0-44.0); MEAN CORPUSCULAR HEMOGLOBIN 32.7 pg (27.0-33.0); MEAN CORPUSCULAR HGB CONC 32.4 g/dl (32.0-36.5); MEAN CORPUSCULAR VOLUME 100.8 fl (80.0-96.0); MONO # 0.6 10^3/uL (0.0-0.8); NEUTROPHILS # 6.7 10^3/uL (1.5-8.5); NEUTROPHILS % 69.2 % (36.0-66.0); PLATELET COUNT, AUTOMATED 260 10^3/uL (150-450); RED BLOOD COUNT 3.95 10^6/uL (4.00-5.40); WHITE BLOOD COUNT 9.7 10^3/uL (4.0-10.0)
[2021-03-18] MEDS: LACTOBACILLUS ACIDOPHILUS CAP (BACID) PO SCH ×4 (08:24→21:12)
[2021-03-18] MEDS: VITAMIN D 1,000 INTERNATIONAL UNITS TABLET PO SCH (08:24)
[2021-03-18] MEDS: guaiFENesin 200 MG TAB PO SCH ×3 (08:24→21:12)
[2021-03-18] MEDS: NORTRIPTYLINE 25 MG CAP PO SCH ×2 (08:25→21:12)
[2021-03-18] MEDS: ACETAMINOPHEN 500 MG TAB PO SCH ×3 (08:25→21:26)
[2021-03-18] MEDS: ATORVASTATIN 20 MG TAB PO SCH (08:25)
[2021-03-18] MEDS: DOCUSATE SODIUM 100MG CAPSULE PO SCH ×2 (08:25→21:11)
[2021-03-18] MEDS: SPIRONOLACTONE 12.5MG PER 1/2 TABLET PO SCH (08:25)
[2021-03-18] MEDS: OCUVITE 1 TAB PO SCH ×2 (08:25→21:11)
[2021-03-18] MEDS: ANALGESIC BALM CRM 3OZ TOP SCH ×3 (08:26→21:20)
[2021-03-18] MEDS: ENOXAPARIN 40MG/0.4ML SYRINGE (J1650 PER 10MG) SC SCH (08:26)
[2021-03-18] MEDS: LABETALOL 200 MG TAB PO SCH ×3 (08:26→21:11)
[2021-03-18] MEDS: PANTOPRAZOLE 40MG TAB (PROTONIX) PO SCH (08:26)
[2021-03-18] MEDS: DICLOFENAC EPOLAMINE 1.3 % PATCH TOP SCH ×2 (08:26→21:14)
[2021-03-18] MEDS: BACLOFEN 5MG PER 1/2 TABLET PO SCH (08:26)
[2021-03-18] MEDS: predniSONE 10 MG TAB PO SCH (08:26)
[2021-03-18] MEDS: RESTASIS OU SCH ×2 (08:27→21:26)
[2021-03-18] MEDS: SALIVA SUBSTITUTE(MOUTHKOTE) BTL MT SCH ×4 (08:27→21:21)
[2021-03-18] MEDS: **hydrALAZINE** 50 MG TAB PO SCH ×4 (08:27→21:11)
[2021-03-18] MEDS: amLODIPine 5 MG TAB PO SCH ×2 (08:28→21:12)
[2021-03-18] MEDS: REMEDY PHYTOPLEX Z-GUARD PASTE 113GM TUBE (FROM STOREROOM PRODUCT) TOP SCH ×3 (08:28→21:00)
[2021-03-18 08:44] LABS: BLOOD UREA NITROGEN 18 MG/DL (7-18); CALCIUM LEVEL 9.6 MG/DL (8.8-10.2); CARBON DIOXIDE LEVEL 27 MEQ/L (21-32); CHLORIDE LEVEL 105 MEQ/L (98-107); CREATININE FOR GFR 0.85 MG/DL (0.55-1.30); GLOMERULAR FILTRATION RATE > 60.0 (>32); GLUCOSE, FASTING 131 MG/DL (70-100); POTASSIUM SERUM 3.5 MEQ/L (3.5-5.1); SODIUM LEVEL 140 MEQ/L (136-145)
--- NOTE | 2021-03-18 11:50 | IPNPDOC ---
PM&R Progress Note DATE OF SERVICE: Mar 18, 2021 Web Applications Developer Progress Note Subjective: Patient stating she continues to get better and better. She is planning to get a customized shoe and is wondering if it will be covered by insurance. REVIEW OF SYSTEMS: The following is a completed review of systems and has been reviewed. Review of systems otherwise unremarkable. PAIN: Patient self reports left groin pain EYES: No recent vision changes EARS, NOSE, & THROAT: No throat pain, or dysphagia, or rhinorrhea. CARDIOVASCULAR: Denies chest pain or palpitations PULMONARY: Denies shortness of breath GASTROINTESTINAL: Denies constipation/diarrhea GENITOURINARY: denies dysuria, urgency MUSCULOSKELETAL: generalized weakness NEUROLOGICAL:+ fluent aphasia (improved) HEMATOLOGICAL: denies easy bruising SKIN: denies rash PSYCHIATRIC: unremarkable All other review of systems found to be negative. PHYSICAL EXAMINATION: VITAL SIGNS: Please see below. GENERAL: No acute distress. lethargic, but able to rouse HEENT: PERRL. Extraocular movements intact. Clear conjunctiva CARDIOVASCULAR: Regular rate and rhythm. No murmurs, rubs, or gallops LUNGS: Clear to auscultation bilaterally. No wheezes. LLL rhonchi ABDOMEN: Soft, nontender, nondistended. Positive bowel sounds. Normal active bowel sounds NEUROLOGICAL: Alert and oriented times x2, Cranial nerves II through XII grossly intact. Sensation decreased to light touch in stocking pattern +mild fluent aphasia (con to improve), able to name objects, and follow commands consistently EXTREMITIES: 5-\5 strength bilateral upper extremities. 5-\5 strength right lower extremity. 5-/5 strength in left lower extremity. + heberdens bilat DIPs and maty nodues bilat PIPs ASSESSMENT:85-year-old F with past medical history of OA, HTN, Hypothyroidism who presents status post fall with rhabdomyolysis in setting of peripheral polyneuropathy PLAN: 1. Rehab- PT/OT advance mobility and ADLs, strengthen/stretch/maintain ROM all 4limbs -SPORTS THERAPIST for comprehensive eval 2. Neuro- patient with hx of peripheral polyneuropathy due to longstanding prednisone use and hypothyroidism contributing to overall weakness and balance impairments -patient presenting with some fluent aphasia possibly due to UTI vs oxycodone vs underlying dementia- d/c'd oxycodone altogether and lowered home baclofen dosing, in addition to halving her Pamelor dosing as patient's poor cognition/m entation likely was due to polypharmacy and is now improved and fluent aphasia nearly resolved, s/p treatment for E. COli UTI -B1 levels WNL patient with elevated TSH and low T3 increased Synthroid dosing as patient's cog- impairment may be due to not sub-clinical hypothyroidism- recheck TFTs in 4-6 weeks -B12 high (not on supplement) and folate WNL -will stop b6 supplements for now and followup on levels -low concern for stroke as etiology for impaired cognition and speech, CTH ordered 03/12, negative for old strokes/hydrocephalus/intracranial bleeds -will refer to neurology as outpatient for dementia work-up 3. Cardiac- hx of HTH with elevated BPs that have improved, cont labetalol, amlodipine, cont hydralazine- orthostatics resolved -HLD cont statin -medicine consulted to assist in overall management 4. resp- monitor for infection, cont combivent, guaifenesin, CXR negative for infiltrate on 03-09, no further concern for respiratory dysfunction 5. Renal- have consulted renal to r/o Renal artery stenosis with US negative for KAROLINA, recs appreciated 6. 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 Pain- cont tylenol for left hip OA/AVN, cont lower dose of baclofen (will taper off completely as goal is to minimize number of medications patient is on given her age) and decreased Pamelor dosing for neuropathic pain, changed prednisone dosing to 10mg daily, kpad to left groin, cont flector patch, bengay 8. - s/p course of Levaquin for E coli UTI and pyridium for bladder irritation 9. Leukocytosis- likely due to steroid use, no fevers/chills/dysuria/cough 10. Dispo- goal to home with 03-24-21 functional status/Barriers to d/c: patient improving in therapy, however she has fluctuating needs for mobility and ADLs and will need be at least Mod-I in all disciplines, SPORTS THERAPIST has also been ordered to asses cognitive function which which may be barrier to d/c as patient may need additional help at home from her -Will taper patient off baclfoen altogether and monitor for any worsening pain Allergies Coded Allergies: No Known Allergies (Unverified , 03/05/21) Vital Signs Vital Signs Date Time Temp Pulse Resp B/P (MAP) Pulse Ox O2 Delivery O2 Flow Rate FiO2 03/18/21 08:26 93 148/64 03/18/21 06:00 98.2 20 98 Room Air Laboratory Data CBC/BMP Laboratory Tests 03/18/21 07:51 Labs 24H Laboratory Tests 2 03/18/21 07:51: Immature Granulocyte % (Auto) 0.9, Neutrophils (%) (Auto) 69.2H, Lymphocytes (%) (Auto) 21.2L, Monocytes (%) (Auto) 6.0, Eosinophils (%) (Auto) 2.0, Basophils (%) (Auto) 0.7, Neutrophils # (Auto) 6.7, Lymphocytes # (Auto) 2.1, Monocytes # (Auto) 0.6, Eosinophils # (Auto) 0.2, Basophils # (Auto) 0.1, Nucleated Red Blood Cells % (auto) 0.0, Anion Gap 8, Glomerular Filtration Rate > 60.0, Calcium Level 9.6 Current Medications Current Medications Current Medications Medications (Trade) Dose Ordered Sig/Nevin Route PRN Reason Start Time Stop Time Status Last Admin Dose Admin Acetaminophen (Tylenol Tab) 1,000 mg TID PO 03/09/21 09:00 03/18/21 08:25 Al Hydrox/Mg Hydrox/Simethicone (Mylanta) 30 ml Q4HP PRN PO DYSPEPSIA 03/08/21 12:15 Albuterol/ Ipratropium (Combivent Respimat 100-20mcg) 1 puff RTID INH 03/09/21 14:00 03/18/21 07:36 Amlodipine Besylate (Norvasc) 5 mg BID PO 03/09/21 09:00 03/18/21 08:28 Atorvastatin Calcium (Lipitor) 40 mg DAILY PO 03/09/21 09:00 03/18/21 08:25 Baclofen (Lioresal) 5 mg TID PO 03/11/21 09:00 03/18/21 08:26 Baclofen (Lioresal) 15 mg QID PO 03/09/21 09:00 03/10/21 14:04 DC 03/10/21 08:49 Diclofenac Epolamine (Flector 1.3%) 1 patch Q12H TOP 03/09/21 09:00 03/18/21 08:26 Docusate Sodium (Colace) 100 mg BID PO 03/09/21 09:00 03/18/21 08:25 Enoxaparin Sodium (Lovenox) 40 mg DAILY SC 03/09/21 09:00 03/18/21 08:26 Guaifenesin (Robitussin Tab) 400 mg TID PO 03/09/21 16:00 03/18/21 08:24 Home Med (Home Med List Complete!) ASDIRECTED XX 03/11/21 13:20 03/11/21 13:28 DC Hydralazine HCl (Apresoline) 50 mg Q6H PO 03/09/21 00:00 03/09/21 11:47 DC 03/09/21 06:03 Hydralazine HCl (Apresoline) 50 mg QID PO 03/17/21 13:00 03/18/21 08:27 Hydralazine HCl (Apresoline) 50 mg TID PO 03/09/21 16:00 03/17/21 09:35 DC 03/17/21 08:35 Labetalol HCl (Normodyne, Trandate) 200 mg BID PO 03/09/21 09:00 03/09/21 11:47 DC 03/09/21 08:55 Labetalol HCl (Normodyne, Trandate) 400 mg BID PO 03/09/21 21:00 03/12/21 10:58 DC 03/12/21 09:59 Labetalol HCl (Normodyne, Trandate) 400 mg TID PO 03/12/21 16:00 03/18/21 08:26 Lactobacillus Acidophilus (Bacid) 1 ea WMHS PO 03/09/21 08:00 03/18/21 08:24 Levofloxacin (Levaquin) 250 mg DAILY@06 PO 03/09/21 06:00 03/12/21 11:59 DC 03/12/21 05:23 Levothyroxine Sodium (Synthroid) 100 mcg DAILY@06 PO 03/09/21 06:00 03/11/21 11:26 DC 03/11/21 05:31 Levothyroxine Sodium (Synthroid) 112 mcg DAILY@06 PO 03/12/21 06:00 03/18/21 04:57 Menthol/Methyl Salicylate (Bengay Cream) 1 dose TID TOP 03/16/21 16:00 03/18/21 08:26 Miscellaneous (Unresolved Clarification Entry) SEE LABEL COMMENTS DAILY XX 03/15/21 09:00 Cancel Multivitamins (Ocuvite(I-Shabnam)) 1 tab BID PO 03/09/21 09:00 03/18/21 08:25 Nortriptyline HCl (Pamelor) 25 mg BID PO 03/10/21 21:00 03/18/21 08:25 Nortriptyline HCl (Pamelor) 50 mg BID PO 03/09/21 09:00 03/10/21 14:04 DC 03/10/21 08:51 Ondansetron HCl (Zofran Odt) 4 mg Q6HP PRN SL NAUSEA OR VOMITING 03/12/21 13:00 03/13/21 10:00 Oxycodone HCl (Roxicodone, Oxyir) 2.5 mg Q4HP PRN PO MODERATE PAIN (PS 5-7) 03/09/21 17:00 03/10/21 14:04 DC 03/10/21 05:13 Oxycodone HCl (Roxicodone, Oxyir) 2.5 mg Q6HP PRN PO MODERATE PAIN (PS 5-7) 03/08/21 12:15 03/09/21 15:54 DC 03/09/21 06:04 Oxycodone HCl (Roxicodone, Oxyir) 2.5 mg QID PO 03/09/21 09:00 03/09/21 15:54 DC 03/09/21 13:13 Pantoprazole Sodium (Protonix) 40 mg DAILY PO 03/09/21 09:00 03/18/21 08:26 Patient Own Medication (Patient'S Own Med) Restasis: APPLY 1 DROP... BID OU 03/11/21 21:00 03/18/21 08:27 Phenazopyridine HCl (Pyridium) 100 mg BID PO 03/11/21 21:00 03/12/21 11:59 DC 03/12/21 09:56 Polyethylene Glycol (Miralax) 1 pkt DAILY PRN PO CONSTIPATION 03/08/21 12:15 03/10/21 12:39 Potassium Chloride (Micro-K Extencaps) 20 meq DAILY PO 03/09/21 09:00 03/10/21 10:54 DC 03/10/21 08:47 Prednisone (Deltasone) 10 mg DAILY PO 03/12/21 13:50 03/18/21 08:26 Prednisone (Deltasone) 10 mg Q2D@09 PO 03/09/21 09:00 03/12/21 13:51 DC 03/11/21 08:55 Pyridoxine HCl (Vitamin B6) 50 mg DAILY PO 03/09/21 09:00 03/12/21 13:51 DC 03/12/21 10:02 Saliva Substitute (Mouthkote) 1 sprays QID [place] 03/09/21 17:00 03/18/21 08:27 Senna (Senokot) 1 tab QHS PO 03/09/21 21:00 03/17/21 21:27 Spironolactone (Aldactone) 12.5 mg DAILY PO 03/10/21 09:00 03/18/21 08:25 Tramadol HCl (Ultram) 50 mg Q12HP PRN PO MODERATE PAIN (PS 5-7) 03/16/21 00:30 03/18/21 04:57 Vitamin D (Vitamin D) 1,000 units DAILY PO 03/09/21 09:00 03/18/21 08:24 ALEX GARCIA MD Mar 18, 2021 11:50
[2021-03-18 14:00] VITALS: BP 142/68
[2021-03-18 20:00] VITALS: BP 136/71
[2021-03-18] MEDS: SENNA 8.6 MG TAB (SENOKOT) PO SCH (21:12)
[2021-03-19] MEDS: LEVOTHYROXINE 112MCG TABLET (0.112MG) PO SCH (05:21)
[2021-03-19] MEDS: COMBIVENT RESPIMAT 100-20MCG INHALER 4GM INH SCH ×3 (07:34→20:00)
[2021-03-19] MEDS: RESTASIS OU SCH ×2 (08:26→21:22)
[2021-03-19] MEDS: VITAMIN D 1,000 INTERNATIONAL UNITS TABLET PO SCH (08:27)
[2021-03-19] MEDS: ATORVASTATIN 20 MG TAB PO SCH (08:27)
[2021-03-19] MEDS: ACETAMINOPHEN 500 MG TAB PO SCH ×3 (08:27→21:23)
[2021-03-19] MEDS: OCUVITE 1 TAB PO SCH ×2 (08:27→21:22)
[2021-03-19] MEDS: NORTRIPTYLINE 25 MG CAP PO SCH ×2 (08:28→21:23)
[2021-03-19] MEDS: predniSONE 10 MG TAB PO SCH (08:28)
[2021-03-19] MEDS: SPIRONOLACTONE 12.5MG PER 1/2 TABLET PO SCH (08:28)
[2021-03-19] MEDS: LACTOBACILLUS ACIDOPHILUS CAP (BACID) PO SCH ×4 (08:28→21:23)
[2021-03-19] MEDS: PANTOPRAZOLE 40MG TAB (PROTONIX) PO SCH (08:28)
[2021-03-19] MEDS: guaiFENesin 200 MG TAB PO SCH ×3 (08:28→21:23)
[2021-03-19] MEDS: amLODIPine 5 MG TAB PO SCH ×2 (08:29→21:24)
[2021-03-19] MEDS: ENOXAPARIN 40MG/0.4ML SYRINGE (J1650 PER 10MG) SC SCH (08:30)
[2021-03-19] MEDS: DICLOFENAC EPOLAMINE 1.3 % PATCH TOP SCH ×2 (08:30→21:24)
[2021-03-19] MEDS: **hydrALAZINE** 50 MG TAB PO SCH ×4 (08:30→21:23)
[2021-03-19] MEDS: LABETALOL 200 MG TAB PO SCH ×3 (08:30→21:22)
[2021-03-19] MEDS: SALIVA SUBSTITUTE(MOUTHKOTE) BTL MT SCH ×4 (08:31→21:26)
[2021-03-19] MEDS: DOCUSATE SODIUM 100MG CAPSULE PO SCH ×2 (08:31→21:25)
[2021-03-19] MEDS: REMEDY PHYTOPLEX Z-GUARD PASTE 113GM TUBE (FROM STOREROOM PRODUCT) TOP SCH ×3 (08:32→21:25)
[2021-03-19] MEDS: ANALGESIC BALM CRM 3OZ TOP SCH ×3 (08:32→21:24)
[2021-03-19 14:00] VITALS: BP 123/60
[2021-03-19 20:00] VITALS: BP 155/72
[2021-03-19] MEDS: SENNA 8.6 MG TAB (SENOKOT) PO SCH (21:23)
--- NOTE | 2021-03-19 21:49 | IPNPDOC ---
PM&R Progress Note DATE OF SERVICE: Mar 19, 2021 [employer] Supervisor Progress Note Subjective: Patient stating she feel well today. She states she is able to afford a custom made shoe and will go to [employer] to get a custom shoe made for her leg length discrepancy. REVIEW OF SYSTEMS: The following is a completed review of systems and has been reviewed. Review of systems otherwise unremarkable. PAIN: Patient self reports left groin pain EYES: No recent vision changes EARS, NOSE, & THROAT: No throat pain, or dysphagia, or rhinorrhea. CARDIOVASCULAR: Denies chest pain or palpitations PULMONARY: Denies shortness of breath GASTROINTESTINAL: Denies constipation/diarrhea GENITOURINARY: denies dysuria, urgency MUSCULOSKELETAL: generalized weakness NEUROLOGICAL:+ fluent aphasia (improved) HEMATOLOGICAL: denies easy bruising SKIN: denies rash PSYCHIATRIC: unremarkable All other review of systems found to be negative. PHYSICAL EXAMINATION: VITAL SIGNS: Please see below. GENERAL: No acute distress. lethargic, but able to rouse HEENT: PERRL. Extraocular movements intact. Clear conjunctiva CARDIOVASCULAR: Regular rate and rhythm. No murmurs, rubs, or gallops LUNGS: Clear to auscultation bilaterally. No wheezes. LLL rhonchi ABDOMEN: Soft, nontender, nondistended. Positive bowel sounds. Normal active bowel sounds NEUROLOGICAL: Alert and oriented times x2, Cranial nerves II through XII grossly intact. Sensation decreased to light touch in stocking pattern +mild fluent aphasia (con to improve), able to name objects, and follow commands consistently EXTREMITIES: 5-\5 strength bilateral upper extremities. 5-\5 strength right lower extremity. 5-/5 strength in left lower extremity. + heberdens bilat DIPs and maty fernandez bilat PIPs ASSESSMENT:85-year-old F with past medical history of OA, HTN, Hypothyroidism who presents status post fall with rhabdomyolysis in setting of peripheral polyneuropathy PLAN: 1. Rehab- PT/OT advance mobility and ADLs, strengthen/stretch/maintain ROM all 4limbs -[employer] for comprehensive eval 2. Neuro- patient with hx of peripheral polyneuropathy due to longstanding prednisone use and hypothyroidism contributing to overall weakness and balance impairments -patient presenting with some fluent aphasia possibly due to UTI vs oxycodone vs underlying dementia- d/c'd oxycodone altogether and lowered home baclofen dosing, in addition to halving her Pamelor dosing as patient's poor cognition/mentation likely was due to polypharmacy and is now improved and fluent aphasia nearly resolved, s/p treatment for E. COli UTI -B1 levels WNL patient with elevated TSH and low T3 increased Synthroid dosing as patient's cog- impairment may be due to not sub-clinical hypothyroidism- recheck TFTs in 4-6 weeks -B12 high (not on supplement) and folate WNL -will stop b6 supplements for now and followup on levels -low concern for stroke as etiology for impaired cognition and speech, CTH ordered 03/12, negative for old strokes/hydrocephalus/intracranial bleeds -will refer to neurology as outpatient for dementia work-up 3. Cardiac- hx of HTH with elevated BPs that have improved, cont labetalol, amlodipine, cont hydralazine- orthostatics resolved -HLD cont statin -medicine consulted to assist in overall management 4. resp- monitor for infection, cont combivent, guaifenesin, CXR negative for infiltrate on 03-09, no further concern for respiratory dysfunction 5. Renal- have consulted renal to r/o Renal artery stenosis with US negative for KAROLINA, recs appreciated 6. Ortho- patient with left hip OA with possible avascular necrosis- increased prednisone to daily, cont flector patch and tylenol- will need ortho f/u outpatient for possible THR- low concern for infectious etiology given very low inflammatory markers on inpatient labs -patient to obtain custom shoe for her left side to accommodate her leg length discrepancy at [facility]- this will not be covered by insurance, but patient stating she can afford the cost -left leg length discrepancy- discussed heel lift vs custom shoe with Julius Banda and he recommends custom shoe, will refer patient to orthotics shop in [place] where she has shopped before 7. Pain- cont tylenol for left hip OA/AVN, cont lower dose of baclofen (will taper off completely as goal is to minimize number of medications patient is on given her age) and decreased Pamelor dosing for neuropathic pain, changed prednisone dosing to 10mg daily, kpad to left groin, cont flector patch, bengay 8. - s/p course of Levaquin for E coli UTI and pyridium for bladder irritation 9. Leukocytosis- likely due to steroid use, no fevers/chills/dysuria/cough 10. Dispo- goal to home with 03-24-21 functional status/Barriers to d/c: patient improving in therapy, she is standby assist with RW for mobility and upper body dressing, she is max assist for lower body dressing, has ongoing cognitive limitations and is benefiting from OT/PT/[employer] -tapered patient off baclfoen altogether and monitor for any worsening pain Allergies Coded Allergies: No Known Allergies (Unverified , 03/05/21) Vital Signs Vital Signs Date Time Temp Pulse Resp B/P (MAP) Pulse Ox O2 Delivery O2 Flow Rate FiO2 03/19/21 21:24 92 155/72 03/19/21 20:00 98.2 18 94 Room Air Current Medications Current Medications Current Medications Medications (Trade) Dose Ordered Sig/Nevin Route PRN Reason Start Time Stop Time Status Last Admin Dose Admin Acetaminophen (Tylenol Tab) 1,000 mg TID PO 03/09/21 09:00 03/19/21 21:23 Al Hydrox/Mg Hydrox/Simethicone (Mylanta) 30 ml Q4HP PRN PO DYSPEPSIA 03/08/21 12:15 Albuterol/ Ipratropium (Combivent Respimat 100-20mcg) 1 puff RTID INH 03/09/21 14:00 03/19/21 20:00 Amlodipine Besylate (Norvasc) 5 mg BID PO 03/09/21 09:00 03/19/21 21:24 Atorvastatin Calcium (Lipitor) 40 mg DAILY PO 03/09/21 09:00 03/19/21 08:27 Baclofen (Lioresal) 5 mg TID PO 03/11/21 09:00 03/18/21 11:51 DC 03/18/21 08:26 Baclofen (Lioresal) 15 mg QID PO 03/09/21 09:00 03/10/21 14:04 DC 03/10/21 08:49 Diclofenac Epolamine (Flector 1.3%) 1 patch Q12H TOP 03/09/21 09:00 03/19/21 21:24 Docusate Sodium (Colace) 100 mg BID PO 03/09/21 09:00 03/19/21 21:25 Enoxaparin Sodium (Lovenox) 40 mg DAILY SC 03/09/21 09:00 03/19/21 08:30 Guaifenesin (Robitussin Tab) 400 mg TID PO 03/09/21 16:00 03/19/21 21:23 Home Med (Home Med List Complete!) ASDIRECTED XX 03/11/21 13:20 03/11/21 13:28 DC Hydralazine HCl (Apresoline) 50 mg Q6H PO 03/09/21 00:00 03/09/21 11:47 DC 03/09/21 06:03 Hydralazine HCl (Apresoline) 50 mg QID PO 03/17/21 13:00 03/19/21 21:23 Hydralazine HCl (Apresoline) 50 mg TID PO 03/09/21 16:00 03/17/21 09:35 DC 03/17/21 08:35 Labetalol HCl (Normodyne, Trandate) 200 mg BID PO 03/09/21 09:00 03/09/21 11:47 DC 03/09/21 08:55 Labetalol HCl (Normodyne, Trandate) 400 mg BID PO 03/09/21 21:00 03/12/21 10:58 DC 03/12/21 09:59 Labetalol HCl (Normodyne, Trandate) 400 mg TID PO 03/12/21 16:00 03/19/21 21:22 Lactobacillus Acidophilus (Bacid) 1 ea WMHS PO 03/09/21 08:00 03/19/21 21:23 Levofloxacin (Levaquin) 250 mg DAILY@06 PO 03/09/21 06:00 03/12/21 11:59 DC 03/12/21 05:23 Levothyroxine Sodium (Synthroid) 100 mcg DAILY@06 PO 03/09/21 06:00 03/11/21 11:26 DC 03/11/21 05:31 Levothyroxine Sodium (Synthroid) 112 mcg DAILY@06 PO 03/12/21 06:00 03/19/21 05:21 Menthol/Methyl Salicylate (Bengay Cream) 1 dose TID TOP 03/16/21 16:00 03/19/21 21:24 Miscellaneous (Unresolved Clarification Entry) SEE LABEL COMMENTS DAILY XX 03/15/21 09:00 Cancel Multivitamins (Ocuvite(I-Shabnam)) 1 tab BID PO 03/09/21 09:00 03/19/21 21:22 Nortriptyline HCl (Pamelor) 25 mg BID PO 03/10/21 21:00 03/19/21 21:23 Nortriptyline HCl (Pamelor) 50 mg BID PO 03/09/21 09:00 03/10/21 14:04 DC 03/10/21 08:51 Ondansetron HCl (Zofran Odt) 4 mg Q6HP PRN SL NAUSEA OR VOMITING 03/12/21 13:00 03/13/21 10:00 Oxycodone HCl (Roxicodone, Oxyir) 2.5 mg Q4HP PRN PO MODERATE PAIN (PS 5-7) 03/09/21 17:00 03/10/21 14:04 DC 03/10/21 05:13 Oxycodone HCl (Roxicodone, Oxyir) 2.5 mg Q6HP PRN PO MODERATE PAIN (PS 5-7) 03/08/21 12:15 03/09/21 15:54 DC 03/09/21 06:04 Oxycodone HCl (Roxicodone, Oxyir) 2.5 mg QID PO 03/09/21 09:00 03/09/21 15:54 DC 03/09/21 13:13 Pantoprazole Sodium (Protonix) 40 mg DAILY PO 03/09/21 09:00 03/19/21 08:28 Patient Own Medication (Patient'S Own Med) Restasis: APPLY 1 DROP... BID OU 03/11/21 21:00 03/19/21 21:22 Phenazopyridine HCl (Pyridium) 100 mg BID PO 03/11/21 21:00 03/12/21 11:59 DC 03/12/21 09:56 Polyethylene Glycol (Miralax) 1 pkt DAILY PRN PO CONSTIPATION 03/08/21 12:15 03/10/21 12:39 Potassium Chloride (Micro-K Extencaps) 20 meq DAILY PO 03/09/21 09:00 03/10/21 10:54 DC 03/10/21 08:47 Prednisone (Deltasone) 10 mg DAILY PO 03/12/21 13:50 03/19/21 08:28 Prednisone (Deltasone) 10 mg Q2D@09 PO 03/09/21 09:00 03/12/21 13:51 DC 03/11/21 08:55 Pyridoxine HCl (Vitamin B6) 50 mg DAILY PO 03/09/21 09:00 03/12/21 13:51 DC 03/12/21 10:02 Saliva Substitute (Mouthkote) 1 sprays QID MT 03/09/21 17:00 03/19/21 21:26 Senna (Senokot) 1 tab QHS PO 03/09/21 21:00 03/19/21 21:23 Spironolactone (Aldactone) 12.5 mg DAILY PO 03/10/21 09:00 03/19/21 08:28 Tramadol HCl (Ultram) 50 mg Q12HP PRN PO MODERATE PAIN (PS 5-7) 03/16/21 00:30 03/18/21 04:57 Vitamin D (Vitamin D) 1,000 units DAILY PO 03/09/21 09:00 03/19/21 08:27 ALEX GARCIA MD Mar 19, 2021 21:49
[2021-03-20] MEDS: LEVOTHYROXINE 112MCG TABLET (0.112MG) PO SCH (05:04)
[2021-03-20 06:00] VITALS: BP 160/73
[2021-03-20 06:26] LABS: BASO # 0.1 10^3/uL (0.0-0.2); BASO % 0.7 % (0.0-1.0); EOS # 0.2 10^3/uL (0.0-0.5); EOS % 1.6 % (0.0-3.0); HEMATOCRIT 36.6 % (36.0-47.0); HEMOGLOBIN 12.1 g/dl (12.0-15.5); LYMPH # 2.5 10^3/uL (1.5-5.0); MEAN CORPUSCULAR HGB CONC 33.1 g/dl (32.0-36.5); MEAN CORPUSCULAR VOLUME 99.7 fl (80.0-96.0); MONO # 0.7 10^3/uL (0.0-0.8); MONO % 7.4 % (2.0-8.0); NEUTROPHILS # 6.4 10^3/uL (1.5-8.5); NEUTROPHILS % 64.4 % (36.0-66.0); PLATELET COUNT, AUTOMATED 242 10^3/uL (150-450); RED BLOOD COUNT 3.67 10^6/uL (4.00-5.40)
[2021-03-20 06:54] LABS: BLOOD UREA NITROGEN 20 MG/DL (7-18); CALCIUM LEVEL 9.3 MG/DL (8.8-10.2); CARBON DIOXIDE LEVEL 29 MEQ/L (21-32); CHLORIDE LEVEL 105 MEQ/L (98-107); CREATININE FOR GFR 0.65 MG/DL (0.55-1.30); GLOMERULAR FILTRATION RATE > 60.0 (>32); GLUCOSE, FASTING 90 MG/DL (70-100); SODIUM LEVEL 139 MEQ/L (136-145)
[2021-03-20] MEDS: COMBIVENT RESPIMAT 100-20MCG INHALER 4GM INH SCH ×3 (07:35→19:47)
[2021-03-20] MEDS: LACTOBACILLUS ACIDOPHILUS CAP (BACID) PO SCH ×4 (08:00→21:57)
[2021-03-20] MEDS: SALIVA SUBSTITUTE(MOUTHKOTE) BTL MT SCH ×4 (09:00→21:59)
[2021-03-20] MEDS: ENOXAPARIN 40MG/0.4ML SYRINGE (J1650 PER 10MG) SC SCH (10:38)
[2021-03-20] MEDS: SPIRONOLACTONE 12.5MG PER 1/2 TABLET PO SCH (10:39)
[2021-03-20] MEDS: NORTRIPTYLINE 25 MG CAP PO SCH ×2 (10:39→21:56)
[2021-03-20] MEDS: guaiFENesin 200 MG TAB PO SCH ×3 (10:39→21:00)
[2021-03-20] MEDS: LABETALOL 200 MG TAB PO SCH ×3 (10:39→21:58)
[2021-03-20] MEDS: VITAMIN D 1,000 INTERNATIONAL UNITS TABLET PO SCH (10:40)
[2021-03-20] MEDS: predniSONE 10 MG TAB PO SCH (10:40)
[2021-03-20] MEDS: DOCUSATE SODIUM 100MG CAPSULE PO SCH ×2 (10:40→21:00)
[2021-03-20] MEDS: OCUVITE 1 TAB PO SCH ×2 (10:40→21:57)
[2021-03-20] MEDS: ATORVASTATIN 20 MG TAB PO SCH (10:40)
[2021-03-20] MEDS: **hydrALAZINE** 50 MG TAB PO SCH ×4 (10:40→21:58)
[2021-03-20] MEDS: PANTOPRAZOLE 40MG TAB (PROTONIX) PO SCH (10:41)
[2021-03-20] MEDS: amLODIPine 5 MG TAB PO SCH ×2 (10:41→21:58)
[2021-03-20] MEDS: DICLOFENAC EPOLAMINE 1.3 % PATCH TOP SCH ×2 (10:42→21:57)
[2021-03-20] MEDS: RESTASIS OU SCH ×2 (10:42→21:00)
[2021-03-20] MEDS: ACETAMINOPHEN 500 MG TAB PO SCH ×3 (10:44→21:56)
[2021-03-20] MEDS: ANALGESIC BALM CRM 3OZ TOP SCH ×3 (10:47→22:00)
[2021-03-20] MEDS: REMEDY PHYTOPLEX Z-GUARD PASTE 113GM TUBE (FROM STOREROOM PRODUCT) TOP SCH ×3 (10:48→21:00)
[2021-03-20 14:00] VITALS: BP 119/59
[2021-03-20 20:00] VITALS: BP 144/69
[2021-03-20] MEDS: SENNA 8.6 MG TAB (SENOKOT) PO SCH (21:00)
[2021-03-21] MEDS: LEVOTHYROXINE 112MCG TABLET (0.112MG) PO SCH (05:04)
[2021-03-21 06:00] VITALS: BP 131/62
[2021-03-21] MEDS: ATORVASTATIN 20 MG TAB PO SCH (08:33)
[2021-03-21] MEDS: SPIRONOLACTONE 12.5MG PER 1/2 TABLET PO SCH (08:33)
[2021-03-21] MEDS: ENOXAPARIN 40MG/0.4ML SYRINGE (J1650 PER 10MG) SC SCH (08:33)
[2021-03-21] MEDS: guaiFENesin 200 MG TAB PO SCH ×3 (08:34→20:30)
[2021-03-21] MEDS: PANTOPRAZOLE 40MG TAB (PROTONIX) PO SCH (08:34)
[2021-03-21] MEDS: ACETAMINOPHEN 500 MG TAB PO SCH ×3 (08:34→20:29)
[2021-03-21] MEDS: LACTOBACILLUS ACIDOPHILUS CAP (BACID) PO SCH ×4 (08:34→20:28)
[2021-03-21] MEDS: DOCUSATE SODIUM 100MG CAPSULE PO SCH ×2 (08:34→20:30)
[2021-03-21] MEDS: predniSONE 10 MG TAB PO SCH (08:35)
[2021-03-21] MEDS: NORTRIPTYLINE 25 MG CAP PO SCH ×2 (08:35→20:28)
[2021-03-21] MEDS: VITAMIN D 1,000 INTERNATIONAL UNITS TABLET PO SCH (08:35)
[2021-03-21] MEDS: ANALGESIC BALM CRM 3OZ TOP SCH ×3 (08:35→20:30)
[2021-03-21] MEDS: OCUVITE 1 TAB PO SCH ×2 (08:35→20:28)
[2021-03-21] MEDS: **hydrALAZINE** 50 MG TAB PO SCH ×4 (08:36→20:29)
[2021-03-21] MEDS: amLODIPine 5 MG TAB PO SCH ×2 (08:36→20:29)
[2021-03-21] MEDS: DICLOFENAC EPOLAMINE 1.3 % PATCH TOP SCH ×2 (08:36→20:30)
[2021-03-21] MEDS: LABETALOL 200 MG TAB PO SCH ×3 (08:37→20:29)
[2021-03-21] MEDS: SALIVA SUBSTITUTE(MOUTHKOTE) BTL MT SCH ×4 (08:41→20:31)
[2021-03-21] MEDS: RESTASIS OU SCH ×2 (08:42→20:31)
[2021-03-21] MEDS: REMEDY PHYTOPLEX Z-GUARD PASTE 113GM TUBE (FROM STOREROOM PRODUCT) TOP SCH ×3 (08:46→20:30)
[2021-03-21] MEDS: COMBIVENT RESPIMAT 100-20MCG INHALER 4GM INH SCH ×3 (09:30→19:49)
[2021-03-21] MEDS: traMADol 50 MG TAB PO PRN (12:24)
[2021-03-21 14:00] VITALS: BP 108/74
[2021-03-21 20:00] VITALS: BP 136/71
[2021-03-21] MEDS: SENNA 8.6 MG TAB (SENOKOT) PO SCH (20:30)
[2021-03-22] MEDS: LEVOTHYROXINE 112MCG TABLET (0.112MG) PO SCH (05:05)
[2021-03-22 06:00] VITALS: BP 140/70
[2021-03-22] MEDS: DOCUSATE SODIUM 100MG CAPSULE PO SCH ×2 (07:29→20:28)
[2021-03-22] MEDS: REMEDY PHYTOPLEX Z-GUARD PASTE 113GM TUBE (FROM STOREROOM PRODUCT) TOP SCH ×3 (07:30→20:19)
[2021-03-22] MEDS: COMBIVENT RESPIMAT 100-20MCG INHALER 4GM INH SCH ×3 (08:02→21:00)
[2021-03-22] MEDS: predniSONE 10 MG TAB PO SCH (08:11)
[2021-03-22] MEDS: PANTOPRAZOLE 40MG TAB (PROTONIX) PO SCH (08:11)
[2021-03-22] MEDS: ATORVASTATIN 20 MG TAB PO SCH (08:11)
[2021-03-22] MEDS: ACETAMINOPHEN 500 MG TAB PO SCH ×3 (08:12→20:28)
[2021-03-22] MEDS: LACTOBACILLUS ACIDOPHILUS CAP (BACID) PO SCH ×4 (08:12→20:26)
[2021-03-22] MEDS: VITAMIN D 1,000 INTERNATIONAL UNITS TABLET PO SCH (08:12)
[2021-03-22] MEDS: guaiFENesin 200 MG TAB PO SCH ×3 (08:12→20:26)
[2021-03-22] MEDS: SPIRONOLACTONE 12.5MG PER 1/2 TABLET PO SCH (08:12)
[2021-03-22] MEDS: OCUVITE 1 TAB PO SCH ×2 (08:12→20:26)
[2021-03-22] MEDS: NORTRIPTYLINE 25 MG CAP PO SCH ×2 (08:12→20:27)
[2021-03-22] MEDS: DICLOFENAC EPOLAMINE 1.3 % PATCH TOP SCH ×2 (08:13→20:26)
[2021-03-22] MEDS: ANALGESIC BALM CRM 3OZ TOP SCH ×3 (08:13→20:29)
[2021-03-22] MEDS: ENOXAPARIN 40MG/0.4ML SYRINGE (J1650 PER 10MG) SC SCH (08:13)
[2021-03-22] MEDS: SALIVA SUBSTITUTE(MOUTHKOTE) BTL MT SCH ×4 (08:14→20:29)
[2021-03-22] MEDS: RESTASIS OU SCH ×2 (08:14→20:27)
[2021-03-22] MEDS: amLODIPine 5 MG TAB PO SCH ×2 (08:15→20:26)
[2021-03-22] MEDS: **hydrALAZINE** 50 MG TAB PO SCH ×4 (08:15→20:27)
[2021-03-22] MEDS: LABETALOL 200 MG TAB PO SCH ×3 (08:15→20:27)
[2021-03-22 14:00] VITALS: BP 121/56
[2021-03-22] MEDS: MAALOX 30 ML SUSP *UDC PO PRN (17:03)
[2021-03-22 19:47] VITALS: BP 136/66
[2021-03-22] MEDS: SENNA 8.6 MG TAB (SENOKOT) PO SCH (20:28)
[2021-03-23] MEDS: LEVOTHYROXINE 112MCG TABLET (0.112MG) PO SCH (05:39)
[2021-03-23 06:00] VITALS: BP 140/65
[2021-03-23 06:57] LABS: BASO # 0.1 10^3/uL (0.0-0.2); BASO % 0.9 % (0.0-1.0); EOS # 0.3 10^3/uL (0.0-0.5); EOS % 3.4 % (0.0-3.0); HEMATOCRIT 39.6 % (36.0-47.0); HEMOGLOBIN 12.8 g/dl (12.0-15.5); LYMPH # 1.9 10^3/uL (1.5-5.0); LYMPH % 22.5 % (24.0-44.0); MEAN CORPUSCULAR HEMOGLOBIN 32.5 pg (27.0-33.0); MEAN CORPUSCULAR HGB CONC 32.3 g/dl (32.0-36.5); MEAN CORPUSCULAR VOLUME 100.5 fl (80.0-96.0); MONO # 0.8 10^3/uL (0.0-0.8); MONO % 9.2 % (2.0-8.0); NEUTROPHILS # 5.2 10^3/uL (1.5-8.5); NEUTROPHILS % 63.4 % (36.0-66.0); PLATELET COUNT, AUTOMATED 259 10^3/uL (150-450); RED BLOOD COUNT 3.94 10^6/uL (4.00-5.40); WHITE BLOOD COUNT 8.2 10^3/uL (4.0-10.0)
[2021-03-23] MEDS: COMBIVENT RESPIMAT 100-20MCG INHALER 4GM INH SCH ×2 (07:25→12:45)
[2021-03-23 07:43] LABS: BLOOD UREA NITROGEN 20 MG/DL (7-18); CALCIUM LEVEL 9.5 MG/DL (8.8-10.2); CARBON DIOXIDE LEVEL 28 MEQ/L (21-32); CHLORIDE LEVEL 106 MEQ/L (98-107); CREATININE FOR GFR 0.71 MG/DL (0.55-1.30); GLOMERULAR FILTRATION RATE > 60.0 (>32); GLUCOSE, FASTING 93 MG/DL (70-100); POTASSIUM SERUM 4.3 MEQ/L (3.5-5.1); SODIUM LEVEL 140 MEQ/L (136-145)
[2021-03-23] MEDS: DOCUSATE SODIUM 100MG CAPSULE PO SCH (08:38)
[2021-03-23] MEDS: LABETALOL 200 MG TAB PO SCH (08:38)
[2021-03-23] MEDS: ATORVASTATIN 20 MG TAB PO SCH (08:38)
[2021-03-23] MEDS: NORTRIPTYLINE 25 MG CAP PO SCH (08:38)
[2021-03-23] MEDS: VITAMIN D 1,000 INTERNATIONAL UNITS TABLET PO SCH (08:38)
[2021-03-23] MEDS: DICLOFENAC EPOLAMINE 1.3 % PATCH TOP SCH (08:38)
[2021-03-23] MEDS: predniSONE 10 MG TAB PO SCH (08:39)
[2021-03-23] MEDS: SPIRONOLACTONE 12.5MG PER 1/2 TABLET PO SCH (08:39)
[2021-03-23] MEDS: ACETAMINOPHEN 500 MG TAB PO SCH (08:39)
[2021-03-23] MEDS: LACTOBACILLUS ACIDOPHILUS CAP (BACID) PO SCH ×2 (08:39→11:58)
[2021-03-23] MEDS: PANTOPRAZOLE 40MG TAB (PROTONIX) PO SCH (08:39)
[2021-03-23] MEDS: guaiFENesin 200 MG TAB PO SCH (08:39)
[2021-03-23] MEDS: OCUVITE 1 TAB PO SCH (08:39)
[2021-03-23] MEDS: **hydrALAZINE** 50 MG TAB PO SCH ×2 (08:40→13:35)
[2021-03-23] MEDS: SALIVA SUBSTITUTE(MOUTHKOTE) BTL MT SCH ×2 (08:40→13:00)
[2021-03-23] MEDS: ENOXAPARIN 40MG/0.4ML SYRINGE (J1650 PER 10MG) SC SCH (08:40)
[2021-03-23] MEDS: amLODIPine 5 MG TAB PO SCH (08:40)
[2021-03-23] MEDS: RESTASIS OU SCH (08:41)
[2021-03-23] MEDS: ANALGESIC BALM CRM 3OZ TOP SCH (08:41)
[2021-03-23] MEDS: REMEDY PHYTOPLEX Z-GUARD PASTE 113GM TUBE (FROM STOREROOM PRODUCT) TOP SCH (08:42)
[2021-03-23] MEDS: MAALOX 30 ML SUSP *UDC PO PRN (10:44)
[2021-03-23] MEDS ORDERED: AMLO1TAB24 PO ×2 (11:52→13:53)
[2021-03-23] MEDS ORDERED: NORT25CA2 PO ×2 (11:52→13:53)
[2021-03-23] MEDS ORDERED: PANT40TA29 PO ×2 (11:52→13:53)
[2021-03-23] MEDS ORDERED: LABE20TAB PO ×2 (11:52→13:53)
[2021-03-23] MEDS ORDERED: HYDR50TA PO ×2 (11:52→13:53)
[2021-03-23] MEDS ORDERED: ATOR40TA75 PO ×2 (11:52→13:53)
[2021-03-23] MEDS ORDERED: PRED10TA2 PO ×2 (11:52→13:53)
[2021-03-23] MEDS ORDERED: SYNT112T2 PO ×2 (11:52→13:54)
[2021-03-23] MEDS ORDERED: ALDA25TA2 PO ×2 (11:52→13:53)
[2021-03-23 13:30] VITALS: BP 162/73
[2021-03-23 13:35] VITALS: BP 162/73
== END 2021-03-23 14:35 | disposition home or self-care (01) | DRG 74 ==
LOC: M PM&R 03-09 01:10
PROVIDERS: ADMIT Physical Medicine & Rehabilitation; ATTEND Physical Medicine & Rehabilitation
DX: G62.0 Drug-induced polyneuropathy (principal); R47.01 Aphasia; N39.0 Urinary tract infection, site not specified; N13.30 Unspecified hydronephrosis; E27.40 Unspecified adrenocortical insufficiency; M87.052 Idiopathic aseptic necrosis of left femur; T38.0X5A Adverse effect of glucocorticoids and synthetic analogues, initial encounter; I10 Essential (primary) hypertension; E78.5 Hyperlipidemia, unspecified; M19.90 Unspecified osteoarthritis, unspecified site; E03.9 Hypothyroidism, unspecified; M16.12 Unilateral primary osteoarthritis, left hip; R53.1 Weakness; E55.9 Vitamin D deficiency, unspecified; R41.89 Other symptoms and signs involving cognitive functions and awareness; B96.20 Unspecified Escherichia coli [E. coli] as the cause of diseases classified elsewhere; I95.1 Orthostatic hypotension; Z85.3 Personal history of malignant neoplasm of breast; Z74.09 Other reduced mobility; Z74.1 Need for assistance with personal care; Z90.49 Acquired absence of other specified parts of digestive tract; Z79.52 Long term (current) use of systemic steroids; Z79.899 Other long term (current) drug therapy

== ENCOUNTER → 2021-05-12 | Outpatient (REF) | payer MEDICARE ==
[~2021-05-12] MED LIST changes: +ALDA25TA2 PO; +HYDR50TA PO; +NORT25CA2 PO; +PANT40TA29 PO; +SYNT112T2 PO
== END ==
LOC: M LAB REF 16:20
PROVIDERS: ATTEND Internal Medicine
DX: N39.0 Urinary tract infection, site not specified (principal)

== ENCOUNTER → 2022-03-12 | Outpatient (REF) | payer MEDICARE ==
[~2022-03-12] MED LIST changes: -D31000TA2 PO; +VITA100093 PO
== END ==
LOC: M LAB REF 12:15
PROVIDERS: ATTEND Internal Medicine
DX: R32 Unspecified urinary incontinence (principal); R35.1 Nocturia; R30.0 Dysuria

== ENCOUNTER → 2024-11-28 | Outpatient (REF) | payer MEDICARE ==
[~2024-11-28] MED LIST changes: -HYDR50TA PO; +HYDR50TA47 PO
== END ==
LOC: M LAB REF 14:11
PROVIDERS: ATTEND Internal Medicine
DX: N39.0 Urinary tract infection, site not specified (principal)